=== PATIENT | female | born 2005 | race Caucasian/White ===

== ENCOUNTER → 2023-05-13 02:52 | Outpatient (CLI) | payer MEDICAID, SELFPAY ==
--- NOTE | 2023-05-13 | DI.US_ITS ---
Exam(s) US PELVIS TRANSVAGINAL EXAM: US PELVIS TRANSVAGINAL CLINICAL HISTORY: IUD CHECK,PAIN WITH INTERCOURSE,N94.10,Z30.431 TECHNIQUE: Ultrasound of the pelvis was performed both transabdominal and transvaginal. COMPARISON: No exams were available for comparison FINDINGS: UTERUS: Anteverted Measures 7.2 cm length x 3.2 cm AP x 3.8 cm wide. There are no uterine fibroids. Endometrial thickness measures 5 mm. There is an IUD in the uterus but it is located low in the uterus with the superior aspect of the IUD approximately 3 cm below the fundus level and extending into the upper endocervical canal. CERVIX: As above. RIGHT OVARY: Measures 4 x 1.8 x 2.4 cm No significant cysts nor masses evident in the right ovary. LEFT OVARY: Measures 3.6 x 2.7 x 2.4 cm No significant cysts nor masses evident in the left ovary. CUL-DE-SAC: No free fluid evident. IMPRESSION: 1. The T-shaped IUD is is not in satisfactory position, lying within the lower uterine segment and wi th proximal aspect in the endocervical canal. Requires repositioning. 2. Endometrial stripe thickness is normal and there is no fluid in the endometrial canal. No fibroid s evident 3. No abnormal adnexal findings. No free fluid in the cul-de-sac. DATA REPOSITORY:
== END ==
PROVIDERS: Visit Provider Advanced Practice Midwife
DX: N94.10 Unspecified dyspareunia (principal); Z30.431 Encounter for routine checking of intrauterine contraceptive device
CPT/HCPCS: 76830; 76856

== ENCOUNTER 2023-07-02 13:11 | Emergency (ER) | payer MEDICAID, SELFPAY ==
[2023-07-02 13:14] VITALS: BP 150/76; PULSE 62; RESP 16; TEMP 36.6; O2SAT 99
--- NOTE | 2023-07-02 13:30 | DI.MRI_ITS ---
Exam(s) MR LUMBAR SPINE WO EXAM: MR LUMBAR SPINE WO CLINICAL HISTORY: LUMBAR PAIN. TECHNIQUE: Multiplanar multisequence MRI of the Lumbar spine was performed. COMPARISON: No exams were available for comparison FINDINGS: Conus medullaris is at normal level. There is no evidence of conus mass nor subjacent clumping of in trathecal nerve roots to suggest arachnoiditis. The distal thecal sac appears unremarkable.There is no evidence of Tarlov intrasacral cysts nor other significant findings within the sacral canal Bones:There are no fractures nor ominous osseous lesions in the lumbar vertebral bodies and visualize d sacrum. With respect to the individual levels... T12-L1: Unremarkable L1-2: Normal disc height and signal. No disc herniation nor central canal stenosis.No foraminal steno sis L2-3: Normal disc height. No disc herniation nor central canal stenosis.No foraminal stenosis.No face t arthropathy. L3-4: Normal disc height. No disc herniation or central canal stenosis.No foraminal stenosis.No face t arthropathy. L4-5: Normal disc height and signal. No disc herniation or canal stenosis. No foraminal stenosis. No facet arthropathy. L5-S1: Normal disc height and signal. No disc herniation or central canal stenosis. No foraminal st enosis. Facet joints unremarkable. Soft tissues: paraspinal soft tissues appear unremarkable. IMPRESSION: No significant findings on this MRI scan of the lumbosacral spine. Called by myself to ER. DATA REPOSITORY:
[2023-07-02 13:45] LABS: Bilirubin Negative (Negative); Blood Negative (Negative); Clarity Clear (Clear); Glucose Negative (Negative); Ketones Trace mg/dL (Negative); Leukocyte Esterase Negative (Negative); Nitrite Negative (Negative); Specific Gravity 1.025 (1.005-1.025)
--- NOTE | 2023-07-02 13:48 | ED.GENADUL_ITS ---
Discharge Plan Disposition Patient Disposition: Home Discharge Details Clinical Impression: Back pain, IUD complication Primary Care Provider: Unknown,Unknown ED Provider: Charis Tabares Home Meds and New Rx's Prescriptions: No Action Adbry 150 mg/mL syringe 300 mg subcut Q2W Rx Instructions: administer as 2 consecutive 150 mg injections Discharge Instructions Instructions: Back Pain (ED) Additional Instructions: Take Motrin every 6 hours as needed for discomfort. Please follow-up with [facility] for IUD removal HPI General Date/Time Provider Initiated Documentation: 07/02/23 13:12 . Limitations to Documentation: no limitations . Information obtained by: patient . HPI Narrative: 18-year-old female without significant past medical history presents for evaluation of back pain. Reports that she had an injury recently and says that she has back pain, worse with walking. States that sometimes she does not feel like she needs to pee until it is too late. She has had 1 episode of incontinence. She states that she cannot feel it when she does pain. She denies any bowel incontinence or weakness of her legs. She also reports that h er IUD is very painful and wants it removed. 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 no focal neurologic deficits, sensation intact, strength normal bilateral lower extremities Appropriate mood and affect Course Vital Signs Vital signs: Vital Signs Temperature 36.6 C 07/02/23 13:14 Pulse 62 07/02/23 13:14 Respiratory Rate 16 07/02/23 13:14 Blood Pressure 150/76 H 07/02/23 13:14 Pulse Oximetry 99 07/02/23 13:14 Temperature 36.6 C 07/02/23 13:14 Temperature Source Oral 07/02/23 13:14 Pulse 62 03/22/24 13:14 Respiratory Rate 16 07/02/23 13:14 Respiratory Effort Normal 07/02/23 13:19 Blood Pressure 150/76 H 07/02/23 13:14 Blood Pressure Position Sitting 07/02/23 13:14 Pulse Oximetry 99 07/02/23 13:14 Oxygen Delivery Method Room Air 07/02/23 13:14 Oxygen Flow Rate 0 07/02/23 13:14 Pain Level 5 07/02/23 13:19 Lab/Test Results Lab/Test Results: Laboratory Tests Range/Units 07/02/23 13:39 Urine Color (Yellow) Yellow Urine Clarity (Clear) Clear Urine pH (5-8) 7.0 Ur Specific Model (1.005-1.025) 1.025 Urine Protein (Neg-Trace) mg/dL Trace Urine Ketones (Negative) mg/dL Trace H Urine Blood (Negative) Negative Urine Nitrite (Negative) Negative Urine Bilirubin (Negative) Negative Urine Urobilinogen (Up to 0.2) mg/dL 1.0 H Ur Leukocyte Esterase (Negative) Negative Urine Glucose (Negative) mg/dL Negative POC- Test(urine) Negative Medical Decision Making Emergent evaluation of back pain. Patient is reporting symptoms of sensory change and possible incontinence in setting of back pain. I doubt an acute cauda equina, but I am able to get an MRI today so we will evaluate given her reported symptoms. She is wanting her IUD removed, but I have requested that the patient return to her [facility] provider for this. So that she can talk about alternative forms of control. A urinalysis was obtained and this did not reveal any signs of infection. The MRI did not reveal any acute abnormalities. Advised Motrin as needed for back pain. Follow-up with [facility], and PCP for management of ongoing symptoms. Medical Records Medical records reviewed: Yes I reviewed the patient's medical records. Quality:SDOH Health Related Social Needs: No Data to Display PFSH All Active Problems IUD complication (Acute) Back pain (Acute) Social History Smoking/Tobacco Use Status: Never Smoking risk assessment performed?: Yes Alcohol Intake: never Substance use type: does not use Do you feel safe at home: Yes
[2023-07-02 16:25] VITALS: BP 150/76; PULSE 62; RESP 16; TEMP 36.6; O2SAT 99
== END 2023-07-02 18:27 | disposition home or self-care (01) ==
PROVIDERS: Emergency Provider Emergency Medicine
DX: T83.84XA Pain due to genitourinary prosthetic devices, implants and grafts, initial encounter (principal); M54.50 Low back pain, unspecified
CPT/HCPCS: 99284; 72148; 81003

== ENCOUNTER → 2023-07-07 03:07 | Outpatient (CLI) | payer MEDICAID, SELFPAY ==
--- NOTE | 2023-07-07 10:10 | DI.US_ITS ---
Exam(s) US PELVIS TRANSVAGINAL EXAM: US PELVIS TRANSVAGINAL CLINICAL HISTORY: HEAVY MENSES,EXPELLING IUD,? FIBROID TECHNIQUE: Transabdominal and transvaginal imaging was performed using standard protocol. COMPARISON: US US PELVIS TRANSVAGINAL from 05/13/2023 MR MR LUMBAR SPINE WO from 07/02/2023 FINDINGS: UTERUS: Anteverted. 7.5 x 3.3 x 4.3 cm Endometrium: 7 mm . IUD no longer present. Myometrium: Unremarkable. Cervix: Unremarkable. OVARIES: Right: Cyst or mass: None. Left: Cyst or mass: None. DOPPLER: Color: Symmetric and uniform flow to both ovaries. No hyperemia. CUL-DE-SAC: Free fluid: Small amount of fluid in cul-de-sac and right adnexa. IMPRESSION: 1. Normal-appearing uterus with endometrial stripe within normal limits. IUD no longer present. 2. Unremarkable bilateral ovaries. DATA REPOSITORY:
== END ==
PROVIDERS: Visit Provider Advanced Practice Midwife
DX: R10.2 Pelvic and perineal pain (principal); N92.5 Other specified irregular menstruation
CPT/HCPCS: 76830; 76856

== ENCOUNTER → 2023-10-01 00:07 | Outpatient (CLI) | payer MEDICAID, SELFPAY ==
--- NOTE | 2023-10-01 | DI.MRI_ITS ---
Exam(s) MR LOWER JOINT RT WO EXAM: MR LOWER JOINT RT WO CLINICAL HISTORY: R KNEE PAIN, MCL SPRAIN OF R KNEE, ACHILLES TEND. M25.561, S83.411A M76.61 TECHNIQUE: Multiplanar multisequence MRI was performed without intravenous contrast. COMPARISON: No exams were available for comparison FINDINGS: BONES/JOINTS: No fracture or contusion pattern. No bone lesions identified. The talar dome is smooth. The ankle mortise is maintained. No joint effusion is present. LIGAMENTS: The tibiofibular and calcaneofibular ligaments are intact. The talofibular ligaments are i ntact. The deltoid ligament is intact. The syndesmosis is unremarkable. Sinus tarsi is normal. MUSCULOTENDINOUS STRUCTURES: Achilles tendon: Minimal intermediate signal distally consistent with tendinosis. No focal tear visi ble. Plantar fascia: Unremarkable. Anterior Extensor tendons: Unremarkable. Posterior Tibialis: Unremarkable. Flexor Digitorum longus: Unremarkable. Flexor Hallucis longus: Unremarkable. Peroneus longus: Unremarkable. Peroneus brevis:Unremarkable. SOFT TISSUES: Unremarkable. IMPRESSION: Minimal intermediate signal in the distal Achilles tendon consistent with tendinosis. No focal tear visible. DATA REPOSITORY:
--- NOTE | 2023-10-01 | DI.MRI_ITS ---
Exam(s) MR LOWER JOINT LT WO EXAM: MR LOWER JOINT LT WO CLINICAL HISTORY: R KNEE PAIN, MCL SPRAIN OF R KNEE, ACHILLES TEND. M25.561, S83.411A M76.61 TECHNIQUE: Multiplanar multisequence MRI was performed without intravenous contrast. COMPARISON: MR MR LOWER JOINT RT WO from 10/01/2023 FINDINGS: BONES/JOINTS: No fracture or contusion pattern. No bone lesions identified. The talar dome is smooth. The ankle mortise is maintained. No joint effusion is present. LIGAMENTS: The tibiofibular and calcaneofibular ligaments are intact. The talofibular ligaments are i ntact. The deltoid ligament is intact. The syndesmosis is unremarkable. Sinus tarsi is normal. MUSCULOTENDINOUS STRUCTURES: Achilles tendon: Minimal amount of intermediate signal in the distal Achilles tendon. Small amount o f adjacent fluid. Findings consistent with tendinosis. No focal tear visible. Plantar fascia: Unremarkable. Anterior Extensor tendons: Unremarkable. Posterior Tibialis: Unremarkable. Flexor Digitorum longus: Unremarkable. Flexor Hallucis longus: Unremarkable. Peroneus longus: Unremarkable. Peroneus brevis:Unremarkable. SOFT TISSUES: Unremarkable. IMPRESSION: Mild distal Achilles tendinosis. No evidence of focal tear. DATA REPOSITORY:
--- OUTSIDE RECORDS SUMMARY | 2023-10-01 00:09 | XMS_ITS | Continuity of Care Document ---
Author Name Unknown Organization [facility] Address [address] [place] [address] Care Team Providers Care Gaming Cage Cashier Name Role Phone Dana Perry Primary Care Physician [phone] Encounter [facility] Date(s): 08/03/22 - 08/03/[address] [facility] [address] [place] [address] [place] Encounter Diagnosis Back pain, lumbosacral(Discharge Diagnosis) - 08/03/22 Discharge Disposition: Home or Self Care Attending Physician: Jason Escamilla MD Admitting Physician: Jason Escamilla MD Allergies, Adverse Reactions, Alerts No Known Allergies Functional Status 08/03/22 Other exposure to Infectious Disease Non e Medications cyclobenzaprine 5 mg oral tablet 5 mg = 1 tab, Oral, TID, PRN as needed for muscle spasm, X 7 days, # 21 tab, 0 Refill(s), 08/10/22 18:41:00 EDT, Pharmacy: [id number], 183, cm, 08/03/22 16:43:00 EDT, Height/Length Dosing,120, kg, 08/03/22 16:43:00 EDT, Weight Dosing Start Date: 08/03/22 Stop Date: 08/10/22 Status: Ordered Mental Status 08/03/22 Eye Opening Response Zoran Spontaneous ly Best Verbal Response [place] Oriented Best Motor Response Zoran Obeys comman ds Pres[place] Coma Score 15 Vital Signs Most recent to oldest [Reference Range]: 1 2 Temperature Temporal Artery [36-38 Deg C ] 36.6 Deg C (08/03/22 4:31 PM) Peripheral Pulse Rate [60-100 bpm] 80 bp m (08/03/22 4:31 PM) Respiratory Rate [12-24 br/min] 16 br/mi n (08/03/22 4:31 PM) Blood Pressure [90-140/60-90 mmHg] 131/5 8mmHg (08/03/22 6:01 PM) 155/86mmHg *HI* (08/03/22 4:31 PM) Weight Dosing 120.00 kg (08/03/22 4:43 PM) Weight Estimated 120.00 kg (08/03/22 4:31 PM) Height/Length Dosing 183.000 cm (08/03/22 4:43 PM) Height/Length Estimated 183.000 cm (08/03/22 4:31 PM) Social History Social History Type Response Tobacco Never tobacco user T obacco Use:. Sex Hospital Discharge Instructions Patient Education 08/03/2022 17:38:29 Acute Back Pain, Adult Acute Back Pain, Adult Acute back pain is sudden and usually short-lived. It is often caused by an injury to the muscles and tissues in the back. The injury may result from: ??? A muscle, tendon, or ligament getting overstretched or torn. Ligaments are tissues that connectbones to each other. Lifting something improperly can cause a back strain. ??? Wear and tear (degeneration) of the spinal disks. Spinal disks are circular tissue that providecushioning between the bones of the spine (vertebrae). ??? Twisting motions, such as while playing sports or doing yard work. ??? A hit to the back. ??? Arthritis. You may have a physical exam, lab tests, and imaging tests to find the cause of your pain. Acute back pain usually goes away with rest and home care. Follow these instructions at home: Managing pain, stiffness, and swelling ??? Take nrvd-nle-normigd and prescription medicines only as told by your health care provider. Treatment may include medicines for pain and inflammation that are taken by mouth or applied to the skin, or muscle relaxants. ??? Your health care provider may recommend applying ice during the first 24???48 hours after your pain starts. To do this: ??? Put ice in a plastic bag. ??? Place a towel between your skin and the bag. ??? Leave the ice on for 20 minutes, 2???3 times a day. ??? Remove the ice if your skin turns bright red. This is very important. If you cannot feel pain, heat, or cold, you have a greater risk of damage to the area. ??? If directed, apply heat to the affected area as often as told by your health care provider. Usethe heat source that your health care provider recommends, such as a moist heat pack or a heating pad. ??? Place a towel between your skin and the heat source. ??? Leave the heat on for 20???30 minutes. ??? Remove the heat if your skin turns bright red. This is especially important if you are unable to feel pain, heat, or cold. You have a greater risk of getting burned. Activity ??? Do not stay in bed. Staying in bed for more than 1???2 days can delay your recovery. ??? Sit up and stand up straight. Avoid leaning forward when you sit or hunching over when you stand. ??? If you work at a desk, sit close to it so you do not need to lean over. Keep your chin tucked in. Keep your neck drawn back, and keep your elbows bent at a 90-degree angle (right angle). ??? Sit high and close to the steering wheel when you drive. Add lower back (lumbar) support to your car seat, if needed. ??? Take short walks on even surfaces as soon as you are able. Try to increase the length of time you walk each day. ??? Do not sit, drive, or independent consultant one place for more than 30 minutes at a time. Sitting or standing for long periods of time can put stress on your back. ??? Do not drive or use heavy machinery while taking prescription pain medicine. ??? Use proper lifting techniques. When you bend and lift, use positions that put less stress on your back: ??? Bend your knees. ??? Keep the load close to your body. ??? Avoid twisting. ??? Exercise regularly as told by your health care provider. Exercising helps your back heal fasterand helps prevent back injuries by keeping muscles strong and flexible. ??? Work with a physical therapist to make a safe exercise program, as recommended by your health care provider. Do any exercises as told by your physical therapist. Lifestyle ??? Maintain a healthy weight. Extra weight puts stress on your back and makes it difficult to havegood posture. ??? Avoid activities or situations that make you feel anxious or stressed. Stress and anxiety increase muscle tension and can make back pain worse. Learn ways to manage anxiety and stress, such as through exercise. General instructions ??? Sleep on a firm mattress in a comfortable position. Try lying on your side with your knees slightly bent. If you lie on your back, put a pillow under your knees. ??? Keep your head and neck in a straight line with your spine (neutral position) when using electronic equipment like smartphones or pads. To do this: ??? Raise your smartphone or pad to look at it instead of bending your head or neck to look down. ??? Put the smartphone or pad at the level of your face while looking at the screen. ??? Follow your treatment plan as told by your health care provider. This may include: ??? Cognitive or behavioral therapy. ??? Acupuncture or massage therapy. ??? Meditation or yoga. Contact a health care provider if: ??? You have pain that is not relieved with rest or medicine. ??? You have increasing pain going down into your legs or buttocks. ??? Your pain does not improve after 2 weeks. ??? You have pain at night. ??? You lose weight without trying. ??? You have a fever or chills. ??? You develop nausea or vomiting. ??? You develop abdominal pain. Get help right away if: ??? You develop new bowel or bladder control problems. ??? You have unusual weakness or numbness in your arms or legs. ??? You feel faint. These symptoms may represent a serious problem that is an emergency. Do not wait to see if the symptoms will go away. Get medical help right away. Call your local emergency services (911 in the [place] Do not drive yourself to the hospital. Summary ??? Acute back pain is sudden and usually short-lived. ??? Use proper lifting techniques. When you bend and lift, use positions that put less stress on your back. ??? Take ceom-jbj-keskudo and prescription medicines only as told by your health care provider, andapply heat or ice as told. This information is not intended to replace advice given to you by your health care provider. Make sure you discuss any questions you have with your health care provider. Document Revised: 06/20/2021 Document Reviewed: 06/20/2021 [employer] Patient Education ?? 2021 [employer]. Follow Up Care 08/03/2022 16:31:48 With:Follow up with primary care provider Address: When:2 to 4 days Emergency department Discharge instructions * Jason Escamilla MD: PERFORM Event Display: ED Discharge Information Authored Date: [id number] KATELYN WADE :2005 Age:17 years Sex:Female Visit Date:08/03/2022 Discharge Instructions We would like to thank you for allowing us to assist you with your healthcare needs. The following includes patient education materials and information regarding your injury/illness. Diagnosis from Today's Visit Back pain, lumbosacral Discharge Vitals Temperature??(Temporal Artery) 97.9 ??F (36.6 ??C) Heart Rate??(Peripheral) 80 Respiratory Rate?? 16 Blood Pressure?? 131/58?? Height?? 72.05 in (183.000 cm) Weight??(Estimated) 264.60 lb (120.00 kg) Allergies No Known Allergies What to Do Next Instructions from Your Care Team Thank you for coming to the emergency department today, it has been a pleasure to take care of you.??As we discussed, the x-rays on your low back and sacrum??did not show any broken bones, subluxations, or dislocations.?? You may continue to take an anti-inflammatory medication (eg ibuprofen 600 mg 3 times a day with food??or naproxen 500 mg twice a day with food, both for maximum of about 7 days)??in addition to the prescribed muscle relaxer to help with any muscle spasm.?? If this is just a sprain/strain, your symptoms should gradually improve over the next several days although make??takeseveral weeks to completely resolve.?? If you do have any new or concerning symptoms including any new numbness, tingling, weakness, abdominal pain or pelvic pain??or have any other concerns, would recommend repeat evaluation in the emergency department or with your primary care physician??for likely further imaging. You Need to Schedule the Following Appointments Follow Up with??Follow up with primary care provider When:??Within 2 to 4 days You were treated today on an emergency basis; it may be lal to contact your primary care provider to notify them of your visit today. You may have been referred to your regular doctor or a specialist, please follow up as instructed. If your condition worsens or you can't get in to see the doctor, contact the Emergency Department. Medications What How Much When Instructions Next Dose New cyclobenzaprine (cyclobenzaprine 5 mg oral tablet) 1 tab Oral (given by mouth) 3 times a day as needed for as needed for muscle spasm Duration: 7 Days Pickup at [facility] Pharmacy Information [facility]: [address] [phone] Education Materials Acute Back Pain, Adult Acute back pain is sudden and usually short-lived. It is often caused by an injury to the muscles and tissues in the back. The injury may result from: ? A muscle, tendon, or ligament getting overstretched or torn. Ligaments are tissues that connect bones to each other. Lifting something improperly can cause a back strain. ? Wear and tear (degeneration) of the spinal disks. Spinal disks are circular tissue that provide cushioning between the bones of the spine (vertebrae). ? Twisting motions, such as while playing sports or doing yard work. ? A hit to the back. ? Arthritis. You may have a physical exam, lab tests, and imaging tests to find the cause of your pain. Acute back pain usually goes away with rest and home care. Follow these instructions at home: Managing pain, stiffness, and swelling ? Take ghuh-vts-syycrxy and prescription medicines only as told by your health care provider. Treatment may include medicines for pain and inflammation that are taken by mouth or applied to the skin, or muscle relaxants. ? Your health care provider may recommend applying ice during the first 24???48 hours after your painstarts. To do this: ? Put ice in a plastic bag. ? Place a towel between your skin and the bag. ? Leave the ice on for 20 minutes, 2???3 times a day. ? Remove the ice if your skin turns bright red. This is very important. If you cannot feel pain, heat, or cold, you have a greater risk of damage to the area. ? If directed, apply heat to the affected area as often as told by your health care provider. Use theheat source that your health care provider recommends, such as a moist heat pack or a heating pad. ? Place a towel between your skin and the heat source. ? Leave the heat on for 20???30 minutes. ? Remove the heat if your skin turns bright red. This is especially important if you are unable to feel pain, heat, or cold. You have a greater risk of getting burned. Activity ? Do not stay in bed. Staying in bed for more than 1???2 days can delay your recovery. ? Sit up and stand up straight. Avoid leaning forward when you sit or hunching over when you stand. ? If you work at a desk, sit close to it so you do not need to lean over. Keep your chin tucked in. Keep your neck drawn back, and keep your elbows bent at a 90-degree angle (right angle). ? Sit high and close to the steering wheel when you drive. Add lower back (lumbar) support to your car seat, if needed. ? Take short walks on even surfaces as soon as you are able. Try to increase the length of time you walk each day. ? Do not sit, drive, or independent consultant one place for more than 30 minutes at a time. Sitting or standing for long periods of time can put stress on your back. ? Do not drive or use heavy machinery while taking prescription pain medicine. ? Use proper lifting techniques. When you bend and lift, use positions that put less stress on your back: ? Bend your knees. ? Keep the load close to your body. ? Avoid twisting. ? Exercise regularly as told by your health care provider. Exercising helps your back heal faster andhelps prevent back injuries by keeping muscles strong and flexible. ? Work with a physical therapist to make a safe exercise program, as recommended by your health care provider. Do any exercises as told by your physical therapist. Lifestyle ? Maintain a healthy weight. Extra weight puts stress on your back and makes it difficult to have good posture. ? Avoid activities or situations that make you feel anxious or stressed. Stress and anxiety increase muscle tension and can make back pain worse. Learn ways to manage anxiety and stress, such as through exercise. General instructions ? Sleep on a firm mattress in a comfortable position. Try lying on your side with your knees slightlybent. If you lie on your back, put a pillow under your knees. ? Keep your head and neck in a straight line with your spine (neutral position) when using electronicequipment like smartphones or pads. To do this: ? Raise your smartphone or pad to look at it instead of bending your head or neck to look down. ? Put the smartphone or pad at the level of your face while looking at the screen. ? Follow your treatment plan as told by your health care provider. This may include: ? Cognitive or behavioral therapy. ? Acupuncture or massage therapy. ? Meditation or yoga. Contact a health care provider if: ? You have pain that is not relieved with rest or medicine. ? You have increasing pain going down into your legs or buttocks. ? Your pain does not improve after 2 weeks. ? You have pain at night. ? You lose weight without trying. ? You have a fever or chills. ? You develop nausea or vomiting. ? You develop abdominal pain. Get help right away if: ? You develop new bowel or bladder control problems. ? You have unusual weakness or numbness in your arms or legs. ? You feel faint. These symptoms may represent a serious problem that is an emergency. Do not wait to see if the symptoms will go away. Get medical help right away. Call your local emergency services (911 in the [place] Do not drive yourself to the hospital. Summary ? Acute back pain is sudden and usually short-lived. ? Use proper lifting techniques. When you bend and lift, use positions that put less stress on your back. ? Take pmfp-wrl-ncokecm and prescription medicines only as told by your health care provider, and apply heat or ice as told. This information is not intended to replace advice given to you by your health care provider. Make sure you discuss any questions you have with your health care provider. Document Revised: 06/20/2021 Document Reviewed: 06/20/2021 [employer] Patient Education ?? 2021 [employer] Patient/Respiratory Practitioner Signature Patient Name:KATELYN WADE I have received this information and my questions have been answered. Patient/Respiratory Practitioner Name: Patient/Respiratory Practitioner Signature: Relationship to Patient: Witness Name/Signature: Date: Electronically Signed on: 08/03/2022 18:42 EDTSigned by:RALPH Emergency department Note * Ewelina Batres: PERFORM Event Display: ED Notes Authored Date: [id number] Patient Care team information Care Team Personnel Name: Dana Perry Position: No Access Member Role: Primary Care Physician Address: Address: [address] [place] [id number] [place] [address] Name: Katarina Decker Position: Nurse Member Role: ED Nurse Name: Jason Escamilla MD Position: Physician Member Role: Admitting Physician Address: Address: [address] [place] [address] [address] [place] [address] [place] Care Team Related Persons Name: CHUCK LI
== END ==
PROVIDERS: Visit Provider Physician Assistant
DX: M76.62 Achilles tendinitis, left leg (principal); M76.61 Achilles tendinitis, right leg
CPT/HCPCS: 73721

== ENCOUNTER → 2023-10-05 01:57 | Outpatient (CLI) | payer MEDICAID, SELFPAY ==
--- OUTSIDE RECORDS SUMMARY | 2023-10-05 01:59 | XMS_ITS ---
Author Name Unknown Address [address], [place] [phone] Phone Organization Unknown Address [address] [place] [phone] Phone Care Team Providers Care Occupational Analyst Name Role Phone JONESJuly Attending Unavailable SRIDEVI Alex Primary Unavailable Social History Type Status Start Date End Date Code Code Syst em Sex Female Hospital Discharge Instructions Should you have any questions prior to discharge, please contact a member of your healthcare team. If you have left the hospital and have any questions, please contact your primary care physician. Reason For Referral No Data Found Procedures Procedure Name Date Status Code Code Syste m Removal, Non-Biodegradable D rug Delivery Implant 11/04/2022 completed 21394 CPT Insertion, Intrauterine Device 11/04/2022 completed 10250 CPT Problems Problem Start Date Resolved Date Status Code Code System POTS 11/03/2022 resolved 918256080 SNOMED-CT Allergies and Adverse Reactions Allergy Substance Reaction Severity Start Date Concern Status Co de Code System No Known Drug Allergies Active 083647895 SNOMED-CT Plan of Treatment No Data Found Encounters Encounter Diagnosis Start Date Code Code Sys tem Encounter for insertion of i ntrauterine contraceptive device 11/04/2022 SNOMED-CT Personal Care Team Section Performer Name Performer Role Active Date Inactive Da te
--- OUTSIDE RECORDS SUMMARY | 2023-10-05 01:59 | XMS_ITS ---
Author Name Unknown Address [address], [place] [phone] Phone Organization Unknown Address [address] [place] [phone] Phone Care Team Providers Care Human Factors Ergonomist Name Role Phone HALEY Gama Attending Unavailable SRIDEVI Alex Primary Unavailable Results CHLAMYDIA/GC AMPLIFIED PROBE * - Collect Date/Time: 10/29/2022 16:17 [facility] ID: [id number] [address] [place] [address], [id number] LOINC: 99053-2 Test Value Unit Reference Range Code Code System Flag Chlamydia Result Negative Negative GC Result Negative Negative HIV 1/2 ANTIGEN AND ANTIBODY SCREEN - Collect Date/Time: 10/29/2022 16:17 [facility] ID: [id number] [address] [place] [address], [id number] LOINC: 79579-2 Test Value Unit Reference Range Code Code System Flag HIV 1/2 Antigen andAntibody Negative Negative HEP B SURF ANTIGEN* - Colle t Date/Time: 10/29/2022 16:17 [facility] ID: [id number] [address] [place], [place], [id number] LOINC: 5196-1 Test Value Unit Reference Range Code Code System Flag Hep B Surface Ag Negative Negative HEP C ANTIBODY WITH REFLEX P CR - Collect Date/Time: 10/29/2022 16:17 [facility] ID: [id number] [address] [place], [place], [id number] LOINC: 68769-8 Test Value Unit Reference Range Code Code System Flag Hep C Ab w Rfx PCR Negative Negative SYPHILIS SEROLOGY* - Collect Date/Time: 10/29/2022 16:17 [facility] ID: [id number] [address] [place], [place], [id number] LOINC: 49955-4 Test Value Unit Reference Range Code Code System Flag Syphilis Serology Negative Negative Social History Type Status Start Date End Date Code Code Syst em Sex Female Hospital Discharge Instructions Should you have any questions prior to discharge, please contact a member of your healthcare team. If you have left the hospital and have any questions, please contact your primary care physician. Reason For Referral No Data Found Problems Problem Start Date Resolved Date Status Code Code System POTS 11/03/2022 resolved [id number] SNOMED-CT Allergies and Adverse Reactions Allergy Substance Reaction Severity Start Date Concern Status Co de Code System No Known Drug Allergies Active 094451279 SNOMED-CT Plan of Treatment No Data Found Encounters Encounter Diagnosis Start Date Code Code Sys tem Venereal disease screening 10/29/2022 [id number] S NOMED-CT Personal Care Team Section Performer Name Performer Role Active Date Inactive Da robinson
--- OUTSIDE RECORDS SUMMARY | 2023-10-05 01:59 | XMS_ITS ---
Author Name Unknown Address [address], [place] [phone] Phone Organization Unknown Address [address] [place] [phone] Phone Care Team Providers Care Icing Maker Name Role Phone BLESSING OREILLY Registered Nurse Unavailable CHETAN Brown Attending Unavailable SRIDEVI Alex Primary Unavailable Social History Type Status Start Date End Date Code Code Syst em Sex Female Vital Signs Vital Sign Value Unit [place] Value [place] Unit Date/Time Recent/Initial? Code Code System Body Mass Index 35.77 kg/m2 11/03/2022 20:30 Initial 02525 -5 [facility] Body Mass Index Percentile 97 % 11/03/2022 20:30 Initial 11321 -9 [facility] Systolic Blood Pressure 139 mm[Hg] 11/03/2022 20:30 Initial 8480- 6 [facility] Diastolic Blood Pressure 95 mm[Hg] 11/03/2022 20:30 Initial 8462- 4 [facility] Body Surface Area 2.49 m2 11/03/2022 20:30 Initial 3140- 1 [facility] Height 183.997 6 cm 72.44 in 11/03/2022 20:30 Initial 8302- 2 [facility] O2 Saturation 100 % 2022 20:30 Initial 86248 -5 [facility] Pulse 72.0 /min 11/03/2022 20:30 Initial 8867- 4 [facility] Respiration 16 /min 11/04/19 20:30 Initial 9279- 1 [facility] Temperature 37.0 Alicia 98.6 F 11/04/19 20:30 Initial 8310- 5 [facility] Weight 121.11 kg 267.00 lbs 11/03/2022 20:30 Initial 04308 -7 [facility] Hospital Discharge Instructions Should you have any questions prior to discharge, please contact a member of your healthcare team. If you have left the hospital and have any questions, please contact your primary care physician. Reason For Referral No Data Found Problems Problem Start Date Resolved Date Status Code Code System POTS 11/03/2022 resolved 970292484 SNOMED-CT Allergies and Adverse Reactions Allergy Substance Reaction Severity Start Date Concern Status Co de Code System No Known Drug Allergies Active 258302837 SNOMED-CT Plan of Treatment No Data Found Encounters Encounter Diagnosis Start Date Code Code Sys tem Procedure on integumentary system 11/03/2022 1347809 04 SNOMED-CT Personal Care Team Section Performer Name Performer Role Active Date Inactive Da te
--- OUTSIDE RECORDS SUMMARY | 2023-10-05 02:00 | XMS_ITS ---
Author Name Unknown Address [address] [place], [place] [phone] Phone Organization Unknown Address [address] [place] [phone] Phone Care Team Providers Care Net C Developer Name Role Phone HALEY Gama Attending Unavailable SRIDEVI Alex Primary Unavailable Social [...] Status Code Code System POTS 11/03/2022 resolved [id number] SNOMED-CT Allergies and Adverse Reactions Allergy Substance Reaction Severity Start Date Concern Status Co de Code System No Known Drug Allergies Active 556787630 SNOMED-CT Plan of Treatment No Data Found Encounters Encounter Diagnosis Start Date Code Code Sys tem Intrauterine device check 11/05/2022 831232899 SN OMED-CT Personal Care Team Section Performer Name Performer Role Active Date Inactive Da robinson
--- NOTE | 2023-10-05 15:15 | DI.US_ITS ---
Exam(s) US SOFT TISSUE EXTREMITY EXAM: US SOFT TISSUE EXTREMITY CLINICAL HISTORY: LT UPPER ARM AT SITE OF NEXPLANON, EVAL FOR ABSCESS, SWELLING R22.32. TECHNIQUE: Ultrasound was performed using standard protocol. COMPARISON: No exams were available for comparison FINDINGS: Sonographic assessment utilizing grayscale and color Doppler imaging was performed and targeted to th e area of clinical concern. There is fluid seen around the Nexplanon device. The fluid collection measures IV 4.2 x 0.6 by 1.2 c m.. There is some hyperemia in the area which could indicate superimposed infection or inflammation. IMPRESSION: Fluid around Nexplanon device which could indicate superimposed infection or inflammation. DATA REPOSITORY:
== END ==
PROVIDERS: Visit Provider Nurse Practitioner Family
DX: R22.32 Localized swelling, mass and lump, left upper limb (principal); M79.89 Other specified soft tissue disorders
CPT/HCPCS: 76881

== ENCOUNTER 2023-10-18 15:22 | Emergency (ER) | payer MEDICAID, SELFPAY ==
[2023-10-18 15:27] VITALS: BP 129/57; PULSE 65; RESP 14; TEMP 36.6; O2SAT 99
--- OUTSIDE RECORDS SUMMARY | 2023-10-18 15:33 | XMS_ITS ---
Author Name Unknown Address [address] [place], [place] [phone] Phone Organization Unknown Address [address] [place] [phone] Phone Care Team Providers Care Parts Consultant Name Role Phone HALEY Gama Attending Unavailable SRIDEIV Alex Primary Unavailable Social History Type Status [...] Status Code Code System POTS 11/03/2022 resolved [id number] SNOMED-CT Allergies and Adverse Reactions Allergy Substance Reaction Severity Start Date Concern Status Co de Code System No Known Drug Allergies Active 808039674 SNOMED-CT Plan of Treatment No Data Found Encounters Encounter Diagnosis Start Date Code Code Sys tem Intrauterine device check 11/05/2022 055171736 SN OMED-CT Personal Care Team Section Performer Name Performer Role Active Date Inactive Da robinson
--- OUTSIDE RECORDS SUMMARY | 2023-10-18 15:33 | XMS_ITS ---
Author Name Unknown Address [address] [place], [place] [phone] Phone Organization Unknown Address [address] [place] [phone] Phone Care Team Providers Care Window Cleaner Name Role Phone BLESSING OREILLY Registered Nurse Unavailable CHETAN Brown Attending Unavailable SRIDEVI Alex Primary Unavailable Social History Type Status Start Date End Date Code Code Syst em Sex Female Vital Signs Vital Sign Value Unit Princeton Value Princeton Unit Date/Time Recent/Initial? Code Code System Body Mass Index 35.77 kg/m2 11/03/2022 20:30 Initial 62214 -5 [facility] Body Mass Index Percentile 97 % 11/03/2022 20:30 Initial 96500 -9 [facility] Systolic Blood Pressure 139 mm[Hg] 11/03/2022 20:30 Initial 8480- 6 [facility] Diastolic Blood Pressure 95 mm[Hg] 11/03/2022 20:30 Initial 8462- 4 [facility] Body Surface Area 2.49 m2 11/03/2022 20:30 Initial 3140- 1 [facility] Height 183.997 6 cm 72.44 in 11/03/2022 20:30 Initial 8302- 2 [facility] O2 Saturation 100 % 2022 20:30 Initial 79011 -5 [facility] Pulse 72.0 /min 11/03/2022 20:30 Initial 8867- 4 [facility] Respiration 16 /min 11/04/19 20:30 Initial 9279- 1 [facility] Temperature 37.0 Alicia 98.6 F 11/04/19 20:30 Initial 8310- 5 [facility] Weight 121.11 kg 267.00 lbs 11/03/2022 20:30 Initial 26140 -7 [facility] Hospital Discharge Instructions Should you have any questions prior to discharge, please contact a member of your healthcare team. If you have left the hospital and have any questions, please contact your primary care physician. Reason For Referral No Data Found Problems Problem Start Date Resolved Date Status Code Code System POTS 11/03/2022 resolved [id number] SNOMED-CT Allergies and Adverse Reactions Allergy Substance Reaction Severity Start Date Concern Status Co de Code System No Known Drug Allergies Active 928195777 SNOMED-CT Plan of Treatment No Data Found Encounters Encounter Diagnosis Start Date Code Code Sys tem Procedure on integumentary system 11/03/2022 6795481 04 SNOMED-CT Personal Care Team Section Performer Name Performer Role Active Date Inactive Da te
--- OUTSIDE RECORDS SUMMARY | 2023-10-18 15:33 | XMS_ITS ---
Author Name Unknown Address [address] [place], [place] [phone] Phone Organization Unknown Address [address] [place] [phone] Phone Care Team Providers Care Marine Diesel Technician Name Role Phone JONESJuly Attending Unavailable SRIDEVI [...] Non-Biodegradable D rug Delivery Implant 11/04/2022 completed 02099 CPT Insertion, Intrauterine Device 11/04/2022 completed 57675 CPT Problems Problem Start Date Resolved Date Status Code Code System POTS 11/03/2022 resolved 462451691 SNOMED-CT Allergies and Adverse Reactions Allergy Substance Reaction Severity Start Date Concern Status Co de Code System No Known Drug Allergies Active 235844257 SNOMED-CT Plan of Treatment No Data Found Encounters Encounter Diagnosis Start Date Code Code Sys tem Encounter for insertion of i ntrauterine contraceptive device 11/04/2022 SNOMED-CT Personal Care Team Section Performer Name Performer Role Active Date Inactive Da te
--- OUTSIDE RECORDS SUMMARY | 2023-10-18 15:33 | XMS_ITS ---
Author Name Unknown Address [address] [place] [phone] Phone Organization Unknown Address [address] [place] [phone] Phone Care Team Providers Care Digital Media Designer Name Role Phone HALEY Gama Attending Unavailable SRIDEVI Alex Primary Unavailable Results CHLAMYDIA/GC AMPLIFIED PROBE * - Collect Date/Time: 10/29/2022 16:17 ID: [id number] [address] [place] [address], [id number] LOINC: 16894-0 Test Value Unit Reference Range Code Code System Flag Chlamydia Result Negative Negative GC Result Negative Negative HIV 1/2 ANTIGEN AND ANTIBODY SCREEN - Collect Date/Time: 10/29/2022 16:17 ID: [id number] [address] [place] [address], [id number] LOINC: 01065-2 Test Value Unit Reference Range Code Code System Flag HIV 1/2 Antigen andAntibody Negative Negative HEP B SURF ANTIGEN* - Colle t Date/Time: 10/29/2022 16:17 ID: [id number] [address] [place] [address], [id number] LOINC: 5196-1 Test Value Unit Reference Range Code Code System Flag Hep B Surface Ag Negative Negative HEP C ANTIBODY WITH REFLEX P CR - Collect Date/Time: 10/29/2022 16:17 ID: [id number] [address] [place], [place], [id number] LOINC: 97024-5 Test Value Unit Reference Range Code Code System Flag Hep C Ab w Rfx PCR Negative Negative SYPHILIS SEROLOGY* - Collect Date/Time: 10/29/2022 16:17 ID: [id number] [address] [place], [place], [id number] LOINC: 11705-8 Test Value Unit Reference Range Code Code [...] Status Code Code System POTS 11/03/2022 resolved 505960930 SNOMED-CT Allergies and Adverse Reactions Allergy Substance Reaction Severity Start Date Concern Status Co de Code System No Known Drug Allergies Active 382906574 SNOMED-CT Plan of Treatment No Data Found Encounters Encounter Diagnosis Start Date Code Code Sys tem Venereal disease screening 10/29/2022 946993194 S NOMED-CT Personal Care Team Section Performer Name Performer Role Active Date Inactive Da robinson
[2023-10-18 17:11] VITALS: BP 129/57; PULSE 65; RESP 14; TEMP 36.6; O2SAT 99
[2023-10-18] MEDS: Lidocaine 1% Multi-Dose W/EPI 1/100,000 50 ML VIAL (17:12)
--- NOTE | 2023-10-18 22:02 | ED.GENADUL_ITS ---
Discharge Plan Disposition Patient Disposition: Home Condition: Stable Discharge Details Clinical Impression: Abscess of arm, left Primary Care Provider: Unknown,Unknown ED Provider: Fany Carmen Home Meds and New Rx's Prescriptions: Continued Adbry 150 mg/mL syringe 300 mg subcut Q2W Rx Instructions: administer as 2 consecutive 150 mg injections Discharge Instructions Instructions: Abscess Incision and Drainage ED Additional Instructions: warm compresses 5 min every hour tonight dressing changes as saturated light massage remove wick in 72 hours , unless it falls out earlier return with spreading redness, fever, worsening pain Discharge Data Discharge Date/Time-TO BE ENTERED AT DEPARTURE: 10/18/23 17:12 HPI General Date/Time Provider Initiated Documentation: 10/18/23 16:16 . HPI Narrative: This 18-year-old female presents with report of left upper arm swelling and pain. Had a Nexplanon placed. On July 05, 2023. Had an ultrasound several weeks ago that displayed a possible abscess. [facility] to [facility] this removed and was sent here for incision and drainage of abscess. Denies fever or chills. Denies any chance of . Related Data Home Medications Medication Instructions Recorded Confirmed tralokinumab-ldrm 150 mg/mL 300 mg subcut Q2W 07/02/23 07/02/23 subcutaneous syringe (Adbry) Allergies Allergy/AdvReac Type Severity Reaction Status Date / Time No Known Allergies Allergy Unverified 10/18/23 15:32 General Stated Complaint: Cellulitis STEFANO: 3 Exam Narrative Exam Narrative: Abscess noted to left upper extremity, with palpable Nexplanon, fluctuance, mild overlying erythema without lymphangitis Course Vital Signs Vital signs: Vital Signs Temperature 36.6 C 10/18/23 15:27 Pulse 65 10/18/23 15:27 Respiratory Rate 14 10/18/23 15:27 Blood Pressure 129/57 L 10/18/23 15:27 Pulse Oximetry 99 10/18/23 15:27 Temperature 36.6 C 10/18/23 17:11 Temperature Source Skin 10/18/23 17:11 Pulse 65 10/18/23 17:11 Respiratory Rate 14 10/18/23 17:11 Respiratory Effort Normal 10/18/23 17:10 Blood Pressure 129/57 L 10/18/23 17:11 Blood Pressure Position Sitting 10/18/23 17:11 Pulse Oximetry 99 10/18/23 17:11 Oxygen Delivery Method Room Air 10/18/23 17:11 Oxygen Flow Rate 0 10/18/23 17:11 Pain Level 0 10/18/23 17:11 Comment 8 w/ palpation to LT arm 10/18/23 17:11 Procedures Abscess I/D Site: Upper Extremity Side (if applicable): Left Sedation/analgesia: None Local Anesthetic: Lidocaine 1% and With Epi Amount of anesthesia used (mL): 3 Technique: Incised with #11 Blade Amount of fluid expressed (mL): 3 Irrigation: Yes Packing used?: Iodoform Medical Decision Making 18-year-old female presenting with abscess to left upper extremity, palpable fluctuance, incision and drainage performed Nexplanon removed at patient's request. She is aware that she does not currently have any hormonal contraception protection. She specifically asked me to remove the Nexplanon. Tolerated procedure without incident, wick placed which will need to be removed in 72 hours. No indication for antibiotics, no lymphangitis or significant cellulitis, will continue with warm compresses. Warm return precautions reviewed and patient is understanding remained neurovascularly intact pre and postprocedure Quality:SDOH Health Related Social Needs: No Data to Display PFSH All Active Problems (Updated 10/18/23 @ 17:06 by YUKI Sepulveda) Abscess of arm, left (Acute) Social History Smoking/Tobacco Use Status: Never Smoking risk assessment performed?: Yes Alcohol Intake: never Substance use type: does not use Do you feel safe at home: Yes
== END 2023-10-18 17:12 | disposition home or self-care (01) ==
PROVIDERS: Emergency Provider Physician Assistant
DX: L02.414 Cutaneous abscess of left upper limb (principal)
CPT/HCPCS: 10061; 99283; J2004

== ENCOUNTER 2023-12-01 21:45 | Emergency (ER) | payer MEDICAID, SELFPAY ==
[2023-12-01 21:48] VITALS: BP 145/76; PULSE 81; RESP 15; TEMP 36; O2SAT 98
--- OUTSIDE RECORDS SUMMARY | 2023-12-01 21:55 | XMS_ITS ---
Author Organization Unknown Address [address] [place] [phone] Phone Care Team Providers Care Produce Department Manager Name Role Phone HALEY Gama Attending Unavailable SRIDEVI Alex Primary Unavailable Results CHLAMYDIA/GC AMPLIFIED PROBE * - Collect Date/Time: 10/29/2022 16:17 [facility] ID: [id number] [address] [place] [address], [id number] LOINC: 90803-0 Test Value Unit Reference Range Code Code System Flag Chlamydia Result Negative Negative GC Result Negative Negative HIV 1/2 ANTIGEN AND ANTIBODY SCREEN - Collect Date/Time: 10/29/2022 16:17 [facility] ID: [id number] [address] [place] [address], [id number] LOINC: 73917-1 Test Value Unit Reference Range Code Code System Flag HIV 1/2 Antigen andAntibody Negative Negative HEP B SURF ANTIGEN* - Collec t Date/Time: 10/29/2022 16:17 [facility] ID: [id number] [address] [place] [address], [id number] LOINC: 5196-1 Test Value Unit Reference Range Code Code System Flag Hep B Surface Ag Negative Negative HEP C ANTIBODY WITH REFLEX P CR - Collect Date/Time: 10/29/2022 16:17 [facility] ID: [id number] [address] [place] [address], [id number] LOINC: 28214-3 Test Value Unit Reference Range Code Code System Flag Hep C Ab w Rfx PCR Negative Negative SYPHILIS SEROLOGY* - Collect Date/Time: 10/29/2022 16:17 [facility] ID: [id number] [address] [place], [place], [id number] LOINC: 14990-7 Test Value Unit Reference Range Code Code [...] Status Code Code System POTS 11/03/2022 resolved 242327020 SNOMED-CT Allergies and Adverse Reactions Allergy Substance Reaction Severity Start Date Concern Status Co de Code System No Known Drug Allergies Active 748383498 SNOMED-CT Plan of Treatment No Data Found Encounters Encounter Diagnosis Start Date Code Code Sys tem Venereal disease screening 10/29/2022 635477430 S NOMED-CT Personal Care Team Section Performer Name Performer Role Active Date Inactive Da te
--- OUTSIDE RECORDS SUMMARY | 2023-12-01 21:56 | XMS_ITS ---
Author Organization Unknown Address [address] [place] [phone] Phone Care Team Providers Care Vacuum Repairer Name Role Phone July Attending Unavailable SRIDEVI MENDOZARY Abi Primary Unavailable Social History Type Status Start [...] Non-Biodegradable D rug Delivery Implant 11/04/2022 completed 64651 CPT Insertion, Intrauterine Device 11/04/2022 completed 52144 CPT Problems Problem Start Date Resolved Date Status Code Code System POTS 11/03/2022 resolved 086696465 SNOMED-CT Allergies and Adverse Reactions Allergy Substance Reaction Severity Start Date Concern Status Co de Code System No Known Drug Allergies Active 706688307 SNOMED-CT Plan of Treatment No Data Found Encounters Encounter Diagnosis Start Date Code Code Sys tem Encounter for insertion of i ntrauterine contraceptive device 11/04/2022 SNOMED-CT Personal Care Team Section Performer Name Performer Role Active Date Inactive Da te
--- OUTSIDE RECORDS SUMMARY | 2023-12-01 21:56 | XMS_ITS | Encounter Summary ---
Author Organization [facility] Address [address] [place] [address] Care Team Providers Care Linux System Administrator Name Role Phone Dana Perry PA-C Primary Care Provider [phone] Encounter Details Date Type Department Care Team (Latest Contact Info) Description 11/19/2023 Specialty Pharmacy [facility] [address] [place], [place] [phone] Owen [facility] Refill Coordination Outreach for Dermatology Social History Tobacco Use Types Packs/Day Years Used Date Smoking Tobacco: Never Smokeless Tobacco: Never Alcohol Use Standard Drinks/Week Comments No 0 (1 standard drink = 0.6 oz pur e alcohol) Interpersonal Safety Answer Date Record ed Physically Hurt Never 11/12/2019 Verbally Threaten Not on file 11/12/2019 Sex and Gender Information Value Date Recorded Sex Assigned at Not on file Gender Identity Not on file Sexual Orientation Not on file documented as of this encounter Functional Status Functional Status Response Date of Assess ment Are you deaf or do you have serious difficulty h earing? No 11/23/2021 documented as of this encounter Plan of Treatment Upcoming Encounters Date Type Department Care Team (Late st Contact Info) Description 12/27/2023 10:15 EDT Office Visit [facility] Foot & Ankle Program [place] [address] [place] [address] Beth Carrera NP [address] [place] [address] 01/17/2024 14:10 EDT Office Visit [facility] Dermatology 5th [facility] [address] [place] [address] Jun Le MD [address] [place], [place] [address] documented as of this encounter Visit Diagnoses Not on filedocumented in this encounter Care Teams Linux System Administrator Relationship Specialty Start Date End Date Dana Perry PA-C PCP - General Family Medicine - Primary Care 11/23/21 documented as of this encounter
--- OUTSIDE RECORDS SUMMARY | 2023-12-01 21:56 | XMS_ITS | Encounter Summary ---
Author Organization [facility] Address [address] [place] [address] Care Team Providers Care Banana Expert Name Role Phone Dana Perry PA-C Primary Care Provider [phone] Encounter Details Date Type Department Care Team (Late st Contact Info) Description 11/26/2023 Lab Requisition [facility] Pathology & Laboratory [facility] - [facility] [address] [place] [address] Samreen Daniels NP [address] [facility] [address] [place] [address] Encounter for screening for infections with a predominantly sexual mode of transmission Social History Tobacco Use Types Packs/Day Years [...] Info) Description 12/27/2023 10:15 EDT Office Visit [facility] Foot & Ankle Program - [facility] Replaced by [facility] [address] [place], [place] [phone] Beth Carrera NP [address] [place] [address] 01/17/2024 14:10 EDT Office Visit [facility] Dermatology 5th Floor [facility] [address] [place], [place] [address] Jun Le MD [address] [place], [place] [address] documented as of this encounter Procedures Procedure Name Priority Date/Time Associated Diagnosis Comments HIV 1/2 ANTIGEN AND ANTIBODY, 4TH GENERATION Today 11/26/2023 16:47 EDT Encounter for screening for infections with a predominantly sexual mode of transmission documented in this encounter Results * HIV 1/2 ANTIGEN AND ANTIBODY, 4TH GENERATION (11/26/2023 16:47 EDT) [facility] HIV 1 and 2 Antibody/p24 Antigen, 4th Generation Negative Negative 11/28/2023 12:42 EDT [facility] Comment:If acute HIV-1 infec tion is suspected in a high risk patient, submit plasma specimen for HIV-1 RNA quantitation test. Blood VENOUS BLOOD / Unknown 11/26/2023 16:47 EDT 11/26/2023 20:17 EDT Narrative [facility] - 11/28/2023 12:42 EDT Fourth Generation assay performed on the Siemens Centaur XPT. Samreen Daniels NP IMMUNOLOGY AND SEROL OGY ORDERABLES [facility] [address] [place] [address] documented in this encounter Visit Diagnoses Diagnosis Encounter for screening for infections with a predominantly sexual mode of transmission documented in this encounter Care Teams Banana Expert Relationship Specialty Start Date End Date Dana Perry PA-C PCP - General Family Medicine - Primary Care 11/23/21 documented as of this encounter
--- OUTSIDE RECORDS SUMMARY | 2023-12-01 21:56 | XMS_ITS | Encounter Summary ---
Author Organization [facility] Address [address] [place] [address] Care Team Providers Care Tacker Elastic Band Name Role Phone Dana Perry PA-C Primary Care Provider [phone] Encounter Details Date Type Department Care Team (Late st Contact Info) Description 11/29/[address] [facility] Pathology & Laboratory Medicine - [facility] [address] [place] [address] Samreen Daniels NP [address] [facility] [address] [place], [place] [address] Other abnormality of red blood cells Social History Tobacco Use Types Packs/Day Years [...] Info) Description 12/27/2023 10:[address] [facility] Foot & Ankle Program - [address] [place] [address] Beth Carrera NP [address] [place] [address] 01/17/2024 14:10 EDT Office Visit [facility] Dermatology 5th Floor [facility] [address] [place], [place] [address] Jun Le MD [address] [place], [place] [phone] documented as of this encounter Procedures Procedure Name Priority Date/Time Associated Diagnosis Comments HEMOGLOBINOPATHY AND THALASSEMIA EVALUATION Today 11/26/2023 13:32 EDT Other abnormality of red blood cells documented in this encounter Results * (ABNORMAL) HEMOGLOBINOPATHY AND THALASSEMIA EVALUATION (11/26/2023 13:32 EDT) Hemoglobin A 96.1(L) 96.7 - 97.8 % 12/01/2023 15:55 EDT [facility] Hemoglobin A2 3.9(H) 2.2 - 3.2 % 12/01/2023 15:55 EDT [facility] Comment: Hemoglobin A2 results greater than 3.2% may be consistent with Beta thalassemia. Hemoglobin A2 levels may be decreased in iron deficiency. Hemoglobinopathy Interpretation Interpretation: Slightly elevated HbA2 of 3.9% in the presence of historical microcytosis without anemia raises suspicion for beta-thalassemi a trait. 12/01/2023 15:55 EDT [facility] Comment:Molecular studies ca n be performed for confirmation if clinically necessary. Reviewed by: Ton Ramos MD 12/01/2023 1450 Blood VENOUS BLOOD / Unknown 11/26/2023 13:32 EDT 11/29/2023 15:13 EDT Samreen Daniels PIG MACHINE OPERATOR HELPER CHEMISTRY & BLOOD GA S ORDERABLES [facility] [address] [place], [place] [phone] documented in this encounter Visit Diagnoses Diagnosis Other abnormality of red blood cells documented in this encounter Care Teams Tacker Elastic Band Relationship Specialty Start Date End Date Dana Perry PA-C PCP - General Family Medicine - Primary Care 11/23/21 documented as of this encounter
--- OUTSIDE RECORDS SUMMARY | 2023-12-01 21:56 | XMS_ITS | Clinical Summary ---
Author Organization [facility] Address [address] [place] [address] Care Team Providers Care Steel Crane Operator Name Role Phone Dana Perry PA-C Primary Care Provider [phone] Allergies No known active allergies Medications Medication Sig Dispensed Refills Start Date End Date Status lisdexamfetamine (VYVANSE) 40 mg capsule Take 1 Capsule by mouth every morning. Active spironolactone (ALDACTONE) 100 mg tablet Take 1 Tablet by mouth daily. 30 Tablet 3 05/30/2021 Active ibuprofen (MOTRIN) 600 mg tablet Take 1 Tablet by mouth every 8 hours as needed for Pain. WITH FOOD 60 Tablet 12/21/2021 Active methocarbamoL (ROBAXIN) 500 mg tablet 1-2 tab po q 8 prn- caution sedation 30 Tablet 12/21/2021 Active betamethasone dipropionate (DIPROLENE) 0.05 % ointmentIndications :Rash Apply topically to affected area 2 times daily. For itchiest spots up to 2 weeks. 90 g 3 10/30/2022 Active triamcinolone (KENALOG) 0.1 % ointmentIndications :Rash Apply topically to affected area 2 times daily. Do not apply to face, armpit or groin. 454 g 3 10/30/2022 Active Aluminum Chloride in Alcohol (XERAC AC) 6.25 % solutionIndications :Hyperhidrosis of palms Apply topically at bedtime. To the palms. 60 mL 5 11/25/2022 Active Additional Information Patient not taking.Reported on 12/25/2022 ketoconazole (NIZORAL) 2 % shampooIndications: Seborrheic dermatitis Apply to scalp 1-3 times per week. Leave in for 3-5 minutes then rinse. 120 mL 11 05/05/2023 Active TACRolimus (PROTOPIC) 0.1 % ointmentIndications :Intrinsic atopic dermatitis Apply topically to affected area 2 times daily. For use on the face, underarms, and groin. 60 g 3 05/05/2023 Active fluocinonide (LIDEX) 0.05 % external solutionIndications :Seborrheic dermatitis Apply topically 2 times daily. to scalp. For up to 2 weeks during flare, then max 3 days per week as maintenance. Do not apply to face, armpit or groin. 60 mL 11 05/05/2023 Active botulinum toxin Type A (BOTOX) 100 unit injectionIndication s:Hyperhidrosis Inject 100 Units into the muscle every 12 weeks. 1 Each 1 07/13/2023 Active tralokinumab-ldrm (ADBRY) 150 mg/mL syringeIndications: Atopic dermatitis, unspecified type Inject 2 mL into the skin every 14 days. 12 Each 1 09/30/2023 Active cephalexin (KEFLEX) 500 mg capsule Take 1 Capsule by mouth every 6 hours. 7 days, once every 6 hours Active glycopyrronium tosylate 2.4 % toweletteIndication s:Hyperhidrosis of palms Apply 1 application topically daily. Apply once daily to both hands using a single cloth. Do not touch your eyes after applying 1 Each 11/02/2022 11/02/2023 Additional Information Patient not taking.Reported on 07/09/2023 Active Problems Problem Noted Date Diagnosed Date Pain of finger of right hand 08/23/2018 Eczema 05/31/2009 Encounters Date Type Department Care Team Description 11/29/2023 Lab Requisition [facility] Pathology & Laboratory Medicine [address] [address] Samreen Daniels NP Other abnormality of red blood cells 11/26/2023 Lab Requisition [facility] Pathology & Laboratory Medicine [address] [address] Samreen Daniels NP Encounter for screening for infections with a predominantly sexual mode of transmission 11/26/2023 Lab Requisition [facility] Pathology & Laboratory Medicine [address] [address] Samreen Daniels NP Encounter for screening for infections with a predominantly sexual mode of transmission 11/19/2023 Specialty Pharmacy [facility] [address] [place] [phone] Owen Centeno RPH Refill Coordination Outreach for Dermatology 10/18/2023 Specialty Pharmacy [facility] [address] [place] [phone] Owen Centeno RPH Refill Coordination Outreach for Dermatology 10/18/2023 Specialty Pharmacy [facility] [address] [place] [phone] Owen Centeno RPH Initial Clinical Follow-up (by 6 weeks) for Dermatology, Refill Coordination Outreach for Dermatology 10/11/2023 13:50 EDT Office Visit [facility] Dermatology 5th [place] [address] Jun Le MD Hyperhidrosis (Primary Dx) 10/05/2023 - 10/05/2023 23:59 EDT Hospital Encounter [facility] [place] Discharge Disposition: Home or Self Care 10/01/2023 0:05 EDT - 10/01/2023 23:59 EDT Hospital Encounter [facility] [place] Discharge Disposition: Home or Self Care 10/01/2023 - 10/01/2023 0:04 EDT Hospital Encounter [facility] [place] Discharge Disposition: Home or Self Care 09/30/2023 Telephone [facility] [address] [place] [phone] Chaz Washburn MD Medications Refill 09/30/2023 Specialty Pharmacy [facility] [address] [place] [phone] Owen Centeno RPH Initial Clinical Follow-up (by 6 weeks) for Dermatology, Set up initial fill for Dermatology, Started Benefits Review: CONTACT INSURANCE for Dermatology 09/17/2023 Specialty Pharmacy [facility] [address] [place] [phone] Owen Centeno, [facility] Refill Coordination Outreach for Dermatology, Patient Education for Dermatology 09/14/2023 - 09/14/2023 23:59 EDT Hospital Encounter [facility] [place] Discharge Disposition: Home or Self Care 09/08/2023 Lab Requisition [facility] Pathology & Laboratory Medicine - [facility] [address] [place] [address] Dana Perry PA-C Other specified behavioral and emotional disorders with onset usually occurring in childhood and adolescence from Last 3 Months Immunizations Name Administration Dates Next Due DTaP Vaccine (INFANRIX) <7YO IM 03/06/20 09,08/28/2004,05/08/2004,2003,2003 Hepatitis B 05/08/2004,2003,2003 Hib 08/28/2004, 5,2003,2003 MMR Vaccine SQ 03/06/2009,08/28/2004 Pneumococcal Conjugate (PCV7) <5YO IM ,05/08/2004,2003,2003 Poliovirus Vaccine IPV IM OR SQ 03/06/20 09,05/08/2004,2003,2003 Varicella (Chickenpox) vacci ne (VARIVAX) SQ 03/06/2009,08/28/2004 Medical History Medical History Date Comments Eczema Psoriasis Family History Relation Status Comments Brother Alive Father Alive Maternal Aunt Alive Maternal Grandfather Alive Maternal Grandmother Alive Maternal Uncle Alive Mother Alive Paternal Aunt Alive Paternal Grandfather Alive Paternal Grandmother Alive Paternal Uncle Alive Social History Tobacco Use Types Packs/Day Years Used Date Smoking Tobacco: Never Smokeless Tobacco: Never Tobacco Cessation:Counseling Given: Not Answered Alcohol Use Standard Drinks/Week Comments No 0 (1 standard drink = 0.6 oz pur e alcohol) Interpersonal Safety Answer Date Record ed Physically Hurt Never 11/12/2019 Verbally Threaten Not on file 11/12/2019 Sex and Gender Information Value Date Recorded Sex Assigned at Not on file Gender Identity Not on file Sexual Orientation Not on file Obstetrics History Last Filed Vital Signs Vital Sign Reading Time Taken Comments Blood Pressure 123/56 12/21/2021 1439 EDT Pulse 67 12/21/2021 1439 EDT Temperature 37.2 ??C (98.9 ??F) 12/21/2021 1439 EDT Respiratory Rate 18 12/21/2021 1439 EDT Oxygen Saturation 100% 12/21/2021 1439 EDT Inhaled Oxygen Concentration - - Weight 112 kg (247 lb) 01/18/2018 1121 EDT Height 182.9 cm (6') 08/16/2017 1911 EDT Body Mass Index - - Plan of Treatment Upcoming Encounters Date Type Department Care Team (Late st Contact Info) Description 12/27/2023 10:15 EDT Office Visit [facility] [place] [facility] - [address] [phone] Beth Carrera NP [address] [place] [address] 01/17/2024 14:10 EDT Office Visit [facility] Dermatology 5th Floor [facility] [address], [place] [address] Jun Le MD [address] [place], [place] [phone] Health Maintenance Due Date Last Done Comments Social Determinants Of Healt h (SDOH) 2003 Depression Screening 2015 HPV Vaccines (1 - 3-dose series) 2018 Advance Directive 2021 Lipid Profile Screening (Cholesterol) 18 To 21 2021 Preventive Care Visit 2021 COVID-19 Vaccine (2 - Pfizer risk series) 12/08/2021 11/17/2021 Pertussis (Adult) Immunization 2022 Tetanus (Adult) Immunization 2022 Influenza Immunization (Adul t) (#1) 2024 Chlamydia Screening 11/25/2024 11/26/2023, 09/08/2023, 10/29/2022, Additional history exists Hepatitis B Vaccine Completed 05/08/2004, 2003, 2003 Hepatitis C Screen Completed 10/29/2022 HIV Screening Completed 11/26/2023, 10/29/2022 Procedures Procedure Name Priority Date/Time Associated Diagnosis Comments CHLAMYDIA/N. GONORRHOEAE AMPLIFIED NUCLEIC ACID Today 11/26/2023 17:10 EDT Encounter for screening for infections with a predominantly sexual mode of transmission HIV 1/2 ANTIGEN AND ANTIBODY, 4TH GENERATION Today 11/26/2023 16:47 EDT Encounter for screening for infections with a predominantly sexual mode of transmission HEMOGLOBINOPATHY AND THALASSEMIA EVALUATION Today 11/26/2023 13:32 EDT Other abnormality of red blood cells US OUTSIDE IMAGES BODY Routine 12:21 EDT MR OUTSIDE IMAGES RIGHT LOWER EXTREMITY Routine 10/01/2023 12:22 EDT MR OUTSIDE IMAGES LEFT LOWER EXTREMITY Routine 10/01/2023 12:22 EDT XR OUTSIDE IMAGES BILATERAL LOWER EXTREMITY Routine 09/14/2023 14:40 EDT CHLAMYDIA/N. GONORRHOEAE AMPLIFIED NUCLEIC ACID Today 09/08/2023 17:18 EDT Other specified behavioral and emotional disorders with onset usually occurring in childhood and adolescence HEPATITIS C AB W REFLEX TO HCV RNA BY PCR Routine 10/29/2022 16:17 EDT from Last 3 Months or Most Recently Relevant to Health Maintenance Results * CHLAMYDIA/N. GONORRHOEAE AMPLIFIED NUCLEIC ACID (11/26/2023 17:10 EDT) Only the most recent of2 resultswithin the time period is included. Neisseria gonorrhoeae Result Negative Negative 11/29/2023 12:00 EDT [facility] Chlamydia trachomatis Result Negative Negative 11/29/2023 12:00 EDT [facility] Swab VAGINAL STRUCTURE / Unknown 11/26/2023 17:10 EDT 11/26/2023 22:44 EDT Samreen Daniels NP MICROBIOLOGY - GENER AL ORDERABLES Performing Organization Address [facility]/ZIP Co de Phone Number [facility] [address] [place] [address] * HIV 1/2 ANTIGEN AND ANTIBODY, 4TH GENERATION (11/26/2023 16:47 EDT) HIV 1 and 2 Antibody/p24 Antigen, 4th Generation Negative Negative 11/28/2023 12:42 EDT [facility] Comment:If acute HIV-1 infec tion is suspected in a high risk patient, submit plasma specimen for HIV-1 RNA quantitation test. Blood VENOUS BLOOD / Unknown 11/26/2023 16:47 EDT 11/26/2023 20:17 EDT Narrative [facility] - 11/28/2023 12:42 EDT Fourth Generation assay performed on the Siemens Centaur XPT. Samreen Daniels NP IMMUNOLOGY AND SEROL OGY ORDERABLES Performing Organization Address [facility]/ZIP Co de Phone Number [facility] [address] [place] [address] * (ABNORMAL) HEMOGLOBINOPATHY AND THALASSEMIA EVALUATION (11/26/2023 13:32 EDT) Hemoglobin A 96.1(L) 96.7 - 97.8 % 12/01/2023 15:55 EDT [facility] Hemoglobin A2 3.9(H) 2.2 - 3.2 % 12/01/2023 15:55 EDT [facility] Comment: Hemoglobin A2 results greater than 3.2% may be consistent with Beta thalassemia. Hemoglobin A2 levels may be decreased in iron deficiency. Hemoglobinopathy Interpretation Interpretation: Slightly elevated HbA2 of 3.9% in the presence of historical microcytosis without anemia raises suspicion for beta-thalassemi a trait. 12/01/2023 15:55 EDT [facility] Comment:Molecular studies ca n be performed for confirmation if clinically necessary. Reviewed by: Ton Ramos MD 12/01/2023 1450 Blood VENOUS BLOOD / Unknown 11/26/2023 13:32 EDT 11/29/2023 15:13 EDT Samreen Daniels NP CHEMISTRY & BLOOD GA S ORDERABLES [facility] [address] [place], [place] [phone] * US OUTSIDE IMAGES BODY (10/05/2023 12:21 EDT) Narrative 10/12/2023 12:22 EDT This is a non-reportable exam. External Imaging IMG OTHER IMAGING OR DERABLES * MR OUTSIDE IMAGES RIGHT LOWER EXTREMITY (10/01/2023 12:22 EDT) Narrative 10/12/2023 12:22 EDT This is a non-reportable exam. External Imaging IMG OTHER IMAGING OR DERABLES * MR OUTSIDE IMAGES LEFT LOWER EXTREMITY (10/01/2023 12:22 EDT) Narrative 10/12/2023 12:22 EDT This is a non-reportable exam. External Imaging IMG OTHER IMAGING OR DERABLES * XR OUTSIDE IMAGES BILATERAL LOWER EXTREMITY (09/14/2023 14:40 EDT) Narrative 10/08/2023 14:40 EDT This is a non-reportable exam. External Imaging IMG OTHER IMAGING OR DERABLES * HEPATITIS C AB W REFLEX TO HCV RNA BY PCR (10/29/2022 16:17 EDT) Hep C Antibody Negative Negative 10/30/2022 10:04 EDT [facility] Blood VENOUS BLOOD / Unknown 10/29/2022 16:17 EDT 10/29/2022 21:38 EDT Provider Outr Resulting Lab CHEMISTRY & BLOOD GAS ORDERABLES [facility] [address] [place] [address] from Last 3 Months or Most Recently Relevant to Health Maintenance Care Teams Steel Crane Operator Relationship Specialty Start Date End Date Dana Perry PA-C PCP - General Family Medicine - Primary Care 11/23/21
--- OUTSIDE RECORDS SUMMARY | 2023-12-01 21:56 | XMS_ITS ---
Author Organization Unknown Address [address] [place] [phone] Phone Care Team Providers Care Bridge Maintainer Name Role Phone BLESSING OREILLY Registered Nurse Unavailable CHETAN Brown Attending Unavailable SRIDEVI Alex Primary Unavailable Social History Type Status Start Date End Date Code Code Syst em Sex Female Vital Signs Vital Sign Value Unit Blanco Value Blanco Unit Date/Time Recent/Initial? Code Code System Body Mass Index 35.77 kg/m2 11/03/2022 20:30 Initial 28047 -5 [facility] Body Mass Index Percentile 97 % 11/03/2022 20:30 Initial 87215 -9 [facility] Systolic Blood Pressure 139 mm[Hg] 11/03/2022 20:30 Initial 8480- 6 [facility] Diastolic Blood Pressure 95 mm[Hg] 11/03/2022 20:30 Initial 8462- 4 [facility] Body Surface Area 2.49 m2 11/03/2022 20:30 [facility] 3140- [facility] Height 183.997 6 cm 72.44 in 11/03/2022 20:30 Initial 8302- 2 INC O2 Saturation 100 % 2022 20:30 Initial 56563 -5 [facility] Pulse 72.0 /min 11/03/2022 20:30 Initial 8867- 4 [facility] Respiration 16 /min 11/04/19 20:30 Initial 9279- 1 [facility] Temperature 37.0 Alicia 98.6 F 11/04/19 20:30 Initial 8310- 5 LOINC Weight 121.11 kg 267.00 lbs 11/03/2022 20:30 Initial 72589 -7 [facility] Hospital Discharge Instructions Should you have any questions prior to discharge, please contact a member of your healthcare team. If you have left the hospital and have any questions, please contact your primary care physician. Reason For Referral No Data Found Problems Problem Start Date Resolved Date Status Code Code System POTS 11/03/2022 resolved [id number] SNOMED-CT Allergies and Adverse Reactions Allergy Substance Reaction Severity Start Date Concern Status Co de Code System No Known Drug Allergies Active 654499001 SNOMED-CT Plan of Treatment No Data Found Encounters Encounter Diagnosis Start Date Code Code Sys tem Procedure on integumentary system 11/03/2022 5965100 04 SNOMED-CT Personal Care Team Section Performer Name Performer Role Active Date Inactive Da te
--- OUTSIDE RECORDS SUMMARY | 2023-12-01 21:56 | XMS_ITS | Encounter Summary ---
Author Organization [facility] Address [address] [place] [address] Care Team Providers Care Auto Parts Salesperson Name Role Phone Dana Perry PA-C Primary Care Provider [phone] Encounter Details Date Type Department Care Team (Late st Contact Info) Description 11/26/2023 Lab Requisition [facility] Pathology & Laboratory Medicine - [facility] [address] [place] [address] Samreen Daniels NP [address] [facility] [address] [place] [address] Encounter for screening for infections with a [...] Info) Description 12/27/2023 10:15 EDT Office Visit [facility] Foot & Ankle Program - [facility] [facility] [place], [place] [phone] Beth Carrera NP [address] [place] [address] 01/17/2024 14:10 EDT Office Visit [facility] Dermatology 5th Floor [facility] [address] [place] [address] Jun Le MD [address] [place] [address] documented as of this encounter Procedures Procedure Name Priority Date/Time Associated Diagnosis Comments CHLAMYDIA/N. GONORRHOEAE AMPLIFIED NUCLEIC ACID Today 11/26/2023 17:10 EDT Encounter for screening for infections with a predominantly sexual mode of transmission documented in this encounter Results * CHLAMYDIA/N. GONORRHOEAE AMPLIFIED NUCLEIC ACID (11/26/2023 17:10 EDT) Neisseria gonorrhoeae Result Negative Negative 11/29/2023 12:00 EDT [facility] Chlamydia trachomatis Result Negative Negative 11/29/2023 12:00 EDT [facility] Swab VAGINAL STRUCTURE / Unknown 11/26/2023 17:10 EDT 11/26/2023 22:44 EDT Samreen Daniels NP MICROBIOLOGY - GENER AL ORDERABLES [facility] [address] [place] [address] documented in this encounter Visit Diagnoses Diagnosis Encounter for screening for infections with a predominantly sexual mode of transmission documented in this encounter Care Teams Auto Parts Salesperson Relationship Specialty Start Date End Date Dana Perry PA-C PCP - General Family Medicine - Primary Care 11/23/21 documented as of this encounter
--- OUTSIDE RECORDS SUMMARY | 2023-12-01 21:56 | XMS_ITS ---
Author Organization Unknown Address [address] [place] [phone] Phone Care Team Providers Care Channel Marketing Specialist Name Role Phone HALEY Gama Attending Unavailable [...] Status Code Code System POTS 11/03/2022 resolved [id number] SNOMED-CT Allergies and Adverse Reactions Allergy Substance Reaction Severity Start Date Concern Status Co de Code System No Known Drug Allergies Active 390900716 SNOMED-CT Plan of Treatment No Data Found Encounters Encounter Diagnosis Start Date Code Code Sys tem Intrauterine device check 11/05/2022 125721482 SN OMED-CT Personal Care Team Section Performer Name Performer Role Active Date Inactive Da robinson
--- OUTSIDE RECORDS SUMMARY | 2023-12-01 21:56 | XMS_ITS | Encounter Summary ---
Author Organization [facility] Address [address] [place] [address] Care Team Providers Care Health Sciences Department Chair Name Role Phone Dana Perry PA-C Primary Care Provider [phone] Encounter Details Date Type Department Care Team (Latest Contact Info) Description 10/18/2023 Specialty Pharmacy [facility] [address] [place], [place] [phone] Owen Centeno RPH Initial Clinical Follow-up (by 6 weeks) for Dermatology, Refill Coordination Outreach for Dermatology Social History [...] Info) Description 12/27/2023 10:15 EDT Office Visit [facility] Foot & [facility]le Program [place] [address] [place] [address] Beth Carrera NP [address] [place] [address] 01/17/2024 14:10 EDT Office Visit [facility] Dermatology 5th Floor [facility] [address], [place] [address] Jun Le MD [address] [place], [place] [address] documented as of this encounter Visit Diagnoses Not on filedocumented in this encounter Care Teams Health Sciences Department Chair Relationship Specialty Start Date End Date Dana Perry PA-C PCP - General Family Medicine - Primary Care 11/23/21 documented as of this encounter
--- OUTSIDE RECORDS SUMMARY | 2023-12-01 21:56 | XMS_ITS | Referral Summary ---
Author Organization [facility] Address [address] [place] [address] Care Team Providers Care Hull Line Crew Member Name Role Phone Dana Perry PA-C Primary Care Provider Encounters Date Type Department Care Team Description 11/29/2023 Lab Requisition [facility] Pathology & Laboratory [facility] [address] [place] [address] Samreen Daniels NP Other abnormality of red blood cells 11/26/2023 Lab Requisition [facility] Pathology & Laboratory [facility] [address] [place] [address] Samreen Daniels NP Encounter for screening for infections with a predominantly sexual mode of transmission 11/26/2023 Lab Requisition [facility] Pathology & Laboratory [facility] [address] [place] [address] Samreen Daniels NP Encounter for screening for infections with a predominantly sexual mode of transmission 11/19/2023 Specialty Pharmacy [facility] [address] [place] [phone] Owen Centeno RPH Refill Coordination Outreach for Dermatology 10/18/2023 Specialty Pharmacy [facility] [address] [place] [address] [phone] Owen Centeno RPH Refill Coordination Outreach for Dermatology 10/18/2023 Specialty Pharmacy [facility] [address] [place] [address] [phone] Owen Centeno RPH Initial Clinical Follow-up (by 6 weeks) for Dermatology, Refill Coordination Outreach for Dermatology 10/11/2023 13:50 EDT Office Visit [facility] Dermatology 5th [address] [address] Jun Le MD Hyperhidrosis (Primary Dx) 10/05/2023 - 10/05/2023 23:59 EDT Hospital Encounter [facility] [place] Discharge Disposition: Home or Self Care 10/01/2023 0:05 EDT - 10/01/2023 23:59 EDT Hospital Encounter [facility] [place] Discharge Disposition: Home or Self Care 10/01/2023 - 10/01/2023 0:04 EDT Hospital Encounter [facility] [place] Discharge Disposition: Home or Self Care 09/30/2023 Telephone [facility] [address] [place] [phone] Chaz Washburn MD Medications Refill 09/30/2023 Specialty Pharmacy [facility] [address] [place] [phone] Owen Centeno Julienne Initial Clinical Follow-up (by 6 weeks) for Dermatology, Set up initial fill for Dermatology, Started Benefits Review: CONTACT INSURANCE for Dermatology 09/17/2023 Specialty Pharmacy [facility] [address] [place] [phone] Owen Centeno Julienne Refill Coordination Outreach for Dermatology, Patient Education for Dermatology 09/14/2023 - 09/14/2023 23:59 EDT Hospital Encounter [facility] [place] Discharge Disposition: Home or Self Care 09/08/2023 Lab Requisition [facility] Pathology & Laboratory Medicine [address] [address] Dana Perry PA-C Other specified behavioral and emotional disorders with onset usually occurring in childhood and adolescence from Last 3 Months Allergies No known active allergies Medications Medication [...] to face, armpit or groin. 454 g 10/30/2022 Active Aluminum Chloride in Alcohol (XERAC AC) 6.25 % solutionIndications :Hyperhidrosis of palms Apply topically at bedtime. To the palms. 60 mL 5 11/25/2022 Active Additional Information Patient not taking.Reported on 12/25/2022 ketoconazole (NIZORAL) 2 % shampooIndications: Seborrheic dermatitis Apply to scalp 1-3 times per week. Leave in for 3-5 minutes then rinse. 120 mL 05/05/2023 Active TACRolimus (PROTOPIC) 0.1 % ointmentIndications :Intrinsic atopic dermatitis Apply topically to affected area 2 times daily. For use on the face, underarms, and groin. 60 g 05/05/2023 Active fluocinonide (LIDEX) 0.05 % external solutionIndications :Seborrheic dermatitis Apply topically 2 times daily. to scalp. For up to 2 weeks during flare, then max 3 days per week as maintenance. Do not apply to face, armpit or groin. 60 mL 05/05/2023 Active botulinum toxin Type A (BOTOX) 100 unit injectionIndication s:Hyperhidrosis Inject 100 Units into the muscle every 12 weeks. 1 Each 07/13/2023 Active tralokinumab-ldrm (ADBRY) 150 mg/mL syringeIndications: Atopic dermatitis, unspecified type Inject 2 mL into the skin every 14 days. 12 Each 09/30/2023 Active cephalexin (KEFLEX) 500 mg capsule [...] finger of right hand 08/23/2018 Eczema 05/31/2009 Immunizations Name Administration Dates Next Due DTaP Vaccine (INFANRIX) <7YO IM 03/06/20 09,08/28/2004,05/08/2004,2003,2003 Hepatitis B 05/08/2004,2003,2003 Hib 08/28/2004, 5,2003,2003 MMR Vaccine SQ 03/06/2009,08/28/2004 Pneumococcal Conjugate (PCV7) <5YO IM ,05/08/2004,2003,2003 Poliovirus Vaccine IPV IM OR SQ 03/06/20 09,05/08/2004,2003,2003 Varicella (Chickenpox) vacci ne (VARIVAX) SQ 03/06/2009,08/28/2004 Social History Tobacco Use Types Packs/Day Years [...] on file Sexual Orientation Not on file Last Filed Vital Signs Vital Sign Reading [...] 1911 EDT Body Mass Index - - Functional Status Functional Status Response Date of Assess ment Are you deaf or do you have serious difficulty h earing? No 11/23/2021 Plan of Treatment Upcoming Encounters Date Type Department Care Team (Late st Contact Info) Description 12/27/2023 10:15 EDT Office Visit [facility] Foot & Ankle Program - [facility] [address] [place] [address] Beth Carrera NP [address] [place] [address] 01/17/2024 14:10 EDT Office Visit [facility] Dermatology 5th Floor [facility] [address] [place], [place] [phone] Jun Le MD [address] [place], [place] [phone] Procedures Procedure Name Priority Date/Time Associated Diagnosis [...] gonorrhoeae Result Negative Negative 11/29/2023 12:00 EDT [facility] Chlamydia trachomatis Result Negative Negative 11/29/2023 12:00 EDT [facility] Swab VAGINAL STRUCTURE / Unknown 11/26/2023 17:10 EDT 11/26/2023 22:44 EDT Samreen Daniels NP MICROBIOLOGY - GENER AL ORDERABLES [facility] [address] [place] [phone] * HIV 1/2 ANTIGEN AND ANTIBODY, 4TH GENERATION (11/26/2023 16:47 EDT) HIV 1 and 2 Antibody/p24 Antigen, 4th Generation Negative Negative 11/28/2023 12:42 EDT [facility] Comment:If acute HIV-1 infec tion is suspected in a high risk patient, submit plasma specimen for HIV-1 RNA quantitation test. Blood VENOUS BLOOD / Unknown 11/26/2023 16:47 EDT 11/26/2023 20:17 EDT Narrative [facility] - 11/28/2023 12:42 EDT Fourth Generation assay performed on the Siemens Centaur XPT. Samreen Daniels NP IMMUNOLOGY AND SEROL OGY ORDERABLES [facility] [address] [place] [address] * (ABNORMAL) HEMOGLOBINOPATHY AND THALASSEMIA EVALUATION (11/26/2023 13:32 EDT) Hemoglobin A 96.1(L) 96.7 - 97.8 % 12/01/2023 15:55 EDT [facility] Hemoglobin A2 3.9(H) 2.2 - 3.2 % 12/01/2023 15:55 EDT [facility] Comment: Hemoglobin A2 results greater than 3.2% may be consistent with Beta thalassemia. Hemoglobin A2 levels may be decreased in iron deficiency. Hemoglobinopathy Interpretation Interpretation: Slightly elevated HbA2 of 3.9% in the presence of historical microcytosis without anemia raises suspicion for beta-thalassemi a trait. 12/01/2023 15:55 EDT [facility] Comment:Molecular studies ca n be performed for confirmation if clinically necessary. Reviewed by: Ton Ramos MD 12/01/2023 1450 Blood VENOUS BLOOD / Unknown 11/26/2023 13:32 EDT 11/29/2023 15:13 EDT Samreen Daniels NP CHEMISTRY & BLOOD GA S ORDERABLES Performing Organization Address City/[facility]/ZIP Co de Phone Number [facility] [address] [place], [place] [id number] * US OUTSIDE IMAGES BODY (10/05/2023 12:21 [...] C Antibody Negative Negative 10/30/2022 10:04 EDT [facility] Blood VENOUS BLOOD / Unknown 10/29/2022 16:17 EDT 10/29/2022 21:38 EDT Provider Outr Resulting Lab CHEMISTRY & BLOOD GAS ORDERABLES [facility] [address] [place] [address] from Last 3 Months or Most Recently Relevant to Health Maintenance Care Teams Hull Line Crew Member Relationship Specialty Start Date End Date Dana Perry PA-C PCP - General Family Medicine - Primary Care 11/23/21
--- OUTSIDE RECORDS SUMMARY | 2023-12-01 21:56 | XMS_ITS | Encounter Summary ---
Author Organization [facility] Address [address] [place] [address] Care Team Providers Care Felt Cementer Name Role Phone Dana Perry PA-C Primary Care Provider [phone] Encounter Details Date Type Department Care Team (Latest Contact Info) Description 10/18/2023 Specialty Pharmacy [facility] [address] [place], [place] [phone] Owen Centeno [facility] Refill Coordination Outreach for Dermatology Social History [...] Info) Description 12/27/2023 10:15 EDT Office Visit [facility] Foot & Ankle Program [place] [address] Beth Carrera NP [address] [place] [address] 01/17/2024 14:10 EDT Office Visit [facility] Dermatology 5th Floor [facility] [address] [place] [address] Jun Le MD [address] [place], [place] [address] documented as of this encounter Visit Diagnoses Not on filedocumented in this encounter Care Teams Felt Cementer Relationship Specialty Start Date End Date Dana Perry PA-C PCP - General Family Medicine - Primary Care 11/23/21 documented as of this encounter
--- OUTSIDE RECORDS SUMMARY | 2023-12-01 21:56 | XMS_ITS | Encounter Summary ---
Author Organization [facility] Address [address] [place] [address] Care Team Providers Care Aerial Lineman Name Role Phone Dana Perry PA-C Primary Care Provider [phone] Reason for Visit * Reason Comments Follow-up Botox, hyperhidrosis of palms Encounter Details Date Type Department Care Team (Late st Contact Info) Description 10/11/2023 13:50 EDT Office Visit [facility] Dermatology 5th Floor [facility] [address] [place], [place] [address] Jun Le MD [address] [place], [place] [address] Hyperhidrosis (Primary Dx) Social History Tobacco Use Types Packs/Day Years [...] No 11/23/2021 documented as of this encounter Progress Notes * Jun Le MD - 10/11/2023 1350 EDT Dermatology Resident Clinic Visit Note Chief Complaint Patient presents with Follow-up Botox, hyperhidrosis of palms Dermatologic History: # 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 female who presents for follow up of hyperhidrosis of the palms. States shehad substantial improvement after previous botox treatment that lasted about 2 months. She would like to proceed with treatment again today. OBJECTIVE: Focused cutaneous examination was performed. -palms moist with perspiration ASSESSMENT & PLAN: Hyperhidrosis of the palms -Discussed that expected duration of botox effect is ~3 months. Some patients experience more durable effect with recurrent treatment. -Repeat botox injections today (50U per palm), see procedure note -Return in 3 months PROCEDURE: Botulinum toxin A (BOTOX) injection After verbal consent and discussion of risks/benefits, the bilateral palms were prepped with chlorhexidine. A total 100 units (50 units each palm), reconstituted and 4 mL of normal saline was injected injected intradermally divided into 0.05 mL aliquots evenly distributed approximately 1 to 2 cm apart into bilateral hands and palmar aspect of the fingers. The patient tolerated the procedure with no immediate side effects. The procedure was personally performed by the resident physician. FOLLOW UP: Return in about 3 months (around 01/11/2024) for botox palmar hyperhidrosis. Jun Le MD PGY-4 Dermatology Resident 10/11/2023 14:52 Attestation Statement: I saw and examined the patient with the resident/fellow. I agree with the findings and plan of care documented in the resident's/fellow's note. I was present during the lee andcritical portions of the procedure and agree with the resident's/fellow note. Perry Beckham MD documented in this encounter Plan of Treatment Upcoming Encounters Date Type Department Care Team (Late st Contact Info) Description 12/27/2023 10:15 EDT Office Visit [facility] Foot & Ankle Program - [address] [place], [place] [phone] Beth Carrera NP [address] [place] [address] 01/17/2024 14:10 EDT Office Visit [facility] Dermatology 5th Floor [facility] [address] [place] [address] Jun Le MD [address] [place] [address] documented as of this encounter Visit Diagnoses Diagnosis Hyperhidrosis- Primary Primary focal hyperhidrosis documented in this encounter Administered Medications Inactive Administered Medications - up to 3 most recent administrations Medication Order MAR Action Action Date Dose Rate Site botulinum toxin Type A (BOTOX) injection 100 Units 100 Units, intradermal, NOW X1, 1 dose, On Wed10/11/23 at 1515, Routine Given 10/11/2023 15:15 EDT 100 Units documented in this encounter Historical Medications * This list may reflect changes made after this encounter. Medication Sig Dispensed Refills Start Date End Date cephalexin (KEFLEX) 500 mg capsule Take 1 Capsule by mouth every 6 hours. 7 days, once every 6 hours added in this encounter Care Teams Aerial Lineman Relationship Specialty Start Date End Date Dana Perry PA-C PCP - General Family Medicine - Primary Care 11/23/21 documented as of this encounter
--- OUTSIDE RECORDS SUMMARY | 2023-12-01 21:57 | XMS_ITS | Encounter Summary ---
Author Organization [facility] Address [address] [place] [address] Care Team Providers Care Commercial Subcontractor Name Role Phone Dana Perry PA-C Primary Care Provider [phone] Reason for Visit * Reason Comments Jaw Pain left side, one week ago Encounter Details Date Type Department Care Team (Latest Contact Info) Description 12/21/2021 15:03 EDT - 12/21/2021 16:13 EDT Hospital Encounter [facility] - [address] [phone] Criselda Bejarano MD [address] [place] [phone] Bilateral temporomandibular joint pain (Primary Dx) Discharge Disposition: Home or Self Care Social History Tobacco Use Types Packs/Day Years [...] on file documented as of this encounter Last Filed Vital Signs Vital Sign Reading Time Taken Comments Blood Pressure 123/56 12/21/2021 1439 EDT Pulse 67 12/21/2021 1439 EDT Temperature 37.2 ??C (98.9 ??F) 12/21/2021 1439 EDT Respiratory Rate 18 12/21/2021 1439 EDT Oxygen Saturation 100% 12/21/2021 1439 EDT Inhaled Oxygen Concentration - - Weight - - Height - - Body Mass Index - - documented in this encounter Functional Status Functional Status Response Date of Assess ment Are you deaf or do you have serious difficulty h earing? No 11/23/2021 documented as of this encounter Discharge Instructions * Discharge Instructions* Criselda Bejarano MD - 12/21/2021 16:06 EDT Cyclobenzaprine at bedtime ( 1/2 to 1 tab) Can take 1/2 tab during day every 8 hours if does not make you too sleepy Script for slightly less sedating muscle relaxant- methocarbomal- please fill at your pharmacy Call [facility] and make tele visit with Dana Perry and also in person Integrative Medicine visit/ Acupuncture with Dr. Rebel Martinez (schedule specifically for acupuncture). Cont ibuprofen with food. Continue heat! * Attachments The following attachments cannot be sent through Care Everywhere. * TMD (Temporomandibular Disorder) (Frisian) documented in this encounter Medications at Time of Discharge Medication Sig Dispensed Refills Start Date End Date ibuprofen (MOTRIN) 600 mg tablet Take 1 Tablet by mouth every 8 hours as needed for Pain. WITH FOOD 60 Tablet 12/21/2021 lisdexamfetamine (VYVANSE) 40 mg capsule Take 1 Capsule by mouth every morning. methocarbamoL (ROBAXIN) 500 mg tablet 1-2 tab po q 8 prn- caution sedation 30 Tablet 12/21/2021 spironolactone (ALDACTONE) 100 mg tablet Take 1 Tablet by mouth daily. 30 Tablet 3 05/30/2021 triamcinolone (KENALOG) 0.1 % ointment Apply topically to affected area 2 times daily. To affected skin. Do not apply to face, armpit or groin. 454 g 3 05/30/2021 11/02/2022 documented as of this encounter Ordered Prescriptions Prescription Sig Dispensed Refills Start Date End Da te methocarbamoL (ROBAXIN) 500 mg tablet 1-2 tab po q 8 prn- caution sedation 30 Tablet 12/21/2021 ibuprofen (MOTRIN) 600 mg tablet Take 1 Tablet by mouth every 8 hours as needed for Pain. WITH FOOD 60 Tablet 12/21/2021 documented in this encounter Discharge Disposition Disposition Code Departure Means Destination Home or Self Long Term documented in this encounter ED Notes * Criselda Bejarano MD - 12/21/2021 1613 EDT DOS: 12/21/2021 Chief Complaint: Chief Complaint Patient presents with ??? Jaw Pain left side, one week ago Assessment and Plan 16-year-old woman with bilateral TMJ. No acute trauma, but exacerbation of baseline pain and function. Component of muscle spasm bilaterally. Discussed the role of imaging, and deferred x-ray due to the limitations of the imaging. No indication for referral for urgent CT to the emergency department today. Will do muscle relaxants, continue ibuprofen and heat. She will schedule her follow-up with her primary care provider and can discuss further referral if appropriate to TMJ specialist. Also encouraged mom/patient to contact the [facility] tomorrow. New provider Dr. Ceballos osteopathic manipulation and acupuncture which may be of benefit. Final diagnoses: Bilateral temporomandibular joint pain Procedures No results found for this visit on 12/21/21. Radiology orders: None Consult orders: None Imaging Results None No orders to display The patient is a 16 y.o. female who presents today with Jaw Pain (left side, one week ago) Ms. Umanzor is a healthy 16-year-old with a history of TMJ, who presents with 1 week of severe bilateral jaw pain left greater than right. She reports decreased range of motion. Unable to fully open andunable to fully close. She has been taking ibuprofen without GI upset and without significant relief. She has been using heat. Prior to the onset of symptoms she had pop sensation on the left side of her jaw and when she awokethe next morning range of motion was decreased. She reports no other trauma. She reports ports hypermobile joints. She has been followed by an oral surgeon and previously had a oral appliance. Review of Systems HENT: Negative for sore throat and trouble swallowing. Musculoskeletal: Positive for arthralgias. Skin: Negative for rash. No current facility-administered medications for this encounter. Current Outpatient Medications Medication Sig Dispense Refill ??? ibuprofen (MOTRIN) 600 mg tablet Take 1 Tablet by mouth every 8 hours as needed for Pain. WITH FOOD 60 Tablet 0 ??? lisdexamfetamine (VYVANSE) 40 mg capsule Take 40 mg by mouth every morning. ??? methocarbamoL (ROBAXIN) 500 mg tablet 1-2 tab po q 8 prn- caution sedation 30 Tablet 0 ??? spironolactone (ALDACTONE) 100 mg tablet Take 1 Tablet by mouth daily. 30 Tablet 3 ??? triamcinolone (KENALOG) 0.1 % ointment Apply topically to affected area 2 times daily. To affected skin. Do not apply to face, armpit or groin. 454 g 3 No Known Allergies Patient Active Problem List Diagnosis Date Noted ??? Pain of finger of right hand 08/23/2018 ??? Eczema 05/31/2009 Past Medical History: Diagnosis Date ??? Eczema ??? Psoriasis Social History Tobacco Use ??? Smoking status: Never Smoker ??? Smokeless tobacco: Never Used Substance Use Topics ??? Alcohol use: No ??? Drug use: No No family history on file. BP 123/56 Pulse 67 Temp 98.9 ??F (37.2 ??C) (Temporal) Resp 18 SpO2 100% Physical Exam Constitutional: Appearance: Normal appearance. HENT: Head: Normocephalic and atraumatic. Mouth/Throat: Mouth: Mucous membranes are moist. Comments: Buccal mucosa is moist. Enlarged tonsils bilaterally Eyes: Extraocular Movements: Extraocular movements intact. Musculoskeletal: Comments: Tender at bilateral TMJ joints. Mouth opening about 3 cm. Painful lateral movement right greater than left. Tender palpation of mandible and anterior neck. No deformity. Lymphadenopathy: Head: Right side of head: No submental, submandibular, tonsillar or preauricular adenopathy. Left side of head: No submental, submandibular, tonsillar or preauricular adenopathy. Cervical: No cervical adenopathy. Neurological: General: No focal deficit present. Mental Status: She is alert and oriented to person, place, and time. Psychiatric: Mood and Affect: Mood normal. Behavior: Behavior normal. Thought Content: Thought content normal. Judgment: Judgment normal. PCP: Dana Perry Urgent Care Course A medical screening exam was performed. DISPOSITION: Discharged The patient's pain was managed to an adequate level weighing risk vs. benefit of further medications. Upon departure from [facility], the patient's pain was 5 on a zero to ten scale. Any further pain treatment will be at the discretion of the provider following up with the patient based on their clinical assessment . Condition at departure from the [facility] : Stable MDM Number of Diagnoses or Management Options 12/21/2021 16:13 documented in this encounter Plan of Treatment Upcoming Encounters Date Type Department Care Team (Late st Contact Info) Description 12/27/2023 10:15 EDT Office Visit [facility] Foot & Ankle Program - [address] [phone] Beth Carrera NP [address] [place] [address] 01/17/2024 14:10 EDT Office Visit [facility] Dermatology 5th Floor [facility] [address] [place], [place] [address] Jun Le MD [address] [place], [place] [phone] documented as of this encounter Visit Diagnoses Diagnosis Bilateral temporomandibular joint pain- Primary Arthralgia of temporomandibular joint documented in this encounter Administered Medications Inactive Administered Medications - up to 3 most recent administrations Medication Order MAR Action Action Date Dose Rate Site Cyclobenzaprine 10 mg Tab STARTER PACK 1 Package, oral, NOW X1, 1 dose, On 12/21/21 at 1615, Routine Given 12/21/2021 16:07 EDT 1 Package documented in this encounter Discontinued Medications Medication Sig Discontinue Reason Start Date End Da te ibuprofen (MOTRIN) 200 mg tablet Take 200 mg by mouth every 6 hours. 12/21/2021 documented as of this encounter Active and Recently Administered Medications Times are shown in EDT. Scheduled Medication Order 12/19/2021 12/20/2021 12/21/2021 Cyclobenzaprine 10 mg Tab STARTER PACK (COMPLETED) 1 Package, oral, NOW X1, 1 dose, On 12/21/21 at 1615, Routine 1607 (Given - Provid er: Amy Prescott RN) documented in this encounter Care Teams Commercial Subcontractor Relationship Specialty Start Date End Date Dana Perry PA-C PCP - General Family Medicine - Primary Care 11/23/21 documented as of this encounter
--- OUTSIDE RECORDS SUMMARY | 2023-12-01 21:57 | XMS_ITS | Encounter Summary ---
Author Organization [facility] Address [address] [place] [address] Care Team Providers Care Aeronautical Inspector Name Role Phone Dana Perry PA-C Primary Care Provider Encounter Details Date Type Department Care Team (Latest Contact Info) Description 03/09/2023 Specialty Pharmacy [facility] [address] [place] [address] [id number] Owen Centeno RPH Prospective Review for Dermatology, Patient Education for Dermatology, Refill Coordination Outreach (1 time occurrence) for Dermatology, Started Benefits Review: CONTACT INSURANCE for Dermatology Social History Tobacco Use Types [...] as of this encounter Progress Notes * Owen Centeno RPH - 03/09/2023 1112 EST Specialty Pharmacy Consultation: [facility] Medication Management: New Therapy Consult Telma Umanzor (2005) Diagnosis: atopic dermatitis Therapy Start Date: 03/16/2023 Contact Method: Telephone Telma Umanzor is a 17 y.o. who was contacted in regard to Adbry. A review of the medication therapy was performed. All medication related questions and concerns were addressed. The specialty pharmacy staff will follow up with the patient 7- 10 days prior to next refill. Summary and Recommendations: Telma Umanzor was contacted for a review of Adbry for the treatment of atopic dermatitis. Patient isaware of the prior authorization process and timeline and was given [facility] contact information for any questions. Patient was educated on precautions with Adbry including anaphylaxis /hypersensitivity. Educated patient on the potential side effects of Adbry including injection sitereaction, eye irritation including conjunctivitis, and URTI. The patient was instructed to call theclinic if eye irritation occurs to discuss treatment. Live vaccines are contraindicated with this medication. Discussed with patient that it may take 3-4 months to experience the full benefit of Adbry. A review of dosing, storage, and administration was completed. Patient was educated on the dosing schedule. Patient was made aware that Adbry must be stored in the refrigerator and remains stable at room temperature for 14 days. Patient was advised on proper site rotation, site sterilization, and allowing the medication to reach room temperature prior to injection. Patient was encouraged to schedule an injection teaching appointment if they prefer to have first injection completed with medical oversight and was directed to view additional online video resources if needed. Patient will be provided with a sharps container and disposal of Adbry was discussed. Allergies and Drug intolerance: No Known Allergies Problem List: Patient Active Problem List Diagnosis Eczema Pain of finger of right hand Medications: Current Outpatient Medications Medication Sig Dispense Refill Aluminum Chloride in Alcohol (XERAC AC) 6.25 % solution Apply topically at bedtime. To the palms. (Patient not taking: Reported on 12/25/2022) 60 mL 5 betamethasone dipropionate (DIPROLENE) 0.05 % ointment Apply topically to affected area 2 times daily. For itchiest spots up to 2 weeks. 90 g 3 dupilumab (DUPIXENT PEN) 300 mg/2 mL pen injector pen injector Inject 4 mL into the skin Once for 1dose. Then inject 300mg SC every 14 days starting day 15. (Patient not taking: Reported on 12/25/2022) 4 mL 0 dupilumab (DUPIXENT PEN) 300 mg/2 mL pen injector pen injector Inject 2 mL into the skin every 14 days. (Patient not taking: Reported on 03/09/2023) 12 mL 1 glycopyrronium tosylate 2.4 % towelette Apply 1 application topically daily. Apply once daily to both hands using a single cloth. Do not touch your eyes after applying 1 Each 11 ibuprofen (MOTRIN) 600 mg tablet Take 1 Tablet by mouth every 8 hours as needed for Pain. WITH FOOD60 Tablet 0 lisdexamfetamine (VYVANSE) 40 mg capsule Take 1 Capsule by mouth every morning. methocarbamoL (ROBAXIN) 500 mg tablet 1-2 tab po q 8 prn- caution sedation 30 Tablet 0 spironolactone (ALDACTONE) 100 mg tablet Take 1 Tablet by mouth daily. 30 Tablet 3 TACRolimus (PROTOPIC) 0.1 % ointment Apply topically to affected area 2 times daily. For use on theface, underarms, and groin. 60 g 3 tralokinumab-ldrm (ADBRY) 150 mg/mL syringe Inject 300 mg into the skin every 14 days. 12 mL 1 triamcinolone (KENALOG) 0.1 % ointment Apply topically to affected area 2 times daily. Do not applyto face, armpit or groin. 454 g 3 No current facility-administered medications for this visit. Most Recent Vitals: Ht Readings from Last 1 Encounters: 01/16/11 (!) 149.6 cm (58.9) (>99 %, Z= 3.76)* * Growth percentiles are based on CDC (Girls, 2-20 Years) data. Wt Readings from Last 3 Encounters: 01/18/18 (!) 112 kg (247 lb) (>99 %, Z= 2.72)* 01/16/11 (!) 59.2 kg (130 lb 8.2 oz) (>99 %, Z= 3.26)* 05/31/09 (!) 42.2 kg (93 lb) (>99 %, Z= 3.12)* * Growth percentiles are based on CDC (Girls, 2-20 Years) data. There is no height or weight on file to calculate BMI. Temp Readings from Last 3 Encounters: 12/21/21 37.2 ??C (98.9 ??F) (Temporal) 11/23/21 36.4 ??C (97.6 ??F) 05/31/09 36.6 ??C (97.8 ??F) (Tympanic) BP Readings from Last 3 Encounters: 12/21/21 123/56 11/23/21 130/60 01/18/18 128/62 Pulse Readings from Last 3 Encounters: 12/21/21 67 11/23/21 63 01/16/11 92 Pertinent Lab values: Lab Results Component Value Date NA 140 06/18/2014 K 4.5 06/18/2014 CL 104 06/18/2014 CO2 23 (L) 06/18/2014 BUN 18 (H) 06/18/2014 CREATININE 0.55 06/18/2014 CALCIUM 10.2 (H) 06/18/2014 No results found for: ALT, AST, GGT, ALKPHOS, BILITOT, BILIDIR, PROT, LDLBASE Lab Results Component Value Date WBC 5.51 06/06/2018 HGB 12.5 06/06/2018 HCT 38.9 06/06/2018 MCV 74 (L) 06/06/2018 Immunization History Administered Date(s) Administered DTaP Vaccine (INFANRIX) <7YO IM 2003, 2003, 05/08/2004, 08/28/2004, 03/06/2009 Hepatitis B 2003, 2003, 05/08/2004 Hib 2003, 2003, 05/08/2004, 08/28/2004 MMR Vaccine SQ 08/28/2004, 03/06/2009 Pneumococcal Conjugate (PCV7) <5YO IM 2003, 2003, 05/08/2004, 08/28/2004 Poliovirus Vaccine IPV IM OR SQ 2003, 2003, 05/08/2004, 03/06/2009 Varicella (Chickenpox) vaccine (VARIVAX) SQ 08/28/2004, 03/06/2009 Assessment and Recommendations: Reviewed in detail with patient: Dose appropriateness based on recommended standard dosing Current medication list including OTC medications Medication and disease problems Allergies Comorbid conditions/ Problem List Goals of therapy and management strategies Warnings, precautions, and contraindications Side effects Administration instructions including dose, frequency and method Handling, storage, and disposal Relevant lab data Treatments impact on disease Dose appropriateness based on recommended standard dosing schedule, including any variations from FDA-approved dosing Therapy Assessment: Current Medication Dosing/Route/Frequency: Adbry 150 mg/mL syringes - inject the contents of two syringes subcutaneously every 14 days Appropriate Therapy: Yes Current Affected Areas: neck, stomach, thighs, lower legs, armpits, breasts, face Recent Skin Exacerbations/Flaring: No Recent Topical Corticosteroid Use: Yes - betamethasone, triamcinolone sparingly Expected Outcome: reduction in BSA and dryness Patient's goals: Patient's specific desired goal: reduction in BSA Measured by: patient reported outcomes and provide evaluation Time-frame to meet goal: 3 months Pharmacist follow-up needed: Yes - 6-week follow-up Owen Centeno PharmD Ambulatory Pharmacist Clinician 03/11/2023 10:14 documented in this encounter Plan of Treatment Upcoming Encounters Date Type Department Care Team (Late st Contact Info) Description 12/27/2023 10:15 EDT Office Visit [facility] - [address] [place], [place] [id number] Beth Carrera NP [address] [place] [phone] 01/17/2024 14:10 EDT Office Visit [facility] D[facility] 5th Floor [address] [id number] Jun Le MD [address] [place], [place] [phone] documented as of this encounter Visit Diagnoses Not on filedocumented in this encounter Care Teams Aeronautical Inspector Relationship Specialty Start Date End Date Dana Perry PA-C PCP - General Family Medicine - Primary Care 11/23/21 documented as of this encounter
--- OUTSIDE RECORDS SUMMARY | 2023-12-01 21:57 | XMS_ITS | Encounter Summary ---
Author Organization [facility] Address [address] [place] [address] Care Team Providers Care Blasting Cap Assembler Name Role Phone Dana Perry PA-C Primary Care Provider [phone] Encounter Details Date Type Department Care Team (Late st Contact Info) Description 10/29/2022 Lab Requisition [facility] Pathology & Laboratory Medicine - [facility] [address] [place] [address] Outr Resulting Lab, Provider Social History Tobacco Use Types Packs/Day Years [...] Info) Description 12/27/2023 10:15 EDT Office Visit [facility] - [place] [address] Beth Carrera NP [address] [place] [phone] 01/17/2024 14:10 EDT Office Visit [facility] Dermatology 5th Floor [facility] [address] [place] [address] Jun Le MD [address] [place] [address] documented as of this encounter Procedures Procedure Name Priority Date/Time Associated Diagnosis Comments HIV 1/2 ANTIGEN AND ANTIBODY, 4TH GENERATION Routine 10/29/2022 16:17 EDT documented in this encounter Results * HIV 1/2 ANTIGEN AND ANTIBODY, 4TH GENERATION (10/29/2022 16:17 EDT) HIV 1 and 2 Antibody/p24 Antigen, 4th Generation Negative Negative 10/30/2022 11:06 EDT [facility] Comment:If acute HIV-1 infec tion is suspected in a high risk patient, submit plasma specimen for HIV-1 RNA quantitation test. Blood VENOUS BLOOD / Unknown 10/29/2022 16:17 EDT 10/29/2022 21:38 EDT Narrative [facility] - 10/30/2022 11:06 EDT Fourth Generation assay performed on the Siemens Centaur XPT. Provider Outr Resulting Lab IMMUNOLOGY A ND SEROLOGY ORDERABLES [facility] [address] [place] [address] documented in this encounter Visit Diagnoses Not on filedocumented in this encounter Care Teams Blasting Cap Assembler Relationship Specialty Start Date End Date Dana Perry PA-C PCP - General Family Medicine - Primary Care 11/23/21 documented as of this encounter
--- OUTSIDE RECORDS SUMMARY | 2023-12-01 21:57 | XMS_ITS | Encounter Summary ---
Author Organization [facility] Address [address] [place] [address] Care Team Providers Care Corporate Controller Name Role Phone Dana Perry PA-C Primary Care Provider Reason for Visit * Reason Comments Patch Testing Encounter Details Date Type Department Care Team (Late st Contact Info) Description 11/16/2022 8:15 EDT Nurse Only [facility] Dermatology 5th Floor [facility] [address] [place] [address] Nursing Team, [facility] Dermatology Mohs Contact dermatitis, unspecified contact dermatitis type, unspecified trigger (Primary Dx) Social History Tobacco Use Types [...] No 11/23/2021 documented as of this encounter Patient Instructions * Patient Instructions* Kavita Hastings RN - 11/16/2022 8:15 EDT Patch Testing Patch testing is a type of skin testing that can help to determine if your rash is caused by an allergy to certain chemicals (allergens) that come in contact with the skin. These chemicals may be found in your topical medicines, creams, lotions, soaps, clothing, shoes, jewelry, perfumes, cosmetics,and shampoo. During the test, a small number of allergens (generally less then 45) are placed on your back or upper arms and covered with special hypoallergenic paper tape. You will not receive any injections or needles. This allergy testing is not the same as skin prick testing, which is typicallyperformed by allergists or immunologists. We are not testing for allergies to foods, pollen or other seasonal or environmental allergies. Your doctor may request that you bring all of your topical medications, creams, lotions, and other personal products such as shampoos, hairspray or perfumes to your first visit. This is an extremely important part of the testing. If you do not bring your products, you may have to be rescheduled fortesting at a future date. Before your appointment for patch testing, it is very important that you: 1. DO NOT receive a cortisone injection within one month 2. DO NOT take oral prednisone within two weeks 3. DO NOT apply any cortisone-containing topical creams to your back within one week. Do not apply any type of a cream, ointment or lotion to your back on the morning of your appointment. You may bathe or may shower. You may apply topical medications and moisturizers to other parts ofyour body. When you schedule for patch testing, you will be asked to schedule appointments on a Wednesday, Wednesday, and Wednesday, all in the same week. Wednesday: On the morning of your first appointment, the doctor will examine your skin and decide if patch testing is right for you. If you are sick or have a flare of the rash, you may be asked to reschedule. If the decision is made to do the patch testing, the allergens will be applied during this visit. Allergens are applied in small plastic chambers, which are taped to your back, and sometimes to theupper arms. After the tape is applied, you may not get the area wet until the allergens are removedon Wednesday morning. That means no showering and no physical activity that will cause you to sweat. You also must limit the stretching of your back and arms to avoid loosening the tape. The nurse will sal your back with a purple pen in order to show where the patches were placed. To avoid the possibility of permanently staining your clothing, you should wear a dark-colored top to this appointment, if possible. Wednesday: During the second patch test visit, the tape and allergens will be removed. After this visit, do not apply any type of medicine or cream to the areas on your back or arms where the patcheswere placed. Do not scratch the sites. Keep the patch tested areas dry. Wednesday: This is the most important day of the patch testing. At this time, your doctor will examinethe areas on your back and arms where the patches were placed to see if they have reacted to any ofthe allergens. Positive reactions may look like redness or blisters and are often itchy. The doctorwill give you detailed test results. You will be taught about ways to avoid certain allergens and may be given information about which skin products are ???safe?? to use. During the week of patch testing, you may have some itching or burning at the patch test sites. This discomfort may be caused by a reaction to the tape or to one of the allergens. You may take an antihistamine such as diphenhydramine (Benadryl) if the itching is severe. Benadryl is available without a prescription, but be aware that it may cause drowsiness. If you have severe itching or pain thatis not relieved by Benadryl, please call our office during the day and speak with one of the nurses. After regular office hours, call the hospital and ask to speak to the truck trailer mechanic television and radio repairer. If you develop new red areas or blisters at the patch test site during the week after patch testing, please call us at the office. documented in this encounter Progress Notes * Kavita Hastings RN - 11/16/2022 0815 EDT Images from the original note were not included. SUBJECTIVE: Patient reports no concern. Pain Level: 0 OBJECTIVE: There were no vitals taken for this visit. Test site on back is has hyperpigmentation and scarring which may interfere with test interpretation. Alternate test site of bilateral upper legs chosen Test area is free of oils, lotions, and ointments. Patient denies topical corticosteroid use on back during past 2 weeks. Patient denies oral/systemic corticosteroids use during past 3 weeks. Patient denies sun exposure to back during past 2 weeks PLAN: Patient instructed on patch test placement, side effects, what to expect, and care during test period. Patient verbalized understanding and agrees to have patch test placed. T.R.U.E TEST Panels 1.3, 2.3 and 3.3 placed on upper left thigh. Panel 2.3 had to be repositioned due to tightness of tape on skin to upper right thigh. Medical marking pen used to index the test location at the notches found on the panel. Patch test panels will be removed in 48 hours. Evaluations will be conducted at 48 and 96 hours after application provider. Patient instructed not to get panels wet until after final reading in 96 hours, not to perform any activities that will cause patient to sweat, not to scratch test area, and not to remove patches unless instructed to do so by his/her provider. If itching or burning becomes severe, patient will call office. FOLLOW UP: Patient advised to return for follow-up care as planned. Patch Test instructions given to patient verbally and in writing. Patient verbalized understanding. No barriers to learning. I was directly supervised by Chaz Washburn MD who was in the suite and immediately available for the entire time of service. Patch Test Results 3 Extreme Positive (Coalescing vesicles, bullous reaction) 2 Strong Positive (Erythema, papules, infiltration, discrete vesicles) 1 Weak Positive (Erythema, infiltration, discrete papules) ? Doubtful (Faint macular or homogenous erythema with no infiltration IR Irritant (Discrete, patchy, follicular, or homogenous erythema with no infiltration) N Negative Relevance Results: C - Certain L - Likely U - Unsure N - None Allergen First Read Second Read Relevance Comments Panel 1 1 Nickel sulfate 2 Wool alcohols 3 Neomycin sulfate 4 Potassium dichromate 5 Pacheco mix 6 Fragrance mix 7 Colophony 8 Paraben mix 9 Negative control 10 Balsam of Christopher 11 Ethylenediamine dihydrochloride 12 [place] dichloride Panel 2 13 s-sjjf-edfwzxgtlwy formaldehyde resin 14 Epoxy resin 15 Carba mix 16 Black rubber mix 17 Cl+Me- isothiazolinone 18 Quaternium-15 19 Methyldibromo Glutaronitrile 20 p-phenylenediamine 21 Formaldehyde 22 Mercapto mix 23 Thimerosal 24 Thiuram mix Panel 3 25 Diazolidinyl uera 26 Quinoline mix 27 Vnedqdhan-72-xzyzajqt 28 Gold Sodium Thiosulfate 29 Imidazolidinyl Urea 30 Budesonide 31 Rivquaxktjcdsy-54-Lexgqpcy 32 Mercaptobenzothiazole 33 Bacitracin 34 Parthenolide 35 Disperse Blue 106 36 2-Bromo-2 Ytzhvlntagc-1-7-diol Panel 4 37 38 39 40 41 42 43 44 45 46 Panel 5 47 48 49 50 51 52 53 54 55 56 Panel 6 57 58 59 60 61 62 63 64 65 66 KAVITA HASTINGS RN 11/16/2022 9:14 documented in this encounter Plan of Treatment Upcoming Encounters Date Type Department Care Team (Late st Contact Info) Description 12/27/2023 10:15 EDT Office Visit [facility] Foot [facility]le Program - [address] [place] [address] Beth Carrera NP [address] [place] [phone] 01/17/2024 14:10 EDT Office Visit [facility] Dermatology 5th Floor [facility] [address] [place], [place] [address] Jun Le MD [address] [place] [address] documented as of this encounter Visit Diagnoses Diagnosis Contact dermatitis, unspecified contact dermatitis type, unspecified trigger- Primary documented in this encounter Care Teams Corporate Controller Relationship Specialty Start Date End Date Dana Perry PA-C PCP - General Family Medicine - Primary Care 11/23/21 documented as of this encounter
--- OUTSIDE RECORDS SUMMARY | 2023-12-01 21:57 | XMS_ITS | Encounter Summary ---
Author Organization [facility] Address [address] [place] [address] Care Team Providers Care Outpatient Coder Name Role Phone Dana Perry PA-C Primary Care Provider [phone] Reason for Visit * Reason Comments Follow-up Rash al over body x1 week Encounter Details Date Type Department Care Team (Late st Contact Info) Description 10/30/2022 13:00 EDT Office Visit [facility] Dermatology 3rd Floor [facility] [address], [place] [phone] Jun Allen MD [address] [place], [place] [address] Rash (Primary Dx); Hyperhidrosis of palms Social History Tobacco Use Types Packs/Day Years [...] this encounter Patient Instructions * Patient Instructions* Jun Allen MD - 10/30/2022 13:00 EDT -Betamethasone: for itchiest, most bothersome areas on the body except face, underarms, groin, or skin folds -Triamcinolone: for everywhere else on the body except face, underarms, groin, or skin folds -Tacrolimus: for the face, underarms, groin, skin folds -All of the above are twice per day. Do not use betamethasone dipropionate or triamcinolone for more than 2 weeks straight. If still needed after that time, decrease use to 3 days per week max -Glycopyrrolate wipes: for excessive sweating of the hands, use once daily. DO NOT touch your eyes after applying. WOUND CARE INSTRUCTIONS FOR SHAVE/PUNCH SKIN BIOPSY The DRESSING/BAND-AID should remain in place for 24 hours. You may shower or bathe after 24 hours; remove the bandage and replace it after the shower. Continue to keep the biopsy site covered with Vaseline and a Band-Aid/bandage for 1 week after the biopsy and change daily. WOUND CARE: Wash hands with soap and water before changing the dressing. Clean the wound daily with mild soap and water. You may gently loosen any crusts with a cotton swab. The wound may be slightly tender and may bleed a small amount. A small amount of discharge is normal. Apply a thin layer of sterile petroleum jelly over the wound. Cover the wound with a Telfa (non-stick) dressing or bandage. It is important to keep the wound covered. Change the dressing daily and when it becomes wet. Do not clean your open wound with hydrogen peroxide or apply an antibiotic ointment unless prescribed by your provider. Using these can be more harmful and damaging to the healing skin. Many people are allergic to the topical antibiotics over the counter and this results in a rash occurring around the biopsy site. DISCOMFORT: Expect some discomfort. Tylenol, taken as directed by the seed specialist, will help relieve pain. If Tylenol does not provide sufficient relief, you may also take Ibuprofen alternating every four hours with the Tylenol. If the pain is severe and not relieved by the above measures, please c all the office. BLEEDING: You may notice some blood on the edges of the dressing the first day and this is normal. If the bleeding soaks through the dressing, remove the dressing, and apply firm, steady pressure with a moist clean wash cloth for twenty minutes. If the bleeding stops, redress the wound, if not, call our office at . ACTIVITY: You may resume normal activity in 1 day unless instructed otherwise. LEG BIOPSIES: If your biopsy was on the leg, expect the healing process to take weeks-months. You will need to keep it covered for at least 2 weeks. It is normal and expected that leg wounds/biopsies take what seems like forever to heal. Healing can also take longer in patients who have swollen legs or peripheral vascular disease. Make sure the biopsy site is the last area you wash in the shower (or re wash it when you get out) to ensure that bacteria from your body does not run into your wound and result inan infection. If you had stitches placed (usually after having a punch biopsy) you will need to have these removed by our nursing staff, in 7 days, unless otherwise instructed. CONTACT THE OFFICE or IF YOU EXPERIENCE: increased redness warmth to touch increased pain drainage with a foul odor rapid swelling of the wound fever or chills To our patients in dermatology: The recently passed Cures Act requires that all lab and biopsy results are available to you online when they are processed (the same time they are released to your provider). If you choose to look at your results in [facility] prior to our office contacting you, that is your right and choice. Our office policy is to have your provider or the provider???s administrative assistant contact you with your results and any treatment plan, in a timely manner. In some cases, biopsy and/or lab results can be upsetting, and we prefer to give you the results ourselves once we have reviewed them and have formulated a plan. If you opt to read your results online before we are able to contact you, please do not call the office or send a [employer] message asking to discuss them. Providers are seeing patients during the day and cannot answer calls during clinic time or off hours/weekends. Unless it is an emergency, the construction engineering manager provider will not review biopsy and/ or lab results. Thank you for entrusting us with your care. [facility] Dermatology documented in this encounter Ordered Prescriptions Prescription Sig Dispensed Refills Start Date End Da te triamcinolone (KENALOG) 0.1 % ointmentIndications:Cristiano h Apply topically to affected area 2 times daily. Do not apply to face, armpit or groin. 454 g 3 10/30/2022 betamethasone dipropionate (DIPROLENE) 0.05 % ointmentIndications:Cristiano h Apply topically to affected area 2 times daily. For itchiest spots up to 2 weeks. 90 g 3 10/30/2022 TACRolimus (PROTOPIC) 0.1 % ointmentIndications:Cristiano h Apply topically to affected area 2 times daily. For use on the face, underarms, and groin. 60 g 3 10/30/2022 05/05/2023 glycopyrronium tosylate 2.4 % toweletteIndications:Hy perhidrosis of palms Apply 1 application topically daily. Apply once daily to both hands using a single cloth. 1 Each 10/30/2022 11/02/2022 documented in this encounter Progress Notes * Jun Allen MD - 10/30/2022 1300 EDT Images from the original note were not included. Dermatology Outpatient Visit Note DERMATOLOGIC HISTORY: No specialty comments available. CHIEF COMPLAINT: Telma Umanzor is a 17 y.o. female who presents for Follow-up (Rash al over body x1 week) SUBJECTIVE: 1) itchy rash that started in her armpits about a month ago then spread all over her body. NO new soaps, shampoos, conditioners, detergents, cosmetic products or any other topicals products. No recent Rx changes preceding onset of the rash. The rash is itchy, which worsens when she sweats. She has had numerous episodes of this in the past, most recently several months ago. She has been using plain vaseline on the rash. 2) chronic problem with excessive sweating of the hands which interferes with work and daily life. She has similar issues with excess sweating in her underarms but states she only notices it when sheis having the widespread rashes. OBJECTIVE: Cutaneous full body examination excluding genitalia was performed. Examination was notable for the following findings: -Widespread eruption of ill-defined erythematous slightly scaly papules and plaques -palms moist with perspiration ASSESSMENT & PLAN: Rash - Favor AD, vs. ACD or drug eruption - Given the diagnostic uncertainty, biopsy is recommended (please see procedure note below) - Patient was advised of the risks of biopsy, including pain, infection, bleeding, and inevitability of scar formation. - Patient was made aware she will be called with biopsy results when available, at which time further treatment recommendations will be made based on the results attained. - The patient understood the above and was in agreement with this plan. - Wound care instructions provided - Start: betamethasone dipropionate (DIPROLENE) 0.05 % ointment; Apply topically to affected area 2times daily. For itchiest spots up to 2 weeks. Dispense: 90 g; Refill: 3 - Start: triamcinolone (KENALOG) 0.1 % ointment; Apply topically to affected area 2 times daily. Donot apply to face, armpit or groin. Dispense: 454 g; Refill: 3 - Start: TACRolimus (PROTOPIC) 0.1 % ointment; Apply topically to affected area 2 times daily. For use on the face, underarms, and groin. Dispense: 60 g; Refill: 3 - Next step: prior auth for dupilumab vs. Patch testing, pending bx results Hyperhidrosis of palms -Start: glycopyrronium tosylate 2.4 % towelette; Apply 1 application topically daily. Apply once daily to both hands using a single cloth. Dispense: 1 Each; Refill: 11 -If insufficient, will submit prior auth for botulinum toxin injections PROCEDURE: PUNCH BIOPSY PATIENT : Telma Ledezma Noé : MRN: [id number] SURGEON: JUN ALLEN MD The indication, risks, benefits and alternatives to this procedure were discussed in detail in withthe patient and all questions were answered. Informed consent was obtained in writing. PROCEDURE NOTE: Specimen A Procedure: Punch Biopsy Site: right thigh Anesthesia: 1% lidocaine with epinephrine 1:100,000 local infiltration Prep: Alcohol Procedure performed by: The resident performed the procedure. The lesion was prepped and anesthetized with local anesthesia. The specimen was removed with a 4.0 mm punch trephine. Hemostasis was achieved with pressure. The wound was closed with 4.0 Prolene (polypropylene) suture. A sterile dressing was applied over petrolatum ointment. Verbal and written wound care instructions were given. The specimen was submitted to pathology for histological evaluation. FOLLOW UP: Return in about 2 months (around 12/31/2022) for rash and hyperhidrosis. Jun Allen MD PGY-3 Dermatology Resident 10/30/2022 14:03 Attestation Statement: I saw and examined the patient with the resident/fellow. I agree with the findings and plan of care documented in the resident's/fellow's note. I was present for the entire procedure. 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 Atopic dermatitis and ACD both remain in the Ddx. Pt states her itching has resolved with use of the topicals prescribed. She notes that she had been staying at her mother's home prior to onset of the rash and her mother sometimes forgets to use the free and clear detergent, so that my be an ACD trigger. She also notes she had started taking her citalopram again prior to onset of the rash and has since discontinued it,so eczematous drug eruption is also in the Ddx. Recommended that we proceed with patch testing. Jarod, please schedule pt for that if possible. [facility] on 11/23/22 so this would need to be done very soon. If not feasible, we will refer to a provider in the [facility] where she can have this done. * Result Encounter Note - Jarod Mendoza MA - 10/30/2022 1300 EDT Patient scheduled for patch testing JAROD MENDOZA MA 11/09/2022 11:11 documented in this encounter Plan of Treatment Upcoming Encounters Date Type Department Care Team (Late st Contact Info) Description 12/27/2023 10:15 EDT Office Visit [facility] - [address] [place] [address] Beth Carrera NP [address] [place] [address] 01/17/2024 14:10 EDT Office Visit [facility] Dermatology 5th Floor [facility] [address], [place] [phone] Jun Allen MD [address] [place] [address] documented as of this encounter Procedures Procedure Name Priority Date/Time Associated Diagnosis Comments SURGICAL PATHOLOGY Routine 10/30/2022 13 :14 EDT Rash documented in this encounter Results * SURGICAL PATHOLOGY (10/30/2022 13:14 EDT) Note to Patient The following pathology results have been interpreted by your pathologist and may be available to you before your health provider has had the opportunity to review them. Please allow time for your provider to receive these results and explore management options, if applicable. 11/05/2022 11:36 [facility] Final Diagnosis A. SKIN OF THIGH, RIGHT, PUNCH BIOPSY: - Spongiotic dermatitis with eosinophils. (see microscopic description and comment) 11/05/2022 11:36 [facility] Diagnosis Comment The histological differential diagnosis includes a contact dermatitis, an eczematous drug eruption and an atopic dermatitis. Clinical correlation is recommended. 11/05/2022 11:36 [facility] Attestation By the signature below, the attending physician certifies that they have 1) personally conducted a gross and/or microscopic examination of the described specimen(s), and/or personally interpreted the results of laboratory testing of the described specimen(s), and 2) personally rendered or confirmed the above diagnosis. 11/05/2022 11:36 [facility] at 1136 Microscopic Description There is orthohyperkeratosis and parakeratosis. The epidermis is hyperplastic with elongate and thickened rete ridges. There is a variable degree of spongiosis with exocytosis of lymphocytes. Within the dermis, there is a moderately dense superficial perivascular infiltrate. The infiltrate is composed of lymphocytes and histiocytes with eosinophils. 11/05/2022 11:36 [facility] Clinical History Generalized eruption of ill-defined erythematous scaly pruritic plaques; DDx atopic dermatitis vs. ACD vs. drug eruption; clinical diagnosis code: R21 11/05/2022 11:36 [facility] Gross Description A. Received in formalin labelled with proper patient identification (initials M, K) and right thigh is a punch biopsy of ryan-pink skin (0.4 cm in diameter and 0.5 cm in depth). The tissue is bisected and entirely submitted in A1. YUKI LEAL(ASCP) 10/30/2022 16:18 11/05/2022 11:36 [facility] Performing Lab [facility] 11/05/2022 11:36 [facility] Scanned Images 11/05/2022 11:36 [facility] Tissue TISSUE SPECIMEN FROM SKIN / Unknown Collection, Other / Unknown 10/30/2022 13:14 EDT 10/30/2022 15:35 EDT Efrain Slater MD PATHOLOGY ORDERABLES [facility] [address] [place] [address] documented in this encounter Visit Diagnoses Diagnosis Rash- Primary Rash and other nonspecific skin eruption Hyperhidrosis of palms Primary focal hyperhidrosis documented in this encounter Care Teams Outpatient Coder Relationship Specialty Start Date End Date Dana Perry PA-C PCP - General Family Medicine - Primary Care 11/23/21 documented as of this encounter
--- OUTSIDE RECORDS SUMMARY | 2023-12-01 21:57 | XMS_ITS | Encounter Summary ---
Author Organization [facility] Address [address] [place] [address] Care Team Providers Care Child Day Care Teacher Name Role Phone Dana Perry PA-C Primary Care Provider [phone] Encounter Details Date Type Department Care Team (Late st Contact Info) Description 11/25/2022 Orders Only [facility] Dermatology 5th Floor [facility] [address] [place], [place] [address] Jun Le MD [address] [place], [place] [address] Hyperhidrosis of palms (Primary Dx) Social History Tobacco Use Types [...] No 11/23/2021 documented as of this encounter Ordered Prescriptions Prescription Sig Dispensed Refills Start Date End Da te Aluminum Chloride in Alcohol (XERAC AC) 6.25 % solutionIndications:Hyper hidrosis of palms Apply topically at bedtime. To the palms. 60 mL 5 11/25/2022 documented in this encounter Progress Notes * Jun Le MD - 11/25/2022 1510 EDT Glycopyrrolate wipes not covered by insurance. Sent Al Cl solution instead for hyperhidrosis of thepalms Jun Le MD PGY-3 Dermatology Resident documented in this encounter Plan of Treatment Upcoming Encounters Date Type Department Care Team (Late st Contact Info) Description 12/27/2023 10:15 EDT Office Visit [facility] - [address] [phone] Bteh Carrera NP [address] [place] [address] 01/17/2024 14:10 EDT Office Visit [facility] Dermatology 5th Floor [facility] [address] [place] [address] Jun Le MD [address] [place] [address] documented as of this encounter Visit Diagnoses Diagnosis Hyperhidrosis of palms- Primary Primary focal hyperhidrosis documented in this encounter Care Teams Child Day Care Teacher Relationship Specialty Start Date End Date Dana Perry PA-C PCP - General Family Medicine - Primary Care 11/23/21 documented as of this encounter
--- OUTSIDE RECORDS SUMMARY | 2023-12-01 21:57 | XMS_ITS | Encounter Summary ---
Author Organization [facility] Address [address] [place] [address] Care Team Providers Care Flight Kitchen Manager Name Role Phone Dana Perry PA-C Primary Care Provider [phone] Reason for Visit * Reason Onset Date Comments Appointment Related 11/09/2022 Encounter Details Date Type Department Care Team (Late st Contact Info) Description 11/09/2022 Telephone [facility] Dermatology 5th Floor [facility] [address] [place] [address] Jose Wang RN Appointment Related Social History Tobacco Use Types Packs/Day Years [...] No 11/23/2021 documented as of this encounter Miscellaneous Notes * Telephone Encounter - Jose Wang RN - 11/09/2022 0831 EDT Patient returned the call to schedule patch testing at the recommendation of Efrain Slater MD. Patient has been scheduled for patch testing as follows: Patch test initial placement on 11/16 @ 0815 with the nursing team Patch test first reading on 11/18 @ 0810 with Luis Antonio Meneses PA-C Patch test final reading on 11/20 @ 0930 with Efrain Slater MD Patient was advised that she will not be able to get the patch test sites wet during the week of the test, even once the patches are removed on Wednesday. Per patient, she will not be bringing any products from home. Patient verbalized understanding of patch test instructions. No barriers to learning. JOSE WANG RN 11/09/2022 8:43 documented in this encounter Plan of Treatment Upcoming Encounters Date Type Department Care Team (Late st Contact Info) Description 12/27/2023 10:15 EDT Office Visit [facility] Foot [facility] - [address] [phone] Beth Carrera NP [address] [place] [phone] 01/17/2024 14:10 EDT Office Visit [facility] Dermatology 5th Floor [address] [address] Jun Le MD [address] [place], [place] [address] documented as of this encounter Visit Diagnoses Not on filedocumented in this encounter Care Teams Flight Kitchen Manager Relationship Specialty Start Date End Date Dana Perry PA-C PCP - General Family Medicine - Primary Care 11/23/21 documented as of this encounter
--- OUTSIDE RECORDS SUMMARY | 2023-12-01 21:57 | XMS_ITS | Encounter Summary ---
Author Organization [facility] Address [address] [place] [address] Care Team Providers Care Quitline Counselor Name Role Phone Dana Perry PA-C Primary Care Provider [phone] Reason for Referral * Consult (Urgent) - Pending Review Specialty Diagnoses / Procedures [facility] To Contact [facility]acy Diagnoses Hyperhidrosis Jun Le MD [address] [place] [address] [facility] [address] [place] [address] Referral ID Status Reason Start Date Expiration Date Visits Requested Visits Authorized [id number] Pending Review Specialty Services Required 07/09/2023 1 1 Question Answer PA Type: Re-auth Medication to be Prior Authorized: Botox- retro to appointment on 07/08/24 if possible Comments The purpose of this request is to inform precertification staff that the requested service needs to be reviewed for prior-authorization. Encounter Details Date Type Department Care Team (Late st Contact Info) Description 07/09/2023 Specialty Pharmacy [facility] Dermatology 3rd Floor [facility] [address] [place] [address] Jun Le MD [address] [place], [place] [phone] Social History Tobacco Use Types Packs/Day Years [...] as of this encounter Progress Notes * Tessa Phan RPH - 07/09/2023 1642 EDT Patient arrived at dermatology clinic for botox injection dx: hyperhidrosis Unfortunately [place] for medication was [place] auth from 03/12/23-06/11/23 . She was provided injections in office due to the extensive travel time it took for her to arrive to appointment. Likely able to retro submit PA due to downtime of change healthcare. I submitted new PA today. Tessa Phan PharmD. [facility] [phone] (Covering for Owen Centeno) documented in this encounter Plan of Treatment Upcoming Encounters Date Type Department Care Team (Late st Contact Info) Description 12/27/2023 10:15 EDT Office Visit [facility] - [place] [address] [place] [address] Beth Carrera NP [address] [place] [address] 01/17/2024 14:10 EDT Office Visit [facility] Dermatology 5th Floor [address] [phone] Jun Le MD [address] [place], [place] [phone] Scheduled Referrals Name Type Priority Associated Diagnoses Order Schedule AMB CONS/FOLLOW UP SPECIALTY PHARMACY Outpatient Referral Routine/Next Available Hyperhidrosis Expected: 07/16/2023 (Approximate), Expires: 07/08/2024 documented as of this encounter Visit Diagnoses Diagnosis Hyperhidrosis- Primary Primary focal hyperhidrosis documented in this encounter Care Teams Quitline Counselor Relationship Specialty Start Date End Date Dana Perry PA-C PCP - General Family Medicine - Primary Care 11/23/21 documented as of this encounter
--- OUTSIDE RECORDS SUMMARY | 2023-12-01 21:57 | XMS_ITS | Encounter Summary ---
Author Organization [facility] Address [address] [place] [address] Care Team Providers Care Outpatient Receptionist Name Role Phone Dana Perry PA-C Primary Care Provider [phone] Encounter Details Date Type Department Care Team (Late st Contact Info) Description 10/29/2022 Lab Requisition [facility] Pathology & Laboratory Medicine - [facility] [address] [place] [address] Outr Resulting Lab, Provider Social History Tobacco [...] Info) Description 12/27/2023 10:15 EDT Office Visit [facility] [place] [place] [address] Beth Carrera NP [address] [place] [address] 01/17/2024 14:10 EDT Office Visit [facility] Dermatology 5th Floor [facility] [address] [place] [address] Jun Le MD [address] [place] [address] documented as of this encounter Procedures Procedure Name Priority Date/Time Associated Diagnosis Comments HEPATITIS C AB W REFLEX TO HCV RNA BY PCR Routine 10/29/2022 16:17 EDT documented in this encounter Results * HEPATITIS C AB W REFLEX TO HCV RNA BY PCR (10/29/2022 16:17 EDT) Hep C Antibody Negative Negative 10/30/2022 10:04 EDT [facility] Blood VENOUS BLOOD / Unknown 10/29/2022 16:17 EDT 10/29/2022 21:38 EDT Provider Outr Resulting Lab CHEMISTRY & BLOOD GAS ORDERABLES [facility] [address] [place] [address] documented in this encounter Visit Diagnoses Not on filedocumented in this encounter Care Teams Outpatient Receptionist Relationship Specialty Start Date End Date Dana Perry PA-C PCP - General Family Medicine - Primary Care 11/23/21 documented as of this encounter
--- OUTSIDE RECORDS SUMMARY | 2023-12-01 21:57 | XMS_ITS | Encounter Summary ---
Author Organization [facility] Address [address] [place] [address] Care Team Providers Care Switch Operator Name Role Phone Dana Perry PA-C Primary Care Provider [phone] Encounter Details Date Type Department Care Team (Late st Contact Info) Description 10/29/2022 Lab Requisition [facility] Pathology & [facility] [address] [place] [address] Outr Resulting Lab, Provider Social History Tobacco [...] 12/27/2023 10:15 EDT Office Visit [facility] Foot & Ankle Program [place] [address] Beth Carrera NP [address] [place] [address] 01/17/2024 14:10 EDT Office Visit [facility] Dermatology [address] [facility] [address] [place] [address] Jun Le MD [address] [place] [address] documented as of this encounter Procedures Procedure Name Priority Date/Time Associated Diagnosis Comments HEPATITIS B SURFACE ANTIGEN Routine 10/29/2022 16:17 EDT documented in this encounter Results * HEPATITIS B SURFACE ANTIGEN (10/29/2022 16:17 EDT) Hep B Surface Ag Negative Negative 10/30/2022 10:38 EDT [facility] Blood VENOUS BLOOD / Unknown 10/29/2022 16:17 EDT 10/29/2022 21:38 EDT Provider Outr Resulting Lab CHEMISTRY & BLOOD GAS ORDERABLES Performing Organization Address City/State/[facility] Co de Phone Number [facility] [address] [place] [address] documented in this encounter Visit Diagnoses Not on filedocumented in this encounter Care Teams Switch Operator Relationship Specialty Start Date End Date Dana Perry PA-C PCP - General Family Medicine - Primary Care 11/23/21 documented as of this encounter
--- OUTSIDE RECORDS SUMMARY | 2023-12-01 21:57 | XMS_ITS | Encounter Summary ---
Author Organization [facility] Address [address] [place] [address] Care Team Providers Care Unemployment Specialist Name Role Phone Dana Perry PA-C Primary Care Provider [phone] Reason for Visit * Reason Onset Date Comments Medication Problem 05/04/2023 Encounter Details Date Type Department Care Team (Late st Contact Info) Description 05/04/2023 Telephone [facility] Dermatology [address] [facility] [address] [place] [address] Jun Le MD [address] [place], [place] [address] Medication Problem Social History Tobacco Use Types Packs/Day Years [...] Dispensed Refills Start Date End Da te fluocinonide (LIDEX) 0.05 % external solutionIndications:Sebor rheic dermatitis Apply topically 2 times daily. to scalp. For up to 2 weeks during flare, then max 3 days per week as maintenance. Do not apply to face, armpit or groin. 60 mL 11 05/05/2023 TACRolimus (PROTOPIC) 0.1 % ointmentIndications:Intri nsic atopic dermatitis Apply topically to affected area 2 times daily. For use on the face, underarms, and groin. 60 g 3 05/05/2023 ketoconazole (NIZORAL) 2 % shampooIndications:Seborr heic dermatitis Apply to scalp 1-3 times per week. Leave in for 3-5 minutes then rinse. 120 mL 11 05/05/2023 documented in this encounter Miscellaneous Notes * Telephone Encounter - Jun Le MD - 05/05/2023 1302 EST Pt reported flare of rash on her face and body after a COVID infection. She has not been using her topical medications since her rash was previously well controlled and she had developed some steroidinduced atrophy from prior TCS use. States she is out of tacrolimus and needs a refill. Also reports onset of severe dandruff with redness and flaking throughout her scalp. Will Rx ketoconazole shampoo and fluocinonide solution and evaluate at her appt. in June Jun Le MD PGY-3 Dermatology Resident * Telephone Encounter - Page Esteves - 05/04/2023 1322 EST Returned phone call documented in this encounter Plan of Treatment Upcoming Encounters Date Type Department Care Team (Late st Contact Info) Description 12/27/2023 10:15 EDT Office Visit [facility] Foot & Ankle Program - [place] [address] Beth Carrera NP [address] [place] [address] 01/17/2024 14:10 EDT Office Visit [facility] Dermatology 5th Floor [address] [address] Jun Le MD [address] [place], [place] [address] documented as of this encounter Visit Diagnoses Diagnosis Intrinsic atopic dermatitis- Primary Seborrheic dermatitis Seborrheic dermatitis, unspecified documented in this encounter Discontinued Medications Medication Sig Discontinue Reason Start Date End Da te TACRolimus (PROTOPIC) 0.1 % ointmentIndications:Cristiano h Apply topically to affected area 2 times daily. For use on the face, underarms, and groin. Reorder 10/30/2022 05/05/2023 documented as of this encounter Care Teams Unemployment Specialist Relationship Specialty Start Date End Date Dana Perry PA-C PCP - General Family Medicine - Primary Care 11/23/21 documented as of this encounter
--- OUTSIDE RECORDS SUMMARY | 2023-12-01 21:57 | XMS_ITS | Encounter Summary ---
Author Organization [facility] Address [address] [place] [address] Care Team Providers Care Transmitter Chief Name Role Phone Dana Perry PA-C Primary Care Provider Encounter Details Date Type Department Care Team (Late st Contact Info) Description 11/02/2022 Orders Only [facility] Dermatology 3rd Floor [facility] [address] [place] [address] Jun Le MD [address] [place] [address] Hyperhidrosis of palms (Primary Dx) Social History [...] Dispensed Refills Start Date End Da te glycopyrronium tosylate 2.4 % toweletteIndications:Hy perhidrosis of palms Apply 1 application topically daily. Apply once daily to both hands using a single cloth. Do not touch your eyes after applying 1 Each 11 11/02/2022 11/02/2023 documented in this encounter Progress Notes * Jun Le MD - 11/02/2022 1026 EDT [facility] unable to fill glycopyrronium towlette Rx. Will send to [facility] instead. Jun Le MD PGY-3 Dermatology Resident documented in this encounter Plan of Treatment Upcoming Encounters Date Type Department Care Team (Late st Contact Info) Description 12/27/2023 10:15 EDT Office Visit 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 To affected skin. Do not apply to face, armpit or groin. Alternate therapy 05/30/2021 11/02/2022 glycopyrronium tosylate 2.4 % toweletteIndications:H yperhidrosis of palms Apply 1 application topically daily. Apply once daily to both hands using a single cloth. 10/30/2022 11/02/2022 documented as of this encounter Care Teams Transmitter Chief Relationship Specialty Start Date End Date Dana Perry PA-C PCP - General Family Medicine - Primary Care 11/23/21 documented as of this encounter
--- OUTSIDE RECORDS SUMMARY | 2023-12-01 21:57 | XMS_ITS | Encounter Summary ---
Author Organization [facility] Address [address] [place] [address] Care Team Providers Care Cash Grain Grower Name Role Phone Dana Perry PA-C Primary Care Provider [phone] Reason for Visit * Reason Onset Date Comments Appointment Related 02/15/2023 Encounter Details Date Type Department Care Team (Late st Contact Info) Description 02/15/2023 Telephone [facility] Dermatology 3rd Floor [facility] [address] [place] [address] Jun Le MD [address] [place], [place] [address] Appointment Related Social History Tobacco Use Types [...] encounter Miscellaneous Notes * Telephone Encounter - Gauri Campos MA - 02/15/2023 1048 EST Called patient and offered multiple appointments prior to 05/07/23. Patient said she could not make any of the times offered and asked about appointments on 03/26/23. There were no available times that day so patient elected to keep 05/07/23 appointment. I will call her if any times open up on 03/26. GAURI CAMPOS MA 02/15/2023 10:51 ----- Message from Jun Le MD sent at 02/12/2023 16:30 EDT ----- Pt requested an earlier follow up appointment for her botox injections for hyperhidrosis. I submitted a PA for that today and hopefully insurance will approve but I'm not sure if they will. Can you please give her a call and see if there is any time that works with her schedule that she would be able to come for an in-person visit before her currently scheduled 05/07/23 visit? If so let's go aheadand get that on the books. Jun Bean documented in this encounter Plan of Treatment Upcoming Encounters Date Type Department Care Team (Late st Contact Info) Description 12/27/2023 10:15 EDT Office Visit [facility] Foot & Ankle Program - [address] [address] Beth Carrera NP [address] [place] [phone] 01/17/2024 14:10 EDT Office Visit [facility] Dermatology 5th Floor [facility] [address] [place], [place] [address] Jun Le MD [address] [place], [place] [address] documented as of this encounter Visit Diagnoses Not on filedocumented in this encounter Care Teams Cash Grain Grower Relationship Specialty Start Date End Date Dana Perry PA-C PCP - General Family Medicine - Primary Care 11/23/21 documented as of this encounter
--- OUTSIDE RECORDS SUMMARY | 2023-12-01 21:57 | XMS_ITS | Encounter Summary ---
Author Organization [facility] Address [address] [place] [address] Care Team Providers Care Staffing Clerk Name Role Phone Dana Perry PA-C Primary Care Provider [phone] Encounter Details Date Type Department Care Team (Latest Contact Info) Description 09/17/2023 Specialty Pharmacy [facility] [address] [place], [place] [phone] [facility] Refill Coordination Outreach for Dermatology, Patient Education for Dermatology Social History Tobacco Use Types [...] 12/27/2023 10:15 EDT Office Visit [facility] Foot & Ankle Program [place] [address] Beth Carrera NP [address] [place] [address] 01/17/2024 14:10 EDT Office Visit [facility] Dermatology 5th Floor [facility] [address] [place] [address] Jun Le MD [address] [place], [place] [phone] documented as of this encounter Visit Diagnoses Not on filedocumented in this encounter Care Teams Staffing Clerk Relationship Specialty Start Date End Date Dana Perry PA-C PCP - General Family Medicine - Primary Care 11/23/21 documented as of this encounter
--- OUTSIDE RECORDS SUMMARY | 2023-12-01 21:57 | XMS_ITS | Encounter Summary ---
Author Organization [facility] Address [address] [place] [address] Care Team Providers Care Furnace Room Supervisor Name Role Phone Dana Perry PA-C Primary Care Provider [phone] Encounter Details Date Type Department Care Team (Late st Contact Info) Description 11/26/2022 Specialty Pharmacy [facility] [address] [place] [address] [facility] Social History Tobacco Use Types Packs/Day Years [...] as of this encounter Progress Notes * Stacey Traore RPH - 11/26/[address] [facility] Medication Therapy Initiation Note Telma Umanzor is a 17 y.o. female who will be starting treatment with Dupixent (dupilumab) for atopic dermatitis. Planned Start Date: 12/09/22 (estimate - pending derm nursing training) I performed a complete review of the patient???s medical record, including medications, immunizations, and allergies. Clinically relevant drug interactions identified: None Potential barriers to therapy: No Assessment & Plan Indication, effectiveness, safety, and convenience of specialty medications were reviewed today. Method of Education: Telephone Taught to: Patient Counseled the patient on the following: Therapeutic rationale / Goals of therapy discussed (mechanism/onset of action, reduction in TCS, itching/rash) Dosage and administration discussed (loading & maintenance frequency) Safe handling, storage, and disposal reviewed Therapy contraindications discussed Possible adverse effects and management discussed Possible drug and prescription drug interactions discussed Adherence and missed doses discussed Adherence tools reviewed: calendar, cell phone Lab monitoring and follow-up discussed Additional self-management strategies reviewed Information regarding Dupixent (dupilumab) was provided to patient. She is currently living in college dorm and is requesting a virtual injection training visit with derm nursing. Will pass this request onto the nursing team. She is aware of planned delivery to email designer and was advised to quickly retrieve her medication and place in her fridge. Barriers to Education: None Outcomes of Education: Requires Assistance Follow up: - Phone call: within 6 weeks of initiation - Clinic appointment: 12/25/22 STACEY TRAORE RPH documented in this encounter Plan of Treatment Upcoming Encounters Date Type Department Care Team (Late st Contact Info) Description 12/27/2023 10:15 EDT Office Visit [facility] Foot & Ankle Program - [address] [address] Beth Carrera NP [address] [place] [address] 01/17/2024 14:10 EDT Office Visit [facility] Dermatology 5th Floor [facility] [address] [place], [place] [address] Jun Le MD [address] [place], [place] [address] documented as of this encounter Visit Diagnoses Not on filedocumented in this encounter Care Teams Furnace Room Supervisor Relationship Specialty Start Date End Date Dana Perry PA-C PCP - General Family Medicine - Primary Care 11/23/21 documented as of this encounter
--- OUTSIDE RECORDS SUMMARY | 2023-12-01 21:57 | XMS_ITS | Encounter Summary ---
Author Organization [facility] Address [address] [place] [address] Care Team Providers Care Riding Double Name Role Phone Dana Perry PA-C Primary Care Provider [phone] Reason for Referral * (Routine/Next Available) - Receiving Office to Obtain Authorization Specialty Diagnoses / Procedures Referred By Contac t Referred To Contact Procedures US OUTSIDE IMAGES BODY Imaging, External Referral ID Status Reason Start Date Expiration Date Visits Requested Visits Authorized [id number] Receiving Office to Obtain Authorization 10/12/2023 1 1 Reason for Visit * (Routine/Next Available) - Receiving Office to Obtain Authorization Specialty Diagnoses / Procedures Referred By Contac t Referred To Contact Procedures US OUTSIDE IMAGES BODY Imaging, External Referral ID Status Reason Start Date Expiration Date Visits Requested Visits Authorized [id number] Receiving Office to Obtain Authorization 10/12/2023 1 1 Encounter Details Date Type Department Care Team (Latest Contact Info) Description 10/05/2023 - 10/05/2023 23:59 EDT Hospital Encounter [facility] Secondary [place] Discharge Disposition: Home or Self Care Social [...] No 11/23/2021 documented as of this encounter Medications at Time of Discharge Medication Sig Dispensed Refills Start Date End Date Aluminum Chloride in Alcohol (XERAC AC) 6.25 % solutionIndications:Hy perhidrosis of palms Apply topically at bedtime. To the palms. 60 mL 5 11/25/2022 betamethasone dipropionate (DIPROLENE) 0.05 % ointmentIndications:Ra sh Apply topically to affected area 2 times daily. For itchiest spots up to 2 weeks. 90 g 3 10/30/2022 botulinum toxin Type A (BOTOX) 100 unit injectionIndications:H yperhidrosis Inject 100 Units into the muscle every 12 weeks. 1 Each 1 07/13/2023 fluocinonide (LIDEX) 0.05 % external solutionIndications:Se borrheic dermatitis Apply topically 2 times daily. to scalp. For up to 2 weeks during flare, then max 3 days per week as maintenance. Do not apply to face, armpit or groin. 60 mL 11 05/05/2023 ibuprofen (MOTRIN) 600 mg tablet Take 1 Tablet by mouth every 8 hours as needed for Pain. WITH FOOD 60 Tablet 12/21/2021 ketoconazole (NIZORAL) 2 % shampooIndications:Link orrheic dermatitis Apply to scalp 1-3 times per week. Leave in for 3-5 minutes then rinse. 120 mL 11 05/05/2023 lisdexamfetamine (VYVANSE) 40 mg capsule Take 1 Capsule by mouth every morning. methocarbamoL (ROBAXIN) 500 mg tablet 1-2 tab po q 8 prn- caution sedation 30 Tablet 12/21/2021 spironolactone (ALDACTONE) 100 mg tablet Take 1 Tablet by mouth daily. 30 Tablet 3 05/30/2021 TACRolimus (PROTOPIC) 0.1 % ointmentIndications:In trinsic atopic dermatitis Apply topically to affected area 2 times daily. For use on the face, underarms, and groin. 60 g 3 05/05/2023 tralokinumab-ldrm (ADBRY) 150 mg/mL syringeIndications:Scooby pic dermatitis, unspecified type Inject 2 mL into the skin every 14 days. 12 Each 1 09/30/2023 triamcinolone (KENALOG) 0.1 % ointmentIndications:Ra sh Apply topically to affected area 2 times daily. Do not apply to face, armpit or groin. 454 g 3 10/30/2022 glycopyrronium tosylate 2.4 % toweletteIndications:H yperhidrosis of palms Apply 1 application topically daily. Apply once daily to both hands using a single cloth. Do not touch your eyes after applying 1 Each 11 11/02/2022 11/02/2023 documented as of this encounter Discharge Disposition Disposition Code Departure Means Destination Home or Self Care documented in this encounter Plan of Treatment Upcoming Encounters Date Type Department Care Team (Late st Contact Info) Description 12/27/2023 10:15 EDT Office Visit [facility] Foot & Ankle Program - [address] [address] eBth Carrera NP [address] [place] [phone] 01/17/2024 14:10 EDT Office Visit [facility] Dermatology 5th Floor [facility] [address] [place] [address] Jun Le MD [address] [place] [address] documented as of this encounter Procedures Procedure Name Priority Date/Time Associated Diagnosis Comments US OUTSIDE IMAGES BODY Routine 10/05/2023 12:21 EDT documented in this encounter Results * US OUTSIDE IMAGES BODY (10/05/2023 12:21 EDT) Narrative 10/12/2023 12:22 EDT This is a non-reportable exam. External Imaging IMG OTHER IMAGING OR DERABLES documented in this encounter Visit Diagnoses Not on filedocumented in this encounter Care Teams Riding Double Relationship Specialty Start Date End Date Dana Perry PA-C [phone] (work) PCP - General Family Medicine - Primary Care 11/23/21 documented as of this encounter
--- OUTSIDE RECORDS SUMMARY | 2023-12-01 21:57 | XMS_ITS | Encounter Summary ---
Author Organization [facility] Address [address] [place] [address] Care Team Providers Care Rf Test Technician Name Role Phone Dana Perry PA-C Primary Care Provider [phone] Encounter Details Date Type Department Care Team (Latest Contact Info) Description 06/25/2023 Specialty Pharmacy [facility] [address] [place], [place] [id number] [facility] Refill Coordination Outreach for Dermatology, Clinical Follow-up (2x annually) for Dermatology Social History Tobacco Use Types [...] 10:15 EDT Office Visit [facility] Foot & Ankle Program [place] [address] Beth Carrera NP [address] [place] [address] 01/17/2024 14:10 EDT Office Visit [facility] Dermatology 5th Floor [facility] [address] [place] [address] Jun Le MD [address] [place] [address] documented as of this encounter Visit Diagnoses Not on filedocumented in this encounter Care Teams Rf Test Technician Relationship Specialty Start Date End Date Dana Perry PA-C PCP - General Family Medicine - Primary Care 11/23/21 documented as of this encounter
--- OUTSIDE RECORDS SUMMARY | 2023-12-01 21:57 | XMS_ITS | Encounter Summary ---
Author Organization [facility] Address [address] [place] [address] Care Team Providers Care Pack Train Driver Name Role Phone Dana Perry PA-C Primary Care Provider [phone] Reason for Visit * Reason Comments Follow-up Patch test first saud maldonado, patient notes itchiness and pain in 1 spot Encounter Details Date Type Department Care Team (Late st Contact Info) Description 11/18/2022 8:10 EDT Office Visit [facility] Dermatology 3rd Floor [address] [address] Jan Meneses PA-C [address] [facility] [address] [place] [address] Dermatitis (Primary Dx) Social History Tobacco Use Types [...] as of this encounter Progress Notes * Jan Meneses PA-C - 11/18/2022 0810 EDT Patch Test: 1st read ([id number]) Results 3 Extreme Positive (Coalescing vesicles, bullous reaction) 2 Strong Positive (Erythema, papules, infiltration, discrete vesicles) 1 Weak Positive (Erythema, infiltration, discrete papules) ? Doubtful (Faint macular or homogenous erythema with no infiltration IR Irritant (Discrete, patchy, follicular, or homogenous erythema with no infiltration) N Negative Relevance Results: C - Certain L - Likely U - Unsure N - None Allergen 1st Read 2nd Read Relevance Comments Panel 1 1 Nickel sulfate N 2 Wool alcohols N 3 Neomycin sulfate N 4 Potassium dichromate N 5 Pacheco mix N 6 Fragrance mix N 7 Colophony N 8 Paraben mix N 9 Negative control N 10 [place] N 11 Ethylenediamine dihydrochloride N 12 [place] dichloride N Panel 2 13 l-zofu-vsomtsunwig formaldehyde resin N 14 Epoxy resin N 15 Carba mix N 16 Black rubber mix N 17 Cl+Me- isothiazolinone N 18 Quaternium-15 N 19 Methyldibromo Glutaronitrile N 20 p-phenylenediamine N 21 Formaldehyde N 22 Mercapto mix N 23 Thimerosal N 24 Thiuram mix N Panel 3 25 Diazolidinyl uera N 26 Quinoline mix N 27 Ltfybkmux-47-ewldleqs N 28 Gold Sodium Thiosulfate N 29 Imidazolidinyl Urea N 30 Budesonide N 31 Achdnmkjiboheg-18-Qxwxqvml N 32 Mercaptobenzothiazole N 33 Bacitracin N 34 Parthenolide N 35 Disperse Blue 106 N 36 2-Bromo-2 Qaiosyyxcja-3-3-diol N Patient will return in 2 dyas for a second read. Jan Meneses PA-C 11/18/2022 8:19 documented in this encounter Plan of Treatment Upcoming Encounters Date Type Department Care Team (Late st Contact Info) Description 12/27/2023 10:15 EDT Office Visit [facility] Foot & Ankle Program - [address] [place] [address] Beth Carrera NP [address] [place] [phone] 01/17/2024 14:10 EDT Office Visit [facility] Dermatology 5th Floor [address] [address] Jun Le MD [address] [place], [place] [phone] documented as of this encounter Visit Diagnoses Diagnosis Dermatitis- Primary Contact dermatitis and other eczema, due to unspecified cause documented in this encounter Care Teams Pack Train Driver Relationship Specialty Start Date End Date Dana Perry PA-C PCP - General Family Medicine - Primary Care 11/23/21 documented as of this encounter
--- OUTSIDE RECORDS SUMMARY | 2023-12-01 21:57 | XMS_ITS | Encounter Summary ---
Author Organization [facility] Address [address] [place] [address] Care Team Providers Care Web Press Jogger Name Role Phone Dana Perry PA-C Primary Care Provider [phone] Reason for Referral * Consult (Routine/Next Available) - Authorized Specialty Diagnoses / Procedures [facility] Referred To Contact Pharmacy Diagnoses Intrinsic atopic dermatitis Efrain Slater MD [address] [place] [address], [address] [place] [address] [facility] [address] [place] [id number] Referral ID Status Reason Start Date Expiration Date Visits Requested Visits Authorized [id number] Authorized Specialty Services Required 11/24/2022 1 1 Question Answer PA Type: New Medication to be Prior Authorized: dupilumab Comments The purpose of this request is to inform precertification staff that the requested service needs to be reviewed for prior-authorization. Pt with severe atopic dermatitis affecting >60% BSA. Patch testing negative. Encounter Details Date Type Department Care Team (Late st Contact Info) Description 11/24/2022 Orders Only [facility] Dermatology 5th Floor [address] [id number] Jun Le MD [address] [place], [place] [phone] Intrinsic atopic dermatitis (Primary Dx) Social History Tobacco Use Types [...] Progress Notes * Jun Le MD - 11/24/2022 1237 EDT Spoke with pt over the phone. Discussed that her patch testing was negative so I have put in an order for dupilumab prior auth. She states she is starting to have another flare so I encouraged her caren diligent about her topical corticosteroid use while we await dupilumab approval. Jun Le MD PGY-3 Dermatology Resident documented in this encounter Plan of Treatment Upcoming Encounters Date Type Department Care Team (Late st Contact Info) Description 12/27/2023 10:15 EDT Office Visit [facility] Foot & Ankle Program - [address] [address] Beth Carrera NP [address] [place] [address] 01/17/2024 14:10 EDT Office Visit [facility] Dermatology 5th Floor [facility] [address] [place] [address] Jun Le MD [address] [place], [place] [phone] Scheduled Referrals Name Type Priority Associated Diagnoses Order Schedule AMB CONS/FOLLOW UP SPECIALTY PHARMACY MEDICATION PRIOR AUTHORIZATION REQUEST Outpatient Referral Routine/Next Available Intrinsic atopic dermatitis Expected: 12/01/2022 (Approximate), Expires: 11/25/2023 documented as of this encounter Visit Diagnoses Diagnosis Intrinsic atopic dermatitis- Primary documented in this encounter Care Teams Web Press Jogger Relationship Specialty Start Date End Date Dana Perry PA-C PCP - General Family Medicine - Primary Care 11/23/21 documented as of this encounter
--- OUTSIDE RECORDS SUMMARY | 2023-12-01 21:57 | XMS_ITS | Encounter Summary ---
Author Organization [facility] Address [address] [place] [address] Care Team Providers Care Electrical Line Mechanic Name Role Phone Dana Perry PA-C Primary Care Provider [phone] Encounter Details Date Type Department Care Team (Late st Contact Info) Description 12/16/2022 Specialty Pharmacy [facility] - [facility] [address] [place], [place] [id number] Owen Centeno, [facility] Social History Tobacco Use Types Packs/Day Years [...] Info) Description 12/27/2023 10:15 EDT Office Visit [facility]le [facility] - [place] [address] Beth Carrera NP [address] [place] [address] 01/17/2024 14:10 EDT Office Visit [facility] Dermatology 5th Floor [facility] [address] [place] [address] Jun Le MD [address] [place], [place] [address] documented as of this encounter Visit Diagnoses Not on filedocumented in this encounter Care Teams Electrical Line Mechanic Relationship Specialty Start Date End Date Dana Perry PA-C PCP - General Family Medicine - Primary Care 11/23/21 documented as of this encounter
--- OUTSIDE RECORDS SUMMARY | 2023-12-01 21:57 | XMS_ITS | Encounter Summary ---
Author Organization [facility] Address [address] [place] [address] Care Team Providers Care Ticket Taker Name Role Phone Dana Perry PA-C Primary Care Provider [phone] Reason for Visit * Reason Onset Date Comments Prior Auth, Other (i.e. radiology, etc.) 023 Encounter Details Date Type Department Care Team (Late st Contact Info) Description 03/19/2023 Telephone [facility] Dermatology 3rd Floor [facility] [address] [place], [place] [id number] Chaz Washburn MD [address] [facility], [address] [place] [address] Prior Auth, Other (i.e. radiology, etc.) Social History Tobacco Use Types Packs/Day Years [...] encounter Miscellaneous Notes * Telephone Encounter - Page Esteves - 03/19/2023 1520 EST YUKI Approval for Medicaid/Dr. Randhawa for sevices for botox from 03/12/23 to 06/11/2023 is in media mgr documented in this encounter Plan of Treatment Upcoming Encounters Date Type Department Care Team (Late st Contact Info) Description 12/27/2023 10:15 EDT Office Visit [facility] Foot & Ankle Program - [facility] [address] [facility] [place], [place] [phone] Beth Carrera NP [address] [place] [address] 01/17/2024 14:10 EDT Office Visit [facility] Dermatology 5th Floor [address] [address] Jun Le MD [address] [place], [place] [phone] documented as of this encounter Visit Diagnoses Not on filedocumented in this encounter Care Teams Ticket Taker Relationship Specialty Start Date End Date Dana Perry PA-C PCP - General Family Medicine - Primary Care 11/23/21 documented as of this encounter
--- OUTSIDE RECORDS SUMMARY | 2023-12-01 21:57 | XMS_ITS | Encounter Summary ---
Author Organization [facility] Address [address] [place] [address] Care Team Providers Care Car Unloader Helper Name Role Phone Dana Perry PA-C Primary Care Provider [phone] Encounter Details Date Type Department Care Team (Late st Contact Info) Description 10/29/2022 Lab Requisition [facility] Pathology & Laboratory Medicine - [facility] [address] [place] [address] Outr Resulting Lab, Provider Social History Tobacco [...] Info) Description 12/27/2023 10:15 EDT Office Visit [facility] Foot & Ankle Program [place] [address] Beth Carrera NP [address] [place] [address] 01/17/2024 14:10 EDT Office Visit [facility] Dermatology 5th Floor [facility] [address] [place] [address] Jun Le MD [address] [place] [address] documented as of this encounter Procedures Procedure Name Priority Date/Time Associated Diagnosis Comments SYPHILIS SEROLOGY Routine 10/29/2022 16: 17 EDT documented in this encounter Results * SYPHILIS SEROLOGY (10/29/2022 16:17 EDT) Syphilis Serology Negative Negative 10/30/2022 11:15 EDT [facility] Blood VENOUS BLOOD / Unknown 10/29/2022 16:17 EDT 10/29/2022 21:38 EDT Provider Outr Resulting Lab IMMUNOLOGY A ND SEROLOGY ORDERABLES Performing Organization Address City/State/[facility] Co de Phone Number [facility] [address] [place] [address] documented in this encounter Visit Diagnoses Not on filedocumented in this encounter Care Teams Car Unloader Helper Relationship Specialty Start Date End Date Dana Perry PA-C PCP - General Family Medicine - Primary Care 11/23/21 documented as of this encounter
--- OUTSIDE RECORDS SUMMARY | 2023-12-01 21:57 | XMS_ITS | Encounter Summary ---
Author Organization [facility] Address [address] [place] [address] Care Team Providers Care Boring Machine Operator Vertical Name Role Phone Dana Perry PA-C Primary Care Provider [phone] Reason for Visit * Reason Onset Date Comments Prior Auth, Medication 11/26/2022 Dupixent NS Encounter Details Date Type Department Care Team (Late st Contact Info) Description 11/26/2022 Telephone [facility] Dermatology 5th Floor [facility] [address] [place], [place] [address] Efrain Slater MD [address] [facility], [address] [place] [address] Prior Auth, Medication (Dupixent NS ) Social History Tobacco Use Types Packs/Day Years [...] Dispensed Refills Start Date End Da te dupilumab (DUPIXENT PEN) 300 mg/2 mL pen injector pen injector Inject 2 mL into the skin every 14 days. 12 mL 1 11/27/2022 09/30/2023 dupilumab (DUPIXENT PEN) 300 mg/2 mL pen injector pen injector Inject 4 mL into the skin Once for 1 dose. Then inject 300mg SC every 14 days starting day 15. 4 mL 11/27/2022 09/30/2023 documented in this encounter Miscellaneous Notes * Telephone Encounter - Kavita Hastings RN - 12/03/2022 0810 EDT Contacted patient who states that she will be getting her Dupixant shipment on Wednesday. She would like to have her Virtual Dupixant injection training on a Wednesday. Patient scheduled 12/11/22 with Nursing Team [facility] for Dupixant training via tele video. She was instructed to take her Dupixant out of refrigeration 45 minutes before the training. Patient verbalized understanding. No barriers to learning. KAVITA HASTINGS RN 12/03/2022 9:24 * Telephone Encounter - Audrey Montez - 11/26/2022 0931 EDT Prior Authorization Approval Medication: Dupixent inj 300/2ml RONAL & MD Insurance Name:[facility] Insurance Type: [place] Medicaid Approval Dates: 11/26/22-05/29/23 Authorization Number: [id number] Benefits Information: - Required Pharmacy: No requirement [facility] able to fill?: YES Additional Info/Other Notes: Approval uploaded in scans. Prior Authorization Submission Process - Routine New Medication: Dupixent NS Insurance: [facility] Insurance Type: [place] Medicaid Date PA Request Received: 11/24/22 PA Submission Date: 11/26/22 Faxed: [phone] Fax at [phone] Notes: - Submitted by: [facility] Phone: [phone] documented in this encounter Plan of Treatment Upcoming Encounters Date Type Department Care Team (Late st Contact Info) Description 12/27/2023 10:15 EDT Office Visit [facility] Foot & Ankle Program [place] [address] Beth Carrera, RUPA [address] [place] [address] 01/17/2024 14:10 EDT Office Visit [facility] Dermatology 5th Floor [address] [id number] Jun Le MD [address] [place], [place] [phone] documented as of this encounter Visit Diagnoses Not on filedocumented in this encounter Care Teams Boring Machine Operator Vertical Relationship Specialty Start Date End Date Dana Perry PA-C PCP - General Family Medicine - Primary Care 11/23/21 documented as of this encounter
--- OUTSIDE RECORDS SUMMARY | 2023-12-01 21:57 | XMS_ITS | Encounter Summary ---
Author Organization [facility] Address [address] [place] [address] Care Team Providers Care Health Therapist Name Role Phone Dana Perry PA-C Primary Care Provider [phone] Reason for Visit * Reason Comments Eczema Dupixant injection t raining Encounter Details Date Type Department Care Team (Late st Contact Info) Description 12/11/2022 14:00 EDT Nurse Only [facility] Dermatology 5th Floor [facility] [address] [place] [address] Nursing Team, [facility] Dermatology Mohs Intrinsic atopic dermatitis (Primary Dx); Encounter for injection education Social History Tobacco Use Types Packs/Day Years [...] this encounter Patient Instructions * Patient Instructions* Kelly Correia RN - 12/11/2022 14:00 EDT MEDICATION: Dupixent (dupilimab) Injection Category: Dermatological Agent, Human monoclonal antibody IgG4 that inhibits interleukin-4 and interleukin-13 cytokine-induced responses, including release of proinflammatory cytokines, chemokines, and IgE Action: Treats moderate to severe Atopic Dermatitis not controlled with topical therapies or when therapy is inadvisable Contraindications: known hypersensitivity to Dupixent (dupilumab) Dosing Schedule: Removed Dupixent (dupilumab) from the refrigerator 45 minutes before injection and let it come to room temperature Loading dose is 600 mg sub cutaneous, divided in 2 different injection sites Maintenance dose: 300 mg sub cutaneous every other week Missed dose: May administer within 7 days of the missed dose and then resume the original schedule.If more time has elapsed do not administer Rotate injection site with each injection; do not inject into skin that is tender, damaged, bruisedor scarred Maybe used with or without topical corticosteroids Do not used Dupilumab with a live vaccine as this may result in increased risk of infection caused by the live vaccine Common side effects: Injection site reaction (10%) Oral herpes simplex injection (3% to 4%), Herpes simplex excluding oral/ophthalmic (1% to 2%) Ophthalmic: Blepharitits (up to 5%), Conjunctivitis (9% to 16% ) Dry eyes ( up to 2%) keratitis (upto 4 %) Respiratory: Patients with comorbid asthma should not adjust or discontinue asthma treatment without consulting their physician Serious side effects: Serum sickness like reactions can occur in less than 1% of patients, symptoms include: Skin rash, hives Joint pain Fever Malaise (feeling unwell) Swollen lymph nodes Itching Wheezing Flushing Diarrhea, nausea, and abdominal cramping Allergic reaction: Itching or hives, swelling of your face or hands, swelling or tingling in your mouth or throat, chest tightness, trouble breathing Burning, dry or itching of the eye, eyelid or inner lining of eyelid Sore or white patches on your lips, mouth or throat If you experience itching, redness, swelling, or pain after your injection you may try one of the following to help: 1. Apply a small amount of topical steroid (hydrocortisone 1% cream/ointment or stronger) to the area immediately after the injection. 2. Take acetaminophen 500-650mg or ibuprofen 400mg by mouth about 30-45 minutes before injecting. 3. Apply ice to the injection area for 3-5 minutes before injecting. 4. Take diphenhydramine 25-50mg by mouth about 20 minutes before injecting and go to bed shortly after. documented in this encounter Progress Notes * Kavita Hastings RN - 12/11/2022 1400 EDT DIVISION OF DERMATOLOGY TELEMEDICINE (VIDEO) ENCOUNTER NOTE Today's visit was provided through telemedicine video conferencing: ??? Patient location: [facility] ??? Provider location:Clinic exam room ??? The following staff participated in today's encounter visit: KAVITA HASTINGS RN VIDEO VERBAL CONSENT: The concept of Telemedicine?? has been described to the patient. Patient has been informed of theanticipated benefits and possible risks. Patient understands the information provided regarding telemedicine, has had the opportunity to ask questions about this information, and all questions have been answered to patient's satisfaction. Patient consents for the use of telemedicine in his/her medical care and authorizes the transmission of any relevant medical information to providers and their staff involved in patient's medical or mental health care. [employer] Initiation: Medication Instruction Visit Chief Complaint Patient presents with ??? Eczema Dupixant injection training There were no vitals taken for this visit. Patient denies any current signs and symptoms of infection and/or serious chronic infections including history of multiple sclerosis, congestive heart failure, and malignancy. Patient Education ?? Instruction given about purpose, action, and side effects of medication. ?? [id number] medication preparation and administration instructions given. Medication: Dupixant Dose: 600 mg Route: subcutaneous ?? Patient is currently in the gymnasium at school and about to play a basketball game. She will inject after the basketball game ?? When to contact physician if needed prior to giving medication ?? Need to keep medication refrigerated at home and in cooler when travelling ?? Patient verbalizes ability to continue mediation administration, at home, according to schedule. ?? Patient will follow-up as scheduled with Jun Le MD 12/25/22 and call with any questions. Mailed patient the injection calendar and patient instructions. KAVITA HASTINGS RN 12/11/22 14:15 documented in this encounter Miscellaneous Notes * Addendum Note - Kavita Hastings RN - 12/11/2022 1400 EDTAddended by: KAVITA HASTINGS on: 12/11/2022 14:42 Modules accepted: Level of Service documented in this encounter Plan of Treatment Upcoming Encounters Date Type Department Care Team (Late st Contact Info) Description 12/27/2023 10:15 EDT Office Visit [facility] Foot & Ankle Program - [address] [address] Beth Carrera NP [address] [place] [address] 01/17/2024 14:10 EDT Office Visit [facility] Dermatology 5th Floor [address] [address] Jun Le MD [address] [place] [id number] documented as of this encounter Visit Diagnoses Diagnosis Intrinsic atopic dermatitis- Primary Encounter for injection education Other specified counseling documented in this encounter Care Teams Health Therapist Relationship Specialty Start Date End Date Dana Perry PA-C PCP - General Family Medicine - Primary Care 11/23/21 documented as of this encounter
--- OUTSIDE RECORDS SUMMARY | 2023-12-01 21:57 | XMS_ITS | Encounter Summary ---
Author Organization [facility] Address [address] [place] [address] Care Team Providers Care Core Shaper Name Role Phone Dana Perry PA-C Primary Care Provider [phone] Encounter Details Date Type Department Care Team (Late st Contact Info) Description 10/29/2022 Lab Requisition [facility] Pathology & Laboratory Medicine - [facility] [address] [place] [address] Outr Resulting Lab, Provider Social History Tobacco [...] Info) Description 12/27/2023 10:15 EDT Office Visit [facility] Foot & Ankle Program [place] [address] [address] Beth Carrera NP [address] [place] [address] 01/17/2024 14:10 EDT Office Visit [facility] Dermatology 5th Floor [facility] [address] [place] [address] Jun Le MD [address] [place] [address] documented as of this encounter Procedures Procedure Name Priority Date/Time Associated Diagnosis Comments CHLAMYDIA/N. GONORRHOEAE AMPLIFIED NUCLEIC ACID Routine 10/29/2022 16:17 EDT documented in this encounter Results * CHLAMYDIA/N. GONORRHOEAE AMPLIFIED RNA (10/29/2022 16:17 EDT) Neisseria gonorrhoeae Result Negative Negative 10/30/2022 13:50 EDT [facility] Chlamydia trachomatis Result Negative Negative 10/30/2022 13:50 EDT [facility] Swab ENTIRE VAGINA / Unknown 10/29/2022 16:17 EDT 10/29/2022 22:22 EDT Provider Outr Resulting Lab MICROBIOLOGY - GENERAL ORDERABLES [facility] [address] [place] [address] documented in this encounter Visit Diagnoses Not on filedocumented in this encounter Care Teams Core Shaper Relationship Specialty Start Date End Date Dana Perry PA-C PCP - General Family Medicine - Primary Care 11/23/21 documented as of this encounter
--- OUTSIDE RECORDS SUMMARY | 2023-12-01 21:57 | XMS_ITS | Encounter Summary ---
Author Organization [facility] Address [address] [place] [address] Care Team Providers Care Discotheque Dancer Name Role Phone Dana Perry PA-C Primary Care Provider [phone] Reason for Visit * Reason Comments Follow-up Patch test final saud ding. Itchy and burning on chest, armpits, stomach, and calves all week. Encounter Details Date Type Department Care Team (Late st Contact Info) Description 11/20/2022 9:30 EDT Office Visit [facility] Dermatology 3rd Floor [address] [address] Efrain Slater MD 111 [facility], [address] [place] [address] Rash (Primary Dx) Social History Tobacco Use Types [...] as of this encounter Progress Notes * Tray Islas - 11/20/2022 0930 EDT Dermatology Outpatient Visit Note Chief Complaint Patient presents with ??? Follow-up Patch test final reading. Itchy and burning on chest, armpits, stomach, and calves all week. Dermatologic History: Last Dermatology Clinic Visit: 11/02/2022, with patch testing 11/18/2022 SUBJECTIVE: Telma Umanzor is a 17 y.o. female who presents in follow up for rash favored AD vs ACD vs drug eruption. Of note, punch biopsy of right thigh at read as spongiotic dermatitis with eosinophils. Patch testing 11/18/2022 negative on all three panels. Today, she reports she used betamethasone 0.05% ointment, triamcinolone 0.1% ointment, tacrolimus 0.1% ointment (axillae, neck, etc.) under occlusion after the last visit. She uses topical steroids once daily, except for the worst spots twice daily. This seemed to help with itching, swelling, and pain but not completely resolved, estimates 75% resolved. This is currently her off week from betamethasone and triamcinolone. She is using the tacrolimus twice daily this week (axillae, neck), does not seem to help that much. She had patch testing 11/18/22 on thighs, these areas are completely asymptomatic, but around them where adhesive was is tichy, and neck, axillae, stomach, medial thighs, calves are itchy, feel swollen and painful. ?? OBJECTIVE: Focused cutaneous examination was performed. - Erythematous brown patches and plaques with excoriations on neck, bilateral arms, upper chest, calves Results 3 Extreme Positive (Coalescing vesicles, bullous reaction) ? 2 Strong Positive (Erythema, papules, infiltration, discrete vesicles) ? 1 Weak Positive (Erythema, infiltration, discrete papules) ? Doubtful (Faint macular or homogenous erythema with no infiltration ? IR Irritant (Discrete, patchy, follicular, or homogenous erythema with no infiltration) ? N Negative ? Relevance Results: C - Certain L - Likely U - Unsure N - None ? Allergen 1st Read 2nd Read Relevance Comments ? Panel 1 ? 1 Nickel sulfate N N? 2 Wool alcohols N N ? 3 Neomycin sulfate N N ? 4 Potassium dichromate N N? 5 Pacheco mix N N ? 6 Fragrance mix N N ? 7 Colophony N N ? 8 Paraben mix N N ? 9 Negative control N N ? 10 Balsam of Christopher N N ? 11 Ethylenediamine dihydrochloride N N ? 12 Mcloud dichloride N N ? Panel 2 ? 13 e-uehe-fpwjlviiycz formaldehyde resin N N ? 14 Epoxy resin N N ? 15 Carba mix N N ? 16 Black rubber mix N N ? 17 Cl+Me- isothiazolinone N N ? 18 Quaternium-15 N N ? 19 Methyldibromo Glutaronitrile N N ? 20 p-phenylenediamine N N ? 21 Formaldehyde N N ? 22 Mercapto mix N N ? 23 Thimerosal N N ? 24 Thiuram mix N N ? Panel 3 ? 25 Diazolidinyl uera N N ? 26 Quinoline mix N N ? 27 Ussmmmsds-57-ogmkfqut N N ? 28 Gold Sodium Thiosulfate N N ? 29 Imidazolidinyl Urea N N ? 30 Budesonide N N ? 31 Xgfmvpkytolzku-16-Cvndeblw N N ? 32 Mercaptobenzothiazole N N ? 33 Bacitracin N N ? 34 Parthenolide N N ? 35 Disperse Blue 106 N N ? 36 2-Bromo-2 Ptkufjeryvo-2-5-diol N N ? ASSESSMENT & PLAN: Rash, neck, upper chest, extremities - Ddx favored AD vs ACD vs drug eruption - Punch biopsy right thigh 10/30/2022 read as spongiotic dermatitis with eosinophils - Patch testing 11/18/2022 negative on all three panels - Continue betamethasone dipropionate 0.05 % ointment BID, do not apply to face, armpit or groin, proper use, expectations, possible adverse events discussed with patient - Continue triamcinolone 0.1 % ointment BID, do not apply to face, armpit or groin, proper use, expectations, possible adverse events discussed with patient - Continue tacrolimus 0.1 % ointment BID, for use on the face, underarms, and groin FOLLOW UP: Return in about 5 weeks (around 12/25/2022) for AD vs ACD. Tray Islas Medical Student, IV 11/20/2022 12:28 Attestation Statement: I was present with the medical student for the history, exam, medical decision making documented by him/her. I have personally performed my own physical exam and medical decision making. I have verified and agree with (or, as indicated, have edited) the medical student's documentation. Efrain Slater MD Dermatology [facility] documented in this encounter Plan of Treatment Upcoming Encounters Date Type Department Care Team (Late st Contact Info) Description 12/27/2023 10:15 EDT Office Visit [facility] Foot & Ankle Program - [address] [place] [address] Beth Carrera NP [address] [place] [address] 01/17/2024 14:10 EDT Office Visit [facility] Dermatology 5th [address] [id number] Jun Le MD [address] [place] [id number] documented as of this encounter Visit Diagnoses Diagnosis Rash- Primary Rash and other nonspecific skin eruption documented in this encounter Care Teams Discotheque Dancer Relationship Specialty Start Date End Date Dana Perry PA-C PCP - General Family Medicine - Primary Care 11/23/21 documented as of this encounter
--- OUTSIDE RECORDS SUMMARY | 2023-12-01 21:57 | XMS_ITS | Encounter Summary ---
Author Organization [facility] Address [address] [place] [address] Care Team Providers Care Enterprise Services Manager Name Role Phone Dana Perry PA-C Primary Care Provider [phone] Encounter Details Date Type Department Care Team (Latest Contact Info) Description 08/20/2023 Specialty Pharmacy [facility] [address] [place], [place] [address] Owen [facility] Shipping Modification for Dermatology, Refill Coordination Outreach for Dermatology [...] as of this encounter Progress Notes * Rufina Cox - 08/20/2023 1536 EDT Specialty Pharmacy Documentation Medication: [facility]: derm Reason for Encounter: documentation Notes: refill too soon Follow up date: 08/23 Follow up reason: outreach documented in this encounter Plan of Treatment Upcoming Encounters Date Type Department Care Team ( Contact Info) Description 12/27/2023 10:15 EDT Office Visit [facility] Foot & Ankle Program - [place] [address] [place], [place] [phone] Beth Carrera NP [address] [place] [address] 01/17/2024 14:10 EDT Office Visit [facility] Dermatology 5th Floor [facility] [address] [place], [place] [address] Jun Le MD [address] [place], [place] [address] documented as of this encounter Visit Diagnoses Not on filedocumented in this encounter Care Teams Enterprise Services Manager Relationship Specialty Start Date End Date Dana Perry PA-C PCP - General Family Medicine - Primary Care 11/23/21 documented as of this encounter
--- OUTSIDE RECORDS SUMMARY | 2023-12-01 21:57 | XMS_ITS | Encounter Summary ---
Author Organization [facility] Address [address] [place] [address] Care Team Providers Care Webbing Tacker Name Role Phone Dana Perry PA-C Primary Care Provider [phone] Reason for Referral * (Routine/Next Available) - Receiving Office to Obtain Authorization Specialty Diagnoses / Procedures Referred By Contac t Referred To Contact Procedures MR OUTSIDE IMAGES LEFT LOWER EXTREMITY Imaging, External Referral ID Status Reason Start Date Expiration Date Visits Requested Visits Authorized [id number] Receiving Office to Obtain Authorization 10/12/2023 1 1 Reason for Visit * (Routine/Next Available) - Receiving Office to Obtain Authorization Specialty Diagnoses / Procedures Referred By Contac t Referred To Contact Procedures MR OUTSIDE IMAGES LEFT LOWER EXTREMITY Imaging, External Referral ID Status Reason Start Date Expiration Date Visits Requested Visits Authorized [id number] Receiving Office to Obtain Authorization 10/12/2023 1 1 Encounter Details Date Type Department Care Team (Latest Contact Info) Description 10/01/2023 - 10/01/2023 0:04 EDT Hospital Encounter [facility] [place] Discharge Disposition: Home or [...] 12/27/2023 10:15 EDT Office Visit [facility] Foot & Ankle Program - [address] [address] Beth Carrera NP [address] [place] [address] 01/17/2024 14:10 EDT Office Visit [facility] Dermatology 5th Floor [facility] [address] [place], [place] [phone] Jun Le MD [address] [place] [address] documented as of this encounter Procedures Procedure Name Priority Date/Time Associated Diagnosis Comments MR OUTSIDE IMAGES LEFT LOWER EXTREMITY Routine 10/01/2023 12:22 EDT documented in this encounter Results * MR OUTSIDE IMAGES LEFT LOWER EXTREMITY (10/01/2023 12:22 EDT) Narrative 10/12/2023 12:22 EDT This is a non-reportable exam. External Imaging IMG OTHER IMAGING OR DERABLES documented in this encounter Visit Diagnoses Not on filedocumented in this encounter Care Teams Webbing Tacker Relationship Specialty Start Date End Date Dana Perry PA-C PCP - General Family Medicine - Primary Care 11/23/21 documented as of this encounter
--- OUTSIDE RECORDS SUMMARY | 2023-12-01 21:57 | XMS_ITS | Encounter Summary ---
Author Organization [facility] Address [address] [place] [address] Care Team Providers Care Impression Printer Name Role Phone Dana Perry PA-C Primary Care Provider [phone] Reason for Visit * Reason Onset Date Comments Medication Management 10/30/2022 Encounter Details Date Type Department Care Team (Late st Contact Info) Description 10/30/2022 Telephone [facility] Dermatology 3rd Floor [facility] [address] [place], [place] [address] Jun Le MD [address] [place], [place] [phone] Medication Management Social History Tobacco Use Types Packs/Day Years [...] encounter Miscellaneous Notes * Telephone Encounter - Jarod Mendoza MA - 11/03/2022 0852 EDT Spoke to patient to relay Dr. Le's message. Patient verbalized understanding and had no further questions, she will call if she has any more trouble with the pharmacy JAROD MENDOZA MA 11/03/2022 8:53 * Telephone Encounter - Jarod Mendoza MA - 11/02/2022 0935 EDT Called pharmacy to see if this is something they can order, the ordering therapeutic case manager states that they cannot find this in their system and would not be able to order this at any of the [facility]. [facility] was added to her chart to send to the [facility] pharmacy instead Patient states that after using the tacrolimus ointment, her eyes have started burning and itching more than they did before. JAROD MENDOZA MA 11/02/2022 9:39 * Telephone Encounter - Page Esteves - 10/30/2022 1511 EDT Patient called re: the medication: Glycopyrronium tosylate 2.4% towlette. She stated that her pharmacy does not have this medication. Please advise. documented in this encounter Plan of Treatment Upcoming Encounters Date Type Department Care Team (Late st Contact Info) Description 12/27/2023 10:15 EDT Office Visit [facility] Foot & Ankle Program - [place] [facility] [place] [address] Beth Carrera NP [address] [place] [address] 01/17/2024 14:10 EDT Office Visit [facility] Dermatology 5th Floor [address] [phone] Jun Le MD [address] [place], [place] [phone] documented as of this encounter Visit Diagnoses Not on filedocumented in this encounter Care Teams Impression Printer Relationship Specialty Start Date End Date Dana Perry PA-C PCP - General Family Medicine - Primary Care 11/23/21 documented as of this encounter
--- OUTSIDE RECORDS SUMMARY | 2023-12-01 21:57 | XMS_ITS | Encounter Summary ---
Author Organization [facility] Address [address] [place] [address] Care Team Providers Care Vulcanized Fiber Unit Operator Name Role Phone Dana Perry PA-C Primary Care Provider [phone] Encounter Details Date Type Department Care Team (Late st Contact Info) Description 09/08/2023 Lab Requisition [facility] Pathology & Laboratory Medicine - [facility] [address] [place] [address] Dana Perry PA-C [address] [address] Other specified behavioral and emotional disorders with onset usually occurring in childhood and adolescence Social History Tobacco Use Types Packs/Day Years [...] Info) Description 12/27/2023 10:15 EDT Office Visit [facility] Foot & Ankle Program - [address] [place], [place] [phone] Beth Carrera, RUPA [address] [place] [address] 01/17/2024 14:10 EDT Office Visit [facility] Dermatology 5th Floor [facility] [address] [place], [place] [address] Jun Le MD [address] [place], [place] [address] documented as of this encounter Procedures Procedure Name Priority Date/Time Associated Diagnosis Comments CHLAMYDIA/N. GONORRHOEAE AMPLIFIED NUCLEIC ACID Today 09/08/2023 17:18 EDT Other specified behavioral and emotional disorders with onset usually occurring in childhood and adolescence documented in this encounter Results * CHLAMYDIA/N. GONORRHOEAE AMPLIFIED RNA (09/08/2023 17:18 EDT) Neisseria gonorrhoeae Result Negative Negative 09/10/2023 13:47 EDT [facility] Chlamydia trachomatis Result Negative Negative 09/10/2023 13:47 EDT [facility] Urine URINE / Unknown 09/08/2023 1 7:18 EDT 09/08/2023 22:21 EDT Narrative [facility] - 09/10/2023 13:47 EDT A first catch urine specimen is acceptable for detection of Gonorrhea and Chlamydia, but might detect up to 10% fewer infections when compared with vaginal and endocervical swab samples. Dana Perry PA-C MICROBIOLOGY - GENER AL ORDERABLES [facility] [address] [place], [place] [address] documented in this encounter Visit Diagnoses Diagnosis Other specified behavioral and emotional disorders with onset usually occurring in childhood and adolescence documented in this encounter Care Teams Vulcanized Fiber Unit Operator Relationship Specialty Start Date End Date Dana Perry PA-C PCP - General Family Medicine - Primary Care 11/23/21 documented as of this encounter
--- OUTSIDE RECORDS SUMMARY | 2023-12-01 21:57 | XMS_ITS | Encounter Summary ---
Author Organization [facility] Address [address] [place] [address] Care Team Providers Care Wellness Program Administrator Name Role Phone Dana Perry PA-C Primary Care Provider [phone] Reason for Referral * Medication Prior Authorization (Routine/Next Available) - Authorized Specialty Diagnoses / Procedures Referred By Contac t Referred To Contact Dermatology Diagnoses Hyperhidrosis of palms and soles Chaz Washburn MD [address] [address]ermat[address] [place] [address] Referral ID Status Reason Start Date Expiration Date Visits Requested Visits Authorized [id number] Authorized Medication Prior Authorization 3 06/11/2023 1 1 Question Answer Medication to be Prior Authorized: [email or web address] Comments The purpose of this request is to inform precertification staff that the requested service needs to be reviewed for prior-authorization. 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 * Consult (Routine/Next Available) - Authorized Specialty Diagnoses / Procedures Referred By Contac t Referred To Contact Pharmacy Diagnoses Atopic dermatitis, unspecified type Chaz Washburn MD [address] [address] [facility] [address] [place] [address] Referral ID Status Reason Start Date Expiration Date Visits Requested Visits Authorized [id number] Authorized Specialty Services Required 02/12/2023 1 1 Question Answer PA Type: New Medication to be Prior Authorized: tralokinumab Comments The purpose of this request is to inform precertification staff that the requested service needs to be reviewed for prior-authorization. Severe atopic dermatitis >80% BSA with inadequate response to dupilumab, as well as adverse effects of recurrent injection site reactions and new facial redness on dupilumab Reason for Visit * Reason Comments Follow-up Rash - got better bu t itches post dupilumab (DUPIXENT PEN) 300 mg/2 mL pen injection and a week prior to the pen injection.Skin gets dry. Encounter Details Date Type Department Care Team (Late st Contact Info) Description 02/12/2023 13:30 EDT Telemedicine [facility] Dermatology 3rd Floor [facility] [address] [place] [address] Jun Le MD [address] [place] [address] Atopic dermatitis, unspecified type (Primary Dx); Hyperhidrosis of palms and soles Social History Tobacco Use Types Packs/Day Years [...] Progress Notes * Jun Le MD - 02/12/2023 1330 EDT DERMATOLOGY TELE-VIDEO VISIT DERMATOLOGIC HISTORY: # AD - dupilumab, TCS, TCI # TCS atrophy # hyperhidrosis of the palms - topical AlCl soln CHIEF COMPLAINT: Telma Umanzor is a 17 y.o. female who presents for Follow-up (Rash - got better but itches post dupilumab (DUPIXENT PEN) 300 mg/2 mL pen injection and a week prior to the pen injection.Skin gets dry.) SUBJECTIVE: Pt states that her rash improves in the week following her dupilumab injections, then it worsens inthe week before she is due for her next injection. She reports severe dryness and itching during that time that she states is at least as bad as it was before she started dupilumab. This affects her neck, upper chest, and underarms the worst. She also has had new red blotches on her face and has inj ection site reactions every time she takes a dose of dupilumab. She continues to use her topical medications and emollients as directed. No changes to any soaps, shampoos, detergents, or cosmetic products in contact with her skin. She has also started using the Al Cl solution on her hands and feet for hyperhidrosis and states that it has not been helpful at all. OBJECTIVE: Exam limited by video format. -erythematous xerotic patches on the lower neck. ASSESSMENT AND PLAN: Atopic dermatitis: severe, refractory to topicals and dupilumab -Continue triamcinolone, betamethasone dipropionate, and tacrolimus as previously prescribed. Avoidtriamcinolone and betamethasone dipropionate on atrophic appearing areas as well as intertriginous sites -Continue diligent, frequent use of topical emollients -Given side effects and inadequate response to dupilumab, will submit PA for tralokinumab. Discussed possible adverse effects of tralokinumab including but not limited to conjunctivitis, facial rash,and injection site reactions. Hyperhidrosis of palms and soles - Refractory to topical Al Cl solution - prior auth placed for botox injections FOLLOW UP: Pending PA approval for botox Today's visit was provided through telemedicine video conferencing: ??? Patient location: HOME ??? Provider location: Office ??? The following staff participated in today's encounter visit: Jun Le MD, Chaz Washburn MD The concept of ???Telemedicine?? has been described to the patient.? Patient has been informed of the anticipated benefits and possible risks.? Patient understands the information provided regardingtelemedicine, has had the opportunity to ask questions about this information, and all questions have been answered to patient???s satisfaction. Patient consents for the use of telemedicine in his/her medical care and authorizes the transmission of any relevant medical information to providers and their staff involved in patient???s medical or mental health care. Patient understands that they maybe responsible for copays, deductible or coinsurance for this service. Jun Le MD PGY-3 Dermatology Resident 02/12/2023 16:36 [facility], Division of Dermatology Attestation Statement: I saw and examined the patient with the resident/fellow. I agree with the findings and plan of care documented in the resident's/fellow's note. Chaz Washburn MD Dermatology [facility] documented in this encounter Plan of Treatment Upcoming Encounters Date Type Department Care Team (Late st Contact Info) Description 12/27/2023 10:15 EDT Office Visit [facility] Foot & Ankle Program - [address] [place] [address] Beth Carrera, RUPA [address] [place] [address] 01/17/2024 14:10 EDT Office Visit [facility] Dermatology 5th Floor [address] [phone] Jun Le MD [address] [place], [place] [phone] Scheduled Referrals Name Type Priority Associated Diagnoses Order Schedule AMB CONS/FOLLOW UP SPECIALTY PHARMACY MEDICATION PRIOR AUTHORIZATION REQUEST Outpatient Referral Routine/Next Available Atopic dermatitis, unspecified type Expected: 02/19/2023 (Approximate), Expires: 02/13/2024 AMB CONS/FOLLOW UP CLINIC ADMIN MED PRIOR AUTHORIZATION REQUEST Outpatient Referral Routine/Next Available Hyperhidrosis of palms and soles Expected: 02/19/2023 (Approximate), Expires: 02/13/2024 documented as of this encounter Visit Diagnoses Diagnosis Atopic dermatitis, unspecified type- Primary Hyperhidrosis of palms and soles Primary focal hyperhidrosis documented in this encounter Care Teams Wellness Program Administrator Relationship Specialty Start Date End Date Dana Perry PA-C PCP - General Family Medicine - Primary Care 11/23/21 documented as of this encounter
--- OUTSIDE RECORDS SUMMARY | 2023-12-01 21:57 | XMS_ITS | Encounter Summary ---
Author Organization [facility] Address [address] [place] [address] Care Team Providers Care Costume Shop Coordinator Name Role Phone Dana Perry PA-C Primary Care Provider [phone] Reason for Visit * Reason Onset Date Comments Medication Reaction 02/08/2023 Encounter Details Date Type Department Care Team (Late st Contact Info) Description 02/08/2023 Telephone [facility] Dermatology 5th Floor [facility] [address] [place], [place] [address] Jun Le MD [address] [place], [place] [address] Medication Reaction Social History Tobacco Use Types Packs/Day Years [...] Telephone Encounter - Kavita Hastings RN - 02/08/2023 1202 EDT Patient scheduled 02/12/23 with Jun Le MD for rash on Dupixant. KAVITA HASTINGS RN 02/09/2023 14:24 Contacted patient to discuss scheduling her to see Jun Le MD on 02/12/23. 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 This is the busiest week for her and she will not be able to make any appointments this week. Triage noteto Jun Le MD Patient reports she has been taking her Dupixant every 2 weeks since 12/11/22. The red rash that has been taking the Dupixant for never fully went away. It got somewhat better. She is wondering if she is having an allergic reaction to her Dupixant. She has a different from the rash she is taking it for. Race and neck are red, itchy. She keeps getting injection site reactions every time she administers the injections. She stopped the steroid cream. She was not aware that she should be using the tacrolimus ointment twice a day. She is using the Vanicream. Has not been using any or the OTC anti itch lotions. She hastried CeraVe in the past and feels that she got an allergic reaction not this. Recommended that shetries the Sarna or capsaicin cream Triage note to Jun Le MD. Patient is wondering if she can be seen via tele video as she is at college, please adise. KAVITA HASTINGS RN 02/08/2023 12:09 * Telephone Encounter - Jesenia Kern - 02/08/2023 1159 EDT Patient calling regarding potential medication reaction to Dupixent. Patient last took Dupixent on 02/05/23 and states she had a rash like pattern that is spreading to her face. Patient states it started that night and has not gone away. Please advise. documented in this encounter Plan of Treatment Upcoming Encounters Date Type Department Care Team (Late st Contact Info) Description 12/27/2023 10:15 EDT Office Visit [facility] [place] [address] Beth Carrera NP [address] [place] [address] 01/17/2024 14:10 EDT Office Visit [facility] Dermatology 5th Floor [facility] [address] [place], [place] [address] Jun Le MD [address] [place], [place] [address] documented as of this encounter Visit Diagnoses Not on filedocumented in this encounter Care Teams Costume Shop Coordinator Relationship Specialty Start Date End Date Dana Perry PA-C PCP - General Family Medicine - Primary Care 11/23/21 documented as of this encounter
--- OUTSIDE RECORDS SUMMARY | 2023-12-01 21:57 | XMS_ITS | Encounter Summary ---
Author Organization [facility] Address [address] [place] [address] Care Team Providers Care Hand Former Name Role Phone Dana Perry PA-C Primary Care Provider [phone] Encounter Details Date Type Department Care Team (Latest Contact Info) Description 07/13/2023 Specialty Pharmacy [facility] [address] [place], [place] [phone] Owen Centeno [facility] Refill Coordination Outreach for Dermatology Social History [...] Info) Description 12/27/2023 10:15 EDT Office Visit [facility] Foot & Ankle Program [place] [address] Beth Carrera NP [address] [place] [address] 01/17/2024 14:10 EDT Office Visit [facility] Dermatology 5th Floor [facility] [address] [place] [address] Jun Le MD [address] [place], [place] [address] documented as of this encounter Visit Diagnoses Not on filedocumented in this encounter Care Teams Hand Former Relationship Specialty Start Date End Date Dana Perry PA-C PCP - General Family Medicine - Primary Care 11/23/21 documented as of this encounter
--- OUTSIDE RECORDS SUMMARY | 2023-12-01 21:57 | XMS_ITS | Encounter Summary ---
Author Organization [facility] Address [address] [place] [address] Care Team Providers Care Metal Sprayer Name Role Phone Dana Perry PA-C Primary Care Provider [phone] Reason for Referral * (Routine/Next Available) - Receiving Office to Obtain Authorization Specialty Diagnoses / Procedures Referred By Contac t Referred To Contact Procedures MR OUTSIDE IMAGES RIGHT LOWER EXTREMITY Imaging, External Referral ID Status Reason Start Date Expiration Date Visits Requested Visits Authorized [id number] Receiving Office to Obtain Authorization 10/12/2023 1 1 Reason for Visit * (Routine/Next Available) - Receiving Office to Obtain Authorization Specialty Diagnoses / Procedures Referred By Contac t Referred To Contact Procedures MR OUTSIDE IMAGES RIGHT LOWER EXTREMITY Imaging, External Referral ID Status Reason Start Date Expiration Date Visits Requested Visits Authorized [id number] Receiving Office to Obtain Authorization 10/12/2023 1 1 Encounter Details Date Type Department Care Team (Latest Contact Info) Description 10/01/2023 0:05 EDT - 10/01/2023 23:59 EDT Hospital Encounter [facility] Secondary Reads [place] Discharge Disposition: Home [...] Info) Description 12/27/2023 10:15 EDT Office Visit [facility] Foot & Ankle Program - [address] [place] [address] Beth Carrera NP [address] [place] [address] 01/17/2024 14:10 EDT Office Visit [facility] Dermatology 5th Floor [facility] [address] [place], [place] [address] Jun Le MD [address] [place], [place] [address] documented as of this encounter Procedures Procedure Name Priority Date/Time Associated Diagnosis Comments MR OUTSIDE IMAGES RIGHT LOWER EXTREMITY Routine 10/01/2023 12:22 EDT documented in this encounter Results * MR OUTSIDE IMAGES RIGHT LOWER EXTREMITY (10/01/2023 12:22 EDT) Narrative 10/12/2023 12:22 EDT This is a non-reportable exam. External Imaging IMG OTHER IMAGING OR DERABLES documented in this encounter Visit Diagnoses Not on filedocumented in this encounter Care Teams Metal Sprayer Relationship Specialty Start Date End Date Dana Perry PA-C PCP - General Family Medicine - Primary Care 11/23/21 documented as of this encounter
--- OUTSIDE RECORDS SUMMARY | 2023-12-01 21:57 | XMS_ITS | Encounter Summary ---
Author Organization [facility] Address [address] [place] [address] Care Team Providers Care Harness Cleaner Name Role Phone Dana Perry PA-C Primary Care Provider [phone] Encounter Details Date Type Department Care Team (Latest Contact Info) Description 05/31/2023 Specialty Pharmacy [facility] Special[facility] [address] [place], [place] [phone] Owen Centeno [facility] Refill Coordination Outreach for Dermatology Social [...] 12/27/2023 10:15 EDT Office Visit [facility] Foot & Ankle Program [place] [address] Beth Carrera NP [address] [place] [address] 01/17/2024 14:10 EDT Office Visit [facility] Dermatology 5th Floor [facility] [address] [place] [address] Jun Le MD [address] [place], [place] [address] documented as of this encounter Visit Diagnoses Not on filedocumented in this encounter Care Teams Harness Cleaner Relationship Specialty Start Date End Date Dana Perry PA-C PCP - General Family Medicine - Primary Care 11/23/21 documented as of this encounter
--- OUTSIDE RECORDS SUMMARY | 2023-12-01 21:57 | XMS_ITS | Encounter Summary ---
Author Organization [facility] Address [address] [place] [address] Care Team Providers Care Computerized Mill Recorder Name Role Phone Dana Perry PA-C Primary Care Provider [phone] Reason for Visit * Reason Onset Date Comments Prior Auth, Medication 07/12/2023 Botox Encounter Details Date Type Department Care Team (Late st Contact Info) Description 07/12/2023 Telephone [facility] Dermatology 3rd Floor [facility] [address] [place], [place] [phone] Chacho Crawford MD [address] [facility], [address] [place] [address] Prior Auth, Medication (Botox) Social History Tobacco Use Types Packs/Day Years [...] Dispensed Refills Start Date End Da te botulinum toxin Type A (BOTOX) 100 unit injectionIndications:Hyperh idrosis Inject 100 Units into the muscle every 12 weeks. 1 Each 1 07/13/2023 documented in this encounter Miscellaneous Notes * Telephone Encounter - Lucia Song - 07/13/2023 1312 EDT Change Healthcare Downtime Documentation Medication Name: Botox Primary Payer: VTM Secondary Payer: NA Payer Affected: Primary Payer Eligibility Verification Date Completion: 07/13/2023 Eligibility Verification Result: Eligible PDL/Formulary Review Completed on: 07/13/2023 PDL/Formulary Review Result: Eligible Referral Entered:Yes * Telephone Encounter - Lucia Song - 07/13/2023 0851 EDT Prior Authorization Submission Process - Urgent Re-Auth Medication: Botox 100 units total (Name, Strength, Frequency) Insurance: [facility] Insurance Type: [place] Date PA Request Received: 07/12/2023 PA Submission Date: 12/01/2023 Faxed: [phone] Notes: Submitted by: LT Phone: [phone] documented in this encounter Plan of Treatment Upcoming Encounters Date Type Department Care Team (Late st Contact Info) Description 12/27/2023 10:15 EDT Office Visit [facility] Foot & Ankle Program - [address] [phone] Beth Carrera NP [address] [place] [address] 01/17/2024 14:10 EDT Office Visit [facility] Dermatology 5th Floor [facility] [address] [place], [place] [phone] Jun Le MD [address] [place] [address] documented as of this encounter Visit Diagnoses Diagnosis Hyperhidrosis- Primary Primary focal hyperhidrosis documented in this encounter Care Teams Computerized Mill Recorder Relationship Specialty Start Date End Date Dana Perry PA-C PCP - General Family Medicine - Primary Care 11/23/21 documented as of this encounter
--- OUTSIDE RECORDS SUMMARY | 2023-12-01 21:57 | XMS_ITS | Encounter Summary ---
Author Organization [facility] Address [address] [place] [address] Care Team Providers Care Aerospace Products Sales Engineer Name Role Phone Dana Perry PA-C Primary Care Provider [phone] Encounter Details Date Type Department Care Team (Late st Contact Info) Description 01/12/2023 Specialty Pharmacy [facility] [address] [place], [place] [phone] Owen Centeno [facility] Social History Tobacco Use Types Packs/Day Years [...] Description 12/27/2023 10:15 EDT Office Visit [facility]le Program [place] [address] Beth Carrera NP [address] [place] [address] 01/17/2024 14:10 EDT Office Visit [facility] Dermatology 5th Floor [facility] [address] [place] [address] Jun Le MD [address] [place], [place] [address] documented as of this encounter Visit Diagnoses Not on filedocumented in this encounter Care Teams Aerospace Products Sales Engineer Relationship Specialty Start Date End Date Dana Perry PA-C PCP - General Family Medicine - Primary Care 11/23/21 documented as of this encounter
--- OUTSIDE RECORDS SUMMARY | 2023-12-01 21:57 | XMS_ITS | Encounter Summary ---
Author Organization [facility] Address [address] [place] [address] Care Team Providers Care Consulting Manager Name Role Phone Dana Perry PA-C Primary Care Provider [phone] Encounter Details Date Type Department Care Team (Latest Contact Info) Description 03/25/2023 Specialty Pharmacy [facility] [address] [place] [phone] Owen Centeno RPH Refill Coordination Outreach for Dermatology, Initial Clinical Follow-up (by 6 weeks) for Dermatology Social History Tobacco Use Types [...] Progress Notes * Owen Centeno RPH - 03/25/2023 1119 EST Specialty Pharmacy Consultation: [facility] Dermatology Clinic Medication Management: Follow-up Consult Telma Umanzor (2005) Diagnosis: atopic dermatitis Therapy Start Date: 02/2023 Contact Method: Telephone Telma Umanzor is a 17 y.o. who was contacted in regard to Adbry. A review of the medication therapy was performed. All medication related questions and concerns were addressed. The specialty pharmacy staff will follow up with the patient 7- 10 days prior to next refill. Allergies and Drug intolerance: No Known Allergies Problem List: Patient Active Problem List Diagnosis Eczema Pain of finger of right hand Medication List: Current Outpatient Medications Medication Sig Dispense Refill [...] No current facility-administered medications for this visit. Pertinent Lab values: Lab Results Component Value Date NA 140 06/18/2014 K 4.5 06/18/2014 CL 104 06/18/2014 CO2 23 (L) 06/18/2014 BUN 18 (H) 06/18/2014 CREATININE 0.55 06/18/2014 CALCIUM 10.2 (H) 06/18/2014 No results found for: ALT, AST, GGT, ALKPHOS, BILITOT, BILIDIR, PROT, LDLBASE Lab Results Component Value Date WBC 5.51 06/06/2018 HGB 12.5 06/06/2018 HCT 38.9 06/06/2018 MCV 74 (L) 06/06/2018 No results found for: HA1C Immunization History Administered Date(s) Administered DTaP Vaccine (INFANRIX) <7YO IM 2003, 2003, 05/08/2004, 08/28/2004, 03/06/2009 Hepatitis B 2003, 2003, 05/08/2004 Hib 2003, 2003, 05/08/2004, 08/28/2004 MMR Vaccine SQ 08/28/2004, 03/06/2009 Pneumococcal Conjugate (PCV7) <5YO IM 2003, 2003, 05/08/2004, 08/28/2004 Poliovirus Vaccine IPV IM OR SQ 2003, 2003, 05/08/2004, 03/06/2009 Varicella (Chickenpox) vaccine (VARIVAX) SQ 08/28/2004, 03/06/2009 Ht Readings from Last 1 Encounters: 01/16/11 [...] 3.12)* * Growth percentiles are based on [facility] (Girls, 2-20 Years) data. Assessment and Recommendations: Therapy Assessment: Current Medication Dosing/Route/Frequency: Adbry 150 mg/mL syringes - inject the contents of two syringes subcutaneous every 14 days Appropriate Therapy: Yes Effective: Yes Current Affected Areas: Yes - neck, stomach, thighs, lower legs, armpits, breasts, face - after 1 month on treatment has noticed a significant reduction in redness, still itching Improving Affected Areas: Yes - all listed above Worsening Affected Areas: none reported Recent Skin Exacerbations/Flaring: No Recent Topical Corticosteroid Use: Yes - betamethasone, triamcinolone Patient-Reported Side Effects: Yes - injection site reaction on stomach, will try upper outer thigh Counseling: Utilizing appropriate injection technique: Yes Rotation of Injection Sites: Yes Room Temperature Medication at Time of Injection: Yes Patient Satisfied with Therapy: Yes Owen Centeno, PharmD Ambulatory Pharmacist Clinician 04/06/2023 11:40 documented in this encounter Plan of Treatment Upcoming Encounters Date Type Department Care Team (Late st Contact Info) Description 12/27/2023 10:15 EDT Office Visit [facility] Foot & Ankle Program - [address] [place] [address] Beth Carrera NP [address] [place] [address] 01/17/2024 14:10 EDT Office Visit [facility] Dermatology 5th Floor [facility] [address] [place] [address] Jun Le MD [address] [place], [place] [phone] documented as of this encounter Visit Diagnoses Not on filedocumented in this encounter Care Teams Consulting Manager Relationship Specialty Start Date End Date Dana Perry PA-C PCP - General Family Medicine - Primary Care 11/23/21 documented as of this encounter
--- OUTSIDE RECORDS SUMMARY | 2023-12-01 21:57 | XMS_ITS | Encounter Summary ---
Author Organization [facility] Address [address] [place] [address] Care Team Providers Care Remarketing Rep Name Role Phone Dana Perry PA-C Primary Care Provider Reason for Visit * Reason Onset Date Comments Patch Testing 11/06/2022 Encounter Details Date Type Department Care Team (Late st Contact Info) Description 11/06/2022 Telephone [facility] Dermatology 5th Floor [facility] [address] [place] [address] Jose Wang RN Patch Testing Social History Tobacco Use Types Packs/Day Years [...] Telephone Encounter - Jose Wang RN - 11/06/2022 1618 EDT Called and LM x 1 requesting that patient return the call to one of the nurses to discuss scheduling an appointment. Call-back number provided. Calling patient to offer appointments for patch testing on 11/16 with NTM, 11/18 with Luis Antonio Meneses PA-C and 11/20 with Efrain Slater MD - garry to double book with Dr. Slater per Janae Mendoza MA. JOSE WANG RN 11/06/2022 16:21 documented in this encounter Plan of Treatment Upcoming Encounters Date Type Department Care Team (Late st Contact Info) Description 12/27/2023 10:15 EDT Office Visit [facility] Foot & Ankle Program - [address] [place], [place] [phone] Beth Carrera NP [address] [place] [address] 01/17/2024 14:10 EDT Office Visit [facility] Dermatology 5th Floor [address] [phone] Jun Le MD [address] [place] [address] documented as of this encounter Visit Diagnoses Not on filedocumented in this encounter Care Teams Remarketing Rep Relationship Specialty Start Date End Date Dana Perry PA-C PCP - General Family Medicine - Primary Care 11/23/21 documented as of this encounter
--- OUTSIDE RECORDS SUMMARY | 2023-12-01 21:57 | XMS_ITS | Encounter Summary ---
Author Organization [facility] Address [address] [place] [address] Care Team Providers Care Vice President Of Brand Management Name Role Phone Dana Perry PA-C Primary Care Provider [phone] Reason for Visit * Reason Comments Follow-up Rash - patient repor ts improvement with Dupixent but continues to itch, uses topicals prn. Hyperhidrosis of hands and feet - no improvement, hasn't started tx yet Encounter Details Date Type Department Care Team (Late st Contact Info) Description 12/25/2022 13:00 EDT Office Visit [facility] Dermatology 3rd Floor [facility] [address] [place], [place] [address] Jun Le MD [address] [place], [place] [phone] Intrinsic atopic dermatitis (Primary Dx); Hyperhidrosis of palms Social History [...] encounter Patient Instructions * Patient Instructions* Jun Le MD - 12/25/2022 13:00 EDT Anti-itch creams: CeraVe anti-itch (with pramoxine), Sarna lotion, or capsaicin cream (this one will sting/burn a bit until your skin gets used to it) Be diligent about using bland moisturizers at least twice per day documented in this encounter Progress Notes * Jun Le MD - 12/25/2022 1300 EDT Dermatology Outpatient Visit Note DERMATOLOGIC HISTORY: No specialty comments available. Last Dermatology Clinic Visit: 11/20/22 CHIEF COMPLAINT: Telma Umanzor is a 17 y.o. female who presents for Follow-up (Rash - patient reports improvement with Dupixent but continues to itch, uses topicals prn. Hyperhidrosis of hands and feet - no improvement,hasn't started tx yet) SUBJECTIVE: Pt notes substantial improvement in her rash since starting dupilumab. She had localized injection site reactions that looked like hives and were itchy a couple hours after the starter injections. No swelling of the lips/tongue, difficulty breathing, or wheezing. She took her second dose a couplehours ago and has not had any ISR yet from that dose. She is not using her TCS much recently because she started to notice thinning of the skin on the inside of her arms. She has continued to use thetacrolimus here. Her itch is still coming and going but is improved. She has not yet picked up the Rx for her palmar hyperhidrosis. OBJECTIVE: Focused cutaneous examination was performed. Examination was notable for the following findings: -Ill-defined hyperpigmented patches on the back -Ill-defined hyper and hypopigmented patches on the arms -Striae and mild atrophic changes on the medial upper arms ASSESSMENT & PLAN: Intrinsic atopic dermatitis -Recommend avoiding TCS use if possible on atrophic areas to prevent worsening. Advised pt it is okto continue using the tacrolimus BID -Continue dupilumab 300 mg injections every 2 weeks. Dupilumab is a human monoclonal IgG4 antibody that inhibits IL-4 and IL-13 and is used for treatment of moderate-severe atopic dermatitis. Possible side effects/adverse effects of this medication include antibody development, injection site reaction, eosinophilia, herpes simplex infection, conjunctivitis and/or eye pruritis. Patient was instructed to call the office if they develop any of these side effects. Advised pt that full effect is notexpected until 2-3 months of treatment -For itch, recommend CeraVe anti-itch (w/ pramoxine), Sarna, or capsaicin cream -Moisturize twice daily with bland emollient -Discussed that post-inflammatory dyspigmentation will improve slowly over the course of months Hyperhidrosis of palms -Advised pt to pickle pumper the Rx previously sent for AlCl soln. If not working, she could consider Qbrexza wipes which were not covered by insurance but may be affordable with a coupon (printed from university registrar website and provided to pt today) -If not responsive to topical therapy, would submit PA for botox injections. [facility] to let us know FOLLOW UP: Return in about 4 months (around 04/26/2023) for AD and hyperhidrosis . Jun Le MD PGY-3 Dermatology Resident 12/25/2022 13:13 Attestation Statement: I saw and examined the patient with the resident/fellow. I agree with the findings and plan of care documented in the resident's/fellow's note. Chaz Washburn MD Dermatology [facility] documented in this encounter Plan of Treatment Upcoming Encounters Date Type Department Care Team (Late st Contact Info) Description 12/27/2023 10:15 EDT Office Visit [facility] Foot & Ankle Program - [address] [place], [place] [phone] Beth Carrera NP [address] [place] [address] 01/17/2024 14:10 EDT Office Visit [facility] Dermatology 5th Floor [facility] [address] [place], [place] [phone] Jun Le MD [address] [place] [address] documented as of this encounter Visit Diagnoses Diagnosis Intrinsic atopic dermatitis- Primary Hyperhidrosis of palms Primary focal hyperhidrosis documented in this encounter Care Teams Vice President Of Brand Management Relationship Specialty Start Date End Date Dana Perry PA-C PCP - General Family Medicine - Primary Care 11/23/21 documented as of this encounter
--- OUTSIDE RECORDS SUMMARY | 2023-12-01 21:57 | XMS_ITS | Encounter Summary ---
Author Organization [facility] Address [address] [place] [address] Care Team Providers Care Computer Scientist Name Role Phone Dana Perry PA-C Primary Care Provider [phone] Reason for Referral * (Routine/Next Available) - Receiving Office to Obtain Authorization Specialty Diagnoses / Procedures Referred By Contac t Referred To Contact Procedures XR OUTSIDE IMAGES BILATERAL LOWER EXTREMITY Imaging, External Referral ID Status Reason Start Date Expiration Date Visits Requested Visits Authorized [id number] Receiving Office to Obtain Authorization 10/08/2023 1 1 Reason for Visit * (Routine/Next Available) - Receiving Office to Obtain Authorization Specialty Diagnoses / Procedures Referred By Contac t Referred To Contact Procedures XR OUTSIDE IMAGES BILATERAL LOWER EXTREMITY Imaging, External Referral ID Status Reason Start Date Expiration Date Visits Requested Visits Authorized [id number] Receiving Office to Obtain Authorization 10/08/2023 1 1 Encounter Details Date Type Department Care Team (Latest Contact Info) Description 09/14/2023 - 09/14/2023 23:59 EDT Hospital Encounter [facility] Secondary Reads [place] Discharge Disposition: [...] underarms, and groin. 60 g 3 05/05/2023 triamcinolone (KENALOG) 0.1 % ointmentIndications:Ra sh Apply topically to affected area 2 times daily. Do not apply to face, armpit or groin. 454 g 3 10/30/2022 dupilumab (DUPIXENT PEN) 300 mg/2 mL pen injector pen injector Inject 4 mL into the skin Once for 1 dose. Then inject 300mg SC every 14 days starting day 15. 4 mL 11/27/2022 09/30/2023 dupilumab (DUPIXENT PEN) 300 mg/2 mL pen injector pen injector Inject 2 mL into the skin every 14 days. 12 mL 1 11/27/2022 09/30/2023 glycopyrronium tosylate 2.4 % toweletteIndications:H yperhidrosis of palms Apply 1 application topically daily. Apply once daily to both hands using a single cloth. Do not touch your eyes after applying 1 Each 11 11/02/2022 11/02/2023 tralokinumab-ldrm (ADBRY) 150 mg/mL syringeIndications:Scooby pic dermatitis, unspecified type Inject 300 mg into the skin every 14 days. 12 mL 1 03/09/2023 09/30/2023 documented as of this encounter Discharge Disposition Disposition Code Departure Means Destination Home or Self Care documented in this encounter Plan of Treatment Upcoming Encounters Date Type Department Care Team (Late st Contact Info) Description 12/27/2023 10:15 EDT Office Visit [facility] Foot & Ankle Program - [address] [place], [place] [phone] Beth Carrera NP [address] [place] [address] 01/17/2024 14:10 EDT Office Visit [facility] Dermatology 5th Floor [facility] [address], [place] [address] Jun Le MD [address] [place], [place] [phone] documented as of this encounter Procedures Procedure Name Priority Date/Time Associated Diagnosis Comments XR OUTSIDE IMAGES BILATERAL LOWER EXTREMITY Routine 09/14/2023 14:40 EDT documented in this encounter Results * XR OUTSIDE IMAGES BILATERAL LOWER EXTREMITY (09/14/2023 14:40 EDT) Narrative 10/08/2023 14:40 EDT This is a non-reportable exam. External Imaging IMG OTHER IMAGING OR DERABLES documented in this encounter Visit Diagnoses Not on filedocumented in this encounter Care Teams Computer Scientist Relationship Specialty Start Date End Date Dana Perry PA-C PCP - General Family Medicine - Primary Care 11/23/21 documented as of this encounter
--- OUTSIDE RECORDS SUMMARY | 2023-12-01 21:57 | XMS_ITS | Encounter Summary ---
Author Organization [facility] Address [address] [place] [address] Care Team Providers Care Collision Center Manager Name Role Phone Dana Perry PA-C Primary Care Provider [phone] Encounter Details Date Type Department Care Team (Latest Contact Info) Description 04/28/2023 Specialty Pharmacy [facility] [address] [place], [place] [phone] Owen Centeno [facility] Refill Coordination Outreach for Dermatology Social History [...] as of this encounter Progress Notes * Lisa Rosario [facility] - 04/28/2023 1542 EST Specialty Pharmacy Consultation: [facility] Dermatology Clinic Clinical Management Plan: Medication Question Telma Umanzor is a 17 y.o. (2005) who contacted [facility] Specialty Pharmacy regarding a concern with their specialty medication, Adbry. Contact Method: Telephone Summary and Recommendations: Patient reports that she is experiencing skin irritation and was questioning whether this was related to her Adbry or to her recent COVID infection. Patient reports having COVID ~ 04/21 and has sincerecovered, though she has noticed an overall worsening in her skin appearance since then. She had noticed a rash/skin irritation in early April, but has noticed that after the infection, the severity has worsened. She reports that she was on Dupixent in the past, but switched to Adbry in February 2023 due to an associated facial rash from the Dupixent. Patient is now concerned that this is occurring with the Adbry, as she is noticing the beginnings of a similar facial rash. She also reports new onset dandruff that she is having difficulty managing, despite OTC medicated shampoo. Patient notes that she is having an overall difficulty in maintaining moisture in the skin. Advised patient to utilize her prescribed topicals to help with the skin irritation/rash. Explainedthat I would reach out to Dr. Washburn and Dr. Le for next steps. Clinic follow-up needed: 07/09/2023 Lisa Rosario, JenyD PGY-1 Ambulatory/ Specialty Ski Binding Fitter And Repairer 05/03/2023 12:11 documented in this encounter Plan of Treatment Upcoming Encounters Date Type Department Care Team (Late st Contact Info) Description 12/27/2023 10:15 EDT Office Visit [facility] Foot & Ankle Program - [address] [address] Beth Carrera NP [address] [place] [phone] 01/17/2024 14:10 EDT Office Visit [facility] Dermatology 5th Floor [facility] [address] [place], [place] [phone] Jun Le MD [address] [place], [place] [phone] documented as of this encounter Visit Diagnoses Not on filedocumented in this encounter Care Teams Collision Center Manager Relationship Specialty Start Date End Date Dana Perry PA-C [phone] (work) PCP - General Family Medicine - Primary Care 11/23/21 documented as of this encounter
--- OUTSIDE RECORDS SUMMARY | 2023-12-01 21:57 | XMS_ITS | Encounter Summary ---
Author Organization [facility] Address [address] [place] [address] Care Team Providers Care Nursing Specialist Name Role Phone Dana Perry PA-C Primary Care Provider [phone] Encounter Details Date Type Department Care Team (Late st Contact Info) Description 02/09/2023 Specialty Pharmacy [facility] [address] [place], [place] [phone] Owen Centeno [facility] Social History Tobacco Use Types Packs/Day [...] 12/27/2023 10:15 EDT Office Visit [facility] Foot & Ankle Program [place] [address] [place] [address] Beth Carrera NP [address] [place] [address] 01/17/2024 14:10 EDT Office Visit [facility] Dermatology [address] [facility] [address] [place] [address] Jun Le MD [address] [place], [place] [phone] documented as of this encounter Visit Diagnoses Not on filedocumented in this encounter Care Teams Nursing Specialist Relationship Specialty Start Date End Date Dana Perry PA-C PCP - General Family Medicine - Primary Care 11/23/21 documented as of this encounter
--- OUTSIDE RECORDS SUMMARY | 2023-12-01 21:57 | XMS_ITS | Encounter Summary ---
Author Organization [facility] Address [address] [place] [address] Care Team Providers Care Machine Tool Operator Name Role Phone Dana Perry PA-C Primary Care Provider [phone] Reason for Visit * Reason Comments Follow-up Hyperhidrosis - hand s and feet Encounter Details Date Type Department Care Team (Late st Contact Info) Description 07/09/2023 12:30 EDT Office Visit [facility] Dermatology 3rd Floor [facility] [address] [place], [place] [address] Jun Le MD [address] [place], [place] [phone] Intrinsic atopic dermatitis (Primary Dx); Hyperhidrosis of palms and soles [...] Progress Notes * Jun Le MD - 07/09/2023 1230 EDT Dermatology Resident Clinic Visit Note Chief Complaint Patient presents with Follow-up Hyperhidrosis - hands and feet Dermatologic History: # AD - failed dupilumab - currently on tralokinumab, well controlled - TCS, TCI # TCS atrophy # hyperhidrosis of the palms - failed topical AlCl soln - botox initated 06/2023 Last Dermatology Clinic Visit: 02/12/23 SUBJECTIVE: Telma Umanzor is a 18 y.o. female who presents for 1) Hyperhidrosis which has not responded to topical medications 2) follow-up of eczema which is currently doing well on tralokinumab. She states that it took a while for it to start working but after about a month or so it became effective and she has not had to use any of her topical medications recently OBJECTIVE: Focused cutaneous examination was performed. -No eczematous patches seen on examined skin. -Palms moist with perspiration ASSESSMENT & PLAN: Intrinsic atopic dermatitis -Continue tralokinumab -Continue triamcinolone, betamethasone dipropionate, and tacrolimus as previously prescribed for breakthrough flares Hyperhidrosis of palms and soles - botulinum toxin Type A (BOTOX) injection 100 Units in clinic today, see procedure note - Return for repeat injections in 3 months -Will follow-up with pharmacy regarding retroactive prior authorization as the previous PA recentlyexpired prior to her appointment and it is not feasible for her to reschedule PROCEDURE: Botulinum toxin A (BOTOX) injection After [...] UP: Return in about 3 months (around 10/09/2023) for botox hyperhidrosis (needs double appt slot). Jun Le MD PGY-3 Dermatology Resident Attestation Statement: I saw and examined the patient with the resident/fellow. I agree with the findings and plan of care documented in the resident's/fellow's note. I was present for the entire procedure. Chacho Shabazz MD 07/09/2023 18:43 documented in this encounter Plan of Treatment Upcoming Encounters Date Type Department Care Team (Late st Contact Info) Description 12/27/2023 10:15 EDT Office Visit [facility] Foot & Ankle Program - [address] [phone] Beth Carrera NP [address] [place] [phone] 01/17/2024 14:10 EDT Office Visit [facility] Dermatology 5th Floor [address] [phone] Jun Le MD [address] [place] [phone] documented as of this encounter Visit Diagnoses Diagnosis Intrinsic atopic dermatitis- Primary Hyperhidrosis of palms and soles Primary focal hyperhidrosis documented in this encounter Administered Medications Inactive Administered Medications - up to 3 most recent administrations Medication Order MAR Action Action Date Dose Rate Site botulinum toxin Type A (BOTOX) injection 100 Units 100 Units, intradermal, NOW X1, 1 dose, On Wed07/09/23 at 1900, Routine Given 07/09/2023 19:00 EDT 100 Units documented in this encounter Care Teams Machine Tool Operator Relationship Specialty Start Date End Date Dana Perry PA-C PCP - General Family Medicine - Primary Care 11/23/21 documented as of this encounter
--- OUTSIDE RECORDS SUMMARY | 2023-12-01 21:57 | XMS_ITS | Encounter Summary ---
Author Organization [facility] Address [address] [place] [address] Care Team Providers Care Meal Cooker Name Role Phone Dana Perry PA-C Primary Care Provider [phone] Reason for Visit * Reason Onset Date Comments Medications Refill 09/30/2023 Encounter Details Date Type Department Care Team (Late st Contact Info) Description 09/30/2023 Telephone [facility] Specialty Pharm[facility] [address] [place] [phone] Chaz Washburn MD [address] [facility] [address] [place] [address] Medications Refill Social History Tobacco Use Types Packs/Day Years [...] Dispensed Refills Start Date End Da te tralokinumab-ldrm (ADBRY) 150 mg/mL syringeIndications:Atopic dermatitis, unspecified type Inject 2 mL into the skin every 14 days. 12 Each 1 09/30/2023 documented in this encounter Miscellaneous Notes * Telephone Encounter - Frederick Wheeler - 09/30/2023 1621 EDT Medication Refill Request Medication: Adbry Patient needs medication by: 10/25 Scheduled outreach date: 10/17 Pharmacy: [facility] [address] Next appt: Visit date not found documented in this encounter Plan of Treatment Upcoming Encounters Date Type Department Care Team (Late st Contact Info) Description 12/27/2023 10:15 EDT Office Visit [facility] Foot & Ankle Program - [facility] [address] [place] [address] Beth Carrera NP [address] [place] [address] 01/17/2024 14:10 EDT Office Visit [facility] Dermatology 5th Floor [facility] [address] [place] [address] Jun Le MD [address] [place], [place] [phone] documented as of this encounter Visit Diagnoses Diagnosis Atopic dermatitis, unspecified type documented in this encounter Discontinued Medications Medication Sig Discontinue Reason Start Date End Da te dupilumab (DUPIXENT PEN) 300 mg/2 mL pen injector pen injector Inject 4 mL into the skin Once for 1 dose. Then inject 300mg SC every 14 days starting day 15. Alternate therapy 11/27/2022 09/30/2023 dupilumab (DUPIXENT PEN) 300 mg/2 mL pen injector pen injector Inject 2 mL into the skin every 14 days. Alternate therapy 11/27/2022 09/30/2023 tralokinumab-ldrm (ADBRY) 150 mg/mL syringeIndications:Atopi c dermatitis, unspecified type Inject 300 mg into the skin every 14 days. Reorder 03/09/2023 09/30/2023 documented as of this encounter Care Teams Meal Cooker Relationship Specialty Start Date End Date Dana Perry PA-C PCP - General Family Medicine - Primary Care 11/23/21 documented as of this encounter
--- OUTSIDE RECORDS SUMMARY | 2023-12-01 21:57 | XMS_ITS | Encounter Summary ---
Author Organization [facility] Address [address] [place] [address] Care Team Providers Care Roll Mechanic Name Role Phone Dana Perry PA-C Primary Care Provider [phone] Encounter Details Date Type Department Care Team (Latest Contact Info) Description 09/30/2023 Specialty Pharmacy [facility] [address] [place], [place] [address] Owen Centeno RPH Initial Clinical Follow-up (by [...] as of this encounter Progress Notes * Frederick Wheeler - 09/30/2023 1615 EDT Specialty Pharmacy Documentation Medication: adbry Clinic: derm Reason for Encounter: refill Notes: need new rx Follow up date: 10/17 Follow up reason: refill documented in this encounter Plan of Treatment Upcoming Encounters Date Type Department Care Team ( Contact Info) Description 12/27/2023 10:15 EDT Office Visit [facility] Foot & Ankle Program - [address] [place] [address] Beth Carrera NP [address] [place] [address] 01/17/2024 14:10 EDT Office Visit [facility] Dermatology 5th Floor [facility] [address] [place], [place] [address] Jun Le MD [address] [place], [place] [phone] documented as of this encounter Visit Diagnoses Not on filedocumented in this encounter Care Teams Roll Mechanic Relationship Specialty Start Date End Date Dana Perry PA-C PCP - General Family Medicine - Primary Care 11/23/21 documented as of this encounter
--- OUTSIDE RECORDS SUMMARY | 2023-12-01 21:57 | XMS_ITS | Encounter Summary ---
Author Organization [facility] Address [address] [place] [address] Care Team Providers Care Customer Engagement Manager Name Role Phone Dana Perry PA-C Primary Care Provider Reason for Visit * Reason Onset Date Comments Prior Auth, Medication 03/05/2023 Adbry (tr alokinumab) Encounter Details Date Type Department Care Team (Late st Contact Info) Description 03/05/2023 Refill [facility] Dermatology 3rd Floor [facility] [address] [place] [address] Chaz Washburn MD [address] [facility] [address] [place] [address] Prior Auth, Medication (Adbry (tralokinumab)) Social History Tobacco Use Types Packs/Day Years [...] 150 mg/mL syringeIndications:Atopic dermatitis, unspecified type Inject 600 mg into the skin 1 (one) time for 1 dose. Then inject 300mg every 14 days 8 mL 03/09/2023 03/09/2023 tralokinumab-ldrm (ADBRY) 150 mg/mL syringeIndications:Atopic dermatitis, unspecified type Inject 300 mg into the skin every 14 days. 12 mL 1 03/09/2023 09/30/2023 documented in this encounter Miscellaneous Notes * Telephone Encounter - Tessa Pickard - 03/05/2023 0948 EST Prior Authorization Approval Medication: Adbry 600mg x1 then 300mg q14d Insurance: [place] Insurance Type: [place] Approval Dates: Load: 03/05/2023-03/19/2023 Maintenance: 03/19/2023-09/03/2023 Authorization Number: [id number] Maintenance: [id number] Benefits Information: Required Pharmacy: [facility] able to fill?: YES Additional Info/Other Notes: Prior Authorization Submission Process - Routine New Medication: Adbry 600mg x1 then 300mg q14d Insurance[place] Insurance [place] Date [place] Request Received: 02/12/2023 PA Submission Date: 03/05/2023 Faxed: [phone] Notes: Submitted by: Tessa Robins Phone: [phone] documented in this encounter Plan of Treatment Upcoming Encounters Date Type Department Care Team (Late st Contact Info) Description 12/27/2023 10:15 EDT Office Visit [facility] Foot & Ankle Program - [address] [phone] Beth Carrera NP [address] [place] [address] 01/17/2024 14:10 EDT Office Visit [facility] Dermatology 5th Floor [address] [phone] Jun Le MD [address] [place] [address] documented as of this encounter Visit Diagnoses Diagnosis Atopic dermatitis, unspecified type- Primary documented in this encounter Care Teams Customer Engagement Manager Relationship Specialty Start Date End Date Dana Perry PA-C PCP - General Family Medicine - Primary Care 11/23/21 documented as of this encounter
--- OUTSIDE RECORDS SUMMARY | 2023-12-01 21:58 | XMS_ITS | Encounter Summary ---
Author Organization [facility] Address [address] [place] [address] Care Team Providers Care Plate Conditioner Name Role Phone Demetrius Montenegro Primary Care Provider [phone] Reason for Visit * Reason Onset Date Comments Appointment Related 05/09/2021 Encounter Details Date Type Department Care Team (Late st Contact Info) Description 05/09/2021 Telephone [facility] Dermatology 3rd Floor [facility] [address] [place], [place] [address] James Segura [address] [place] [phone] Appointment Related Social History Tobacco Use Types [...] on file documented as of this encounter Miscellaneous Notes * Telephone Encounter - Diallo Irizarry MA - 05/13/2021 1412 EST Called patient and got her scheduled to see Dr. Segura on 05/30/21 at 3:15pm for HS/rash follow-up([facility] patient). DIALLO IRIZARRY MA 05/13/2021 14:13 * Telephone Encounter - Diallo Irizarry MA - 05/12/2021 1126 EST Left second message for patient to call back and schedule [facility] follow-up with Dr. Segura in about 1 month for HS/rash (likely biopsy). When patient calls back, please schedule NPV with Dr. Segura at her convenience. Thank you! DIALLO IRIZARRY MA 05/12/2021 11:26 * Telephone Encounter - Diallo Irizarry MA - 05/09/2021 0915 EST Left message for patient to call back and schedule [facility] follow-up with Dr. Segura in about 1 monthfor HS/rash (likely biopsy). When patient calls back, please schedule NPV with Dr. Segura at her convenience. Thank you! DIALLO IRIZARRY MA 05/09/2021 9:16 documented in this encounter Plan of Treatment Upcoming Encounters Date Type Department Care Team (Late st Contact Info) Description 12/27/2023 10:15 EDT Office Visit [facility] Foot & Ankle Program - [address] [address] Beth Carrera NP [address] [place] [phone] 01/17/2024 14:10 EDT Office Visit [facility] Dermatology 5th Floor [facility] [address] [place], [place] [phone] Jun Le MD [address] [place], [place] [phone] documented as of this encounter Visit Diagnoses Not on filedocumented in this encounter Care Teams Plate Conditioner Relationship Specialty Start Date End Date Demetrius Montenegro PA PCP - General 08/24/18 11/22/21 documented as of this encounter
--- OUTSIDE RECORDS SUMMARY | 2023-12-01 21:58 | XMS_ITS | Encounter Summary ---
Author Organization [facility] Address [address] [place] [address] Care Team Providers Care Manager Of Sales Name Role Phone Demetrius Montenegro Primary Care Provider [phone] Dana Perry PA-C Primary Care Provider [phone] Encounter Details Date Type Department Care Team (Late st Contact Info) Description 06/06/2019 Lab Requisition [facility] Pathology & Laboratory Medicine - [facility] [address] [place] [address] Dana Perry PA-C [address] [phone] Rash and other nonspecific skin eruption Social History Tobacco Use Types Packs/Day Years Used Date Smoking Tobacco: Never Smokeless Tobacco: Never Alcohol Use Standard Drinks/Week Comments No 0 (1 standard drink = 0.6 oz pur e alcohol) Sex and Gender Information Value Date Recorded Sex Assigned at Not on file Gender Identity Not on file Sexual Orientation Not on file documented as of this encounter Plan of Treatment Upcoming Encounters Date Type Department Care Team (Late st Contact Info) Description 12/27/2023 10:15 EDT Office Visit [facility] Foot & Ankle Program - [facility] [place] [address] Beth Carrera NP [address] [place] [address] 01/17/2024 14:10 EDT Office Visit [facility] Dermatology 5th Floor [facility] [address] [place], [place] [address] Jun Le MD [address] [place], [place] [phone] documented as of this encounter Visit Diagnoses Diagnosis Rash and other nonspecific skin eruption documented in this encounter Care Teams Manager Of Sales Relationship Specialty Start Date End Date Demetrius Montenegro PA PCP - General 08/24/18 11/22/21 Dana Perry PA-C PCP - General Family Medicine - Primary Care 11/23/21 documented as of this encounter
--- OUTSIDE RECORDS SUMMARY | 2023-12-01 21:58 | XMS_ITS | Encounter Summary ---
Author Organization [facility] Address [address] [place] [address] Care Team Providers Care Metal Tank Builder Name Role Phone Unknown, Provider Primary Care Provider [phone] Reason for Visit * Reason Onset Date Comments Other 08/27/2017 activities note Encounter Details Date Type Department Care Team (Late Contact Info) Description 08/27/2017 Telephone [facility] Pediatric Orthopedics - [address] [place] [address] Kirsten Melton PA-C [address] [place] [address] Other (activities note) Social History Tobacco Use Types Packs/Day Years [...] encounter Miscellaneous Notes * Telephone Encounter - Josephine Abdullahi - 08/27/2017 1529 EDT Returned mom's VM requesting specific note for softball. Relayed to mom that I have faxed it and requested on face sheet that information be relayed to leadership coach bebo so Telma may play in game today. Momwas satisfied and had no questions. documented in this encounter Plan of Treatment Upcoming Encounters Date Type Department Care Team (Late Contact Info) Description 12/27/2023 10:15 EDT Office Visit [facility] Foot & Ankle Program - [address] [place] [address] Beth Carrera NP [address] [place] [address] 01/17/2024 14:10 EDT Office Visit [facility] Dermatology 5th Floor [facility] [address] [place], [place] [id number] Jun Le MD [address] [place], [place] [phone] documented as of this encounter Visit Diagnoses Not on filedocumented in this encounter Care Teams Metal Tank Builder Relationship Specialty Start Date End Date Unknown, Provider, PCP - General 08/16/17 08/23/18 documented as of this encounter
--- OUTSIDE RECORDS SUMMARY | 2023-12-01 21:58 | XMS_ITS | Encounter Summary ---
Author Organization [facility] Address [address] [place] [address] Care Team Providers Care Development Mechanic Name Role Phone Unavailable Primary Care Provider Unavailabl e Encounter Details Date Type Department Care Team (Late st Contact Info) Description 04/13/2008 14:22 EST Hospital Encounter [facility] - [place] [address] [place] [address] Isaias Winslow MD Davies, Sarah L, MD [address] [place] [address] [place] [id number] Social History Tobacco Use Types Packs/Day Years [...] Info) Description 12/27/2023 10:15 EDT Office Visit [facility] Foot & Ankle Program - [place] [facility] [place] [address] Beth Carrera NP [address] [place] [address] 01/17/2024 14:10 EDT Office Visit [facility] Dermatology 5th Floor [facility] [address] [place] [address] Jun Le MD [address] [place], [place] [phone] documented as of this encounter Visit Diagnoses Not on filedocumented in this encounter
--- OUTSIDE RECORDS SUMMARY | 2023-12-01 21:58 | XMS_ITS | Encounter Summary ---
Author Organization [facility] Address [address] [place] [address] Care Team Providers Care 6Th Grade Teacher Name Role Phone Gabriela Zaldivar MD Primary Care Provider + [phone] Reason for Visit * Reason Onset Date Comments Rash 05/31/2009 Encounter Details Date Type Department Care Team (Late st Contact Info) Description 05/31/[address] [facility] Family Medicine - [address] [address] Jalil Mathis MD [address] [place] [phone] Rash Social History Tobacco Use Types Packs/Day Years Used Date Smoking Tobacco: Never Assessed Sex and Gender Information Value Date Recorded Sex Assigned at Not on file Gender Identity Not on file Sexual Orientation Not on file documented as of this encounter Miscellaneous Notes * Telephone Encounter - Skyla Baltazar LPN - 05/31/2009 1042 EST Child exposed to scabies by friend. Mom noticed some itchy scabbed over areas on Telma. Child has history of eczema but mom states the rash looks different. Scheduled @ 4:00 this pm * Telephone Encounter - Neris Mckeon - 05/31/2009 1032 EST Patient has a rash, recently exposed to scabies. It is getting worse. documented in this encounter Plan of Treatment Upcoming Encounters Date Type Department Care Team (Late st Contact Info) Description 12/27/2023 10:[address] [facility] Foot & Ankle Program - [address] [place] [address] Beth Carrera NP [address] [place] [address] 01/17/2024 14:10 EDT Office Visit [facility] Dermatology 5th Floor [facility] [address] [place], [place] [phone] Jun Le MD [address] [place], [place] [phone] documented as of this encounter Visit Diagnoses Not on filedocumented in this encounter Care Teams 6Th Grade Teacher Relationship Specialty Start Date End Date Gabriela Zaldivar MD [address] [place] [address] PCP - General 05/31/09 01/05/10 documented as of this encounter
--- OUTSIDE RECORDS SUMMARY | 2023-12-01 21:58 | XMS_ITS | Encounter Summary ---
Author Organization [facility] Address [address] [place] [address] Care Team Providers Care Photovoltaic Fabrication Technician Name Role Phone Unknown, Provider MD Primary Care Provider [phone] Reason for Visit * Reason Comments Ankle Pain pt states while play ing softball she jumped up out of the catcher position and landed on her ankle in an awkward postion. pt states she felt it roll and heard and felt a pop to her right ankle. Encounter Details Date Type Department Care Team (Late st Contact Info) Description 08/16/2017 18:35 EDT - 08/16/2017 20:35 EDT Emergency [facility] Emergency Department - Main [place] [address] [place] [address] Emergency, Default, MD Discharge Disposition: Left Against Medical Advice Social History Tobacco Use Types Packs/Day Years [...] Sign Reading Time Taken Comments Blood Pressure 126/73 08/16/20171910 EDT Pulse 64 08/16/20171910 EDT Temperature 36.6 ??C (97.9 ??F) 08/16/20171910 EDT Respiratory Rate 18 08/16/20171910 EDT Oxygen Saturation 100% 08/16/20171910 EDT Inhaled Oxygen Concentration - - Weight 95.3 kg (210 lb) 08/16/20171910 EDT Height 182.9 cm (6') 08/16/2017 191 EDT Body Mass Index 28.48 08/16/2017 191 EDT Body Mass Index Percentile 95.69% 08/16/2017 191 1 EDT Growth Chart: [facility] (Girls, 2- 20 Years) documented in this encounter Discharge Diagnoses Diagnosis M25.579 Pain in unspecified ankle-M25.579[ICD-10-CM] documented in this encounter Discharge Disposition Disposition Code Departure Means Destination Left Against Medical Advice documented in this encounter ED Notes * Surekha Rodriguez RN - 08/16/20171910 EDT pt states while playing softball she jumped up out of the catcher position and landed on her ankle in an awkward postion. pt states she felt it roll and heard and felt a pop to her right ankle. Unable to bear weight documented in this encounter Plan of Treatment Upcoming Encounters Date Type Department Care Team (Late st Contact Info) Description 12/27/2023 10:15 EDT Office Visit [facility] Foot & Ankle Program - [address] [phone] Beth Carrera NP [address] [place] [address] 01/17/2024 14:10 EDT Office Visit [facility] Dermatology 5th Floor [facility] [address] [place], [place] [address] Jun Le MD [address] [place], [place] [address] documented as of this encounter Procedures Procedure Name Priority Date/Time Associated Diagnosis Comments ANKLE 3 OR MORE VIEWS STAT 08/16/2017 19:33 EDT documented in this encounter Results * ANKLE 3 OR MORE VIEWS (08/16/2017 19:33 EDT) Anatomical Region Laterality Modality Other 08/16/2017 19:3 3 EDT 08/16/2017 19:43 EDT Narrative 08/16/2017 19:43 EDT ANKLE 3 OR MORE VIEWS ??08/16/2017 7:33 PM Signs and Symptoms/Comments: ??fall. Findings: 4 views of the right ankle were obtained. This shows swelling over the lateral and anterior ankle and lateral hindfoot. No fracture is seen. The ankle mortise is intact. Impression: Anterolateral soft tissue swelling over the ankle and swelling over the lateral hindfoot without evidence of fracture or dislocation. Procedure Note Lukasz Escoto MD - 08/16/2017 ANKLE 3 OR MORE VIEWS 08/16/2017 7:33 PM Signs and Symptoms/Comments: fall. Findings: 4 views of the right ankle were obtained. This shows swelling over the lateral and anterior ankle and lateral hindfoot. No fracture is seen. The ankle mortise is intact. Impression: Anterolateral soft tissue swelling over the ankle and swelling over the lateral hindfoot without evidence of fracture or dislocation. Sudarshan Matthews MD IMG DIAGNOSTI C IMAGING ORDERABLES documented in this encounter Visit Diagnoses Not on filedocumented in this encounter Discontinued Medications Medication Sig Discontinue Reason Start Date End Da te ACETAMINOPHEN (CHILDREN'S TYLENOL ORAL) Take by mouth as needed. 08/16/2017 dexmethylphenidate (FOCALIN) 10 mg tablet Take 10 mg by mouth 2 times daily. 08/16/2017 diphenhydrAMINE (BENADRYL) 25 mg capsule Take 1 Cap by mouth every 8 hours as needed. 08/16/2017 hydrocortisone 2.5 % ointment Apply topically 2 times daily. To eczema patches 01/07/2010 08/16/2017 hydrOXYzine (ATARAX) 10 mg tablet Take by mouth at bedtime as needed for Itching. Take 1-2 tablets 01/07/2010 08/16/2017 documented as of this encounter Care Teams Photovoltaic Fabrication Technician Relationship Specialty Start Date End Date Unknown, Provider, PCP - General 08/16/17 08/23/18 documented as of this encounter
--- OUTSIDE RECORDS SUMMARY | 2023-12-01 21:58 | XMS_ITS | Encounter Summary ---
Author Organization [facility] Address [address] [place] [address] Care Team Providers Care County Bailiff Name Role Phone Unknown, Provider Primary Care Provider [phone] Encounter Details Date Type Department Care Team (Late st Contact Info) Description 06/06/[address] [facility] [phone] Demetrius Montenegro PA [facility] [address] [place], [place] [address] Social History Tobacco Use Types Packs/Day Years [...] [facility] [place] [address] [place] [address] Beth Carrera NP [address] [place] [address] 01/17/2024 14:10 EDT Office Visit [facility] Dermatology 5th Floor [facility] [address] [place], [place] [address] Jun Le MD [address] [place] [address] documented as of this encounter Procedures Procedure Name Priority Date/Time Associated Diagnosis Comments MONO-TEST Routine 06/06/2018 18:59 EST COMPLETE BLOOD COUNT Routine 06/06/2018 18:59 EST documented in this encounter Results * (ABNORMAL) COMPLETE BLOOD COUNT (06/06/2018 18:59 EST) WBC 5.51 4.5 - 13.0 K/cmm 06/06/2018 20:58 [facility] RBC 5.27(H) 4.10 - 5.10 M/cmm 06/06/2018 20:58 [facility] Hemoglobin 12.5 12.0 - 16.0 gm/dl 06/06/2018 20:58 [facility] HCT 38.9 36.0 - 46.0 % 06/06/2018 20:58 [facility] MCV 74(L) 78 - 102 fl 06/06/2018 20:58 [facility] MCH 23.7 pg 06/06/2018 20:58 [facility] Hypochromia 1+ 06/06/2018 20:58 [facility] MCHC 32.1 gm/dl 06/06/2018 20:58 [facility] RDW-CV 13.9 % 06/06/2018 20:58 [facility] RDW-SD 37.3 fl 06/06/2018 20:58 [facility] PLT 286 156 - 312 K/cmm 06/06/2018 20:58 [facility] MPV 10.8 fl 06/06/2018 20:58 [facility] BLOOD SPECIMEN / Unknown 06/06/2018 18:59 EST 06/06/2018 20:43 EST Demetrius MIRZA HEMATOLOGY & PF4 ORD ERABLES [facility] [address] [place] [address] * MONO-TEST (06/06/2018 18:59 EST) [place]-Test Neg Neg 06/06/2018 21:52 EST [facility] BLOOD SPECIMEN / Unknown 06/06/2018 18:59 EST 06/06/2018 20:43 EST Demetrius MIRZA CHEMISTRY & BLOOD GA S ORDERABLES Performing Organization Address City/State/[facility] Co de Phone Number [facility] [address] [place] [address] documented in this encounter Visit Diagnoses Not on filedocumented in this encounter Care Teams County Bailiff Relationship Specialty Start Date End Date Unknown, Provider, PCP - General 08/16/17 08/23/18 documented as of this encounter
--- OUTSIDE RECORDS SUMMARY | 2023-12-01 21:58 | XMS_ITS | Encounter Summary ---
Author Organization [facility] Address [address] [place] [address] Care Team Providers Care Felt Strip Finisher Name Role Phone Isatu Waddell MD Primary Care Provider Encounter Details Date Type Department Care Team (Latest Contact Info) Description 07/14/2010 8:59 EDT - 07/14/2010 9:00 EDT Hospital Encounter [address] [address] Chano Pop PA Discharge Disposition: Home or Self Care Social History Tobacco Use Types Packs/Day Years Used Date Smoking Tobacco: Never Assessed Sex and Gender Information Value Date Recorded Sex Assigned at Not on file Gender Identity Not on file Sexual Orientation Not on file documented as of this encounter Medications at Time of Discharge Medication Sig Dispensed Refills Start Date End Date ACETAMINOPHEN (CHILDREN'S TYLENOL ORAL) Take by mouth as needed. 08/16/2017 diphenhydrAMINE (BENADRYL) 25 mg capsule Take 1 Cap by mouth every 8 hours as needed. 08/16/2017 hydrocortisone 2.5 % ointment Apply topically 2 times daily. To eczema patches 454 g 3 01/07/2010 08/16/2017 hydrOXYzine (ATARAX) 10 mg tablet Take by mouth at bedtime as needed for Itching. Take 1-2 tablets 60 Tab 3 01/07/2010 08/16/2017 documented as of this encounter Discharge Disposition Disposition Code Departure Means Destination Home or Self Care documented in this encounter Plan of Treatment Upcoming Encounters Date Type Department Care Team (Late st Contact Info) Description 12/27/2023 10:15 EDT Office Visit [facility] Foot & Ankle Program - [facility] [address] [place] [address] Beth Carrera NP [address] [place] [address] 01/17/2024 14:[address] [facility] Dermatology 5th Floor [facility] [address] [place], [place] [phone] Jun Le MD [address] [place], [place] [phone] documented as of this encounter Visit Diagnoses Not on filedocumented in this encounter Care Teams Felt Strip Finisher Relationship Specialty Start Date End Date Isatu Waddell MD [address] [place] [phone] PCP - General 01/06/10 08/15/17 documented as of this encounter
--- OUTSIDE RECORDS SUMMARY | 2023-12-01 21:58 | XMS_ITS | Encounter Summary ---
Author Organization [facility] Address [address] [place] [address] Care Team Providers Care Advertising Traffic Manager Name Role Phone Demetrius Montenegro Primary Care Provider [phone] Dana Perry PA-C Primary Care Provider [phone] Encounter Details Date Type Department Care Team (Late st Contact Info) Description 08/21/2020 Lab Requisition [facility] Pathology & Laboratory Medicine - [facility] [address] [place], [place] [address] Dana Perry PA-C [address] [phone] Acute vaginitis Social History Tobacco Use Types Packs/Day Years [...] 12/27/2023 10:15 EDT Office Visit [facility] Foot & Ankle Program - [address] [facility] [place] [address] Beth Carrera NP [address] [place] [address] 01/17/2024 14:10 EDT Office Visit [facility] Dermatology 5th Floor [facility] [address] [place] [address] Jun Le MD [address] [place] [address] documented as of this encounter Procedures Procedure Name Priority Date/Time Associated Diagnosis Comments CHLAMYDIA/N. GONORRHOEAE AMPLIFIED NUCLEIC ACID Routine 08/21/2020 18:31 EDT Acute vaginitis documented in this encounter Results * CHLAMYDIA/N. GONORRHOEAE AMPLIFIED RNA (08/21/2020 18:31 EDT) Neisseria gonorrhoeae Result Negative Negative 08/22/2020 14:30 EDT [facility] Chlamydia trachomatis Result Negative Negative 08/22/2020 14:30 EDT [facility] Swab ENTIRE VAGINA / Unknown 08/21/2020 18:31 EDT 08/21/2020 21:28 EDT Dana Perry PA-C MICROBIOLOGY - GENER AL ORDERABLES [facility] [address] [place] [address] documented in this encounter Visit Diagnoses Diagnosis Acute vaginitis Vaginitis and vulvovaginitis, unspecified documented in this encounter Care Teams Advertising Traffic Manager Relationship Specialty Start Date End Date Demetrius Montenegro PA PCP - General 08/24/18 11/22/21 Dana Perry PA-C PCP - General Family Medicine - Primary Care 11/23/21 documented as of this encounter
--- OUTSIDE RECORDS SUMMARY | 2023-12-01 21:58 | XMS_ITS | Encounter Summary ---
Author Organization [facility] Address [address] [place] [address] Care Team Providers Care Computer Help Desk Representative Name Role Phone Gabriela Zaldivar MD Primary Care Provider [phone] Reason for Visit * Reason Comments Rash multiple areas of sc abs and recent exposure to scabies Encounter Details Date Type Department Care Team (Late st Contact Info) Description 05/31/2009 16:00 EST Office Visit [facility] Family Medicine [address] [address] Vania Keith MD [address] [place], [place] [phone] Bhavesh Mcclellan MD Scabies; Eczema Social History Tobacco Use Types Packs/Day Years Used Date Smoking Tobacco: Never Assessed Sex and Gender Information Value Date Recorded Sex Assigned at Not on file Gender Identity Not on file Sexual Orientation Not on file documented as of this encounter Last Filed Vital Signs Vital Sign Reading Time Taken Comments Blood Pressure - - Pulse - - Temperature 36.6 ??C (97.8 ??F) 05/31/2009 1609 EST Respiratory Rate - - Oxygen Saturation - - Inhaled Oxygen Concentration - - Weight 42.2 kg (93 lb) 05/31/2009 1609 EST Height - - Body Mass Index - - documented in this encounter Ordered Prescriptions Prescription Sig Dispensed Refills Start Date End Da te hydrocortisone 1 % creamIndications:Eczema Apply topically 2 times daily. Apply to affect area(s) as directed. 45 g 1 05/31/2009 01/07/2010 permethrin (ACTICIN) 5 % creamIndications:Scabies Apply topically once for 1 dose. apply sparingly as directed 60 g 3 05/31/2009 01/07/2010 documented in this encounter Progress Notes * Vania Keith - 05/31/2009 1613 EST Subjective: Patient ID: Telma Umanzor is an 4 y.o. female. Chief Complaint: Chief Complaint Patient presents with ??? Rash multiple areas of scabs and recent exposure to scabies HPI Pt is a 4 y/o F who comes in with concerns of scabies. She has a positive contact. She has a hx of eczema, so in the past month mom has been putting hydrocortisone cream on the rash and it has gottenworse. Both pt and her friend got it at the same time--unknown to mom that her friend had scabies until today. Rash on her torso, buttocks, back of legs and shins. This has been the itchiest she's ever been. No help with Benadryl. Mom also starting to have symptoms. 2 others in the house without symptoms. No past medical history on file. No family history on file. Current outpatient prescriptions Medication Sig Dispense Refill ??? hydrocortisone 1 % cream Apply topically as needed. ??? diphenhydrAMINE (BENADRYL) 25 mg capsule Take 1 Cap by mouth every 8 hours as needed. ??? MULTIVITAMINS (MULTI-VITAMIN ORAL) Take by mouth daily. ??? ACETAMINOPHEN (CHILDREN'S TYLENOL ORAL) Take by mouth as needed. No Known Allergies History Social History ??? Marital Status: Single Spouse Name: N/A Number of Children: N/A ??? Years of Education: N/A Occupational History ??? Not on file. Social History Main Topics ??? Tobacco Use: Not on file ??? Alcohol Use: Not on file ??? Drug Use: Not on file ??? Sexually Active: Not on file Other Topics Concern ??? Not on file Social History Narrative ??? No narrative on file ROS Objective: Physical Exam Constitutional: No distress. Neurological: She is alert. Skin: Pinpoint scabbed over lesions in torso, back, buttocks, posterior legs, anterior marin and posteriorarms. Several lesions are in a linear fashion Filed Vitals: 05/31/2009 4:09 PM Temp: 36.6 ??C (97.8 ??F) TempSrc: Tympanic Weight: 42.185 kg (93 lb) Assessment: Encounter Diagnoses Code Name Primary? Qualifier ??? 133.0 Scabies Plan: PERMETHRIN 5 % TOPICAL CREAM ??? 692.9BZ Eczema Plan: HYDROCORTISONE 1 % TOPICAL CREAM Plan: Telma was seen today for scabies Diagnoses and associated orders for this visit: - Scabies - Permethrin 5 % topical cream -- Apply topically once for 1 dose. apply sparingly as directed. Pt has gotten refills for other members in her family. Pt does have a six week old sibling. Have advised mom to hold off on the infant as they are asymptommatic and the cream has been approved for infants >2 months. Have instructed to have linens, clothing washed. Other, more difficult to wash fomites can be put in a bag for several days. - Eczema - Hydrocortisone 1 % topical cream -- Apply topically 2 times daily. Apply to affect area(s) as directed. RTC prn Attestation statement: I discussed the patient with the resident/fellow at the time of the visit and agree with the findings and plan of care. Bhavesh Mcclellan MD 05/31/2009 4:35 PM Attestation statement: I discussed the patient with the resident/fellow at the time of the visit and agree with the findings and the plan of care documented in the resident's/fellow's note. Bhavesh Mcclellan MD 05/31/2009 5:01 PM documented in this encounter Plan of Treatment Upcoming Encounters Date Type Department Care Team (Late st Contact Info) Description 12/27/2023 10:15 EDT Office Visit [facility] Foot & Ankle Program - [place] [address] Beth Carrera NP [address] [place] [address] 01/17/2024 14:10 EDT Office Visit [facility] Dermatology 5th Floor [address] [place] [address] Jun Le MD [address] [place], [place] [phone] documented as of this encounter Visit Diagnoses Diagnosis Scabies Eczema Contact dermatitis and other eczema, due to unspecified cause documented in this encounter Discontinued Medications Medication Sig Discontinue Reason Start Date End Da te hydrocortisone 1 % cream Apply topically as needed. 05/31/2009 documented as of this encounter Historical Medications * This list may reflect changes made after this encounter. Medication Sig Dispensed Refills Start Date End Date diphenhydrAMINE (BENADRYL) 25 mg capsule Take 1 Cap by mouth every 8 hours as needed. 08/16/2017 hydrocortisone 1 % cream Apply topically as needed. 05/31/2009 added in this encounter Care Teams Computer Help Desk Representative Relationship Specialty Start Date End Date Gabriela Zaldivar MD [address] [place] [address] PCP - General 05/31/09 01/05/10 documented as of this encounter
--- OUTSIDE RECORDS SUMMARY | 2023-12-01 21:58 | XMS_ITS | Encounter Summary ---
Author Organization [facility] Address [address] [place] [address] Care Team Providers Care Recovery Coach Name Role Phone Unavailable Primary Care Provider Unavailabl e Encounter Details Date Type Department Care Team (Late st Contact Info) Description 08/16/2007 7:43 EDT Hospital Encounter [facility] [address] [place], [place] [id number] Lolis Licona MD [place], Sudarshan Chapa MD [address] [place] [address] Social History Tobacco Use Types Packs/Day Years [...] Info) Description 12/27/2023 10:15 EDT Office Visit [facility] Foot & Ankle Program - [facility] [place] [address] Beth Carrera NP [address] [place] [address] 01/17/2024 14:10 EDT Office Visit [facility] Dermatology 5th Floor [facility] [address] [place] [address] Jun Le MD [address] [place], [place] [phone] documented as of this encounter Visit Diagnoses Not on filedocumented in this encounter
--- OUTSIDE RECORDS SUMMARY | 2023-12-01 21:58 | XMS_ITS | Encounter Summary ---
Author Organization [facility] Address [address] [place] [address] Care Team Providers Care Rn Family Practice Name Role Phone Demetrius Montenegro Primary Care Provider [phone] Dana Perry PA-C Primary Care Provider [phone] Encounter Details Date Type Department Care Team (Late st Contact Info) Description 11/03/2021 Lab Requisition [facility] Pathology & Laboratory Medicine - [facility] [address] [place], [place] [address] Dana Perry PA-C [address] [address] Acute tonsillitis, unspecified Social History Tobacco Use Types Packs/Day Years [...] - [place] [facility] - [place] [facility] [place] [address] Beth Carrera, RUPA [address] [place] [address] 01/17/2024 14:10 EDT Office Visit [facility] Dermatology 5th Floor [facility] [address] [place] [address] Jun Le MD [address] [place] [address] documented as of this encounter Procedures Procedure Name Priority Date/Time Associated Diagnosis Comments MONO-TEST Routine 11/03/2021 11:27 EDT Acute tonsillitis, unspecified documented in this encounter Results * MONO-TEST (11/03/2021 11:27 EDT) [place] Test Negative Negative 11/03/2021 21:49 EDT [facility] Blood VENOUS BLOOD / Unknown 11/03/2021 11:27 EDT 11/03/2021 20:29 EDT Dana Perry PA-C CHEMISTRY & BLOOD GA S ORDERABLES [facility] [address] [place] [address] documented in this encounter Visit Diagnoses Diagnosis Acute tonsillitis, unspecified documented in this encounter Care Teams Rn Family Practice Relationship Specialty Start Date End Date Demetrius Montenegro PA PCP - General 08/24/18 11/22/21 Dana Perry PA-C PCP - General Family Medicine - Primary Care 11/23/21 documented as of this encounter
--- OUTSIDE RECORDS SUMMARY | 2023-12-01 21:58 | XMS_ITS | Encounter Summary ---
Author Organization [facility] Address [address] [place] [address] Care Team Providers Care Stacker Driver Name Role Phone Unknown, Provider Primary Care Provider [phone] Reason for Visit * Reason Comments Headache Encounter Details Date Type Department Care Team (Latest Contact Info) Description 01/18/[address] [facility] Pediatric Primary Care - [address] [address] Sandra Matos MD 1 [facility] [address] [place] [address] Concussion without loss of consciousness, initial encounter (Primary Dx) Social History Tobacco Use Types [...] Sign Reading Time Taken Comments Blood Pressure 128/62 01/18/2018 1121 EDT Pulse - - Temperature - - Respiratory Rate - - Oxygen Saturation - - Inhaled Oxygen Concentration - - Weight 112 kg (247 lb) 01/18/2018 1121 EDT Height - - Body Mass Index - - documented in this encounter Progress Notes * Sandra Matos MD - 01/18/2018 1121 EDT Subjective: Patient ID: Telma Umanzor is an 12 y.o. female. Chief Complaint Patient presents with ??? Headache Patient was seen at [facility]. HPI Here with headache for one day duration, did get kicked in head yesterday at soccer game, no LOC, no stars, felt ringing in head, but finished last 2 minutes of game. Then had headache last night, no nausea, no vomiting, no dizziness, slept well. Today, feeling okay, will for emotionality on SCOAT are higher for emotion because she always feels depressed. We did not do memory testing today as all other scores are 0 at this point and symptoms are very mild. Spoke with mom as well who felt that Telma was absolutely fine yesterday. Disease Management: N/A Patient Active Problem List Diagnosis ??? Eczema Past Medical History: Diagnosis Date ??? Eczema ??? Psoriasis Current Outpatient Prescriptions on File Prior to Visit Medication Sig Dispense Refill ??? lisdexamfetamine (VYVANSE) 40 mg capsule Take 40 mg by mouth every morning. ??? naproxen sodium (ANAPROX) 550 mg tablet Take 1 Tab by mouth every 12 hours as needed for Pain. 30 Tab 2 No current facility-administered medications on file prior to visit. No Known Allergies Social Social History Substance Use Topics ??? Smoking status: Never Smoker ??? Smokeless tobacco: Never Used ??? Alcohol use No Review of Systems - See HPI Objective: BP 128/62 Wt (!) 112 kg (247 lb) No height on file for this encounter. Physical Exam Constitutional: She is oriented to person, place, and time. She appears well- developed and well-nourished. No distress. Head: No signs of injury. Right Ear: Tympanic membrane normal. Left Ear: Tympanic membrane normal. Nose: No nasal discharge. Mouth/Throat: Mucous membranes are moist. Oropharynx is clear. Eyes: Pupils are equal, round, and reactive to light. EOM are normal. Neck: Normal range of motion. Neck supple. Cardiovascular: Normal rate, regular rhythm and normal heart sounds. No murmur heard. Pulmonary/Chest: Effort normal and breath sounds normal. Musculoskeletal: Normal range of motion. Neurological: She is alert and oriented to person, place, and time. She has normal reflexes. She displays normal reflexes. No cranial nerve deficit. She exhibits normal muscle tone. Coordination normal. NEgative heel toe and finger to nose. Skin: She is not diaphoretic. Psychiatric: She has a normal mood and affect. Her behavior is normal. Judgment and thought contentnormal. Labs: N/A Assessment and Plan: Telma was seen today for headache. 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 Mild concussion, discussed return to play guidelines and symptoms treatment. Spoke with mom by phone. Sandra Matos MD 01/18/2018 11:42 documented in this encounter Plan of Treatment Upcoming Encounters Date Type Department Care Team (Late st Contact Info) Description 12/27/2023 10:15 EDT Office Visit [facility] Foot & Ankle Program - [place] [address] [place] [address] Beth Carrera NP [address] [place] [address] 01/17/2024 14:10 EDT Office Visit [facility] Dermatology 5th Floor [facility] [address] [place] [address] Jun Le MD [address] [place] [address] documented as of this encounter Visit Diagnoses Diagnosis Concussion without loss of consciousness, initial encounter- Primary documented in this encounter Care Teams Stacker Driver Relationship Specialty Start Date End Date Unknown, Provider, PCP - General 08/16/17 08/23/18 documented as of this encounter
--- OUTSIDE RECORDS SUMMARY | 2023-12-01 21:58 | XMS_ITS | Encounter Summary ---
Author Organization [facility] Address [address] [place] [address] Care Team Providers Care Digital Librarian Name Role Phone Unknown, Provider Primary Care Provider [phone] Encounter Details Date Type Department Care Team (Latest Contact Info) Description 06/06/2018 15:17 EST - 06/06/2018 15:18 [facility] Hospital Encounter [facility] [address] [place] [address] Demetrius Montenegro PA [facility] [address] [place] [address] Discharge Disposition: Home or Self Care Social [...] on file documented as of this encounter Discharge Diagnoses Diagnosis J06.9 Acute upper respiratory infection, unspecified-J06.9[ICD-10-CM] documented in this encounter Medications at Time of Discharge Medication Sig Dispensed Refills Start Date End Date lisdexamfetamine (VYVANSE) 40 mg capsule Take 1 Capsule by mouth every morning. naproxen sodium (ANAPROX) 550 mg tablet Take 1 Tab by mouth every 12 hours as needed for Pain. 30 Tab 2 08/17/2017 06/02/2021 documented as of this encounter Discharge Disposition Disposition Code Departure Means Destination Home or Self Care documented in this encounter Plan of Treatment Upcoming Encounters Date Type Department Care Team (Late st Contact Info) Description 12/27/2023 10:15 EDT Office Visit [facility] Foot & Ankle Program - [place] [address] [place] [address] Beth Carrera NP [address] [place] [address] 01/17/2024 14:10 EDT Office Visit [facility] Dermatology 5th Floor [facility] [address] [place] [address] Jun Le MD [address] [place], [place] [phone] documented as of this encounter Visit Diagnoses Not on filedocumented in this encounter Care Teams Digital Librarian Relationship Specialty Start Date End Date Unknown, Provider, PCP - General 08/16/17 08/23/18 documented as of this encounter
--- OUTSIDE RECORDS SUMMARY | 2023-12-01 21:58 | XMS_ITS | Encounter Summary ---
Author Organization [facility] Address [address] [place] [address] Care Team Providers Care Heel Reducer Name Role Phone Unknown, Provider Primary Care Provider [phone] Reason for Referral * Radiology Services (Routine) - Closed Specialty Diagnoses / Procedures Referred By Contmichael t Referred To Contact Diagnoses Pain of finger of right hand Procedures HAND 3 OR MORE VIEWS Sandra Matos MD [address] [address] Referral ID Status Reason Start Date Expiration Date Visits Re quested Visits Authorized [id number] Closed 08/23/2018 1 1 Encounter Details Date Type Department Care Team (Latest Contact Info) Description 08/23/2018 Documentation Visit [facility] Pediatric Primary Care - [address] [phone] Sandra Matos MD [address] [place] [phone] Pain of finger of right hand (Primary Dx) Social History Tobacco Use Types Packs/Day Years Used Date Smoking Tobacco: Never Smokeless Tobacco: Never Alcohol Use Standard Drinks/Week Comments No 0 (1 standard drink = 0.6 oz pur e alcohol) Sex and Gender Information Value Date Recorded Sex Assigned at Not on file Gender Identity Not on file Sexual Orientation Not on file documented as of this encounter Progress Notes * Sandra Matos MD - 08/23/2018 0922 EDT Subjective: Patient ID: Telma Umanzor is an 13 y.o. female. No chief complaint on file. HPI Patient was seen at [facility]. Feel on outstretched hand three weeks ago, and then someone fell on top of it. Still with pain, if the finger gets squeezed, but able to play basektball. If left handed. No swelling. Disease Management: N/A Patient Active Problem List Diagnosis ??? Eczema ??? Pain of finger of right hand Past Medical History: Diagnosis Date ??? Eczema ??? Psoriasis Current Outpatient Medications on File Prior to Visit Medication Sig Dispense Refill ??? lisdexamfetamine (VYVANSE) 40 mg capsule Take 40 mg by mouth every morning. ??? naproxen sodium (ANAPROX) 550 mg tablet Take 1 Tab by mouth every 12 hours as needed for Pain. 30 Tab 2 No current facility-administered medications on file prior to visit. No Known Allergies Social Social History Tobacco Use ??? Smoking status: Never Smoker ??? Smokeless tobacco: Never Used Substance Use Topics ??? Alcohol use: No ??? Drug use: No Review of Systems - See HPI Objective: There were no vitals taken for this visit. No blood pressure reading on file for this encounter. Physical Exam Constitutional: She appears well-developed and well-nourished. Musculoskeletal: She exhibits tenderness. She exhibits no edema. STrength 4/5 at right fifth digit. And tender over metacarpal joint and right fifth proximal phalanx Labs: N/A Assessment and Plan: Diagnoses and all orders for this visit: Pain of finger of right hand - HAND 3 OR MORE VIEWS Project Administrative Assistant was not used X-ray rule out fracture. If positive, might be easiest to register at walk in for splinting, ratherthan wait for ortho. Sandra Matos MD 08/23/2018 9:47 . documented in this encounter Plan of Treatment Upcoming Encounters Date Type Department Care Team (Late st Contact Info) Description 12/27/2023 10:15 EDT Office Visit [facility] Foot & Ankle Program [place] [address] Beth Carrera, RUPA [address] [place] [address] 01/17/2024 14:10 EDT Office Visit [facility] Dermatology 5th Floor [facility] [address] [place], [place] [address] Jun Le MD [address] [place], [place] [phone] documented as of this encounter Procedures Procedure Name Priority Date/Time Associated Diagnosis Comments HAND 3 OR MORE VIEWS Routine 08/24/2018 8:49 EDT Pain of finger of right hand documented in this encounter Results * HAND 3 OR MORE VIEWS (08/24/2018 8:49 EDT) Anatomical Region Laterality Modality Other 08/24/2018 8:49 EDT 08/24/2018 9:07 EDT Narrative 08/24/2018 9:07 EDT HAND 3 OR MORE VIEWS ??08/24/2018 8:49 AM Signs and Symptoms/Comments: ?? M79.644-Pain in right finger(s)-ICD-10; Pain, Pain in fifth digit Findings: 3 views of the right hand demonstrate normal bones, joints and soft tissues. Impression: ??Normal hand radiographs. Procedure Note Axel Scanlon MD, - 08/24/2018 HAND 3 OR MORE VIEWS 08/24/2018 8:49 AM Signs and Symptoms/Comments: M79.644-Pain in right finger(s)-ICD-10; Pain, Pain in fifth digit Findings: 3 views of the right hand demonstrate normal bones, joints and soft tissues. Impression: Normal hand radiographs. Sandra Matos MD [facility] ORDER[facility] documented in this encounter Visit Diagnoses Diagnosis Pain of finger of right hand- Primary Pain in limb documented in this encounter Care Teams Heel Reducer Relationship Specialty Start Date End Date Unknown, Provider, PCP - General 08/16/17 08/23/18 documented as of this encounter
--- OUTSIDE RECORDS SUMMARY | 2023-12-01 21:58 | XMS_ITS | Encounter Summary ---
Author Organization [facility] Address [address] [place] [address] Care Team Providers Care Calender Supervisor Name Role Phone Demetrius Montenegro Primary Care Provider [phone] Reason for Visit * Reason Comments Follow-up HS. Pt reports flare along hairline, rash * Consult (Routine) - Authorization Not Required Specialty Diagnoses / Procedures Referred By Contmichael t Referred To Contact Dermatology Diagnoses Rash Dana Perry PA-C [address] [address] [facility] Dermatology [address] [place] [address] Referral ID Status Reason Start Date Expiration Date Visits Requested Visits Authorized [id number] Authorization Not Required 1 1 Encounter Details Date Type Department Care Team (Late st Contact Info) Description 05/30/2021 15:15 EST Office Visit [facility] Dermatology 3rd Floor [facility] [address] [place], [place] [address] [facility] [address] [place] [phone] Hidradenitis suppurativa (Primary Dx); Intrinsic eczema Social History Tobacco Use Types Packs/Day Years [...] on file documented as of this encounter Patient Instructions * Patient Instructions* James Segura - 05/30/2021 15:15 EST - use triamcinolone three days on three days off to eczematous skin. Dont apply to face, groin or thin skin - continue moisturization with vaseline -Use Hibiclens 2-3 times weekly in affected areas as body wash -Apply clindamycin lotion to affected areas in the groin once daily on an as- needed basis -Take 100 mg spironolactone once nightly documented in this encounter Ordered Prescriptions Prescription Sig Dispensed Refills Start Date End Da te spironolactone (ALDACTONE) 100 mg tablet Take 1 Tablet by mouth daily. 30 Tablet 3 05/30/2021 triamcinolone (KENALOG) 0.1 % ointment Apply topically to affected area 2 times daily. To affected skin. Do not apply to face, armpit or groin. 454 g 3 05/30/2021 11/02/2022 clindamycin (CLEOCIN T) 1 % lotion Apply topically to affected area daily for 30 days. use thin film on affected area 60 mL 3 05/30/2021 06/29/2021 chlorhexidine (HIBICLENS) 4 % liquid Apply topically once for 90 days. . Rinse off. 946 mL 5 05/30/2021 08/28/2021 documented in this encounter Progress Notes * James Segura - 05/30/2021 1515 EST Dermatology Outpatient Visit Note Chief Complaint: Follow-up (HS. Pt reports flare along hairline, rash) Dermatologic History: No specialty comments available. SUBJECTIVE: Ms. Umanzor is a 16 y.o. female who presents for evaluation of HS and eczematous rash. 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 Cbut was not able to get any of her medications patient has a history of longstanding eczema since she was a young child and has tried numerous topical treatments with minimal relief. In addition she has had atrophy of the skin with prolonged useof steroids, especially in the flexors of her upper extremities. For her eczema she has been applying topical Vaseline daily, and this is currently keeping it under control however she tends to flaredespite consistent use of Vaseline, and she cannot identify any known triggers to her flares. She does think this may be related to allergens but cannot identify specific ones that are causing her flares. She has had a chest for a few years limited to the groin, she occasionally gets painful enlarging lesions, but today is relatively well controlled. She has not had any treatments for this in thepast. OBJECTIVE: Cutaneous full body examination was performed. -Mild eczematous patches on the bilateral upper extremities and thighs, with some lichenification of the dorsal wrists. -Groin: Hyperpigmented papular nodules without evidence of scarring ASSESSMENT & PLAN: - Hidradenitis suppurativa: Discussed that this is a life-long condition which causes painful abscesses with sinus tract formation. There is no cure so the condition requires long-term management. Itcan vary in severity from person to person. Things that can improve symptoms include cessation of smoking, weight loss, exercise, and improved diet. Topical medications including benzoyl peroxide andclindamycin can lead to improvement. Using spironolactone, antibiotics, either doxycycline or clindamycin + rifampin, or less often TMP- SMX. Adalimumab is the most effective medication. Surgical procedures can be also performed for persistent lesions. - Rx spironolactone 100mg nightly - Rx Hibiclens was to use 2-3 times weekly to affected areas - Rx clindamycin lotion to apply once daily to affected areas Atopic Dermatitis - Reviewed that this a chronic skin condition with a defective skin barrier and inability of the skin to hold in moisture being the main truck driver helper of disease - For treatment, recommended: - Triamcinolone 0.1% ointment applied bid to eczematous areas - Reviewed not to apply to groin, face, axilla or areas that are already atrophied. She she not usefor extended periods of time. Discussed using for maximum of one week at a time and taking at leastone week off in between - Education on the side effects of retirement topical steroids were discussed including thinning of the skin (atrophy), and stretch will (striae) -Patient was counseled to call if any changes; ie rapid increase in area invovled, blistering, or worsening sxs arise in association with this rash -On reserve: Can consider biopsy to confirm diagnosis of atopic dermatitis. Can consider patch testing. FOLLOW UP: Return in about 3 months (around 08/27/2021) for f/u HS and eczema. James Segura DO 05/30/2021 16:01 Attestation Statement: I saw and examined the patient with the resident/fellow. I agree with the findings and plan of care documented in the resident's/fellow's note. Efrain Slater MD Dermatology [facility] documented in this encounter Plan of Treatment Upcoming Encounters Date Type Department Care Team (Late st Contact Info) Description 12/27/2023 10:15 EDT Office Visit [facility] Foot & Ankle Program - [address] [phone] Beth Carrera NP [address] [place] [address] 01/17/2024 14:10 EDT Office Visit [facility] Dermatology 5th Floor [address] [address] Jun Le MD [address] [place], [place] [phone] documented as of this encounter Visit Diagnoses Diagnosis Hidradenitis suppurativa- Primary Hidradenitis Intrinsic eczema documented in this encounter Discontinued Medications Medication Sig Discontinue Reason Start Date End Da te naproxen sodium (ANAPROX) 550 mg tablet Take 1 Tab by mouth every 12 hours as needed for Pain. Patient Stopped Taking 08/17/2017 06/02/2021 documented as of this encounter Historical Medications * This list may reflect changes made after this encounter. Medication Sig Dispensed Refills Start Date End Date ibuprofen (MOTRIN) 200 mg tablet Take 200 mg by mouth every 6 hours. 12/21/2021 added in this encounter Care Teams Calender Supervisor Relationship Specialty Start Date End Date Demetrius Montenegro PA PCP - General 08/24/18 11/22/21 documented as of this encounter
--- OUTSIDE RECORDS SUMMARY | 2023-12-01 21:58 | XMS_ITS | Encounter Summary ---
Author Organization [facility] Address [address] [place] [address] Care Team Providers Care New Car Make Ready Mechanic Name Role Phone Isatu Waddell MD Primary Care Provider Encounter Details Date Type Department Care Team (Late st Contact Info) Description 07/14/2010 Results Only [facility] Laboratory Services - [facility] [address] [place] [phone] Chano Pop PA Social History Tobacco Use Types Packs/Day Years [...] Office Visit [facility] Foot & Ankle Program - [address] [address] Beth Carrera NP [address] [place] [phone] 01/17/2024 14:10 EDT Office Visit [facility] Dermatology 5th Floor [address] [phone] Jun Le MD [address] [place], [place] [phone] documented as of this encounter Procedures Procedure Name Priority Date/Time Associated Diagnosis Comments BACTERIAL CULTURE, URINE Routine 07/14/2010 19:52 EDT documented in this encounter Results * BACTERIAL CULTURE, URINE (07/14/2010 19:52 EDT) Specimen Description Urine [facility] Result Mixed gram positive growth If patient has a chronic indwelling catheter and requires antibiotictreatm ent, consult laboratory for further testing. If clinically indicated and patient is not catheterized, consider recollecting sample via in and out catheter. [facility] Report Status Final 07/16/2010 [facility] 07/14/2010 19:5 2 EDT 07/14/2010 19:52 EDT [facility] - GENER AL ORDERABLES [facility] [address] [place] [address] documented in this encounter Visit Diagnoses Not on filedocumented in this encounter Care Teams New Car Make Ready Mechanic Relationship Specialty Start Date End Date Isatu Waddell MD [address] [place] [phone] PCP - General 01/06/10 08/15/17 documented as of this encounter
--- OUTSIDE RECORDS SUMMARY | 2023-12-01 21:58 | XMS_ITS | Encounter Summary ---
Author Organization [facility] Address [address] [place] [address] Care Team Providers Care Foreign Exchange Student Coordinator Name Role Phone Unknown, Provider Primary Care Provider [phone] Reason for Referral * Consult (Routine) - Specialty Report Received Specialty Diagnoses / Procedures Referred By Chris russo Referred To Contact Orthopedic Surgery Diagnoses Sprain of right ankle, unspecified ligament, subsequent encounter Sandra Matos MD [address] [place] [phone] [facility] Pediatric[facility] [address] [place] [address] Referral ID Status Reason Start Date Expiration Date Visits Requested Visits Authorized [id number] Specialty Report Received Specialty Services Required 08/17/2017 1 1 Question Answer Reason for Request: Evaluate ankle sprain Comments Injury 08/16, boot for support started 08/17, please evaluate (young athlete) Encounter Details Date Type Department Care Team (Latest Contact Info) Description 08/17/2017 Documentation Visit [facility] Pediatric Primary Care - [address] [address] Sandra Matos MD [address] [place] [phone] Sprain of right ankle, unspecified ligament, subsequent encounter (Primary Dx) Social History Tobacco Use Types Packs/Day Years Used Date Smoking Tobacco: Never Smokeless Tobacco: Never Alcohol Use Standard Drinks/Week Comments No 0 (1 standard drink = 0.6 oz pur e alcohol) Sex and Gender Information Value Date Recorded Sex Assigned at Not on file Gender Identity Not on file Sexual Orientation Not on file documented as of this encounter Ordered Prescriptions Prescription Sig Dispensed Refills Start Date End Da te naproxen sodium (ANAPROX) 550 mg tablet Take 1 Tab by mouth every 12 hours as needed for Pain. 30 Tab 2 08/17/2017 06/02/2021 documented in this encounter Progress Notes * Sandra Matos MD - 08/17/2017 1229 EDT Subjective: Patient ID: Telma Umanzor is an 12 y.o. female. No chief complaint on file. Ankle pain Seen at [facility]. HPI Catching during softball game yesterday, jumped, and then landed and twisted ankle, seen at walk in, did not get full x-ray results. No prior injury to this ankle, although mom feels her joints are weak because she grew really quickly. Disease Management: N/A Patient Active Problem List Diagnosis ??? Eczema Past Medical History: Diagnosis Date ??? Eczema ??? Psoriasis No current outpatient prescriptions on file prior to visit. No current facility-administered medications on file prior [...] Exam Constitutional: She appears well-developed and well-nourished. No distress. Musculoskeletal: She exhibits edema and tenderness. Right ankle, dorsalis pedis pulses 2+ bilaterally, with pain with palpation along lateral ligamentsnear lateral malleolus, no bruising, no pain along bony landmarks ANKLE 3 OR MORE VIEWS ??08/16/2017 7:33 PM ? Signs and Symptoms/Comments: ??fall. ? Findings: 4 views of the right ankle were obtained. This shows ?? swelling over the lateral and anterior ankle and lateral hindfoot. ?? No fracture is seen. The ankle mortise is intact. ? Impression: Anterolateral soft tissue swelling over the ankle and ?? swelling over the lateral hindfoot without evidence of fracture or ?? dislocation. ?? Labs: N/A Assessment and Plan: Diagnoses and all orders for this visit: Sprain of right ankle, unspecified ligament, subsequent encounter - 3D Boot - Amb Consult/Follow Up Orthopedics Guest Room Attendant was not used. 1)Will fax script to ortho care to assist with weight bearing. 2)Expect up to a month before able to return to full sports. 3)Continue RICE for next 48-72 hours and Naproxen twice daily for next two days, then as needed. Donot give extra ibuprofen containing products with this. 4)Can do own PT and rehab or we can refer. 5)Referral to ortho for eval, but okay for family to cancel if desires as will heal on own with some strength Sandra Matos MD 08/17/2017 12:40 documented in this encounter Plan of Treatment Upcoming Encounters Date Type Department Care Team (Late st Contact Info) Description 12/27/2023 10:15 EDT Office Visit [facility] Foot & Ankle Program - [address] [address] Beth Carrera NP [address] [place] [address] 01/17/2024 14:10 EDT Office Visit [facility] Dermatology 5th Floor [facility] [address], [place] [phone] Jun Le MD [address] [place], [place] [phone] Scheduled Referrals Name Type Priority Associated Diagnoses Orde r Schedule AMB CONS/FOLLOW UP ORTHOPEDICS Outpatient Referral Routine Sprain Of Right Ankle, Unspecified Ligament, Subsequent Encounter Ordered: 08/17/2017 documented as of this encounter Visit Diagnoses Diagnosis Sprain of right ankle, unspecified ligament, subsequent encounter- Primary documented in this encounter Orders General Supply Count Last Ordered Date First Or dered Date 3D BOOT 1 08/17/2017 documented in this encounter Care Teams Foreign Exchange Student Coordinator Relationship Specialty Start Date End Date Unknown, Provider, PCP - General 08/16/17 08/23/18 documented as of this encounter
--- OUTSIDE RECORDS SUMMARY | 2023-12-01 21:58 | XMS_ITS | Encounter Summary ---
Author Organization [facility] Address [address] [place] [address] Care Team Providers Care Setter [employer] Machines Name Role Phone Jalil Mathis MD Primary Care Provider [phone] Encounter Details Date Type Department Care Team (Late st Contact Info) Description 02/11/2009 Abstract [facility] Family Medicine - [place] [address] [place] [address] Jalil Mathis MD [address] [place] [phone] Social History Tobacco Use Types Packs/Day Years [...] 10:15 EDT Office Visit [facility] Foot & Ankle Program - [address] [facility] [place] [address] Beth Carrera NP [address] [place] [address] 01/17/2024 14:10 EDT Office Visit [facility] Dermatology 5th Floor [facility] [address] [place] [address] Jun Le MD [address] [place], [place] [address] documented as of this encounter Visit Diagnoses Not on filedocumented in this encounter Historical Medications * This list may reflect changes made after this encounter. Medication Sig Dispensed Refills Start Date End Date ACETAMINOPHEN (CHILDREN'S TYLENOL ORAL) Take by mouth as needed. 08/16/2017 MULTIVITAMINS (MULTI-VITAMIN ORAL) Take by mouth daily. 01/07/2010 added in this encounter Care Teams Setter [employer] Machines Relationship Specialty Start Date End Date Jalil Mathis MD [address] [place] [phone] PCP - General 10/25/08 05/30/09 documented as of this encounter
--- OUTSIDE RECORDS SUMMARY | 2023-12-01 21:58 | XMS_ITS | Encounter Summary ---
Author Organization [facility] Address [address] [place] [address] Care Team Providers Care Sports Team Manager Name Role Phone Isatu Waddell MD Primary Care Provider Encounter Details Date Type Department Care Team (Late st Contact Info) Description 07/10/2010 Abstract [facility] Family Medicine - [address] [phone] Isatu Waddell MD [address] [place] [phone] Social History Tobacco Use Types Packs/Day Years Used Date Smoking Tobacco: Never Assessed Sex and Gender Information Value Date Recorded Sex Assigned at Not on file Gender Identity Not on file Sexual Orientation Not on file documented as of this encounter Plan of Treatment Upcoming Encounters Date Type Department Care Team (Late st Contact Info) Description 12/27/2023 10:15 EDT Office Visit [facility] Foot & Ankle Program - [address] [address] Beth Carrera NP [address] [place] [address] 01/17/2024 14:10 EDT Office Visit [facility] Dermatology 5th Floor [facility] [address] [place], [place] [phone] Jun Le MD [address] [place], [place] [address] documented as of this encounter Visit Diagnoses Not on filedocumented in this encounter Care Teams Sports Team Manager Relationship Specialty Start Date End Date Isatu Waddell MD [address] [place] [phone] PCP - General 01/06/10 08/15/17 documented as of this encounter
--- OUTSIDE RECORDS SUMMARY | 2023-12-01 21:58 | XMS_ITS | Encounter Summary ---
Author Organization [facility] Address [address] [place] [address] Care Team Providers Care President And Cmo Name Role Phone Demetrius Montenegro Primary Care Provider [phone] Dana Perry PA-C Primary Care Provider [phone] Encounter Details Date Type Department Care Team (Late st Contact Info) Description 03/25/2021 Lab Requisition [facility] Pathology & Laboratory Medicine - [facility] [address] [place] [address] Dana Perry PA-C [address] [phone] Contact with and (suspected) exposure to covid-19 Social History Tobacco Use Types Packs/Day Years [...] [facility] - [address] [facility] [place] [address] Beth Carrera NP [address] [place] [address] 01/17/2024 14:10 EDT Office Visit [facility] Dermatology 5th Floor [facility] [address] [place] [address] Jun Le MD [address] [place] [address] documented as of this encounter Procedures Procedure Name Priority Date/Time Associated Diagnosis Comments ZZCOVID-19 TEST [facility] PCR Today 03/25/2021 9:52 EST Contact with and (suspected) exposure to covid-19 COVID-19 TESTING Today 03/25/2021 9:52 EST Contact with and (suspected) exposure to covid-19 documented in this encounter Results * COVID-19 TEST [facility] PCR (03/25/2021 9:52 EST) Swab NASAL / Unknown 03/25/2021 9 :52 EST 03/25/2021 20:43 EST Dana Perry PA-C MICROBIOLOGY - GENER AL ORDERABLES [facility] [address] [place] [address] * COVID-19 TESTING (03/25/2021 9:52 EST) COVID-19 rt-PCR Result Negative Negative 03/26/2021 13:06 EST [facility] Comment: This test has not been FDA cleared or approved. This test has been authorized by FDA under an EUA for use by authorized laboratories. This test has been authorized only for detection of nucleic acid from 2019-nCoV, not for any other viruses or pathogens. This test is only authorized for the duration of the declaration that circumstances exist justifying the authorization of emergency use of in vitro diagnostic tests for detection and/or diagnosis of 2019-nCoV under section 564(b)(1) of Act, 21 U.S.C ?? 360bbb-3(b) (1), unless the authorization is terminated or revoked sooner. Negative results do not preclude 2019-nCoV infection and should not be used as the sole basis for treatment or other patient management decisions. Negative results must be combined with clinical observations, patient history, and epidemiological information. Testing was performed using the anish SARS-CoV-2 assay ([employer] on the Anish 6800 System Performing Lab Anish 6800 [facility] 03/26/2021 13:06 EST [facility] Swab NASAL / Unknown 03/25/2021 9 :52 EST 03/25/2021 20:43 EST Dana Perry PA-C MICROBIOLOGY - GENER AL ORDERABLES [facility] [address] [place] [address] documented in this encounter Visit Diagnoses Diagnosis Contact with and (suspected) exposure to covid-19 documented in this encounter Care Teams President And Cmo Relationship Specialty Start Date End Date Demetrius Montenegro PA PCP - General 08/24/18 11/22/21 Dana Perry PA-C PCP - General Family Medicine - Primary Care 11/23/21 documented as of this encounter
--- OUTSIDE RECORDS SUMMARY | 2023-12-01 21:58 | XMS_ITS | Encounter Summary ---
Author Organization [facility] Address [address] [place] [address] Care Team Providers Care Mechanical Drafter Name Role Phone Unavailable Primary Care Provider Unavailabl e Encounter Details Date Type Department Care Team (Late st Contact Info) Description 08/31/2007 7:51 EDT Hospital Encounter [facility] [address] [place] [address] Geronimo Lew MD [address] [facility], [address] [place] [phone] Social History Tobacco Use Types Packs/Day Years [...] Info) Description 12/27/2023 10:15 EDT Office Visit [facility] Foot & Ankle Program - [address] [facility] [place] [address] Beth Carrera NP [address] [place] [address] 01/17/2024 14:10 EDT Office Visit [facility] Dermatology 5th Floor [facility] [address] [place] [address] Jun Le MD [address] [place], [place] [phone] documented as of this encounter Visit Diagnoses Not on filedocumented in this encounter
--- OUTSIDE RECORDS SUMMARY | 2023-12-01 21:58 | XMS_ITS | Encounter Summary ---
Author Organization [facility] Address [address] [place] [address] Care Team Providers Care Dish Carrier Name Role Phone Khanh Waddell MD Primary Care Provider Reason for Visit * Reason Comments Loss of Consciousness felt heavy dizzy in shower, lips turned blue & fell into mother's arms, began full body shaking about an hour ago, feels fine now Seizures Encounter Details Date Type Department Care Team (Late st Contact Info) Description 09/27/2012 16:38 EDT - 09/27/2012 19:51 EDT Emergency [facility] Emergency Department - Main [place] [address] [place], [place] [phone] Sudarshan Matthews MD [address] [facility], [address] [place] [address] Emergency, MD Ivy Seizure ([facility]) ([facility]) (Primary Dx) Discharge Disposition: Home or Self Care Social History Tobacco Use Types Packs/Day Years Used Date Smoking Tobacco: Never Alcohol Use Standard Drinks/Week Comments No 0 (1 standard drink = 0.6 oz pur e alcohol) Sex and Gender Information Value Date Recorded Sex Assigned at Not on file Gender Identity Not on file Sexual Orientation Not on file documented as of this encounter Last Filed Vital Signs Vital Sign Reading Time Taken Comments Blood Pressure 112/77 09/27/2012 1645 EDT Pulse 83 09/27/2012 1645 EDT Temperature 36.3 ??C (97.3 ??F) 09/27/2012 1645 EDT Respiratory Rate 18 09/27/2012 1645 EDT Oxygen Saturation 99% 09/27/2012 1645 EDT Inhaled Oxygen Concentration - - Weight 67.6 kg (149 lb) 09/27/2012 1645 EDT Height 167.6 cm (5' 6) 09/27/2012 1645 EDT Body Mass Index 24.05 09/27/2012 1645 EDT Body Mass Index Percentile 96.70% 09/27/2012 164 5 EDT Growth Chart: CDC (Girls, 2- 20 Years) documented in this encounter Discharge Instructions * Discharge Instructions* Sudarshan Matthews MD - 09/27/2012 19:44 EDT Follow up with neurology. Call tomorrow to schedule follow up appointment and possible EEG. Follow up with your Primary Care Physician in 2-3 days. Bring your child back to the Emergency Department (ED) if your child's condition worsens, does not improve as expected, or other new concerns arise. Specifically return if new or uncontrolled pain, high fever, difficulty breathing, vomiting and unable to keep down fluids or medications, or any other concerns. * Attachments The following attachments cannot be sent through Care Everywhere. * SEIZURE: AFTER YOUR CHILD'S VISIT TO THE EMERGENCY ROOM ([facility]) documented in this encounter Medications at Time [...] Departure Means Destination Home or Self Care Walk-out Home documented in this encounter ED Notes * Sudarshan Matthews MD - 09/27/2012 1842 EDT DOS: 09/27/2012 Chief Complaint Patient presents with ??? Loss of Consciousness felt heavy dizzy in shower, lips turned blue & fell into mother's arms, began full body shaking about an hour ago, feels fine now ??? Seizures The patient is a 7 y.o. female who presents today with Loss of Consciousness and Seizures HPI Comments: Initial patient contact. 09/27/2012 18:42 Telma Umanzor is a 7 y.o. female who presents with a chief complaint of question of seizure. Child was in the bathroom this evening and had sudden onset of nausea associated with episode of vomiting. Her mother was in giving her a shower when she suddenly had glazed over dilated eyes and then slumped down and had right-sided upper and lower extremity seizure like activity with shaking. Symptoms lasted approximately 10 seconds and then child was quite lethargic and weak for approximately 10-15 minutes. After now symptoms have resolved. Child was unresponsive to verbal stimuli during the episode. She did not bite her tongue or have bowel or bladder incontinence. Mother reports that child had a similar episode approximately one year ago while walking down the stairs at which time she fell down and had generalized shaking activity although she woke up quicker from this event. Currently the child feels totally back to normal. She denies any pain. She denies neck pain, chest pain, difficultybreathing, abdominal pain, nausea, ataxia, headache, visual changes or other complaints. Child jocelyne did have a headache after the episode but it quickly resolved. No aggravating or alleviating factors and no radiation of pain Loss of Consciousness Associated symptoms include headaches, nausea, seizures and vomiting. Pertinent negatives include abdominal pain, chest pain, confusion and fever. Seizures Symptoms preceding the episode include vomiting. Symptoms preceding the episode do not include chest pain, abdominal pain or diarrhea. Associated symptoms include nausea and headaches. Pertinent negatives include no fever and no rash. Primary symptoms include seizures. Primary symptoms include patient does not experience confusion. The history is provided by the patient, the mother and the father. Review of Systems Constitutional: Negative for fever and chills. HENT: Negative for neck stiffness. Eyes: Negative for visual disturbance. Respiratory: Negative for shortness of breath. Cardiovascular: Negative for chest pain. Gastrointestinal: Positive for nausea and vomiting. Negative for abdominal pain and diarrhea. Genitourinary: Negative for difficulty urinating. Musculoskeletal: Negative for joint swelling. Skin: Negative for rash. Neurological: Positive for seizures, loss of consciousness and headaches. Hematological: Does not bruise/bleed easily. Psychiatric/Behavioral: Negative for confusion. All other systems reviewed and are negative. Past Medical History Diagnosis Date ??? Eczema ??? Psoriasis History reviewed. No pertinent past surgical history. No Known Allergies History Substance Use Topics ??? Smoking status: Never Smoker ??? Smokeless tobacco: Not on file ??? Alcohol Use: No History reviewed. No pertinent family history. Vital Signs Temp: 36.3 ??C (97.3 ??F) Temp src: Tympanic Pulse: 83 Resp: 18 SpO2: 99 % BP: 112/77 mmHg BP Device: BP Machine O2 Device: None (Room air) Physical Exam Nursing note and vitals reviewed. Constitutional: She appears well-developed and well-nourished. HENT: Mouth/Throat: Mucous membranes are moist. Oropharynx is clear. Eyes: Conjunctivae normal and EOM are normal. Pupils are equal, round, and reactive to light. Neck: Normal range of motion. Neck supple. No rigidity. Cardiovascular: Normal rate and regular rhythm. Pulmonary/Chest: Effort normal and breath sounds normal. No respiratory distress. Abdominal: Soft. There is no tenderness. There is no guarding. Musculoskeletal: Normal range of motion. She exhibits no edema. Neurological: She is alert. Pupils ERRLA, EOMI Hand grasps 2+ bilat Leg strength equal bilat No pronator drift. No cerebellar signs. CN II-XII grossly intact DTRs 2+ bilat Sensation to light touch intact Skin: Skin is warm and dry. No rash noted. Radiology orders: None Imaging Results None Procedures ED Course: A medical screening exam was performed. Normal neurologic exam. No focal neurologic deficit. A&OX3. Discussed with Neurology. Pt will follow up with pediatric neurology outpt. Prior to discharge usual and customary precautions were reviewed with the patient and/or family including follow-up instructions and reasons to return to the Emergency Department if condition worsens, does not improve as expected, or other new concerns arise. Disposition: Discharged The patient's pain was managed to an adequate level weighing risk vs. benefit of further medications. Upon departure from the Emergency Department, the patient's pain was 0 on a zero to ten scale. Condition at departure from the Emergency Department: Improved Discharge Prescriptions New Prescriptions No Discharge Prescriptions for this patient MDM Number of Diagnoses or Management Options Seizure: Diagnosis management comments: 3 Amount and/or Complexity of Data Reviewed Obtain history from someone other than the patient: yes Discuss the patient with other providers: yes Patient Progress Patient progress: improved Final diagnoses: Seizure PCP: KHANH WADDELL MD 09/28/2012 23:19 * Anais Toledo RN - 09/27/2012 1828 EDT Provider in with patient and family * Prashanth Hogue - 09/27/2012 1643 EDT Similar episode a year ago. Pt was standing in shower felt heavy dizzy and began to fall & mother caught her. Pt did not hit any part of body, having seizure-like activity after incident. Momstates shaking for 10-15 seconds. Pt was drowsy and dizzy afterwards for 10 minutes afterwards, laid in bed & PCP called. Pt feels fine now and has been ambulating, denies pain/discomfort at thistime. documented in this encounter Miscellaneous Notes * Scanned Note-Null - BODY WORKER, SCAN 2 - 09/30/2012 0829 EDT * Scanned Note-Null - BODY WORKER, SCAN 2 - 09/27/2012 1846 EDT documented in this encounter Plan of Treatment Upcoming Encounters Date Type Department Care Team (Late st Contact Info) Description 12/27/2023 10:15 EDT Office Visit [facility] Foot & Ankle Program - [facility] [address] [place], [place] [phone] Beth Carrera NP [address] [place] [address] 01/17/2024 14:10 EDT Office Visit [facility] Dermatology 5th Floor [facility] [address], [place] [phone] Jun Le MD [address] [place], [place] [phone] documented as of this encounter Visit Diagnoses Diagnosis Seizure ([facility])- Primary Other convulsions documented in this encounter Historical Medications * This list may reflect changes made after this encounter. Medication Sig Dispensed Refills Start Date End Date dexmethylphenidate (FOCALIN) 10 mg tablet Take 10 mg by mouth 2 times daily. 08/16/2017 added in this encounter Care Teams Dish Carrier Relationship Specialty Start Date End Date Khanh Waddell MD [address] [place] [phone] PCP - General 01/06/10 08/15/17 documented as of this encounter
--- OUTSIDE RECORDS SUMMARY | 2023-12-01 21:58 | XMS_ITS | Encounter Summary ---
Author Organization [facility] Address [address] [place] [address] Care Team Providers Care Furnace Installer Name Role Phone Jalil Mathis MD Primary Care Provider [phone] Encounter Details Date Type Department Care Team (Late st Contact Info) Description 04/10/[address] [facility] Family Medicine - [place] [address] [place] [address] Jalil Mathis MD [address] [place] [address] Social History Tobacco Use Types Packs/Day Years Used Date Smoking Tobacco: Never Assessed Sex and Gender Information Value Date Recorded Sex Assigned at Not on file Gender Identity Not on file Sexual Orientation Not on file documented as of this encounter Plan of Treatment Upcoming Encounters Date Type Department Care Team (Late st Contact Info) Description 12/27/2023 10:15 EDT Office Visit [facility] Foot & Ankle Program - [place]y [facility] [place] [address] Beth Carrera NP [address] [place] [address] 01/17/2024 14:10 EDT Office Visit [facility] Dermatology 5th Floor [facility] [address] [place] [address] Jun Le MD [address] [place], [place] [phone] documented as of this encounter Visit Diagnoses Not on filedocumented in this encounter Care Teams Furnace Installer Relationship Specialty Start Date End Date Jalil Mathis MD [address] [place] [phone] PCP - General 10/25/08 05/30/09 documented as of this encounter
--- OUTSIDE RECORDS SUMMARY | 2023-12-01 21:58 | XMS_ITS | Encounter Summary ---
Author Organization [facility] Address [address] [place] [address] Care Team Providers Care Vehicle Painter Name Role Phone Isatu Waddell MD Primary Care Provider Reason for Visit * Reason Comments Urticaria Pt arrives via triag e with c/o hives all over body. Mother states that she had a small amount before bed but then woke up with them all over her body. Mother states she gave her Zyrtec and an oatmeal bath. Pt denies any difficulty breathing. Encounter Details Date Type Department Care Team (Late st Contact Info) Description 10/23/2010 0:51 EDT - 10/23/2010 2:11 EDT Emergency [facility] Emergency Department - [address] [address] Shani Maki MD [address] [facility], Level 1 [place] [address] Emergency, MD Ivy Discharge Disposition: Home or Self Care Social [...] Sign Reading Time Taken Comments Blood Pressure 108/68 10/23/2010 0054 EDT Pulse 94 10/23/2010 0054 EDT Temperature 36.3 ??C (97.3 ??F) 10/23/201053 EDT Respiratory Rate 16 10/23/201053 EDT Oxygen Saturation 99% 10/23/201053 EDT Inhaled Oxygen Concentration - - Weight 49.9 kg (110 lb) 10/23/201053 EDT Height - - Body Mass Index - - documented in this encounter Medications at Time [...] documented in this encounter ED Notes * Shani Maki MD - 10/23/2010 0831 EDT Patient seen by medical studentmariana ordered for hives. When I went to evaluate the patient, they had left the room. Patient had reportedly been well appearing. * Constance Maria RN - 10/23/2010 0211 EDT Registration states mother and pt left. Dr. Maki notified. documented in this encounter Miscellaneous Notes * Scanned Note-Null - Interior Plant Caretaker, Scan - 10/23/2010 0000 EDT documented in this encounter Plan of Treatment Upcoming Encounters Date Type Department Care Team (Late st Contact Info) Description 12/27/2023 10:15 EDT Office Visit [facility] Foot & Ankle Program - [address] [place], [place] [phone] Beth Carrera NP [address] [place] [phone] 01/17/2024 14:10 EDT Office Visit [facility] Dermatology 5th Floor [facility] [address] [place], [place] [address] Jun Le MD [address] [place], [place] [phone] documented as of this encounter Visit Diagnoses Not on filedocumented in this encounter Administered Medications Inactive Administered Medications - up to 3 most recent administrations Medication Order MAR Action Action Date Dose Rate Site diphenhydrAMINE (BENADRYL) 25 mg capsule 1 dose, Starting on Ariana 10/23/10 at 0059, Until Ariana 10/23/10 at 0108 diphenhydrAMINE (BENADRYL) capsule 25 mg 25 mg, oral, NOW X1, 1 dose, On Ariana 10/23/10 at 0130, STAT Given 10/23/2010 1:08 EDT mg documented in this encounter Active and Recently Administered Medications Times are shown in EDT. Scheduled Medication Order 10/21/2010 10/22/2010 10/23/2010 diphenhydrAMINE (BENADRYL) capsule 25 mg (COMPLETED) 25 mg, oral, NOW X1, 1 dose, On Ariana 10/23/10 at 0130, STAT 0108 (Given - Provid er: Stacey Krishnan RN) documented in this encounter Care Teams Vehicle Painter Relationship Specialty Start Date End Date Isatu Waddell MD [address] [place] [phone] PCP - General 01/06/10 08/15/17 documented as of this encounter
--- OUTSIDE RECORDS SUMMARY | 2023-12-01 21:58 | XMS_ITS | Encounter Summary ---
Author Organization [facility] Address [address] [place] [address] Care Team Providers Care Time Stamp Assembler Name Role Phone Unknown, Provider Primary Care Provider Encounter Details Date Type Department Care Team (Late st Contact Info) Description 08/17/2017 Orders Only [facility] Pediatric Primary Care [facility] [address] [place], [place] [phone] Sandra Matos MD 1 [facility] Level 3 [place] [address] Sprain of right ankle, unspecified ligament, [...] Info) Description 12/27/2023 10:15 EDT Office Visit [facility] Foot & Ankle Program [place] [address] [place] [address] Beth Carrera NP [address] [place] [address] 01/17/2024 14:10 EDT Office Visit [facility] Dermatology 5th Floor [facility] [address] [place] [address] Jun Le MD [address] [place] [address] documented as of this encounter Visit Diagnoses Diagnosis Sprain of right ankle, unspecified ligament, subsequent encounter- Primary documented in this encounter Orders Equipment Count Last Ordered Date First Orde red Date GENERIC DME ORDER 1 08/17/2017 documented in this encounter Care Teams Time Stamp Assembler Relationship Specialty Start Date End Date Unknown, Provider, PCP - General 08/16/17 08/23/18 documented as of this encounter
--- OUTSIDE RECORDS SUMMARY | 2023-12-01 21:58 | XMS_ITS | Encounter Summary ---
Author Organization [facility] Address [address] [place] [address] Care Team Providers Care Auto Mechanics Instructor Name Role Phone Unavailable Primary Care Provider Unavailabl e Encounter Details Date Type Department Care Team (Late st Contact Info) Description 10/05/2007 9:44 EDT - 10/05/2007 11:59 EDT Hospital Encounter [facility] Perioperative Services- [address] [address] Geronimo Lew MD 111 [facility], Level [address] [place] [phone] Discharge Disposition: Home or Self Care Social History Tobacco Use Types Packs/Day Years Used Date Smoking Tobacco: Never Assessed Sex and Gender Information Value Date Recorded Sex Assigned at Not on file Gender Identity Not on file Sexual Orientation Not on file documented as of this encounter Discharge Disposition Disposition Code Departure Means Destination Home or Self Care documented in this encounter OR Notes * OR Surgeon - Geronimo Lew MD - 10/05/2007 0000 EDT PROCEDURE REPORT PT TYPE: OPPROC SERVICE DATE: 10/05/2007 SURGEON: Geronimo Lew MD ASSOCIATE PRINCIPAL: PREOPERATIVE DIAGNOSIS Recurrent otitis media, chronic adenoiditis. POSTOPERATIVE DIAGNOSIS Recurrent otitis media, chronic adenoiditis. PROCEDURE Bilateral tympanostomies with insertion of ventilating tubes and adenoidectomy. ANESTHESIA General. INDICATIONS Otherwise healthy female patient with history of recurrent ear infections on the left side unresponsive to medical therapy and chronic adenoiditis. NARRATIVE The patient was brought to the operating room after an adequate level of general anesthesia was obtained. The patient had an old tube removed from the right ear canal. A myringotomy was made. Thin serous fluid was suctioned from the right middle ear space. A Anish tube was placed without complication. Examination of the left ear revealed some fluid in the middle ear space. A tympanotomy was made in anterior inferior quadrant on the left side also. Thin serous fluid was suctioned from the left middle ear space. The Anish tube was placed on the left side without complication. The patient was then placed in the Kaycee position, mouth gag place, and a soft palate retractor withredrubber catheter. Examination of the soft palate revealed no evidence of submucous cleft. Adenoids were hypertrophic with a mucoid material on them. They were removed using suction cautery set on 45. The patient tolerated the procedure well. Patient wassent to the recovery room in stable condition. ESTIMATED BLOOD LOSS Less than 5 mL. FLUIDS 80 mL lactated Ringer. COMPLICATIONS None. Signed by Geronimo Lew MD 10/07/2007 17:54 Geronimo Lew MD - Geronimo Lew MD P - djb Job ID: [id number] Document ID: [id number] cc: MD Gabriela Silva MD documented in this encounter Plan of Treatment Upcoming Encounters Date Type Department Care Team (Late st Contact Info) Description 12/27/2023 10:15 EDT Office Visit [facility] Foot & Ankle Program - [address] [place] [address] Beth Carrera NP [address] [place] [address] 01/17/2024 14:10 EDT Office Visit [facility] Dermatology 5th Floor [address] [phone] Jun Le MD [address] [place] [address] documented as of this encounter Visit Diagnoses Not on filedocumented in this encounter
--- OUTSIDE RECORDS SUMMARY | 2023-12-01 21:58 | XMS_ITS | Encounter Summary ---
Author Organization [facility] Address [address] [place] [address] Care Team Providers Care Marble Carver Name Role Phone Gabriela Zaldivar MD Primary Care Provider [phone] Jalil Mathis MD Primary Care Provider [phone] Encounter Details Date Type Department Care Team (Late st Contact Info) Description 07/11/2007 Results Only [facility] Urgent Care - [facility] [address] [place], [place] [phone] Luis Fernando Merino MD [address] [place] [address] [place] [address] Social History Tobacco Use Types Packs/Day Years Used Date Smoking Tobacco: Never Assessed Sex and Gender Information Value Date Recorded Sex Assigned at Not on file Gender Identity Not on file Sexual Orientation Not on file documented as of this encounter Plan of Treatment Upcoming Encounters Date Type Department Care Team (Late st Contact Info) Description 12/27/2023 10:15 EDT Office Visit [facility] Foot & Ankle Program - [address] [address] Beth Carrera NP [address] [place] [address] 01/17/2024 14:10 EDT Office Visit [facility] Dermatology 5th Floor [facility] [address] [place], [place] [phone] Jun Le MD [address] [place] [address] documented as of this encounter Procedures Procedure Name Priority Date/Time Associated Diagnosis Comments GROUP A STREP CULTURE Routine 07/11/2007 11:54 EDT documented in this encounter Results * PHARYNGITIS CULTURE (07/11/2007 11:54 EDT) Specimen Description Throat [facility] Result NO GROUP A BETA STREPTOCOCCI ISOLATED [facility] Report Status Final [id number] [facility] 07/11/2007 11:5 4 EDT 07/11/2007 16:54 EDT Luis Fernando Merino MD MICROBI OLOGY - GENERAL ORDERABLES Performing Organization Address City/State/[facility] Co de Phone Number [facility] [address] [place] [address] documented in this encounter Visit Diagnoses Not on filedocumented in this encounter Care Teams Marble Carver Relationship Specialty Start Date End Date Gabriela Zaldivar MD [address] [place] [phone] PCP - General 05/31/09 01/05/10 Jalil Mathis MD [address] [place] [phone] PCP - General 10/25/08 05/30/09 documented as of this encounter
--- OUTSIDE RECORDS SUMMARY | 2023-12-01 21:58 | XMS_ITS | Encounter Summary ---
Author Organization [facility] Address [address] [place] [address] Care Team Providers Care Metal Drawer Name Role Phone Demetrius Montenegro Primary Care Provider [phone] Encounter Details Date Type Department Care Team (Latest Contact Info) Description 01/03/2019 Documentation Visit [facility] Pediatric Primary Care - [address] [address] Sandra Matos MD 1 [facility] [address] [place] [address] Sore throat (Primary Dx) Social History Tobacco Use Types [...] this encounter Progress Notes * Sandra Matos - 01/03/2019 0934 EDT Subjective: Patient ID: Telma Umanzor is an 13 y.o. female. No chief complaint on file. Patient was seen at [facility]. Throat hurting, since 01/01, no fevers, but voice is hoarse, starting to cough a little bit, stomachache, no emesis, but has had some diarrhea. Disease Management: N/A Patient Active Problem List [...] Exam Constitutional: She appears well-developed and well-nourished. Right Ear: Tympanic membrane normal. Left Ear: Tympanic membrane normal. Mouth/Throat: Mucous membranes are moist. Small amount of white exudate both tonsils Neck: Neck supple. Cardiovascular: Normal rate, regular rhythm and normal heart sounds. Pulmonary/Chest: Effort normal and breath sounds normal. Lymphadenopathy: She has cervical adenopathy. Labs: N/A NEgative rapid strep. Assessment and Plan: Diagnoses and all orders for this visit: Sore throat - POCT RAPID STREP SCREEN - GROUP A STREP CULTURE Down Filler was not used. . Viral pharyngitis. Supportive care. Will follow up on throat culture. Sandra Matos MD 01/03/2019 9:44 documented in this encounter Plan of Treatment Upcoming Encounters Date Type Department Care Team (Late st Contact Info) Description 12/27/2023 10:15 EDT Office Visit [facility] Foot & Ankle Program - [address] [place] [address] Beth Carrera NP [address] [place] [address] 01/17/2024 14:10 EDT Office Visit [facility] Dermatology 5th Floor [facility] [address] [place], [place] [phone] Jun Le MD [address] [place] [address] documented as of this encounter Procedures Procedure Name Priority Date/Time Associated Diagnosis Comments GROUP A STREP CULTURE Routine 01/03/2019 9:42 EDT Sore throat POCT RAPID STREP SCREEN Routine 01/03/2019 Sore throat documented in this encounter Results * GROUP A STREP CULTURE (01/03/2019 9:42 EDT) Result NO GROUP A BETA STREPTOCOCCI ISOLATED 01/05/2019 7:31 EDT [facility] Specimen of unknown material (specimen) ENTIRE THROAT / Unknown 01/03/2019 9:42 EDT 01/03/2019 22:40 EDT Comment:Specimen submitted o n a flocked swab. Sandra Matos MD MICROBIOLOGY - GENER AL ORDERABLES [facility] [address] [place] [address] * POCT RAPID STREP SCREEN (01/03/2019) Rapid Strep Test, POC Negative Negative [facility] Background Clear? Yes [facility] Control Line Present Yes [facility] Rgt A + Rgt B= Yellow: Yes [facility] Culture Sent to Lab? Yes [facility] Specimen of unknown material (specimen) 01/03/2019 Sandra Matos MD POINT OF CARE TEST O RDERABLES [facility] documented in this encounter Visit Diagnoses Diagnosis Sore throat- Primary Acute pharyngitis documented in this encounter Care Teams Metal Drawer Relationship Specialty Start Date End Date Demetrius Montenegro PA PCP - General 08/24/18 11/22/21 documented as of this encounter
--- OUTSIDE RECORDS SUMMARY | 2023-12-01 21:58 | XMS_ITS | Encounter Summary ---
Author Organization [facility] Address [address] [place] [address] Care Team Providers Care Supervisor Scouring Pads Name Role Phone Unavailable Primary Care Provider Unavailabl e Encounter Details Date Type Department Care Team (Late st Contact Info) Description 03/26/2008 16:23 EST Hospital Encounter [facility] [address] [place] [address] Gabriela Zaldivar MD [address] [place] [address] Social History Tobacco Use Types Packs/Day Years [...] [facility] Program [place] [address] [place] [address] Beth Carrera NP [address] [place] [address] 01/17/2024 14:10 EDT Office Visit [facility] Dermatology 5th Floor [facility] [address] [place] [address] Jun Le MD [address] [place] [address] documented as of this encounter Visit Diagnoses Not on filedocumented in this encounter
--- OUTSIDE RECORDS SUMMARY | 2023-12-01 21:58 | XMS_ITS | Encounter Summary ---
Author Organization [facility] Address [address] [place] [address] Care Team Providers Care Manager Mobile Name Role Phone Isatu Waddell MD Primary Care Provider Reason for Visit * Reason Comments Eczema not better, hydrocor tisone cream didn't help Encounter Details Date Type Department Care Team (Late st Contact Info) Description 01/07/2010 8:30 EDT Office Visit [facility] Dermatology 5th Floor [facility] [address] [place] [address] Lima Davis MD Other atopic dermatitis and related conditions (Primary Dx) Social History Tobacco Use Types Packs/Day Years Used Date Smoking Tobacco: Never Assessed Sex and Gender Information Value Date Recorded Sex Assigned at Not on file Gender Identity Not on file Sexual Orientation Not on file documented as of this encounter Patient Instructions * Patient Instructions* Criselda Hendricks - 01/07/2010 8:48 EDT SENSITIVE SKIN CARE You have easily irritated or ???sensitive?? skin. This means that anything which irritates your skin will cause dryness, redness and sometimes a rash. In this climate it is particularly difficult tomaintain healthy skin because of the cold and low humidity in most houses during the winter. Ordinarily, the skin is covered with a thin layer of oil which acts as a protective agent and sealsin water. When this is removed, or if you are producing a deficient amount of oil, your skin will dry out very quickly. Therefore proper water content and oiling of the skin is most important and may prevent the development of a rash. 1. Temperature and Humidity: Do not let your hands become cold- wear gloves. Humidity in the house tends to be low in the viola. It can be increased be placing flat pans of water on radiators, usinghumidifiers, etc., depending upon the heating system in your house. 2. Clothing: Wool and pure synthetic fabrics are very irritating. Do not ear then in direct contactwith your skin. Closely fitting garments such as long- oviedo and long stocking may irritate as well.The best fabric for sensitive skin is cotton or cotton-synthetic mixtures. 3. Bathing: Bathing tends to remove the protective film or oil mentioned above. Therefore, the following procedures for bathing must be followed. A: Water must be lukewarm not hot. Avoid long baths or showers. B: Use mile, unscented soap such as Dove unscented, Neutrogena, Basics, Purpose, Oilatum or Eucerin. This soap must be used sparingly under the arms, etc., and not at all on areas which are dry and/or irritated. C: Keep the bathroom temperature cool. If the room becomes hot and steamy, dry in another room. D: Pat yourself dry with a soft towel. DO NOT RUB. E: While still damp, apply a moisturizer such as Eucerin, Lubriderm, or Nutraderm. Apply this twicedaily thereafter and more often if the skin appears dry and scaly. 4. Bedroom and Bed Clothing: Your bedroom should not be overheated. Every effort should be made to avoid circumstances which will results in sweating while sleeping. Good humidity is particularly important in this room. Bed clothing should be smooth cotton or cotton-synthetic mixtures - not flannel. Sheers and pillow cases should not be starched. 5. Laundry Detergents: Your detergents should be unscented without bleach (e.g., Arm and Hammer): no bleach, fabric softeners, or dryer sheets. documented in this encounter Ordered Prescriptions Prescription Sig Dispensed Refills Start Date End Da te hydrOXYzine (ATARAX) 10 mg tablet Take by mouth at bedtime as needed for Itching. Take 1-2 tablets 60 Tab 3 01/07/2010 08/16/2017 hydrocortisone 2.5 % ointment Apply topically 2 times daily. To eczema patches 454 g 3 01/07/2010 08/16/2017 documented in this encounter Progress Notes * Criselda Hendricks - 01/07/2010 0847 EDT Dermatology Outpatient Visit Note SUBJECTIVE Chief Complaint: Chief Complaint Patient presents with ??? Eczema not better, hydrocortisone cream didn't help History of Present Illness: Telma Umanzor is a 4 y.o. darkly-pigmented female who presents today for consultation by Dr. Keith for evaluation and treatment for eczema not improving with Claritin po and Hydrocortisone 1% cream. She has been battling with this for the last 3 yrs and is quite itchy. She also has a history of allergies. Her mother accompanies her and is worried about the pigment changes. Of note, she did suffer from scabies in 05/22 and was successfully treated with Permethrin. Review of Systems: As noted above in progress notes section. Current outpatient prescriptions Medication Sig Dispense Refill ??? diphenhydrAMINE (BENADRYL) 25 mg capsule Take 1 Cap by mouth every 8 hours as needed. ??? hydrocortisone 1 % cream Apply topically 2 times daily. Apply to affect area(s) as directed. 45g 1 ??? ACETAMINOPHEN (CHILDREN'S TYLENOL ORAL) Take by mouth as needed. OBJECTIVE VS: There were no vitals taken for this visit. Physical Exam: This is a pleasant coffee-colored pigmented female in no acute distress though she is scratching ather elbows throughout the entire exam. Cutaneous examination was done of the scalp, face, neck, back, chest, abdomen, intertriginous areas, and extremities. In the axilla, antecubital fossae, popliteal fossae, posterior neck, dorsal wrists, ankles, and upper back bilaterally are hypopigmented lichen ified patches and plaques. ASSESSMENT 1. Atopic dermatitis with postinflammatory hypopigmentation - not controlled on 1% hydrocortisone PLAN 1. Atopic dermatitis with postinflammatory hypopigmentation - had a discussion with the pt and mother about the chronic condition of eczema and the need for stronger topical steroids when she is thisinflamed. Will prescribe Hydrocortisone 2.5% ointment to be applied to the affected areas (other than the face) BID when she has a rash, 60g 3RF. She can also try different oral antihistamines if Claritin does not work, such as Hydroxyzine 10mg po at dinnertime, 60 tabs, 3RF. She should also aggressively moisturize twice a day with a bland moisturizer and stay away from aggravating clothing materials, such as wool. A handout was given. Pt voices understanding. Explained that the hypopigmentation will even out once the inflammation has been controlled, which may take months. It is often more pronounced in the summer when her normal skin can ryan. Patient education given on the above assessments. RTC: prn Will call or come in sooner if has questions or concerns. CRISELDA HENDRICKS MD 01/07/2010 8:41 Attestation statement: I saw and examined the patient with the resident/fellow. I agree with the findings and plan of care documented in the resident's/fellow's note. LIMA DVAIS MD 01/07/2010 16:23 dental cream maker * Sandra Parker - 01/07/2010 0830 EDT A complete 12 point review of systems was obtained and reviewed. All systems are negative except for: rash and itching Sandra Parker 01/07/2010 8:30 MD LIMA LARSON MD documented in this encounter Plan of Treatment Upcoming Encounters Date Type Department Care Team (Late st Contact Info) Description 12/27/2023 10:15 EDT Office Visit [facility] Foot & Ankle Program - [address] [place] [address] Beth Carrera NP [address] [place] [address] 01/17/2024 14:10 EDT Office Visit [facility] Dermatology 5th Floor [address] [phone] Jun Le MD [address] [place] [phone] documented as of this encounter Visit Diagnoses Diagnosis Other atopic dermatitis and related conditions- Primary documented in this encounter Discontinued Medications Medication Sig Discontinue Reason Start Date End Da te MULTIVITAMINS (MULTI-VITAMIN ORAL) Take by mouth daily. Therapy completed 12/12 permethrin (ACTICIN) 5 % creamIndications:Scabie s Apply topically once for 1 dose. apply sparingly as directed Therapy completed 05/31/2009 01/07/2010 hydrocortisone 1 % creamIndications:Eczema Apply topically 2 times daily. Apply to affect area(s) as directed. 05/31/2009 01/07/2010 documented as of this encounter Care Teams Manager Mobile Relationship Specialty Start Date End Date Isatu Waddell MD [address] [place] [phone] PCP - General 01/06/10 08/15/17 documented as of this encounter
--- OUTSIDE RECORDS SUMMARY | 2023-12-01 21:58 | XMS_ITS | Encounter Summary ---
Author Organization [facility] Address [address] [place] [address] Care Team Providers Care Program Director/Air Personality Name Role Phone Unavailable Primary Care Provider Unavailabl e Encounter Details Date Type Department Care Team (Late st Contact Info) Description 03/27/2008 11:00 [facility] Hospital Encounter [facility] [place] [address] [place] [address] Geronimo Lew MD [address] [facility], [address] [place] [phone] Social History Tobacco Use Types Packs/Day Years [...] Description 12/27/2023 10:15 EDT Office Visit [facility] Foot & Ankle Program - [place] [facility] [place] [address] Beth Carrera NP [address] [place] [address] 01/17/2024 14:10 EDT Office Visit [facility] Dermatology 5th Floor [facility] [address] [place] [address] Jun Le MD [address] [place], [place] [phone] documented as of this encounter Visit Diagnoses Not on filedocumented in this encounter
--- OUTSIDE RECORDS SUMMARY | 2023-12-01 21:58 | XMS_ITS | Encounter Summary ---
Author Organization [facility] Address [address] [place] [address] Care Team Providers Care Dental Tech Name Role Phone Jalil Mathis MD Primary Care Provider [phone] Encounter Details Date Type Department Care Team (Late st Contact Info) Description 03/11/2009 Abstract [facility] Family Medicine - [place] [address] [place] [address] Jalil Mathis MD [address] [place] [address] Social History Tobacco Use Types Packs/Day Years Used Date Smoking Tobacco: Never Assessed Sex and Gender Information Value Date Recorded Sex Assigned at Not on file Gender Identity Not on file Sexual Orientation Not on file documented as of this encounter Plan of Treatment Upcoming Encounters Date Type Department Care Team (Late st Contact Info) Description 12/27/2023 10:15 EDT Office Visit [facility] Foot & Ankle Program - [place] [facility] [place] [address] Beth Carrera NP [address] [place] [address] 01/17/2024 14:10 EDT Office Visit [facility] Dermatology 5th Floor [facility] [address] [place] [address] Jun Le MD [address] [place], [place] [phone] documented as of this encounter Visit Diagnoses Not on filedocumented in this encounter Care Teams Dental Tech Relationship Specialty Start Date End Date Jalil Mathis MD [address] [place] [phone] PCP - General 10/25/08 05/30/09 documented as of this encounter
--- OUTSIDE RECORDS SUMMARY | 2023-12-01 21:58 | XMS_ITS | Encounter Summary ---
Author Organization [facility] Address [address] [place] [address] Care Team Providers Care Fireman Helper Name Role Phone Jalil Mathis MD Primary Care Provider [phone] Encounter Details Date Type Department Care Team (Late st Contact Info) Description 08/31/2007 Before PRISM Converted Visit ([place]) [facility] - [place] conversion [address] [place], [place] [address] Geronimo Lew MD 111 [facility], [address] [place] [phone] Social History Tobacco Use Types Packs/Day Years Used Date Smoking Tobacco: Never Assessed Sex and Gender Information Value Date Recorded Sex Assigned at Not on file Gender Identity Not on file Sexual Orientation Not on file documented as of this encounter Progress Notes * Geronimo Lew MD - 01/07/2009 1520 EDT DIVISION OF OTOLARYNGOLOGY PROGRESS/FOLLOWUP NOTE - 08/31/2007 SUBJECTIVE 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 She snores at night time, but no significant apnea according to her mother. OBJECTIVE Healthy, alert, cooperative female in no distress. There is fluid in the left middle-ear space withnegative pressure and good hearing. The right tube is in place and functioning. Has high volume andflat tympanogram. Oral cavity reveals 3+ tonsils. Palpation of the neck reveals no adenopathy. Nasal exam is normal today with a midline septum and normal turbinates without discharge. Heart: Regularrate and rhythm. Lungs are clear in all lung sorensen. Abdomen is soft and benign with active bowel sounds. ASSESSMENT Snoring, recurrent otitis media. PLAN Ventilating-tube reinsertion and adenoidectomy. Signed by Geronimo Lew MD 09/08/2007 15:18 Geronimo Lew MD - Geronimo Lew MD - P Job ID: [id number] Doc ID: [id number] cc: * Geronimo Lew MD - 01/03/2009 0122 EDT DIVISION OF OTOLARYNGOLOGY September 07, 2007 Gabriela Zaldivar MD [address] [address] DOS: 08/31/[address] Zaldivar: Telma was reevaluated in my office on August 31, 2007. She has had four eardrum ruptures as you know, and she has some fluid in her left middle ear space. The right tube is still okay, and I have recommended reinsertion of her tubes and adenoidectomy. Sincerely, Signed by Geronimo Lew MD 09/07/2007 13:09 Geronimo Lew MD - Geronimo Lew MD - [facility] Job ID: [id number] Doc ID: [id number] cc: Gabriela Zaldivar MD documented in this encounter Plan of Treatment Upcoming Encounters Date Type Department Care Team (Late st Contact Info) Description 12/27/2023 10:15 EDT Office Visit [facility] Foot & Ankle Program - [address] [address] Beth Carrera NP [address] [place] [phone] 01/17/2024 14:10 EDT Office Visit [facility] Dermatology 5th Floor [facility] [address] [place], [place] [address] Jun Le MD [address] [place], [place] [phone] documented as of this encounter Visit Diagnoses Not on filedocumented in this encounter Care Teams Fireman Helper Relationship Specialty Start Date End Date Jalil Mathis MD [address] [place] [phone] PCP - General 10/25/08 05/30/09 documented as of this encounter
--- OUTSIDE RECORDS SUMMARY | 2023-12-01 21:58 | XMS_ITS | Encounter Summary ---
Author Organization [facility] Address [address] [place] [address] Care Team Providers Care Wildlife Ecology Professor Name Role Phone Unavailable Primary Care Provider Unavailabl e Encounter Details Date Type Department Care Team (Late st Contact Info) Description 01/09/2008 15:19 EDT Hospital Encounter [facility] - [place] conversion [address] [place] [address] Jalil Mathis MD [address] [place] [phone] Social History Tobacco Use Types Packs/Day Years [...] 12/27/2023 10:15 EDT Office Visit [facility] Foot & Ankle Program - [place] [facility] [place] [address] Beth Carrera NP [address] [place] [address] 01/17/2024 14:10 EDT Office Visit [facility] Dermatology 5th Floor [facility] [address] [address] Jun Le MD [address] [place] [address] documented as of this encounter Visit Diagnoses Not on filedocumented in this encounter
--- OUTSIDE RECORDS SUMMARY | 2023-12-01 21:58 | XMS_ITS | Encounter Summary ---
Author Organization [facility] Address [address] [place] [address] Care Team Providers Care Eyewear Manufacturing Tech Name Role Phone Unavailable Primary Care Provider Unavailabl e Encounter Details Date Type Department Care Team (Late st Contact Info) Description 07/22/2007 8:52 EDT Hospital Encounter [facility] - [place] conversion [address] [place] [address] Jalil Mathis MD [address] [place] [phone] Reggie Lemus MD [address] [place] [phone] Social History Tobacco Use Types Packs/Day Years [...] Info) Description 12/27/2023 10:15 EDT Office Visit [facility] Foot & Ankle Program - [place] [address] Beth Carrera, RUPA [address] [place] [address] 01/17/2024 14:10 EDT Office Visit [facility] Dermatology 5th Floor [facility] [address] [place], [place] [phone] Jun Le MD [address] [place], [place] [phone] documented as of this encounter Visit Diagnoses Not on filedocumented in this encounter
--- OUTSIDE RECORDS SUMMARY | 2023-12-01 21:58 | XMS_ITS | Encounter Summary ---
Author Organization [facility] Address [address] [place] [address] Care Team Providers Care Mail Order Clerk Name Role Phone Gabriela Zaldivar MD Primary Care Provider [phone] Jalil Mathis MD Primary Care Provider [phone] Encounter Details Date Type Department Care Team (Late st Contact Info) Description 04/17/2009 Abstract Used for ABSTRACTING Data [phone] Jalil Mathis MD [address] [place] [phone] Social History Tobacco Use Types Packs/Day Years Used Date Smoking Tobacco: Never Assessed Sex and Gender Information Value Date Recorded Sex Assigned at Not on file Gender Identity Not on file Sexual Orientation Not on file documented as of this encounter Plan of Treatment Upcoming Encounters Date Type Department Care Team (Late st Contact Info) Description 12/27/2023 10:15 EDT Office Visit [facility] Foot & Ankle Program - [place] [facility] [address] [place], [place] [phone] Beth Carrera NP [address] [place] [address] 01/17/2024 14:10 EDT Office Visit [facility] Dermatology 5th Floor [facility] [address] [place] [address] Jun Le MD [address] [place] [address] documented as of this encounter Visit Diagnoses Not on filedocumented in this encounter Care Teams Mail Order Clerk Relationship Specialty Start Date End Date Gabrilea Zaldivar MD [address] [facility] [place] [address] PCP - General 05/31/09 01/05/10 Jalil Mathis MD [address] [place] [address] PCP - General 10/25/08 05/30/09 documented as of this encounter
--- OUTSIDE RECORDS SUMMARY | 2023-12-01 21:58 | XMS_ITS | Encounter Summary ---
Author Organization [facility] Address [address] [place] [address] Care Team Providers Care Apartment Community Assistant Manager Name Role Phone Demetrius Montenegro Primary Care Provider [phone] Encounter Details Date Type Department Care Team (Latest Contact Info) Description 08/24/2018 8:37 EDT - 08/24/2018 23:59 EDT Hospital Encounter [address] [address] Sandra Matos MD 1 [facility] [address] [place] [phone] Discharge Disposition: Auto Discharge Social History Tobacco Use Types Packs/Day Years Used Date Smoking Tobacco: Never Smokeless Tobacco: Never Alcohol Use Standard Drinks/Week Comments No 0 (1 standard drink = 0.6 oz pur e alcohol) Sex and Gender Information Value Date Recorded Sex Assigned at Not on file Gender Identity Not on file Sexual Orientation Not on file documented as of this encounter Discharge Diagnoses Diagnosis M79.644 Pain in right finger(s)-M79.644[ICD-10-CM] documented in this encounter Medications at Time [...] Discharge Disposition Disposition Code Departure Means Destination Auto Discharge Home documented in this encounter Plan of Treatment Upcoming Encounters Date Type Department Care Team (Late st Contact Info) Description 12/27/2023 10:15 EDT Office Visit [facility]le Program - [address] [address] Beth Carrera NP [address] [place] [address] 01/17/2024 14:10 EDT Office Visit [facility] Dermatology 5th Floor [facility] [address] [place], [place] [address] Jun Le MD [address] [place], [place] [phone] documented as of this encounter Visit Diagnoses Not on filedocumented in this encounter Care Teams Apartment Community Assistant Manager Relationship Specialty Start Date End Date Demetrius Montenegro PA PCP - General 08/24/18 11/22/21 documented as of this encounter
--- OUTSIDE RECORDS SUMMARY | 2023-12-01 21:58 | XMS_ITS | Encounter Summary ---
Author Organization [facility] Address [address] [place] [address] Care Team Providers Care Commercial Credit Analyst Name Role Phone Jalil Mathis MD Primary Care Provider [phone] Encounter Details Date Type Department Care Team (Late st Contact Info) Description 02/12/2009 Abstract [facility] Family Medicine - [place] [address] [place] [address] Jalil Mathis MD [address] [place] [address] Social History Tobacco Use Types Packs/Day Years [...] 10:15 EDT Office Visit [facility] Foot & Ankle Program - [place] [facility] [place] [address] Beth Carrera NP [address] [place] [address] 01/17/2024 14:10 EDT Office Visit [facility] Dermatology 5th Floor [facility] [address] [place] [address] Jun Le MD [address] [place], [place] [address] documented as of this encounter Visit Diagnoses Not on filedocumented in this encounter Care Teams Commercial Credit Analyst Relationship Specialty Start Date End Date Jalil Mathis MD [address] [place] [phone] PCP - General 10/25/08 05/30/09 documented as of this encounter
--- OUTSIDE RECORDS SUMMARY | 2023-12-01 21:58 | XMS_ITS | Encounter Summary ---
Author Organization [facility] Address [address] [place] [address] Care Team Providers Care Director Communications Name Role Phone Jalil Mathis MD Primary Care Provider [phone] Reason for Visit * Reason Onset Date Comments Rash 05/13/2009 Encounter Details Date Type Department Care Team (Late st Contact Info) Description 05/13/2009 Telephone [facility] Family Medicine - [place] [address] [place], [place] [phone] Jalil Mathis MD [address] [place] [phone] Rash Social History Tobacco Use Types Packs/Day Years Used Date Smoking Tobacco: Never Assessed Sex and Gender Information Value Date Recorded Sex Assigned at Not on file Gender Identity Not on file Sexual Orientation Not on file documented as of this encounter Miscellaneous Notes * Telephone Encounter - Jacqueline Matt RN - 05/13/2009 1631 EST Rash over torse x 3 days. Has eczema but this is not the same. Constant itching. No fever. No knownexposures. Giving benadryl and hydrocortisone with no improvement. Declined WICC today. Will take her to [facility] tomorrow and will call back if concerns prior to that appt. Patient Education Topic: rash/wicc Method: Verbal Taught to: Family Barriers: None Outcomes: independent Signature: Mau Matt RN * Telephone Encounter - Jacqueline Matt RN - 05/13/2009 1614 EST Left message answering machine for Estela to call back. * Telephone Encounter - Tasha Bob - 05/13/2009 1400 EST Has a rash on her belly and arms documented in this encounter Plan of Treatment Upcoming Encounters Date Type Department Care Team (Late st Contact Info) Description 12/27/2023 10:15 EDT Office Visit [facility] Foot & Ankle Program - [address] [address] Beth Carrera NP [address] [place] [phone] 01/17/2024 14:10 EDT Office Visit [facility] Dermatology 5th Floor [facility] [address] [place], [place] [address] Jun Le MD [address] [place] [address] documented as of this encounter Visit Diagnoses Not on filedocumented in this encounter Care Teams Director Communications Relationship Specialty Start Date End Date Jalil Mathis MD [address] [place] [phone] PCP - General 10/25/08 05/30/09 documented as of this encounter
--- OUTSIDE RECORDS SUMMARY | 2023-12-01 21:58 | XMS_ITS | Encounter Summary ---
Author Organization [facility] Address [address] [place] [address] Care Team Providers Care Sales Consultant Name Role Phone Demetrius Montenegro Primary Care Provider [phone] Dana Perry PA-C Primary Care Provider [phone] Encounter Details Date Type Department Care Team (Late st Contact Info) Description 06/06/2019 Lab Requisition [facility] Pathology & Laboratory Medicine - [facility] [address] [place] [address] Dana Perry PA-C [address] [phone] Rash and other nonspecific skin eruption Social [...] [facility] - [facility] [place] [address] Beth Carrera NP [address] [place] [address] 01/17/2024 14:10 EDT Office Visit [facility] Dermatology 5th Floor [facility] [address] [place] [address] Jun Le MD [address] [place], [place] [phone] documented as of this encounter Procedures Procedure Name Priority Date/Time Associated Diagnosis Comments CELIAC DISEASE PANEL Routine 06/06/2019 17:37 EST Rash and other nonspecific skin eruption SED RATE Routine 06/06/2019 17:37 EST Rash and other nonspecific skin eruption ANTI NUCLEAR AB (LILLIE), IFA Routine 06/06/2019 17:37 EST Rash and other nonspecific skin eruption documented in this encounter Results * CELIAC DISEASE PANEL (06/06/2019 17:37 EST) Tissue Transglutaminase Antibody IGA <1.2 <4.0 U/mL 06/07/2019 14:41 [facility] Comment: A negative result may be due to IgA deficiency and does not rule out celiac disease. ? Negative: ??<4.0 U/mL ? Weak Positive: 4.0 -1 0.0 U/mL ? Positive: ??>10.0 U/mL Results were obtained with the [employer] QUANTA Lite R h-tTG IgA JAZMYN assay on the [employer] DSX. The use of this assay and normal range (result interpretation) has not been established for pediatric samples. IgA 164 61 - 348 mg/dL 06/07/2019 14:41 [facility] Celiac Disease Interpretation Negative Serology. Celiac disease unlikely. Approximately 10% of patients with celiac disease are seronegative. Patients who are already adhering to a gluten-free diet may also be seronegative. If celiac disease is highly clinically suspected, referral to gastroenterology for additional evaluation is recommended. 06/07/2019 14:41 [facility] Blood VENOUS BLOOD / Unknown 06/06/2019 17:37 EST 06/06/2019 20:39 EST Dana Orlando MIRZA-Arden IMMUNOLOGY AND SEROL OGY ORDERABLES Performing Organization Address City/[facility]/ZIP Co de Phone Number [facility] [address] [place] [phone] * ANTI NUCLEAR AB (LILLIE), IFA (06/06/2019 17:37 EST) LILLIE Interpretation Negative Negative 2019 14:54 EST [facility] Blood VENOUS BLOOD / Unknown 06/06/2019 17:37 EST 06/06/2019 20:39 EST Narrative [facility] - 06/07/2019 14:54 EST Results were obtained with the [employer] NOVA Lite HEp-2 LILLIE Kit by indirect immunofluorescence. Dana Vickjacqueline MIRZA-Arden IMMUNOLOGY AND SEROL OGY ORDERABLES Performing Organization Address [facility] Co de Phone Number [facility] [address] [place] [address] * SED. RATE:WESTERGREN (06/06/2019 17:37 EST) Sed Rate 15 0 - 20 mm/hr 06/06/2019 20:49 EST [facility] Blood VENOUS BLOOD / Unknown 06/06/2019 17:37 EST 06/06/2019 20:39 EST Dana Perry PA-C HEMATOLOGY & PF4 ORD ERABLES Performing Organization Address City/[facility] Co de Phone Number [facility] [address] [place] [address] documented in this encounter Visit Diagnoses Diagnosis Rash and other nonspecific skin eruption documented in this encounter Care Teams Sales Consultant Relationship Specialty Start Date End Date Demetrius Montenegro PA PCP - General 08/24/18 11/22/21 Dana Perry PA-C PCP - General Family Medicine - Primary Care 11/23/21 documented as of this encounter
--- OUTSIDE RECORDS SUMMARY | 2023-12-01 21:58 | XMS_ITS | Encounter Summary ---
Author Organization [facility] Address [address] [place] [address] Care Team Providers Care Pyrometer Temperature Regulator Name Role Phone Dana Perry PA-C Primary Care Provider [phone] Reason for Visit * Reason Comments Medical Evaluation Pt requesting sickle cell test for college. States did not get it done during screening so needs one now. COVID vaccinated. Negative COVID screen. Encounter Details Date Type Department Care Team (Latest Contact Info) Description 11/23/2021 9:35 EDT - 11/23/2021 10:49 EDT Hospital Encounter [facility] Urgent Care - [facility] [address] [place] [address] Lindy Mcfarlane, RUPA [address] [place] [phone] Screening for sickle-cell disease or trait (Primary Dx) Discharge Disposition: Home or Self [...] Sign Reading Time Taken Comments Blood Pressure 130/60 11/23/2021 0932 EDT Pulse 63 11/23/2021 0932 EDT Temperature 36.4 ??C (97.6 ??F) 11/23/2021 0932 EDT Respiratory Rate 18 11/23/2021 0932 EDT Oxygen Saturation 99% 11/23/2021 0932 EDT Inhaled Oxygen Concentration - - Weight - - Height - - Body Mass Index - - documented in this encounter Functional Status Functional Status Response Date of Assess ment Are you deaf or do you have serious difficulty h earing? No 11/23/2021 documented as of this encounter Discharge Instructions * Discharge Instructions* Lindy Mcfarlane NP - 11/23/2021 10:27 EDT We are doing a blood screening for sickle cell disease as requested. Please gain access to [facility] and check your results there. If it is positive, we will be and contact with you to discuss next steps. Please return here or to your PCP if you have any further concerns. documented in this encounter Medications at Time of Discharge Medication Sig Dispensed Refills Start Date End Date lisdexamfetamine (VYVANSE) 40 mg capsule Take 1 Capsule by mouth every morning. spironolactone (ALDACTONE) 100 mg tablet Take 1 Tablet by mouth daily. 30 Tablet 3 05/30/2021 ibuprofen (MOTRIN) 200 mg tablet Take 200 mg by mouth every 6 hours. 12/21/2021 triamcinolone (KENALOG) 0.1 % ointment Apply topically to affected area 2 times daily. To affected skin. Do not apply to face, armpit or groin. 454 g 3 05/30/2021 11/02/2022 documented as of this encounter Discharge Disposition Disposition Code Departure Means Destination Home or Self Skilled Nursing documented in this encounter ED Notes * Alexia [place] MA - 11/23/2021 1038 EDT Blood drawn via butterfly needle per protocol, purple tube(s) sent to lab per order. * Lindy Mcfarlane NP - 11/23/2021 1028 EDT DOS: 11/23/2021 Chief Complaint: Chief Complaint Patient presents with ??? Medical Evaluation Pt requesting sickle cell test for college. States did not get it done during screening so needs one now. COVID vaccinated. Negative COVID screen. Assessment and Plan Asymptomatic patient here to have blood work for sickle cell screening for her college entrance requirements. She has no family history of sickle cell disease. She will check MyChart for results, we will be in touch if the results are positive. Final diagnoses: Screening for sickle-cell disease or trait Procedures No results found for this visit on 11/23/21. Radiology orders: None Consult orders: None Imaging Results None No orders to display The patient is a 16 y.o. female who presents today with Medical Evaluation (Pt requesting sickle cell test for college. States did not get it done during screening so needs one now. COVID vaccinated. Negative COVID screen. ) 16-year-old patient here for sickle cell screening test as required for her college entry. She denies any family history of sickle cell, is asymptomatic. She did not get a screening for sickle cell so needs one now. Review of Systems All other systems reviewed and are negative. No current facility-administered medications for this encounter. Current Outpatient Medications Medication Sig Dispense Refill ??? ibuprofen (MOTRIN) 200 mg tablet Take 200 mg by mouth every 6 hours. ??? lisdexamfetamine (VYVANSE) 40 mg capsule Take 40 mg by mouth every morning. ??? spironolactone (ALDACTONE) 100 mg tablet Take [...] Alcohol use: No ??? Drug use: No History reviewed. No pertinent family history. BP 130/60 Pulse 63 Temp 97.6 ??F (36.4 ??C) Resp 18 SpO2 99% Physical Exam Vitals and nursing note reviewed. Constitutional: General: She is not in acute distress. Appearance: Normal appearance. She is not ill-appearing. Comments: No PE done Neurological: Mental Status: She is alert. Psychiatric: Mood and Affect: Mood normal. PCP: Daan Santacruz was available for consultation during my care of this patient. Urgent Care Course A medical screening exam was performed. DISPOSITION: Discharged The patient's pain was managed to an adequate level weighing risk vs. benefit of further medications. Upon departure from [facility], the patient's pain was 0 on a zero to ten scale. Any further pain treatment will be at the discretion of the provider following up with the patient based on their clinical assessment . Condition at departure from the [facility] : Stable MDM 11/23/2021 10:31 * Deirdre Cramer LPN - 11/23/2021 0941 EDT Here for blood Work. documented in this encounter Plan of Treatment Upcoming Encounters Date Type Department Care Team (Late st Contact Info) Description 12/27/2023 10:15 EDT Office Visit [facility] Foot & Ankle Program - [address] [address] Beth Carrera NP [address] [place] [phone] 01/17/2024 14:10 EDT Office Visit [facility] Dermatology 5th Floor [facility] [address] [place] [address] Jun Le MD [address] [place], [place] [phone] documented as of this encounter Procedures Procedure Name Priority Date/Time Associated Diagnosis Comments HEMOGLOBIN S SCREEN Routine 11/23/2021 1 0:38 EDT Screening for sickle-cell disease or trait documented in this encounter Results * HEMOGLOBIN S SCREEN (11/23/2021 10:38 EDT) Sickle Cell Prep Negative Negative 11/25/2021 9:09 EDT [facility] Blood VENOUS BLOOD / Unknown Venipuncture / Unknown 11/23/2021 10:38 EDT 11/23/2021 11:16 EDT Lindy Mcfarlane NP HEMATOLOGY & PF4 ORD ERABLES [facility] [address] [place] [address] documented in this encounter Visit Diagnoses Diagnosis Screening for sickle-cell disease or trait- Primary documented in this encounter Care Teams Pyrometer Temperature Regulator Relationship Specialty Start Date End Date Dana Perry PA-C PCP - General Family Medicine - Primary Care 11/23/21 documented as of this encounter
--- OUTSIDE RECORDS SUMMARY | 2023-12-01 21:58 | XMS_ITS | Encounter Summary ---
Author Organization [facility] Address [address] [place] [address] Care Team Providers Care Hard Metals Engraver Hand Name Role Phone Isatu Waddell MD Primary Care Provider Encounter Details Date Type Department Care Team (Latest Contact Info) Description 06/18/2014 16:10 EDT - 06/18/2014 16:11 EDT Hospital Encounter [facility] - [address] [address] Zack Gaston PA [address] [address] Discharge Disposition: Home or Self Care Social [...] as of this encounter Discharge Diagnoses Diagnosis 278.00 OBESITY NOS[ICD-9-CM] documented in this encounter Medications at Time [...] Info) Description 12/27/2023 10:15 EDT Office Visit [facility] Foot & Ankle Program - [facility] [address] [place] [address] Beth Carrera NP [address] [place] [address] 01/17/2024 14:10 EDT Office Visit [facility] Dermatology 5th Floor [facility] [address] [place], [place] [phone] Jun Le MD [address] [place], [place] [phone] documented as of this encounter Visit Diagnoses Not on filedocumented in this encounter Care Teams Hard Metals Engraver Hand Relationship Specialty Start Date End Date Isatu Waddell MD [address] [place] [phone] PCP - General 01/06/10 08/15/17 documented as of this encounter
--- OUTSIDE RECORDS SUMMARY | 2023-12-01 21:58 | XMS_ITS | Encounter Summary ---
Author Organization [facility] Address [address] [place] [address] Care Team Providers Care Teaching Aide Name Role Phone Isatu Waddell MD Primary Care Provider Reason for Visit * Reason Comments Seizures head injury 2 days b efore Encounter Details Date Type Department Care Team (Late st Contact Info) Description 01/16/2011 13:00 EDT Office Visit [facility] Pediatric Neurology - [address] [phone] Chano Ramos MD [address] [facility], [address] [place] [address] Other convulsions (Primary Dx) Social History Tobacco Use Types [...] Sign Reading Time Taken Comments Blood Pressure 129/65 01/16/2011 1317 EDT Pulse 92 01/16/2011 1317 EDT Temperature - - Respiratory Rate 18 01/16/2011 1317 EDT Oxygen Saturation - - Inhaled Oxygen Concentration - - Weight 59.2 kg (130 lb 8.2 oz) 01/16/2011 1317 E DT Height 149.6 cm (4' 10.9) 01/16/2011 1317 EDT Body Mass Index 26.45 01/16/2011 1317 EDT Body Mass Index Percentile 99.55% 01/16/2011 131 7 EDT Growth Chart: [facility] [place], 2- 20 Years[place] documented in this encounter Progress Notes * Chano Ramos MD - 02/10/2011 2119 EDT This office note has been dictated. * Retail Wireless Sales Consultant, Rick - 01/21/2011 1035 EDT documented in this encounter Consult Notes * Mike Kruse MD - 01/20/2011 1126 EDT NEUROLOGY HEALTH CARE SERVICE CONSULTATION - 01/16/2011 HISTORY OF PRESENT ILLNESS: A 5-year-old -Beninese female child with past medical history ofeczema on hydroxyzine cream presents to the pediatric neurology clinic at the request of Destiny Khanna APRN for consultation of a seizure. The patient apparently was playing on the monkey bars on when another child bumped her head against the monkey bars. The patient got off the monkey bars and was able to ambulate independently to the nurse's office where the nurse examined her and found her to be atraumatic and gave her an ice pack. There were no open lacerations or loss of consciousness or syncope at that time. The patient apparently had a headache the next day, which was Wednesday. The patient slept well on Wednesday night, spanning about 8-10 hours. On Wednesday morning, the patient's headache had resolved but around noon, when the patient was walking down the stairs, she fell whenshe was about one step above the ground. She immediately sat up after falling and had some word finding difficulty and mentioned to the mom I am broken. Then, she fell back onto her back onto the mark bushes. At that time, she had right head tilt and tonic- clonic activity that lasted about 10 seconds and her lips went blue. There was no eye rolling or loss of bowel/bladder function. She had no post-ictal weakness or confusion. After about 10 seconds, she regained consciousness and was immediately oriented. Since that episode, the patient has not had any other loss of consciousness, syncope or seizure. In the interim, the patient has been eating well and sleeping well. There is no history of nausea, vomiting, no history of fever or travel. PAST MEDICAL HISTORY: Eczema, for which patient is being treated with hydroxyzine. HISTORY: The patient was full term, normal vaginal delivery. She was 7 pounds at and 22inches. She attained all her developmental milestones on time. The patient is performing normally at school. FAMILY HISTORY: No history of seizures. There is a history migraine. SOCIAL HISTORY: Ms. Telma Umanzor lives with her mother, her 1-year-old stepbrother and her stepdad. She has a guinea pig for a pet. Both her parents smoke, but they smoke outside the home. REVIEW OF SYSTEMS: A 12-point review of systems is negative except for HPI. OBJECTIVE: On exam, her vitals are as follows: Blood pressure 129/65, pulse 92, respirations 18, weight 59.2 kg, height 149.6 cm. Pain scale is 0. The patient is apparently sitting in the room in no distress. The patient is alert and oriented. On general examination of head and neck, head is atraumatic, no laceration are appreciated, no scalp lesions. Neck is supple, no lymphadenopathy. Ears, nose, mouth and throat: No mucosal lesions appreciated. Good dentition and with good oral hygiene. Cardiovascular: S1, S2 is heard, no murmurs, no rubs, no gallops. Respiratory: Clear to auscultation bilaterally. No adventitious sounds. Abdomen: Soft, nontender, nondistended, no organomegaly. Bowels sounds are appreciated. Extremities: Peripheral pulses are present and symmetrical bilaterally. Extremities: Warm and intact. Neurological Exam: The patient is attentive, peaceful, smiles and is playfuland responds very well to verbal commands. The patient has good eye contact and interacts well socially. The patient's affect is appropriate and speech is appropriate for her age. Cranial nerves to visual acuity is 20/20, visual sorensen are intact bilaterally. Pupils are equal and reactive to light.Fundus is visualized, retroflex present. Cranial nerves III, IV, XI: Extraocular muscles are intactand are focal in dilations. No ptosis and pupils are equal and react to light. Cranial nerve VII, good upper and lower facial muscle strength. No asymmetry. Cranial nerve VIII, good hearing bilaterally; XI good sternocleidomastoid as well as trapezius muscle strength. Cranial nerve IX and X, equal and central. Cranial nerve XII, tongue is in the midline, no fasciculations, no atrophy. Motor: Normal tone, bulk and power. No abnormal movements. Sensory: Normal to all sensory modalities. Cerebellar system: Normal finger-nose test, heel-marin test, no dysdiadochokinesia. Gait and station: The patient is able to do tandem gait, heel walk as well as toe walk. Romberg sign is negative. Pull test isnegative. Spine and meninges: No meningeal signs and no focal paravertebral tenderness over the spine. ASSESSMENT: A 5-year-old, otherwise healthy girl referred for one episode of possible seizure. On detailed history as well as examination, her neurological exam is non-focal. Her event is suggestive of syncope followed with a short duration of conversion with some perioral cyanosis. This is unlikely to be epilepsy. At this point, we will not initiate a seizure workup for this patient. PLAN: 1. We reassured the mother about syncope. 2. Syncope may recur. No need for further workup if the etiology and the symptomatology and the character of syncope does not change. 3. No further neurological workup needed at this time. 4. The patient does not need a pediatric neurology followup. Will defer to primary care physician for further followup. I saw and examined the patient with the resident/fellow. I agree with the findings and plan of caredocumented in the resident's/fellow's note. Electronically Signed by Chano Ramos MD 01/22/2011 11:58 Electronically Reviewed by VICTOR HUGO Clemente 01/21/2011 09:19 VICTOR HUGO Clemente Chano Ramos MD - VICTOR HUGO Clemente - AN Job ID: Doc ID: [id number] Ext Doc ID: [id number] cc: Destiny Khanna APRN * Chano Ramos MD - 01/20/2011 1028 EDT DIVISION OF PEDIATRIC NEUROLOGY CONSULTATION - 01/16/2011 Destiny Jey AZEVEDO [place] [phone] Dear Ms Khanna: The mother of 5-year-old Telma brought her in for neurologic evaluation and consultation at your kind request because of what I construe as a syncopal convulsion. In this context, her neurologic examination and neurodevelopmental status is normal and I did not suggest further testing. She had a fall on a few stairs, did not have a major concussion but was somewhat armando or stunned,said, I am broken, felt dizzy, stood up momentarily and then sat and then seemed to lapse backward into the mark javier, and had a brief tonic posturing for 10 seconds, lips went blue; thereafter she was well and she has been well since, and this was about several weeks ago. There had been a fall from monkey bars a few days before that, but it did not seem like a significant hit to the head and she did not have concussive symptoms at the time. She takes hydroxyzine on a p.r.n. basis, has no known medicine sensitivities. Medical history is remarkable for eczema treated with hydroxyzine. She is up to date with vaccinations and does well at school. There is no family history of seizures or migraine, and she lives at home with four other family members, a guinea pig. Review of systems is negative or noncontributory in detail; see encounter form. General and neurologic examinations are normal in detail with sharp discs, see encounter form. Weight 59 kilograms. She was seen in conjunction with Dr Kruse. I did not suggest further testing or intervention, and I did expect that she may have recurrent syncopal episodes with or without convulsions superimposed. These are generally less than 40 seconds orso when they accompany syncope. If the pattern or quality of these symptoms should not prove according to my expectations, the family is to contact me to consider further testing. I appreciate the chance to see Telma and hope the above is helpful. Sincerely, Electronically Signed by Chano Ramos MD 01/22/2011 11:58 Chano Ramos MD - Chano Ramos MD - [facility] [place] Job ID: SM Doc ID: [id number] Ext Doc ID: [id number] cc: Destiny Khanna APRN documented in this encounter Plan of Treatment Upcoming Encounters Date Type Department Care Team (Late st Contact Info) Description 12/27/2023 10:15 EDT Office Visit [facility] Foot & Ankle Program - [address] [address] Beth Carrera NP [address] [place] [address] 01/17/2024 14:10 EDT Office Visit [facility] Dermatology 5th Floor [address] [phone] Jun Le MD [address] [place] [address] documented as of this encounter Visit Diagnoses Diagnosis Other convulsions- Primary documented in this encounter Care Teams Teaching Aide Relationship Specialty Start Date End Date Isatu Waddell MD [address] [place] [phone] PCP - General 01/06/10 08/15/17 documented as of this encounter
--- OUTSIDE RECORDS SUMMARY | 2023-12-01 21:58 | XMS_ITS | Encounter Summary ---
Author Organization [facility] Address [address] [place] [address] Care Team Providers Care Manager Gallery Name Role Phone Demetrius Montenegro Primary Care Provider [phone] Dana Perry PA-C Primary Care Provider [phone] Encounter Details Date Type Department Care Team (Late st Contact Info) Description 06/06/2019 Lab Requisition [facility] Pathology & Laboratory Medicine - [facility] [address] [place] [address] Dana Perry PA-C [address] [phone] Rash and other nonspecific skin eruption Social [...] 12/27/2023 10:15 EDT Office Visit [facility] Foot & Ankle Program - [facility]y [facility] [place] [address] Beth Carrera NP [address] [place] [address] 01/17/2024 14:10 EDT Office Visit [facility] Dermatology 5th Floor [facility] [address] [place] [address] Jun Le MD [address] [place], [place] [phone] documented as of this encounter Procedures Procedure Name Priority Date/Time Associated Diagnosis Comments PROLACTIN Routine 06/06/2019 17:38 EST Rash and other nonspecific skin eruption TESTOSTERONE, TOTAL AND FREE Routine 06/06/2019 17:38 EST Rash and other nonspecific skin eruption LH Routine 06/06/2019 17:38 EST Rash and other nonspecific skin eruption FSH Routine 06/06/2019 17:38 EST Rash and other nonspecific skin eruption documented in this encounter Results * LH (06/06/2019 17:38 EST) Luteinizing Hormone 9.4 See Note mIU/mL 06/07/2019 10:13 EST [facility] Comment: NOTE: Female Reference Ranges: Pre-Pubertal: ?<6.0 mIU/mL Menstruating: Follicular Phase(-12 to -4 days: ??1.9 - 12.5 mIU/mL Midcycle(-3 to +2 days): ?8.7 - 76.3 mIU/mL Luteal Phase(+4 to +12 days): ? 0.5 - 16.9 mIU/mL Post Menopausal: 15.9 - 54.0 mIU/mL Blood VENOUS BLOOD / Unknown 06/06/2019 17:38 EST 06/06/2019 20:39 EST Dana Perry PA-C CHEMISTRY & BLOOD GA S ORDERABLES [facility] [address] [place] [address] * PROLACTIN (06/06/2019 17:38 EST) Prolactin 8.3 See Table ng/mL 06/07/2019 10:13 EST [facility] Comment: NOTE: Female Reference Ranges: PHYSIOLOGICAL STATUS ?EXPECTED RANGE ? Postmenopausal ?1.8 - 20.3 ng/mL ?9.7 - 208.5 ng/mL Non- ?2.8 - 29.2 ng/mL Reference Ranges for Prolactin in female patients <18 years old have not been established. Blood VENOUS BLOOD / Unknown 06/06/2019 17:38 EST 06/06/2019 20:39 EST Dana Perry PA-C CHEMISTRY & BLOOD GA S ORDERABLES [facility] [address] [place] [address] * FSH (06/06/2019 17:38 EST) FSH 7.4 See Note mIU/mL 06/07/2019 10:12 EST [facility] Blood VENOUS BLOOD / Unknown 06/06/2019 17:38 EST 06/06/2019 20:39 EST Narrative [facility] - 06/07/2019 10:12 EST NOTE: Female FSH Reference Ranges (>= 13 Menstruating): PHYSIOLOGICAL STATUS ? REFERENCE RANGE ? Follicular (-12 to -4 days): ?? 2.5 - 10.2 mIU/mL Midcycle (-3 to +2 days): ?3.4 - 33.4 mIU/mL Luteal (+4 to +12 days): ? 1.5 - 9.1 mIU/mL Postmenopausal: ?23.0 - 116.3 mIU/mL Reference Ranges for female patients <13 years old have not been established. Dana Perry PA-C CHEMISTRY & BLOOD GA S ORDERABLES [facility] [address] [place] [address] * TESTOSTERONE, TOTAL AND FREE (06/06/2019 17:38 EST) [facility] Testosterone 23 15 - 42 ng/dL 06/07/2019 10:15 EST [facility] Comment: The results of this assay can be falsley elevated due to the consumption of Biotin. Sex Hormone Bnd Glob 23.7 See Note nmol/L 06/07/2019 10:15 EST [facility] Comment: NOTE: ---- Reference Ranges for Females Pre-Menopausal: ?>10.8 nmol/L Post-Menopausal: ?? 23.2 - 159.1 nmol/L Reference ranges for Sex Hormone Binding Globulin in female patients <21 years old have not been established. The results of this assay can be falsely lowered due to the consumption of Biotin. Free Testosterone 0.5 See Note ng/dL 06/07/2019 10:15 EST [facility] Comment: NOTE: Reference Range has not been established for Free Testosterone in females less than 20 years old. Blood VENOUS BLOOD / Unknown 06/06/2019 17:38 EST 06/06/2019 20:39 EST Narrative [facility] - 06/07/2019 10:15 EST This test is not recommended in patients with plasma protein abnormalities. Dana Perry PA-C CHEMISTRY & BLOOD GA S ORDERABLES [facility] [address] [place] [address] documented in this encounter Visit Diagnoses Diagnosis Rash and other nonspecific skin eruption documented in this encounter Care Teams Manager Gallery Relationship Specialty Start Date End Date Demetrius Montenegro PA PCP - General 08/24/18 11/22/21 Dana Perry PA-C PCP - General Family Medicine - Primary Care 11/23/21 documented as of this encounter
--- OUTSIDE RECORDS SUMMARY | 2023-12-01 21:58 | XMS_ITS | Encounter Summary ---
Author Organization [facility] Address [address] [place] [address] Care Team Providers Care Mastic Sprayer Name Role Phone Unknown, Provider Primary Care Provider [phone] Reason for Referral * PT/OT/ST (Routine) - New Request Specialty Diagnoses / Procedures Referred By Chris russo Referred To Contact Diagnoses Sprain of right ankle, unspecified ligament, initial encounter Kirsten Melton PA-C [address] [place] [phone] Referral ID Status Reason Start Date Expiration Date Visits Requested Visits Authorized [id number] New Request Specialty Services Required 08/25/2017 1 1 Question Answer Reason for Request: please evaluate and treat for right ankle sprain. ROM, strength and eventual proprioreception Reason for Visit * Reason Comments Ankle Injury right ankle * Consult (Routine) - Specialty Report Received Specialty Diagnoses / Procedures Referred By Chris russo Referred To Contact Orthopedic Surgery Diagnoses Sprain of right ankle, unspecified ligament, subsequent encounter Sandra Matos MD 1 [facility] [address] [place] [address] [facility] [address] [place] [id number] Referral ID Status Reason Start Date Expiration Date Visits Requested Visits Authorized [id number] Specialty Report Received Specialty Services Required 08/17/2017 1 1 Encounter Details Date Type Department Care Team (Late st Contact Info) Description 08/25/2017 13:00 EDT Office Visit [facility] Pediatric Orthopedics - [address] [address] Kirsten Melton PA-C [address] [place] [address] Sprain of right ankle, unspecified ligament, initial encounter (Primary Dx) Social History Tobacco [...] as of this encounter Progress Notes * Kirsten Melton PA - 08/25/2017 1300 EDT 08/25/2017 Orthopaedic Surgery Office Visit Chief Complaint Patient presents with ??? Ankle Injury right ankle SUBJECTIVE: Telma Umanzor is a 12 y.o. female accompanied by her mother who presents with right ankle injury. ?? DOI: 08/16/2017. Patient was playing catcher in softball when she jumped up to catch a ball and landed awkwardly on her foot. She states that she underwent inversion type injury to the ankle. She had difficulty bearing weight thereafter which persisted prompting an urgent care visit. Radiographs were negative for fracture and she was placed in a walking boot. She states that she was able to weanherself off from the crutches and has been walking without crutches for the past few days. She alsostates that she has been able to take her boot off and walk comfortably without the walking boot athome. She points to the posterior lateral aspect of the ankle as the site of most pain. She did have some numbness in her toes originally, however this has resolved. ?? Sports: She is very active in basketball and softball. She is currently playing softball. ?? She has injured this ankle previously. She states that she has rolled her ankles often throughout the years. She wears ankle supports/braces during basketball. She was not wearing any braces when she injured her ankle this most recent time. Denies any fractures of the ankles. ?? No family history pertaining to this injury. Past records were reviewed. They can be found in the patient chart. A pain level of 0 was reported at today's visit for location: ANKLE. PCP: Doctor Unknown PAST MEDICAL HISTORY: The past medical, surgical, family and social history have been updated and reviewed in the patient's chart. REVIEW OF SYSTEMS: A 10-point review of systems was negative unless otherwise noted in the history of present illness above. MEDICATIONS: Outpatient Prescriptions Marked as Taking for the 08/25/17 encounter (Office Visit) with Kirsten Melton PA Medication Sig Dispense Refill ??? lisdexamfetamine (VYVANSE) 40 mg capsule Take 40 mg by mouth every morning. ??? naproxen sodium (ANAPROX) 550 mg tablet Take 1 Tab by mouth every 12 hours as needed for Pain. 30 Tab 2 ALLERGIES: No Known Allergies OBJECTIVE: Physical Exam Const: She is well-developed, well-nourished, and in no distress. Head: Normocephalic and atraumatic. Eyes: EOM are grossly intact. No scleral icterus. Ears: Hearing intact at conversational levels. CV: Intact distal pulses. Pulm: Effort normal. No respiratory distress. Msk: Right ankle ?? Upon examination, patient has mild to moderate edema at the lateral aspect of the ankle. No ecchymosis or erythema. She has tenderness to palpation predominantly at the distal fibula and level of the CFL. No tenderness at the remaining ankle. No proximal tibia/fibular tenderness. No midfoot tenderness or forefoot tenderness. No Achilles tendon tenderness or calcaneal tenderness. ?? Patient has opening on stress testing during anterior furnace installer neutral as well as in slight plantar flexion. Her talar tilt test was negative for instability. She has almost full range of motion of her ankle. She does have some snapping associated with a subluxing peroneal tendon. She states that this is baseline for her and not new for this injury. Nonpainful. No pain with passive external and internal rotation. ?? Patient was able to weight-bear and had a nonantalgic gait. She was seen stepping up and down from a stool on the affected leg without pain. ?? Supple compartments. Neuro: No distal motor or sensory deficits. Skin: Warm, dry, intact. She is not diaphoretic. Psych: Mood and affect normal. DIAGNOSTIC DATA: Independent visualization of past and/or today's imaging (not report) was performed by me and with the patient. ?? Radiographs were reviewed from 08/16/2017 and show an intact mortise, no signs of fracture or dislocation, ankle effusion and edema present. Ankle 3 Or More Views Result Date: 08/16/2017 ANKLE 3 OR MORE VIEWS 08/16/2017 7:33 PM Signs and Symptoms/Comments: fall. Findings: 4 views of the right ankle were obtained. This shows swelling over the lateral and anterior ankle and lateral hindfoot. No fracture is seen. The ankle mortise is intact. Impression: Anterolateral soft tissue swelling over the ankle and swelling over the lateral hindfoot without evidence of fracture or dislocation. ASSESSMENT/PLAN: 1. Sprain of right ankle, unspecified ligament, initial encounter Other Orders Placed This Visit Procedures ??? Amb Consult/Follow Up Physical Therapy ??? Lace-Up ASO (L1902) ?? I discussed the natural history of ankle sprains with the family today and went over the radiographs with them. ?? I suspect the patient sustained a grade 2/3 ankle sprain of the CFL and possible ATFL. I discussed the natural history of these sprains. The treatment for these are typically either a boot or a cast for approximately 3 weeks for protected weightbearing and to start some physical therapy with range of motion exercises. We will get her a lace up ankle brace to wear when she starts transitioning from the boot into the ankle brace. She was instructed to wear the boot outside of the house. She may remove the boot when she is in the house during protected environments. She can remove the boot tosleep and to bathe. I would also like to start range of motion exercises and to start physical therapy which I provided a referral for. ?? Patient was requesting to play softball. I outlined all of the risks associated with playing this early which is re-injury, fracture, and instability of the ankle. She understands all the risks associated with playing. She is unable to run or do any jumping or cutting. She voiced understanding of the risks associated with playing too soon on a week and injured ankle. ?? I also discussed surgical options should she continue to have an unstable ankle. ?? Patient would also like to discuss her knee pain, however we decided that we will follow-up at the next visit on her knee pain. ?? Follow up: 3-4 weeks. ?? Reassess function, range of motion, strength. ?? Assess new knee pain. I discussed all of the above verbally with patient and caregivers, no barriers to understanding. They indicated understanding and agree to the above plan. They will contact us for any questions or concerns. Future Appointments Date Time Provider Department Center 09/24/2017 15:20 Kirsten Melton PA [facility] None Dr. Sullivan was the attending physician available in the clinic today if needed. A consultation wasnot required. This document has been prepared with either speech recognition software or keyboard data migration consultant techniques. Minor irregularities or keyboarding misprints may be present. Kirsten Melton PA-C 08/25/2017 documented in this encounter Plan of Treatment Upcoming Encounters Date Type Department Care Team (Late st Contact Info) Description 12/27/2023 10:15 EDT Office Visit [facility] Foot & Ankle Program - [address] [place], [place] [phone] Beth Carrera NP [address] [place] [phone] 01/17/2024 14:10 EDT Office Visit [facility] Dermatology [address] [facility] [address] [place], [place] [address] Jun Le MD [address] [place], [place] [address] Scheduled Referrals Name Type Priority Associated Diagnoses Orde r Schedule AMB CONS/FOLLOW UP PHYSICAL THERAPY Outpatient Referral Routine Sprain Of Right Ankle, Unspecified Ligament, Initial Encounter Ordered: 08/25/2017 documented as of this encounter Visit Diagnoses Diagnosis Sprain of right ankle, unspecified ligament, initial encounter- Primary documented in this encounter Historical Medications * This list may reflect changes made after this encounter. Medication Sig Dispensed Refills Start Date End Date lisdexamfetamine (VYVANSE) 40 mg capsule Take 1 Capsule by mouth every morning. added in this encounter Orders Equipment Count Last Ordered Date First Orde red Date LACE-UP ASO (L1902) 1 08/25/2017 documented in this encounter Care Teams Mastic Sprayer Relationship Specialty Start Date End Date Unknown, Provider, PCP - General 08/16/17 08/23/18 documented as of this encounter
--- OUTSIDE RECORDS SUMMARY | 2023-12-01 21:58 | XMS_ITS | Encounter Summary ---
Author Organization [facility] Address [address] [place] [address] Care Team Providers Care Insurance Plan Specialist Name Role Phone Jalil Mathis MD Primary Care Provider [phone] Encounter Details Date Type Department Care Team (Late st Contact Info) Description 03/27/2008 Before PRISM Converted Visit (Maple) [facility] - Maple conversion [address] [place], [place] [address] Geronimo Lew MD [address] [facility], [address] [place] [phone] Social History Tobacco Use Types Packs/Day Years Used Date Smoking Tobacco: Never Assessed Sex and Gender Information Value Date Recorded Sex Assigned at Not on file Gender Identity Not on file Sexual Orientation Not on file documented as of this encounter Progress Notes * Geronimo Lew MD - 11/01/2008 5785 EDT DIVISION OF OTOLARYNGOLOGY PROGRESS/FOLLOWUP NOTE - 03/27/2008 SUBJECTIVE The patient had some drainage from her left ear, unresponsive to Floxin ear drops. Doing well otherwise. This is her first recent drainage. OBJECTIVE Healthy, alert, cooperative female in no distress. The right tube is in place and functioning without infection or drainage. The lefttube is in place and functioning with a purulent discharge throughthe lumen on that side. The left ear was suctioned and cleaned without complication. ASSESSMENT Left otitis media with tube. PLAN Ciprodex drops, four drops twice a day for one week to the right ear. Follow up next week if not better, otherwise in three months. Signed by Geronimo Lew MD 03/30/2008 15:24 Geronimo eLw MD - Geronimo Lew MD - P Job ID: [id number] Doc ID: [id number] cc: Jalil Mathis MD documented in this encounter Plan of Treatment Upcoming Encounters Date Type Department Care Team (Late st Contact Info) Description 12/27/2023 10:15 EDT Office Visit [facility] Foot & Ankle Program - [address] [address] Beth Carrera NP [address] [place] [phone] 01/17/2024 14:10 EDT Office Visit [facility] Dermatology 5th Floor [facility] [address] [place], [place] [phone] Jun Le MD [address] [place], [place] [phone] documented as of this encounter Visit Diagnoses Not on filedocumented in this encounter Care Teams Insurance Plan Specialist Relationship Specialty Start Date End Date Jalil Mathis MD [address] [place] [phone] PCP - General 10/25/08 05/30/09 documented as of this encounter
--- OUTSIDE RECORDS SUMMARY | 2023-12-01 21:58 | XMS_ITS | Encounter Summary ---
Author Organization [facility] Address [address] [place] [address] Care Team Providers Care Hand Tennis Ball Coverer Name Role Phone Isatu Waddell MD Primary Care Provider Encounter Details Date Type Department Care Team (Late Contact Info) Description 06/18/2014 Results Only [facility] [phone] To, YUKI Lay [address] [address] Social History Tobacco Use Types Packs/Day Years [...] & Ankle Program - [address] [place], [place] [phone] Beth Carrera NP [address] [place] [address] 01/17/2024 14:10 EDT Office Visit [facility] Dermatology 5th Floor [facility] [address] [place], [place] [phone] Jun Le MD [address] [place] [address] documented as of this encounter Procedures Procedure Name Priority Date/Time Associated Diagnosis Comments THYROID CASCADE Routine 06/18/2014 16:42 EDT BASIC METABOLIC PANEL (BMP) Routine 06/18/2014 16:42 EDT documented in this encounter Results * THYROID CASCADE (06/18/2014 16:42 EDT) TSH 1.91 0.35 - 5.00 uIU/ml 06/18/2014 21:[address] [facility] Comment: TSH cascade is not recommended for patients in which pituitary or hypothalamic disorders are suspected. BLOOD SPECIMEN / Unknown 06/18/2014 16:42 EDT 06/18/2014 17:46 EDT Zack MIRZA CHEMISTRY & BLOOD GA S ORDERABLES [facility] [address] [place] [address] * (ABNORMAL) BASIC METABOLIC PANEL (06/18/2014 16:42 EDT) Sodium 140 136 - 145 mEq/L 06/18/2014 18:[address] [facility] Potassium 4.5 3.3 - 4.6 mEq/L 06/18/2014 18:[address] [facility] Chloride 104 96 - 110 mEq/L 06/18/2014 18:[address] [facility] CO2 23(L) 24 - 32 mEq/L 06/18/2014 18:[address] [facility] BUN 18(H) 7 - 17 mg/dl 06/18/2014 18:[address] [facility] Creatinine 0.55 0.42 - 0.71 mg/dl 06/18/2014 18:[address] [facility] GFR, Calculated Age <18 ml/min/1.7 3m2 06/18/2014 18:[address] [facility] Calcium 10.2(H) 8.9 - 10.1 mg/dl 06/18/2014 18:[address] [facility] Calculated Calcium 9.8 8.9 - 10.1 mg/dl 06/18/2014 18:[address] [facility] Glucose, Serum 83 70 - 100 mg/dl 06/18/2014 18:[address] [facility] Fasting? No 06/18/2014 16:[address] [facility] BLOOD SPECIMEN / Unknown 06/18/2014 16:42 EDT 06/18/2014 17:46 EDT Zack Gotti To YUKI CHEMISTRY & BLOOD GA S ORDERABLES Performing Organization Address City/State/[facility] Co de Phone Number [facility] [address] [place] [address] documented in this encounter Visit Diagnoses Not on filedocumented in this encounter Care Teams Hand Tennis Ball Coverer Relationship Specialty Start Date End Date Isatu Waddell MD [address] [place] [phone] PCP - General 01/06/10 08/15/17 documented as of this encounter
--- OUTSIDE RECORDS SUMMARY | 2023-12-01 21:58 | XMS_ITS | Encounter Summary ---
Author Organization [facility] Address [address] [place] [address] Care Team Providers Care Individual Pension Consultant Name Role Phone Demetrius Montenegro Primary Care Provider [phone] Encounter Details Date Type Department Care Team (Latest Contact Info) Description 01/03/2019 11:03 EDT - 01/03/2019 23:59 EDT Hospital Encounter [address] [address] Sandra Matos MD [address] [place] [address] [address] [place] [address] Discharge Disposition: Home or Self Care Social [...] as of this encounter Discharge Diagnoses Diagnosis J02.9 Acute pharyngitis, unspecified-J02.9[ICD-10-CM] documented in this encounter Medications at Time [...] [facility] - [address] [address] Beth Carrera NP [address] [place] [address] 01/17/2024 14:10 EDT Office Visit [facility] Dermatology 5th Floor [facility] [address] [place], [place] [address] Jun Le MD [address] [place], [place] [phone] documented as of this encounter Visit Diagnoses Not on filedocumented in this encounter Care Teams Individual Pension Consultant Relationship Specialty Start Date End Date Demetrius Montenegro PA PCP - General 08/24/18 11/22/21 documented as of this encounter
--- OUTSIDE RECORDS SUMMARY | 2023-12-01 21:59 | XMS_ITS | Encounter Summary ---
Author Organization [facility] Address [address] [place] [address] Care Team Providers Care Business Instructor Name Role Phone Gabriela Zaldivar MD Primary Care Provider + [phone] Jalil Mathis MD Primary Care Provider [phone] Encounter Details Date Type Department Care Team (Late st Contact Info) Description 02/02/2004 Office Visit [facility] [address] [place] [address] Jsoe Frank MD Social History Tobacco Use Types Packs/Day Years Used Date Smoking Tobacco: Never Assessed Sex and Gender Information Value Date Recorded Sex Assigned at Not on file Gender Identity Not on file Sexual Orientation Not on file documented as of this encounter Progress Notes * Jose Frank MD - 06/14/2009 1140 EST Emergency Department ??? Physician Summary Registration Date/Time 02/02/2004 19:36 Arrived- By private vehicle. Historian- mother and father. HISTORY OF PRESENT ILLNESS Chief Complaint- FEVER, COUGH and CONGESTED. 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 Symptoms are described as moderate. She has had a cough, nasal congestion, fever and a nasal discharge and mild diaper rash. The patient has had decreased oral intake. Noeye irritation or eye discharge, sore throat, difficulty breathing or vomiting. No diarrhea, bloody stools, abdominal pain, ear-pulling or decreased urine output. Has not been acting differently. The patient is bottle fed. No known contact with a sick individual. The patient has had similar symptoms previously. Not recently seen/assessed. REVIEW OF SYSTEMS Described in HPI. PAST HISTORY Negative. Medications: See nurses notes. Allergies: See nurses notes. ADDITIONAL NOTES The nursing notes have been reviewed. PHYSICAL EXAM Appearance: No acute distress. Alert. Attentive. Smiles. The patient makes eye contact. Active. Playful. Vital Signs: The vital signs have been reviewed. Head: Atraumatic. Eyes: Conjunctivae and eyelids normal. ENT: Right ear normal. Left ear normal. Nose normal.Pharynx normal. Neck: Neck supple. No neck mass. CVS: Normal heart rate and rhythm. Heart sounds normal. Respiratory: No respiratory distress. Breath sounds normal. Abdomen: Abdomen soft and nontender. Skin: Normal skin color. Skin warm and dry. No rash. Extremities: Normal range of motion in extremities. Extremities nontender. Neuro: Mental status is normal for the patient's age. Motor and sensory function normal. PROGRESS ANDPROCEDURES Disposition: Discharged home. Condition: stable. CLINICAL IMPRESSION Upper respiratory infection. INSTRUCTIONS (increase fluid intake, use vaporizer. See your doctor if trouble breathing, vomiting or other concerning symptoms.). Jose Frank M.D. (Electronically signed Jose Frank M.D. 02/02/2004 20:23) Physician's Clinical Report Addenda Registration Date: 02/02/2004 02/02/2004 19:25 DR. HENRIQUEZ REFFERING TO ED FOR FEVER/COUGH. [place] EMT-[place] TAKES TRIAGE CALL. ARRIVING VIA PRIVATE VEHICLE signed Cindy Sutherland - 02/02/2004 19:25) Emergency Department ??? Nursing Summary Registration Date/Time 02/02/2004 19:36 TRIAGE Initial Assessment Triage time 19:26 Acuity: LEVEL 3. BP: 90 / 62 HR: 160 RR: 28 Temp: 37.1 tympanic Alert. --19:29 Azalea Swenson R.N. Medications (dimetap). --19:29 Azalea Swenson R.N. Allergies No known drug allergies. --19:29 Azalea Swenson R.N. History Chief Complaint: FEVER. This started today. Pain level now: 0/10. (croup 2 weeks ago, cough continues. Has had green discharge from nose, has had poor intake today. Has had two wet diapers today. Stool is hard and had one today). Has not been pulling at ears. No vomiting or diarrhea. 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 (last given at 1530). PAST HX: Negative. Immunizations: up-to-date. SOCIAL HX: Not exposed to second-hand smoke at home. Arrived by private vehicle. Historian: mother. --19:29 Azalea Swenson R.N. DISPOSITION / DISCHARGE Condition at departure: unchanged. No barriers to learning present. Discharge instructions reviewedwith the parent. Parent verbalized understanding. The patient was discharged home and accompanied by family. The patient left the Emergency Department via private vehicle and carried. --19:45 David Ponce R.N., R.N. Locked/Released at 02/02/2004 19:45 by Fernanda Aburto R.N. documented in this encounter Plan of Treatment Upcoming Encounters Date Type Department Care Team (Late st Contact Info) Description 12/27/2023 10:15 EDT Office Visit [facility] Foot & Ankle Program - [address] [address] Beth Carrera NP [address] [place] [address] 01/17/2024 14:10 EDT Office Visit [facility] Dermatology 5th Floor [facility] [address] [place], [place] [phone] Jun Le MD [address] [place], [place] [phone] documented as of this encounter Visit Diagnoses Not on filedocumented in this encounter Care Teams Business Instructor Relationship Specialty Start Date End Date Gabriela Zaldivar MD [address] [place] [address] PCP - General 05/31/09 01/05/10 Jalil Mathis MD [address] [place] [phone] PCP - General 10/25/08 05/30/09 documented as of this encounter
--- OUTSIDE RECORDS SUMMARY | 2023-12-01 21:59 | XMS_ITS | Encounter Summary ---
Author Organization [facility] Address [address] [place] [address] Care Team Providers Care Card Puncher Name Role Phone Gabriela Zaldivar MD Primary Care Provider + [phone] Jalil Mathis MD Primary Care Provider [phone] Encounter Details Date Type Department Care Team (Late st Contact Info) Description 12/14/2006 Results Only [facility] - [address] [address] Sudarshan Qiu MD [address] [place] [phone] Social History Tobacco Use Types Packs/Day Years Used Date Smoking Tobacco: Never Assessed Sex and Gender Information Value Date Recorded Sex Assigned at Not on file Gender Identity Not on file Sexual Orientation Not on file documented as of this encounter Plan of Treatment Upcoming Encounters Date Type Department Care Team (Late st Contact Info) Description 12/27/2023 10:15 EDT Office Visit [facility] Foot & Ankle Program - [address] [place], [place] [phone] Beth Carrera NP [address] [place] [address] 01/17/2024 14:10 EDT Office Visit [facility] Dermatology 5th Floor [facility] [address] [place], [place] [phone] Jun Le MD [address] [place] [address] documented as of this encounter Procedures Procedure Name Priority Date/Time Associated Diagnosis Comments BACTERIAL CULTURE, URINE Routine 12/14/2006 22:14 EDT documented in this encounter Results * BACTERIAL CULTURE, URINE (12/14/2006 22:14 EDT) Specimen Description Urine [facility] Result No growth [facility] Report Status Final [id number] [facility] 12/14/2006 22:1 4 EDT 12/14/2006 23:22 EDT Sudarshan Qiu MD MICROBIOLOGY - G ENERAL ORDERABLES [facility] [address] [place] [address] documented in this encounter Visit Diagnoses Not on filedocumented in this encounter Care Teams Card Puncher Relationship Specialty Start Date End Date Gabriela Zaldivar MD [address] [place] [phone] PCP - General 05/31/09 01/05/10 Jalil Mathis MD [address] [place] [address] PCP - General 10/25/08 05/30/09 documented as of this encounter
--- OUTSIDE RECORDS SUMMARY | 2023-12-01 21:59 | XMS_ITS | Encounter Summary ---
Author Organization [facility] Address [address] [place] [address] Care Team Providers Care Printing Machine Operator Name Role Phone Unavailable Primary Care Provider Unavailabl e Encounter Details Date Type Department Care Team (Late st Contact Info) Description 08/18/2005 15:40 EDT Hospital Encounter [facility] - [facility] conversion [address] [place] [address] Jalil Mathis MD [address] [place] [phone] Social History Tobacco Use Types Packs/Day Years [...] Info) Description 12/27/2023 10:15 EDT Office Visit [facility] Foot & Ankle Program - [facility] [place] [address] Beth Carrera NP [address] [place] [address] 01/17/2024 14:10 EDT Office Visit [facility] Dermatology 5th Floor [facility] [address] [address] Jun Le MD [address] [place] [address] documented as of this encounter Visit Diagnoses Not on filedocumented in this encounter
--- OUTSIDE RECORDS SUMMARY | 2023-12-01 21:59 | XMS_ITS | Encounter Summary ---
Author Organization [facility] Address [address] [place] [address] Care Team Providers Care Oyster Preparer Name Role Phone Unavailable Primary Care Provider Unavailabl e Encounter Details Date Type Department Care Team (Late st Contact Info) Description 02/23/2007 15:05 EST Hospital Encounter [facility] - [place] conversion [address] [place] [address] Jimmy Rodney MD 111 [facility] [address] [place] [phone] Tessa Saab MD [address] [place] [address] [place] [phone] Social History Tobacco Use Types Packs/Day Years [...] 10:15 EDT Office Visit [facility] Foot & Ankle Program [place] [address] Beth Carrera NP [address] [place] [phone] 01/17/2024 14:10 EDT Office Visit [facility] Dermatology 5th Floor [facility] [address] [place], [place] [address] Jun Le MD [address] [place], [place] [address] documented as of this encounter Visit Diagnoses Not on filedocumented in this encounter
--- OUTSIDE RECORDS SUMMARY | 2023-12-01 21:59 | XMS_ITS | Encounter Summary ---
Author Organization [facility] Address [address] [place] [address] Care Team Providers Care Acid Splicer Name Role Phone Jalil Mathis MD Primary Care Provider [phone] Encounter Details Date Type Department Care Team (Late st Contact Info) Description 03/04/2007 Before PRISM Converted Visit (Maple) [facility] - Maple conversion [address] [place], [place] [address] Geronimo Lew MD 111 [facility], [address] [place] [phone] Social History Tobacco Use Types Packs/Day Years Used Date Smoking Tobacco: Never Assessed Sex and Gender Information Value Date Recorded Sex Assigned at Not on file Gender Identity Not on file Sexual Orientation Not on file documented as of this encounter Progress Notes * Geronimo Lew MD - 02/17/2009 0207 EST DIVISION OF OTOLARYNGOLOGY PROGRESS/FOLLOWUP NOTE - 03/04/2007 SUBJECTIVE The patient has been snoring since her foster parents, who are her grandparents, got her about fourmonths ago. They have not noticed any apnea. She has a very restless sleep. She wakes up 20 times anight. She has had no recent ear troubles. Hearing is okay. Speech and language is excellent. School is going well. OBJECTIVE Healthy, alert, cooperative female in no distress. Tonsils are three plus in size. Palpation of theneck reveals no adenopathy. Nasal exam is normal; midline septum, normal turbinates without discharge. Both tubes are in place without infection or drainage with high volume flat tympanograms and normal hearing today. ASSESSMENT Snoring without apnea documented and normal tube check. PLAN Follow up six months. Family will listen to the breathing at nighttime and return sooner than the six months if she has documented apnea. Signed by Geronimo Lew MD 03/11/2007 13:14 Geronimo Lew MD - Geronimo Lew MD - pamela Job ID: [id number] Doc ID: [id number] cc: Gabriela Zaldivar MD documented in this encounter Plan of Treatment Upcoming Encounters Date Type Department Care Team (Late st Contact Info) Description 12/27/2023 10:15 EDT Office Visit [facility] Foot & Ankle Program - [address] [address] Beth Carrera NP [address] [place] [address] 01/17/2024 14:10 EDT Office Visit [facility] Dermatology 5th Floor [address] [address] Jun Le MD [address] [place], [place] [address] documented as of this encounter Visit Diagnoses Not on filedocumented in this encounter Care Teams Acid Splicer Relationship Specialty Start Date End Date Jalil Mathis MD [address] [place] [phone] PCP - General 10/25/08 05/30/09 documented as of this encounter
--- OUTSIDE RECORDS SUMMARY | 2023-12-01 21:59 | XMS_ITS | Encounter Summary ---
Author Organization [facility] Address [address] [place] [address] Care Team Providers Care Network Administrator Name Role Phone Unavailable Primary Care Provider Unavailabl e Encounter Details Date Type Department Care Team (Latest Contact Info) Description 05/12/2006 22:52 EST - 05/13/2006 11:59 EST Hospital Encounter [facility] Emergency Department - [address] [address] Emergency, MD [place] Discharge Disposition: Home or [...] [facility] - [address] [place] [address] Beth Carrera NP [address] [place] [phone] 01/17/2024 14:10 EDT Office Visit [facility] Dermatology 5th Floor [address] [phone] Jun Le MD [address] [place], [place] [address] documented as of this encounter Visit Diagnoses Not on filedocumented in this encounter
--- OUTSIDE RECORDS SUMMARY | 2023-12-01 21:59 | XMS_ITS | Encounter Summary ---
Author Organization [facility] Address [address] [place] [address] Care Team Providers Care Silk Crepe Machine Operator Name Role Phone Unavailable Primary Care Provider Unavailabl e Encounter Details Date Type Department Care Team (Latest Contact Info) Description 09/07/2004 14:25 EDT Hospital Encounter [facility]- [address] [address] Sudarshan Qiu MD [address] [place] [phone] Discharge Disposition: Auto Discharge Social History Tobacco Use Types Packs/Day Years Used Date Smoking Tobacco: Never Assessed Sex and Gender Information Value Date Recorded Sex Assigned at Not on file Gender Identity Not on file Sexual Orientation Not on file documented as of this encounter Discharge Disposition Disposition Code Departure Means Destination Auto Discharge documented in this encounter Plan of Treatment Upcoming Encounters Date Type Department Care Team (Late st Contact Info) Description 12/27/2023 10:15 EDT Office Visit [facility] Foot & Ankle Program - Goldy [facility] [place] [address] Beth Carrera NP [address] [place] [address] 01/17/2024 14:10 EDT Office Visit [facility] Dermatology [address] [facility] [address] [place], [place] [address] Jun Le MD [address] [place] [address] documented as of this encounter Visit Diagnoses Not on filedocumented in this encounter
--- OUTSIDE RECORDS SUMMARY | 2023-12-01 21:59 | XMS_ITS | Encounter Summary ---
Author Organization [facility] Address [address] [place] [address] Care Team Providers Care School Janitor Name Role Phone Unavailable Primary Care Provider Unavailabl e Encounter Details Date Type Department Care Team (Latest Contact Info) Description 06/16/2007 15:27 EST Hospital Encounter [facility] - [place] conversion [address] [place] [address] Cristy Ferguson MD [address] [place] [address] [place] [address] Unknown, Provider, Discharge Disposition: Auto Discharge Social History Tobacco [...] Info) Description 12/27/2023 10:15 EDT Office Visit [facility] Foot & Ankle Program - [place] [address] [place] [address] Beth Carrera NP [address] [place] [phone] 01/17/2024 14:10 EDT Office Visit [facility] Dermatology 5th Floor [facility] [address] [place], [place] [address] Jun Le MD [address] [place] [address] documented as of this encounter Visit Diagnoses Not on filedocumented in this encounter
--- OUTSIDE RECORDS SUMMARY | 2023-12-01 21:59 | XMS_ITS | Encounter Summary ---
Author Organization [facility] Address [address] [place] [address] Care Team Providers Care A R Collections Rep Name Role Phone Unavailable Primary Care Provider Unavailabl e Encounter Details Date Type Department Care Team (Latest Contact Info) Description 05/14/2006 16:56 EST Hospital Encounter [facility] [address] [place], [place] [address] Gabriela Zaldivar MD [address] [place] [address] Discharge Disposition: Home or Self Care Social [...] Description 12/27/2023 10:15 EDT Office Visit [facility] Foot & Ankle Program - [place] [address] [place] [address] Beth Carrera NP [address] [place] [address] 01/17/2024 14:10 EDT Office Visit [facility] Dermatology 5th Floor [facility] [address] [place], [place] [phone] Jun Le MD [address] [place] [address] documented as of this encounter Procedures Procedure Name Priority Date/Time Associated Diagnosis Comments CHEST PA AND LATERAL 05/14/2006 22:34 EST documented in this encounter Results * CHEST PA AND LATERAL (05/14/2006 22:34 EST) Anatomical Region Laterality Modality Other 05/14/2006 22:3 4 EST Narrative 10/20/2008 6:18 EDT COUGH FEVER X3WKS R/O PNEUMONIA FRONTAL AND LATERAL CHEST: ??05/14/06 INDICATION: ??Cough and fever x 3 weeks. ??Rule out pneumonia. FINDINGS: ??Lungs and costophrenic angles are clear. ??The cardiothymic silhouette is within normal limits in size and contour. ??Bones and soft tissues are unremarkable. IMPRESSION: ??Unremarkable two view chest radiograph. ??No evidence of pneumonia. D: ??05/15/06 T: ??05/17/06 I have personally reviewed the images and the above interpretation and agree with the findings. Procedure Note Nakul Devi MD / Nahun More MD - 10/20/2008 COUGH FEVER X3WKS R/O PNEUMONIA FRONTAL AND LATERAL CHEST: 05/14/06 INDICATION: Cough and fever x 3 weeks. Rule out pneumonia. FINDINGS: Lungs and costophrenic angles are clear. The cardiothymic silhouette is within normal limits in size and contour. Bones and soft tissues are unremarkable. IMPRESSION: Unremarkable two view chest radiograph. No evidence of pneumonia. I have personally reviewed the images and the above interpretation and agree with the findings. Nahun Starr MD IMG DIAGNOST IC IMAGING ORDERABLES documented in this encounter Visit Diagnoses Not on filedocumented in this encounter
--- OUTSIDE RECORDS SUMMARY | 2023-12-01 21:59 | XMS_ITS | Encounter Summary ---
Author Organization [facility] Address [address] [place] [address] Care Team Providers Care Director Of Graduate Admissions Name Role Phone Unavailable Primary Care Provider Unavailabl e Encounter Details Date Type Department Care Team (Late st Contact Info) Description 09/19/2004 11:18 EDT - 09/19/2004 11:59 EDT Hospital Encounter [facility] Perioperative Services - [address] [address] Geronimo Lew MD 111 [facility], [address] [place] [phone] Discharge Disposition: Home-Health Care Svc Social History Tobacco Use Types Packs/Day Years Used Date Smoking Tobacco: Never Assessed Sex and Gender Information Value Date Recorded Sex Assigned at Not on file Gender Identity Not on file Sexual Orientation Not on file documented as of this encounter Discharge Disposition Disposition Code Departure Means Destination Home-Health Care Svc documented in this encounter OR Notes * OR Surgeon - Kolby Patterson CNM - 09/19/2004 0000 EDT PROCEDURE REPORT PT TYPE: OPPROC PT LOC: [id number] SERVICE DATE: 09/19/2004 SURGEON: Geronimo Lew MD TRIGONOMETRY TUTOR: Kolby Patterson MD PREOPERATIVE DIAGNOSIS: Chronic serous otitis media. POSTOPERATIVE DIAGNOSIS: Chronic serous otitis media. PROCEDURE: Bilateral tympanostomy and placement Anish Activent ventilatory tubes. ANESTHESIA: General via mask. INDICATIONS: This is a [id number] female with a history of occasional episodes of acute otitis media, with persistent middle ear effusions between her episodes. FINDINGS: 1. ear with no middle ear effusion. 2. Right ear with purulent middle ear effusion. Drops were placed. After induction of adequate general mask anesthesia, the patient's ears were examined under the operating microscope and an appropriate-speculum. Cerumen was debrided from each ear bilaterally. Tympanic membrane was visualized and an anterior mid-position myringotomy was made bilaterally. The middle ear space was suctioned and a PE tube was placed bilaterally. After assuring that there was no bleeding at the myringotomy sites, the patient was awakened by anesthesia and returned to the recovery room in stable condition. There were no complications to the case. Dr. Lew was present throughout the entire procedure. Signed by Geronimo Lew MD 09/26/2004 15:24 Faith [facility] a Lew MD Dictated by: Kolby Patterson MD Geronimo Lew MD - Kolby Patterson MD P - cs Job ID: [id number] Document ID: [id number] cc: MD Jalil Vasquez MD Richard N Hubbell, MD ?? v documented in this encounter Plan of Treatment Upcoming Encounters Date Type Department Care Team (Late st Contact Info) Description 12/27/2023 10:15 EDT Office Visit [facility] Foot & Ankle Program - [address] [place], [place] [phone] Beth Carrera NP [address] [place] [address] 01/17/2024 14:10 EDT Office Visit [facility] Dermatology 5th Floor [address] [phone] Jun Le MD [address] [place] [address] documented as of this encounter Visit Diagnoses Not on filedocumented in this encounter
--- OUTSIDE RECORDS SUMMARY | 2023-12-01 21:59 | XMS_ITS | Encounter Summary ---
Author Organization [facility] Address [address] [place] [address] Care Team Providers Care Development Representative Name Role Phone Unavailable Primary Care Provider Unavailabl e Encounter Details Date Type Department Care Team (Latest Contact Info) Description 11/16/2005 16:[address] [facility] - Maple conversion [address] [place], [place] [address] Maximino Machado MD Girgis, Cherif E, MD [address] [place] [phone] Discharge Disposition: Auto Discharge Social History Tobacco [...] Description 12/27/2023 10:[address] [facility] Foot & Ankle Program - [facility] [place] [address] Beth Carrera NP [address] [place] [address] 01/17/2024 14:10 EDT Office Visit [facility] Dermatology 5th Floor [facility] [address] [place], [place] [phone] Jun Le MD [address] [place] [address] documented as of this encounter Visit Diagnoses Not on filedocumented in this encounter
--- OUTSIDE RECORDS SUMMARY | 2023-12-01 21:59 | XMS_ITS | Encounter Summary ---
Author Organization [facility] Address [address] [place] [address] Care Team Providers Care General Store Manager Name Role Phone Unavailable Primary Care Provider Unavailabl e Encounter Details Date Type Department Care Team (Late st Contact Info) Description 05/10/2006 11:33 EST Hospital Encounter [facility] - Maple conversion [address] [place] [address] Jalil Bertrand MD Bielinski, Raphael S, OVERHEAD CRANE TECHNICIAN Social History Tobacco Use Types Packs/Day Years [...] Description 12/27/2023 10:15 EDT Office Visit [facility] Foot & Ankle Program - Goldy [facility] [address] [place], [place] [phone] Beth Carrera NP [address] [place] [address] 01/17/2024 14:10 EDT Office Visit [facility] Dermatology 5th Floor [facility] [address] [place], [place] [phone] Jun Le MD [address] [place] [address] documented as of this encounter Procedures Procedure Name Priority Date/Time Associated Diagnosis Comments GROUP A STREP CULTURE Routine 05/10/2006 12:00 EST documented in this encounter Results * PHARYNGITIS CULTURE (05/10/2006 12:00 EST) Specimen Description Throat [facility] Result Mod STREPTOCOCCUS , BETA HEMOLYTIC GROUP A (STREPTOCOCCU S PYOGENES) With usual tex [facility] Report Status Final [id number] [facility] 05/10/2006 12:0 0 EST 05/10/2006 17:02 EST Pollo Cesar OVERHEAD CRANE TECHNICIAN MICROBIOLOGY - G ENERAL ORDERABLES [facility] [address] [place] [address] documented in this encounter Visit Diagnoses Not on filedocumented in this encounter
--- OUTSIDE RECORDS SUMMARY | 2023-12-01 21:59 | XMS_ITS ---
Author Organization [facility] Address [address] [place] [address] Care Team Providers Care Assessment Clinician Name Role Phone Dana Perry PA-C Primary Care Provider [phone] Dermatology Status:Enrolled (Active) Start date:11/26/2022 Enrollment date:11/26/2022 Current support & services provided:Clinical Management, Refill Management, Benefits and PA Management Linked medications:onabotulinumtoxinA (Active), tralokinumab-ldrm (Active) Linked problems:Eczema (Active) Continued Care and Services Coordination
--- OUTSIDE RECORDS SUMMARY | 2023-12-01 21:59 | XMS_ITS | Encounter Summary ---
Author Organization [facility] Address [address] [place] [address] Care Team Providers Care Studio Grip Name Role Phone Unavailable Primary Care Provider Unavailabl e Encounter Details Date Type Department Care Team (Late st Contact Info) Description 03/04/2007 8:16 EST Hospital Encounter [facility] [address] [place] [address] Geronimo Lew MD [address] [facility], [address] [place] [phone] Social History Tobacco Use Types Packs/Day Years [...] Info) Description 12/27/2023 10:15 EDT Office Visit [facility] Foot & Ankle Program - Goldy [facility] [place] [address] Beth Carrera NP [address] [place] [address] 01/17/2024 14:10 EDT Office Visit [facility] Dermatology 5th [facility] [address] [place] [address] Jun Le MD [address] [place], [place] [phone] documented as of this encounter Visit Diagnoses Not on filedocumented in this encounter
--- OUTSIDE RECORDS SUMMARY | 2023-12-01 21:59 | XMS_ITS | Encounter Summary ---
Author Organization [facility] Address [address] [place] [address] Care Team Providers Care Joist Setter Name Role Phone Unavailable Primary Care Provider Unavailabl e Encounter Details Date Type Department Care Team (Late st Contact Info) Description 12/17/2005 16:27 EDT Hospital Encounter [facility] - Maple conversion [address] [place] [address] Jalil Mathis MD [address] [place] [phone] Shani Petersen MD [address] [place] [address] Social History Tobacco Use Types Packs/Day Years [...] [facility] - Goldy [facility] [place] [address] Beth Carrera NP [address] [place] [address] 01/17/2024 14:10 EDT Office Visit [facility] Dermatology 5th Floor [facility] [address] [place], [place] [address] Jun Le MD [address] [place], [place] [address] documented as of this encounter Visit Diagnoses Not on filedocumented in this encounter
--- OUTSIDE RECORDS SUMMARY | 2023-12-01 21:59 | XMS_ITS | Encounter Summary ---
Author Organization [facility] Address [address] [place] [address] Care Team Providers Care Fret Saw Operator Name Role Phone Unavailable Primary Care Provider Unavailabl e Encounter Details Date Type Department Care Team (Latest Contact Info) Description 02/02/2004 19:36 EDT Hospital Encounter [facility] Emergency Department - [address] [phone] Emergency, MD Ivy Discharge Disposition: Home or [...] 12/27/2023 10:15 EDT Office Visit [facility] Foot & Ankle Program - [address] [place] [address] Beth Carrera NP [address] [place] [phone] 01/17/2024 14:10 EDT Office Visit [facility] Dermatology 5th Floor [address] [phone] Jun Le MD [address] [place] [address] documented as of this encounter Visit Diagnoses Not on filedocumented in this encounter
--- OUTSIDE RECORDS SUMMARY | 2023-12-01 21:59 | XMS_ITS | Encounter Summary ---
Author Organization [facility] Address [address] [place] [address] Care Team Providers Care Hr Internship Name Role Phone Gabriela Zaldivar MD Primary Care Provider + [phone] Jalil Mathis MD Primary Care Provider [phone] Encounter Details Date Type Department Care Team (Late st Contact Info) Description 05/14/2006 Results Only [facility] - Maple conversion [address] [place] [address] Emergency, MD Ivy Social History Tobacco Use Types Packs/Day Years [...] Office Visit [facility] Foot & Ankle Program - [address] [place], [place] [phone] Beth Carrera NP [address] [place] [phone] 01/17/2024 14:10 EDT Office Visit [facility] Dermatology 5th Floor [address] [address] Jun Le MD [address] [place] [address] documented as of this encounter Procedures Procedure Name Priority Date/Time Associated Diagnosis Comments BACTERIAL CULTURE, BLOOD Routine 05/14/2006 21:00 EST SED RATE Routine 05/14/2006 21:00 EST COMPLETE BLOOD COUNT AND DIFFERENTIAL Routine 05/14/2006 21:00 EST ELECTROLYTES Routine 05/14/2006 21:00 EST documented in this encounter Results * BACTERIAL CULTURE, BLOOD (05/14/2006 21:00 EST) Specimen Description Blood Draw site not indicated. Pediatric bottle received [facility] Result No growth [facility] Report Status Final [id number] [facility] 05/14/2006 21:0 0 EST 05/14/2006 22:39 EST Default Emergency MD MICROBIOLOGY - GENE RAL ORDERABLES Performing Organization Address [facility] Co de Phone Number [facility] [address] [place] [address] * (ABNORMAL) SED. RATE:JAMILERGREN (05/14/2006 21:00 EST) Sed. Rate Westergren 36(H) 0 - 20 mm/hr [facility] 05/14/2006 21:0 0 EST 05/14/2006 21:12 EST Default Emergency HEMATOLOGY & PF4 OR DERABLES Performing Organization Address [facility] de Phone Number [facility] [address] [place] [address] * (ABNORMAL) ELECTROLYTES (05/14/2006 21:00 EST) Sodium 139 136 - 145 mEq/L [facility] Potassium 4.2 3.6 - 5.2 mEq/L [facility] Chloride 105 96 - 110 mEq/L [facility] CO2 22(L) 24 - 32 mEq/L [facility] 05/14/2006 21:0 0 EST 05/14/2006 21:12 EST Default Emergency MD CHEMISTRY & BLOOD G ORDERABLES Performing Organization Address [facility] Co de Phone Number [facility] [address] [place] [address] * (ABNORMAL) HEMAGRAM AND DIFFERENTIAL (05/14/2006 21:00 EST) WBC 6.41 5.5 - 15.5 K/cmm [facility] RBC 4.84 3.90 - 5.30 M/cmm [facility] Hemoglobin 11.3(L) 11.5 - 13.5 gm/dl [facility] HCT 33.1(L) 34.0 - 40.0 % [facility] MCV 68(L) 75 - 87 fl [facility] MCH 23.3 pg [facility] MCHC 34.1 gm/dl [facility] PLT 245 156 - 312 K/cmm [facility] RDW-CV 13.8 % [facility] Neutrophils 53.0 % [facility] % Bands 2.0 % [facility] Lymphocytes 36.0 % [facility] Monocytes 9.0 % [facility] ABS Neutrophils 3.39 K/cmm [facility] ABS Bands 0.13 K/cmm [facility] ABS Lymphs 2.31 K/cmm [facility] ABS Monocytes 0.58 K/cmm [facility] RBC Morphology 1+ Anisocytosis 1+ Microcytes 1+ Ovalocytes [facility] Type of Diff: Manual [facility] 05/14/2006 21:0 0 EST 05/14/2006 21:12 EST Default Emergency PACKAGES & DNA PROB E ORDERABLES Performing Organization Address [facility] Co de Phone Number [facility] [address] [place] [address] documented in this encounter Visit Diagnoses Not on filedocumented in this encounter Care Teams Hr Internship Relationship Specialty Start Date End Date Gabriela Zaldivar MD [address] [place] [address] PCP - General 05/31/09 01/05/10 Jalil Mathis MD [address] [place] [phone] PCP - General 10/25/08 05/30/09 documented as of this encounter
--- OUTSIDE RECORDS SUMMARY | 2023-12-01 21:59 | XMS_ITS | Encounter Summary ---
Author Organization [facility] Address [address] [place] [address] Care Team Providers Care Dyno Technician Name Role Phone Gabriela Zaldivar MD Primary Care Provider + [phone] Jalil Mathis MD Primary Care Provider [phone] Encounter Details Date Type Department Care Team (Late st Contact Info) Description 05/12/2006 [facility] [address] [place] [address] Loc Brenner MD [address] [place] [phone] Social History Tobacco Use Types Packs/Day Years Used Date Smoking Tobacco: Never Assessed Sex and Gender Information Value Date Recorded Sex Assigned at Not on file Gender Identity Not on file Sexual Orientation Not on file documented as of this encounter Progress Notes * Loc Brenner - 06/06/2009 0146 EST Department - Physician Summary Registration Date/Time: 05/12/2006 22:52 Historian- patient and mother. HISTORY OF PRESENT ILLNESS Chief Complaint- FEVER, COUGH and CONGESTED. This started 5 days ago and is still present. Symptomsare described as moderate. She has had loss of appetite, fever and a cough and been crying. The patient has had decreased urine output (3x UOP today; smaller amounts and darker). She has had mild decreased liquid and moderate decreased solid intake. Has not been acting differently. No eye irritation, ear pain,difficulty breathing, chest pain or vomiting. No abdominal pain or difficulty with urination. No diarrhea (last BM 3 d ago). (Almost 1 year old girl. 2 weeks ago Rx'd with pcn for Strep throat based on fever, rash, and positive culture; finished 10 day course pcn; 5 days ago recurrence of fever and over the last few days developed cough, congestion, sore throat; seen 2 d ago by PCP andhad + strep culture, now on day 2 of 2nd pcn course). The patient has had contact with a sick daycare person (with strep throat). The patient has had similar symptoms previously. The patient was seen recently in the office. REVIEW OF SYSTEMS Described in HPI. All systems otherwise negative, except as recorded above. PAST HISTORY Asthma possible history of asthma; was on inhaler empirically but it didn't seem to help. The patient has had ear infection multiple, last 2-3 months ago. Pharyngitis. No history of pneumonia. Delivery- term. No complications. Tympanostomy tube placement. Immunization status is up-to-date. Medications: (no chronic meds; currently on pcn, advil, tylenol). Allergies: No known drug allergies. SOCIAL HISTORY Not exposed to second-hand smoke at home. Attends daycare. FAMILY HISTORY noncontributory. ADDITIONAL NOTES The nursing notes have been reviewed. PHYSICAL EXAM Appearance: Alert. Oriented X3. Patient appears to be in mild distress. Attentive. Smiles. The patient makes eye contact. Active. Vital Signs: Have been reviewed. Head: Atraumatic. Eyes: Pupils equal, round and reactive to light. Conjunctivae and eyelids normal. (dark circles under eyes). ENT: Right TM reveals a tympanostomy tube in the TM. Left TM reveals a tympanostomy tube in the TM (no drainage). Nose normal. Mildly dry mucous membranes present. Pharyngeal erythema. No right tonsillar exudate or left tonsillar exudate. No mouth ulcerations. (midline uvula). Neck: Neck supple. No neck mass. No meningeal signs. CVS: Normal heart rate and rhythm. 2/6 systolic murmur (soft). Strong peripheral pulses. Heart sounds normal. Respiratory: No respiratory distress. Breath sounds normal. No retractions, grunting, wheezes or nasal flaring. Abdomen: Abdomen soft and nontender. No organomegaly. Back: Normal inspection. : Genital inspection normal. Skin: Normal skin color and turgor. Skin warm and dry. No rash. (cap refill 2 seconds in foot). Extremities: Normal range of motion in extremities. Extremities nontender. Neuro: Mental status is normal for the patient's age. Motor and sensory function normal. PROGRESS AND PROCEDURES E.D. Course: Tylenol/Motrin given in ED. Drank water. Pulse 114 after Motrin/Tylenol. Not hypoxemic.. ED Attending on duty and available for supervision: Jamel Clark. Disposition: Condition: improved. Discharged home. Discharged home in stable condition. CLINICAL IMPRESSION Fever. Upper respiratory infection. Possible streptococcal pharyngitis. INSTRUCTIONS Take Tylenol (Acetaminophen) or Motrin (Ibuprofen) as needed for fever control. Take medication according to label instructions. Drink plenty of fluids. (Use Tylenol every four hours and Motrin every eight hours for the next 24-48 hours, for fever control. May use up to one and three-quarter teaspoons of Childrens Tylenol and Childrens Motrin. Continue penicillin as previously prescribed.). Warnings: See your physician or return immediately If your child becomes irritable, difficult to console, listless, sleeps more than usual, has a decreased fluid intake; has decreased urination; or if other concerns arise. OTC Medications: Take acetaminophen (Tylenol, Datril, etc.) and ibuprofen (Advil, Nuprin, etc.) according to label instructions. Available over the counter. Follow-up: Follow up with your doctor in about two days if not better. Understanding of the discharge instructions verbalized by patient and parent. (Electronically signed by Loc Brenner MD 05/13/2006 0:45) Attending Note: I supervised care provided by the resident. We have discussed the case. I agree with the plan of treatment. I personally interviewed the patient and examined the patient. (Pt with recent throat culture positive for strep, received course of penicillin. Now with cough, sore throat, fever, repeat cx. positive for strep and penicillin second course has been prescribed. Is urinating, taking popsicles and water but less than normal. Appearsnontoxic, adequately hydrated, enlarged tonsils with erythema and no exudate; neck is supple, cor tachy with flow murmur, lungs clear and abdomen benign, skin without rash. Concur with current rx and plans for antipyretics.). (Electronically signed by Maj Eduardo M.D. 05/14/2006 11:05) Department - Nursing Summary Registration Date/Time: 05/12/2006 22:52 TRIAGE Initial Assessment Triage time 22:53 May 12 2006. --2252 Rose Marie Gonzalez R.N. Acuity: LEVEL 4. BP: 114 / 73. HR: 131. RR: 20. Temp: 38.5 tympanic. Alert. Weight = 41 lbs. per mother measured on wednesday. --2256 Rose Marie Gonzalez R.N.. Medications Penicillin (second course , dose unknown). --2256 Rose Marie Gonzalez R.N.. Allergies No known drug allergies. --2256 Rose Marie Gonzalez R.N.. History Chief Complaint: (pt being treated for strep throat and mother states pt worse, continues with fever, decreased urine output). Onset (2 weeks). Pain level now: 6/10. Treatment TAX PROFESSIONAL: Took Tylenol and ibuprofen. (last dose tylenol at 1999). PAST HX: Strep throat. Historian: patient and family. Accompanied by family and arrived by private vehicle. --2256 Rose Marie Gonzalez R.N.. PHYSICAL ASSESSMENT The patient makes eye contact. Development within normal limits for the patient's age. Appears to feel bad. Respirations not labored. Skin is warm and dry. --22 Jesenia Zambrano R.N.. NURSING PROGRESS NOTES Progress TYLENOL 280 mg liq PO. MOTRIN 180 mg liq PO. . --21 Jesenia Zambrano R.N. O2 saturation: 99% room air. --21 Jesenia Zambrano R.N.. DISPOSITION / DISCHARGE Temp: MD Brenner aware.38.8 C (tympanic). FLACC pain scale; face: 1-occasional grimaceor frown, withdrawn, disinterested, legs: 0-normal position or relaxed, activity: 0-lying quietly, normal position, moves easily, cry: 0-none (awake or asleep), consolability: 1-reassured by occasional touching, hugging, or being talked to, distractible. No learning barriers present. Discharge instructions reviewed with the parent. Reviewed warnings. Reviewed medication. Reviewed referrals. Parent verbalized understanding. Written instructions provided in [place]. The patient was discharged home. The patient left the Emergency Department carried. --0052 Jesenia Zambrano R.N.. Rose Marie Zambrano R.N. Locked/Released at 05/13/2006 0:52 by Jesenia Zambrano R.N. documented in this encounter Plan of Treatment Upcoming Encounters Date Type Department Care Team (Late st Contact Info) Description 12/27/2023 10:15 EDT Office Visit [facility] Foot & Ankle Program - [address] [phone] Beth Carrera NP [address] [place] [address] 01/17/2024 14:10 EDT Office Visit [facility] Dermatology 5th Floor [address] [phone] Jun Le MD [address] [place], [place] [phone] documented as of this encounter Visit Diagnoses Not on filedocumented in this encounter Care Teams Dyno Technician Relationship Specialty Start Date End Date Gabriela Zaldivar MD [address] [place] [phone] PCP - General 05/31/09 01/05/10 Jalil Mathis MD [address] [place] [phone] PCP - General 10/25/08 05/30/09 documented as of this encounter
--- OUTSIDE RECORDS SUMMARY | 2023-12-01 21:59 | XMS_ITS | Encounter Summary ---
Author Organization [facility] Address [address] [place] [address] Care Team Providers Care Referral Manager Name Role Phone Unavailable Primary Care Provider Unavailabl e Encounter Details Date Type Department Care Team (Late st Contact Info) Description 09/18/2005 15:58 EDT Hospital Encounter [facility] - Maple conversion [address] [place] [address] Jalil Mathis MD [address] [place] [phone] Social History Tobacco Use Types Packs/Day Years [...] Campus Foot & Ankle Program - Goldy [facility] [place] [address] Beth Carrera NP [address] [place] [address] 01/17/2024 14:10 EDT Office Visit [facility] Dermatology 5th Floor [facility] [address] [address] Jun Le MD [address] [place] [address] documented as of this encounter Visit Diagnoses Not on filedocumented in this encounter
--- OUTSIDE RECORDS SUMMARY | 2023-12-01 21:59 | XMS_ITS | Encounter Summary ---
Author Organization [facility] Address [address] [place] [address] Care Team Providers Care Fork Repairer Name Role Phone Gabriela Zaldivar MD Primary Care Provider + [phone] Jalil Mathis MD Primary Care Provider [phone] Encounter Details Date Type Department Care Team (Late st Contact Info) Description 05/14/2006 Office Visit [facility] - Maple conversion [address] [place] [address] Nahun Starr MD [address] [facility], Level [address] [place] [address] Social History Tobacco Use Types Packs/Day Years Used Date Smoking Tobacco: Never Assessed Sex and Gender Information Value Date Recorded Sex Assigned at Not on file Gender Identity Not on file Sexual Orientation Not on file documented as of this encounter Progress Notes * Nahun Starr IV, MD - 06/06/2009 0209 EST Department - Physician Summary Registration Date/Time: 05/14/2006 18:05 Time Seen; upon arrival. Arrived- By private vehicle. Historian- mother. HISTORY OF PRESENT ILLNESS Chief Complaint- FEVER. This started several days ago and is still present. It was gradual in onsetand has been waxing/waning. Symptoms are described as moderate. She has had a sore throat, nasal congestion, fever, a cough and decreased oral intake. The patient has been crying. Has not been acting differently. No eye irritation, ear pain, difficulty breathing, chest pain or loss of appetite. No vomiting, diarrhea, difficulty with urination, headache or seizure. No decreased urine output. The patient has had contact with a sick individual. Patient has not had similar symptoms previously. The patient was seen recently at another facility in a clinic. (treated with Pen VK for strep pos cx). REVIEW OF SYSTEMS Described in HPI. All systems otherwise negative, except as recorded above. PAST HISTORY See nurses notes. Immunization status is up-to-date. Medications: The patient's medications have been reviewed. Allergies: The patient's allergies have been reviewed. SOCIAL HISTORY Not exposed to second-hand smoke at home. Caregiver- mother. FAMILY HISTORY Negative. ADDITIONAL NOTES The nursing notes have been reviewed. PHYSICAL EXAM Appearance: Alert. No acute distress. Attentive. The patient makes eye contact. Vital Signs: Have been reviewed. Head: Atraumatic. Eyes: (mild puffiness/periorbital edema). ENT: Pharyngeal erythema. Neck: Neck supple. CVS: Tachycardia. Strong peripheral pulses. Heart sounds normal. Respiratory: No respiratory distress. Abdomen: Abdomen soft and nontender. Skin: Normal skin color and turgor. Skin warm and dry. No rash. Extremities: Normal range of motion in extremities. Extremities nontender. Neuro: Mental status is normal for the patient's age. LABS, X-RAYS, AND EKG CBC: CBC is normal. Chemistries: Normal except as follows. HCO3-22. Hematology: Erythrocyte sedimentation rate (ESR) moderately increased- 36. PROGRESS AND PROCEDURES E.D. Course: Augmentin given PO. Tylenolgiven PO. Consult obtained from pediatrics. Patient/family counseled. Old medical records ordered. Disposition: Discharged home and home. CLINICAL IMPRESSION Acute fever. Upper respiratory infection. Strep pharyngitis. INSTRUCTIONS No restrictions to activity. Your Current Medications: Continue current medications. Prescription Medications: Augmentin Liquid 250mg/5 mL: take five (5) mL orally every 12 hours for 7 days. No refill. Generic substitute OK. Follow-up: Follow up with your doctor as directed by the electrical appliance servicer residents. Understanding of the discharge instructions verbalized by patient. (Electronically signed by Abilio Starr MD 2006 18:19) Addenda for TELMA WADE VisitID: [id number] Date: 05/14/2006 17:33 MONIQUE REFERRING PT TO ED FOR WORSENING STREP, TEMP 104 X 7 DAYS AND GETTING WORSE. signed by Sandra Friend - 05/14/2006 17:33) 05/14/2006 18:36 PLEASE PAGE [id number] ONCE IN ROOM. signed by Sandra Friend - 05/14/2006 18:36) Department - Nursing Summary Registration Date/Time: 05/14/2006 18:05 TRIAGE Initial Assessment Triage time 18:08 May 14 2006. Acuity: LEVEL 3. BP: 119 / 73 sitting. HR: 147. RR: 28. Temp: 102.3 oral. Alert. Weight = 41 lbs.. --1809 Oma Blair R.N.. Medications Penicillin (started 3 days ago, second round ). --1809 Oma Blair R.N.. Allergies No known drug allergies. --1809 Oma Blair R.N.. History Chief Complaint: FEVER and COUGH. Onset (1 weeks ago). Pain level now: 8/10. (pt seen in ed wednesday for same, returns for fever andmalaise, presently treated for strep). Treatment EXTENSION SERVICE SUPERVISOR: (motrin 13/4 tsp at 1300, tylenol 12/4 tsp at 1300). PAST HX: Negative. Immunizations: up-to-date. SOCIAL HX: Second-hand smoke exposure (from mother). Historian: family. Accompanied by family and arrived by private vehicle. --1809 Oma Blair R.N.. PHYSICAL ASSESSMENT Alert. The patient makes eye contact. Development within normal limits for the patient's age. Appears sick. Respirations not labored. Mucous membranes are pink. Skin is warm and dry. (Periorbital puffiness noted bilaterally.). --2012 Liya Wise R.N.. NURSING PROGRESS NOTES Progress TYLENOL 280 mg PO. . --1813 Oma Blair R.N. Patient identifiers checked. Patient gowned. Head of bed elevated. Call light placed in reach. Siderails up x 1. Safety measures: child being held by parent. Bed placed in lowest position. Brakes ofbed on. --1907 Ena De aL Rosa (PEDS in ED, aware of patient.). --1913 Ena De La Rosa (EMLA applied to R hand and R AC). --2013 Liya Wise R.N. Blood samples drawn from the peripheral IV site (prior to IV fluid start) by nurse per protocol andsent to lab: purple top; pediatric blood culture; total amount drawn 5 mL. Line flushed post blood draw with 5 mL normal saline (pedi green). --2110 Liya Wise R.N. The patient is sleeping. --2200 Liya Wise R.N. Patient returned from radiology by stretcher with tech. --2236 Liya Wise R.N. (Peds ordered second fluid bolus. Family refusing, stating they would just like to get home becausept urinated and they feel she's been drinking fluids well at home. Plan for d/c). --2304 Liya Wise R.N.. IV / I&O Flowsheet IV site #1: location right antecubital space. Started with 22g angiocath using aseptic technique, with good blood return; two attempts. IV line accessed- flushed with saline and blood drawn. --2109 Liya Wise R.N. IV fluid started- #1 bag NS 500 mL. Placed on IV pump. (400 mL bolus). --2135 Liya Wise R.N. INTAKE: 400 mL IV. --2200 Liya Wise R.N.. DISPOSITION / DISCHARGE Temp: 37.4 tympanic. Patient reports pain level on departure as 0/10. Condition at departure: stable. Discontinued: IV site (IV catheter intact). (given 4 cups of tylenol #3 liq to go with instructions to take 1 1/2 cups q hs). Discharge instructions reviewed with the parent. Parent verbalized understanding. Written instructions provided in Hungarian. The patient was discharged home and accompaniedby parent. The patient left the Emergency Department ambulatory and via private vehicle. Parent driving. --2349 Criselda Peoples R.N.. OmaEna Back R.N., R.N., R.N. Locked/Released at 05/15/2006 5:00 by David Elkins documented in this encounter Plan of Treatment Upcoming Encounters Date Type Department Care Team (Late st Contact Info) Description 12/27/2023 10:15 EDT Office Visit [facility] Foot & Ankle Program - [facility] [address] [place] [address] Beth Carrera NP [address] [place] [address] 01/17/2024 14:10 EDT Office Visit [facility] Dermatology 5th Floor [facility] [address], [place] [address] Jun Le MD [address] [place] [address] documented as of this encounter Visit Diagnoses Not on filedocumented in this encounter Care Teams Fork Repairer Relationship Specialty Start Date End Date Gabriela Zaldivar MD [address] [place] [address] PCP - General 05/31/09 01/05/10 Jalil Mathis MD [address] [place] [phone] PCP - General 10/25/08 05/30/09 documented as of this encounter
--- OUTSIDE RECORDS SUMMARY | 2023-12-01 21:59 | XMS_ITS | Encounter Summary ---
Author Organization [facility] Address [address] [place] [address] Care Team Providers Care Superintendent Power Name Role Phone Unavailable Primary Care Provider Unavailabl e Encounter Details Date Type Department Care Team (Latest Contact Info) Description 02/08/2007 8:49 EDT - 02/08/2007 11:59 EDT Hospital Encounter [facility] - Maple conversion [address] [place] [address] Lolis Licona MD Regan, Andrea, MD [address] [place] [address] 2 [place] [phone] Discharge Disposition: Auto Discharge Social History Tobacco [...] & Ankle Program - [place] [address] Beth Carrera NP [address] [place] [address] 01/17/2024 14:10 EDT Office Visit [facility] Dermatology 5th Floor [facility] [address] [place], [place] [phone] Jun Le MD [address] [place] [address] documented as of this encounter Visit Diagnoses Not on filedocumented in this encounter
--- OUTSIDE RECORDS SUMMARY | 2023-12-01 21:59 | XMS_ITS | Encounter Summary ---
Author Organization [facility] Address [address] [place] [address] Care Team Providers Care Linoleum Layer Name Role Phone Unavailable Primary Care Provider Unavailabl e Encounter Details Date Type Department Care Team (Late st Contact Info) Description 04/19/2007 14:42 EST Hospital Encounter [facility] - Maple conversion [address] [place] [address] Rosa Maria Delong MD Regan, Andrea, MD [address] [place] [address] 2 [place] [phone] Social History Tobacco Use Types Packs/Day Years [...] [facility] [place] [address] Beth Carrera NP [address] [place] [address] 01/17/2024 14:10 EDT Office Visit [facility] Dermatology 5th [facility] [address] [place] [address] Jun Le MD [address] [place], [place] [phone] documented as of this encounter Visit Diagnoses Not on filedocumented in this encounter
--- OUTSIDE RECORDS SUMMARY | 2023-12-01 21:59 | XMS_ITS | Encounter Summary ---
Author Organization [facility] Address [address] [place] [address] Care Team Providers Care Dixonac Operator Name Role Phone Unavailable Primary Care Provider Unavailabl e Encounter Details Date Type Department Care Team (Late st Contact Info) Description 07/24/2005 15:37 EDT Hospital Encounter [facility] - [facility] [address] [place] [address] Criselda Dewitt MD [address] [place] [phone] Social History Tobacco Use Types Packs/Day Years [...] Description 12/27/2023 10:15 EDT Office Visit [facility] Foot & Ankle Program - [place] [address] Beth Carrera NP [address] [place] [address] 01/17/2024 14:10 EDT Office Visit [facility] Dermatology 5th Floor [facility] [address] [place], [place] [address] Jun Le MD [address] [place] [address] documented as of this encounter Visit Diagnoses Not on filedocumented in this encounter
--- OUTSIDE RECORDS SUMMARY | 2023-12-01 21:59 | XMS_ITS | Encounter Summary ---
Author Organization [facility] Address [address] [place] [address] Care Team Providers Care Air Moving Technician Name Role Phone Unavailable Primary Care Provider Unavailabl e Encounter Details Date Type Department Care Team (Late st Contact Info) Description 10/04/2006 12:51 EDT Hospital Encounter [facility] - [facility] [address] [place] [address] Gabriela Zaldivar MD [address] [place] [address] Social History Tobacco Use Types Packs/Day Years [...] [facility] Foot [facility]le Program [place] [address] Beth Carrera NP [address] [place] [address] 01/17/2024 14:10 EDT Office Visit [facility] Dermatology 5th Floor [facility] [address] [place] [address] Jun Le MD [address] [place] [address] documented as of this encounter Visit Diagnoses Not on filedocumented in this encounter
--- OUTSIDE RECORDS SUMMARY | 2023-12-01 21:59 | XMS_ITS | Encounter Summary ---
Author Organization [facility] Address [address] [place] [address] Care Team Providers Care Topographic Computator Name Role Phone Gabriela Zaldivar MD Primary Care Provider + [phone] Jalil Mathis MD Primary Care Provider [phone] Encounter Details Date Type Department Care Team (Late st Contact Info) Description 02/08/2007 Results Only [facility] - [facility] [address] [place] [address] Demetrius Triana MD [address] [place] [address], [facility] [address] [place] [phone] Social History Tobacco Use Types Packs/Day Years Used Date Smoking Tobacco: Never Assessed Sex and Gender Information Value Date Recorded Sex Assigned at Not on file Gender Identity Not on file Sexual Orientation Not on file documented as of this encounter Plan of Treatment Upcoming Encounters Date Type Department Care Team (Late st Contact Info) Description 12/27/2023 10:15 EDT Office Visit [facility] Foot [facility]le Program - [place] [address] [address] [place], [place] [phone] Beth Carrera NP [address] [place] [address] 01/17/2024 14:10 EDT Office Visit [facility] Dermatology 5th Floor [facility] [address] [place], [place] [address] Jun Le MD [address] [place] [address] documented as of this encounter Procedures Procedure Name Priority Date/Time Associated Diagnosis Comments CHLAMYDIA/GC AMPLIFIED PROBE Routine 02/08/2007 10:16 EDT documented in this encounter Results * CHLAMYDIA/GC AMPLIFIED PROBE (02/08/2007 10:16 EDT) Specimen Description Urine [facility] Result No Chlamydia trachomatis or Neisseria gonorrhoeae DNA detected by charge loader mediated amplification. [facility] Report Status Final [id number] [facility] 02/08/2007 10:1 6 EDT 02/08/2007 22:56 EDT Demetrius Triana MD MICROBIOLOGY - GENER AL ORDERABLES Performing Organization Address City/State/[facility] Co de Phone Number [facility] [address] [place] [address] documented in this encounter Visit Diagnoses Not on filedocumented in this encounter Care Teams Topographic Computator Relationship Specialty Start Date End Date Gabriela Zaldivar MD [address] [place] [address] PCP - General 05/31/09 01/05/10 Jalil Mathis MD [address] [place] [phone] PCP - General 10/25/08 05/30/09 documented as of this encounter
--- OUTSIDE RECORDS SUMMARY | 2023-12-01 21:59 | XMS_ITS | Encounter Summary ---
Author Organization [facility] Address [address] [place] [address] Care Team Providers Care Air Hose Coupler Name Role Phone Gabriela Zaldivar MD Primary Care Provider + [phone] Jalil Mathis MD Primary Care Provider [phone] Encounter Details Date Type Department Care Team (Late st Contact Info) Description 12/13/2005 Office Visit [facility] - Maple conversion [address] [place] [address] Solitario Petersen PA-C [address] [facility], Level [address] [place] [address] Social History Tobacco Use Types Packs/Day Years Used Date Smoking Tobacco: Never Assessed Sex and Gender Information Value Date Recorded Sex Assigned at Not on file Gender Identity Not on file Sexual Orientation Not on file documented as of this encounter Progress Notes * Solitario Petersen PA - 06/05/2009 2302 EST Department - Physician Summary Registration Date/Time: 12/13/2005 22:08 Time Seen: 22:51 . Arrived- By private vehicle. Historian - patient and family. HISTORY OF PRESENT ILLNESS Chief Complaint: BLEEDING FROM EAR and EAR DISCHARGE L ear. This started today and is still present. Location- left ear. She has had ear drainage. No ear pain, hearing loss, nasal discharge or congestion or sinus pressure. No sore throat. The patient has had similar symptoms many times previously. The patient was seen recently in the office (2 weeks ago, 10day course bactrim, R side improved, left side getting worse now. Has had TM tubes for 1 year). REVIEW OF SYSTEMS The patient has had measured temperature of 101 F (yesterday today). She has had chills. No cough, difficulty breathing, chest pain or abdominal pain. PAST HISTORY Frequent ear infections. Status post tympanostomy tube placement on right and left. Patient has a history of chronic otitis media. Medications: None. Allergies: See nurses notes. The patient's allergies have been reviewed. ADDITIONAL NOTES The nursing notes have been reviewed. PHYSICAL EXAM Appearance: Alert. No acute distress. Vital Signs: Normal - Eyes: Eyes normal inspection. Ear (left): Lymphadenopathy present. There is erythema of the external canal and a TM tube present.There is yellow discharge and blood in the external canal. Ear (right): Right ear normal. Throat: Pharynx normal. Neck: Normal inspection. Neck supple. No meningeal signs or lymphadenopathy. Respiratory: No respiratory distress. Breath sounds normal. Skin: Normal skin color and turgor. Skin warm and dry. No rash. PROGRESS AND PROCEDURES ED Attending on duty and available for supervision: Saskia Dos Santos. Disposition: Discharged home in good condition (23:09 ). CLINICAL IMPRESSION Left chronic suppurative otitis media . INSTRUCTIONS Take Tylenol (Acetaminophen) for fever, temperature greater than 101 degrees orally. Take accordingto label instructions. Drink plenty of fluids. Prescription Medications: Cortisporin otic suspension: instill 3 drops into the affected ear as needed for earache every 6 hours for 7 days. Dispense sufficient quantity. No refills. Generic substitute OK. Augmentin Liquid 400mg/5 mL: take one (1) teaspoon orally every 12 hours for 10 days. No refill. Generic substitute OK. Follow-up: Follow up with your doctor in four days even if well. Understanding of thedischarge instructions verbalized by parent. (Electronically signed by YUKI Irizarry 12/13/2005 23:28) Co-signature 12/13/2005 23:27 signed by Solitario Jenkins 12/13/2005 23:27) 12/13/2005 23:28 signed by Solitario Jenkins 12/13/2005 23:28) Department - Nursing Summary Registration Date/Time: 12/13/2005 22:08 TRIAGE Initial Assessment Triage time 22:09 Dec 13 2005 . Acuity: LEVEL 5. BP: 115 / 77. HR: 97. RR: 16. Temp: 36.8 tympanic. Alert. No acute distress. Weight = 42 lbs. (per patient report). --2211 Anais Flores R.N. Medications Motrin. --2211 Anais Flores R.N. Allergies [place] drug allergies. --2211 Anais Flores R.N. History Chief Complaint: ( left ear drainage). This started today. FLACC pain scale; face: 0-no particular expression or smile, legs: 0-normal position or relaxed, activity: 0-lying quietly, normal position, moves easily, cry: 0-none (awake or asleep), consolability: 0-content, relaxed. The patient has had fever and ear drainage. 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 PAST HX: Ear infection. Tympanostomy tube placement. Immunizations: up-to-date. SOCIAL HX: Nonsmoker. No alcohol use. Functional assessment: no impairments noted. No report of abuse. Arrived by private vehicle and walking from home and accompanied by mother. Historian: family. --2211 Anais Flores R.N. PHYSICAL ASSESSMENT Alert. Appears in noacute distress. Respirations not labored. --2334 Miguel Tomlin R.N. NURSING PROGRESS NOTES Progress ( SCANNED FOR MEDS). --2312 Miguel Tomlin R.N. AUGMENTIN 400 mg 5 mL liq PO. . --2333 Miguel Tomlin R.N. CORTISPORIN 3 drops to the left ear. . --2334 Miguel Tomlin R.N. DISPOSITION / DISCHARGE Condition at departure: unchanged. Fall risk assessment completed. No fall risk identified. No learning barriers present. Discharge instructions reviewed with the patient. Reviewed warnings. Reviewedmedication; prescription (s) given to the parent. Reviewed referrals. Patient verbalized understanding. Written instructions provided in Bolivian. The patient was discharged home and accompanied by parent. The patient left the Emergency Department ambulatory and via private vehicle. Parent driving. Patient's personal items include; belongings were given to the patient. --233 David Pacheco R.N., R.N. Locked/Released at 12/13/2005 23:35 by Miguel Tomlin R.N. documented in this encounter Plan of Treatment Upcoming Encounters Date Type Department Care Team (Late st Contact Info) Description 12/27/2023 10:15 EDT Office Visit [facility] Foot & Ankle Program - [address] [address] Beth Carrera NP [address] [place] [address] 01/17/2024 14:10 EDT Office Visit [facility] Dermatology 5th Floor [facility] [address] [place], [place] [address] Jun Le MD [address] [place] [address] documented as of this encounter Visit Diagnoses Not on filedocumented in this encounter Care Teams Air Hose Coupler Relationship Specialty Start Date End Date Gabriela Zaldivar MD [address] [place] [address] PCP - General 05/31/09 01/05/10 Jalil Mathis MD [address] [place] [address] PCP - General 10/25/08 05/30/09 documented as of this encounter
--- OUTSIDE RECORDS SUMMARY | 2023-12-01 21:59 | XMS_ITS | Encounter Summary ---
Author Organization [facility] Address [address] [place] [address] Care Team Providers Care Screener Operator Name Role Phone Unavailable Primary Care Provider Unavailabl e Encounter Details Date Type Department Care Team (Late st Contact Info) Description 08/03/2005 13:58 EDT Hospital Encounter [facility] - Maple conversion [address] [place] [address] Cristy Pathak MD M[facility] [address] [phone] Social History Tobacco Use Types Packs/Day Years [...] Info) Description 12/27/2023 10:15 EDT Office Visit [facility] Foot & Ankle Program - [facility] [facility] [place] [address] Beth Carrera NP [address] [place] [address] 01/17/2024 14:10 EDT Office Visit [facility] Dermatology 5th Floor [facility] [address] [place] [address] Jun Le MD [address] [place], [place] [phone] documented as of this encounter Visit Diagnoses Not on filedocumented in this encounter
--- OUTSIDE RECORDS SUMMARY | 2023-12-01 21:59 | XMS_ITS | Encounter Summary ---
Author Organization [facility] Address [address] [place] [address] Care Team Providers Care Telecommunications Facility Examiner Name Role Phone Unavailable Primary Care Provider Unavailabl e Encounter Details Date Type Department Care Team (Latest Contact Info) Description 12/13/2005 22:08 EDT Hospital Encounter [facility] Emergency Department - [address] [phone] Emergency, MD Ivy Discharge Disposition: Home or [...] Info) Description 12/27/2023 10:15 EDT Office Visit [facility] Foot & Ankle Program - [address] [place] [address] Beth Carrera NP [address] [place] [phone] 01/17/2024 14:10 EDT Office Visit [facility] Dermatology 5th Floor [address] [address] Jun Le MD [address] [place] [address] documented as of this encounter Visit Diagnoses Not on filedocumented in this encounter
--- OUTSIDE RECORDS SUMMARY | 2023-12-01 21:59 | XMS_ITS | Encounter Summary ---
Author Organization [facility] Address [address] [place] [address] Care Team Providers Care Nuclear Equipment Design Engineer Name Role Phone Gabriela Zaldivar MD Primary Care Provider + [phone] Jalil Mathis MD Primary Care Provider [phone] Encounter Details Date Type Department Care Team (Late st Contact Info) Description 04/22/2004 Office Visit [facility] - Maple conversion [address] [place] [address] Chano Olguin MD [address] [facility], Level 1 [place] [address] Social History Tobacco Use Types Packs/Day Years Used Date Smoking Tobacco: Never Assessed Sex and Gender Information Value Date Recorded Sex Assigned at Not on file Gender Identity Not on file Sexual Orientation Not on file documented as of this encounter Progress Notes * Chano Olguin MD - 06/14/2009 1531 EST Emergency Department ??? Physician Summary Registration Date/Time 04/22/2004 17:22 Time Seen- upon arrival. Historian- patient, mother and father and grandmother. HISTORY OF PRESENT ILLNESS Chief Complaint- FEVER and FUSSY decreased activity and decreased PO intake This started 4 days andis still present. Symptoms are described as severe. She has had fever, a cough and decreased urine output and oral intake. The patient has been crying and acting differently. She has had diarrhea. This has occurred only once. No nasal discharge, eye discharge, vomiting, abdominal pain or difficulty with urination. No skin rash or seizure. Has not been pulling at ears. The patient has had similar symptoms previously. The patient was seen recently in the office. (multiple evals; rx'd with amoxicillin for ear redness). REVIEW OFSYSTEMS Described in HPI. The patient has had a cough and diarrhea but no pain on weight bearing. No eye irritation, ear drainage, nasal congestion or discharge or mouth sores. No pedal edema, vomiting, constipation, urinary frequency or skin rash. No head injury or seizure. PAST HISTORY See nurses notes. Medications: See nurses notes. Allergies: See nurses notes. SOCIAL HISTORY The patient lives with parent (s). ADDITIONAL NOTES The nursing notes have been reviewed. PHYSICAL EXAM Appearance: No acute distress. Alert. (lying quietly). Vital Signs: The vital signs have been reviewed. Head: Atraumatic. Eyes: Pupils equal, round and reactive to light. Conjunctivae and eyelids normal. ENT: Right ear normal. Left ear normal. Dry mucous membranes present. Pharynx normal. Neck: Neck supple. No neck mass. CVS: Normal heart rate and rhythm. Strong peripheral pulses. Heart sounds normal. Respiratory: No respiratory distress. Breath sounds normal. Abdomen: Abdomen soft and nontender. No organomegaly. Back: Normal inspection. Skin: Normal skin color. Skin warm and dry. No rash. Extremities: Extremities nontender. Neuro: Mental status is normal for the patient's age. Motor and sensory function normal. Reflexes normal. PROGRESS AND PROCEDURES E.D. Course: Ibuprofen 100 mg PO. The vital signs have been reviewed (36). Evaluation after observation and medication. Symptoms better (drank container of pedialyte without difficulty). Physical exam findings are improved. Patient/family counseled. Old medical records ordered. Old records unavailable. I consider sepsis, meningitis and pneumoniaunlikely as a cause of fever in this patient. This is a partial list of diagnoses considered. Above considerations are based on history, physical exam and reassessment. Differential diagnosis was discussed with patient and patient's family. Disposition: Discharged home in improved condition. CLINICAL IMPRESSION Fever. INSTRUCTIONS Drink plenty of fluids. Continue current medications. (Acetaminophen 300mg every 4 hours and/or ibuprofen 100mg every 6 hours; encourage Pedialyte). Warnings: GENERAL WARNINGS: Return or contact your physician immediately if your condition worsens or changesunexpectedly, if not improving as expected, or if other problems arise (fever). Specifically, return if pain, vomiting or breathing difficulty. Follow-up: JAYLYN ISAACS MD, [facility], , [facility], [address] [facility], [place], [address] Follow up as needed. Chano Olguin M.D. (Electronically signed Chano Olguin M.D. 04/22/2004 23:11) Physician's Clinical Report Emergency Department ??? Nursing Summary Registration Date/Time 04/22/2004 17:22 TRIAGE Initial Assessment Triage time 17:16 Apr 22 2004 --17:16 Rose Marie Gonzalez R.N. Acuity: LEVEL 3. BP: 97 / 53 HR: 137 RR: 20 Temp: 38.6 tympanic Alert. Weight = 25 lbs. --17:20 Rose Marie Gonzalez R.N. Medications Amoxil. --17:20 Rose Marie Gonzalez R.N. Allergies No known drug allergies. --17:20 Rose Marie Gonzalez R.N. History Chief Complaint: FEVER, COUGH and DIARRHEA and FUSSY. (4 days). Reports poor appetite. Treatment CARE MANAGER: took Tylenol. Recently seen in the office; seen forsimilar symptoms. (amoxicillin, dimetapp). PAST HX: Negative. Arrived by private vehicle and accompanied by family. Historian: family. --17:20 Rose Marie Gonzalez R.N. NURSING PROGRESS NOTES Progress Head of bed elevated. Call light placed in reach of parent. Side rails up x 1. Bed placed in lowestposition. Brakes of bed on. --17:30 Deric De La Rosa. MOTRIN 100 mg PO. --18:02 Abby Espitia R.N. (pedialyte given). --18:02 Abby Espitia R.N. HR: 115 RR: 28 Temp: 36.8 tympanic --18:45 Liya Wise R.N. (infant sleeping). --18:45 Liya Wise R.N. HR: 110 regular O2 saturation: 100% room air (Mom states that pt drank all of pedialyte Pt now sleeping in grandmother's arms. No distress noted.). --19:06 Chandrika Horowitz R.N. DISPOSITION / DISCHARGE Condition at departure: improved and stable. No barriers to learning present. Discharge instructions reviewed with the parent. Parent verbalized understanding. The patient was discharged home and accompanied by parent. The patient left the Emergency Department carried. --19:07 David Brandt R.N., E.M.T. Shelly Garrow R.N. Kristin Baker, R.N. Megan Fogarty R.N. Locked/Released at 04/22/2004 19:07 by Chandrika Horowitz R.N. documented in this encounter Plan of Treatment Upcoming Encounters Date Type Department Care Team (Late st Contact Info) Description 12/27/2023 10:15 EDT Office Visit [facility] Foot & Ankle Program - [address] [address] Beth Carrera NP [address] [place] [phone] 01/17/2024 14:10 EDT Office Visit [facility] Dermatology 5th Floor [facility] [address] [place], [place] [address] Jun Le MD [address] [place], [place] [phone] documented as of this encounter Visit Diagnoses Not on filedocumented in this encounter Care Teams Nuclear Equipment Design Engineer Relationship Specialty Start Date End Date Gabriela Zaldivar MD [address] [place] [phone] PCP - General 05/31/09 01/05/10 Jalil Mathis MD [address] [place] [phone] PCP - General 10/25/08 05/30/09 documented as of this encounter
--- OUTSIDE RECORDS SUMMARY | 2023-12-01 21:59 | XMS_ITS | Encounter Summary ---
Author Organization [facility] Address [address] [place] [address] Care Team Providers Care Hogshead Cooper Name Role Phone Unavailable Primary Care Provider Unavailabl e Encounter Details Date Type Department Care Team (Late st Contact Info) Description 06/08/2005 15:12 EST Hospital Encounter [facility] - Maple conversion [address] [place] [address] Linette Mccarthy [address] [place] [place] [address] Social History Tobacco Use Types Packs/Day Years [...] Info) Description 12/27/2023 10:15 EDT Office Visit [facility] Foot & Ankle Program [place] [address] Beth Carrera NP [address] [place] [address] 01/17/2024 14:10 EDT Office Visit [facility] Dermatology 5th Floor [facility] [address] [place], [place] [address] Jun Le MD [address] [place], [place] [address] documented as of this encounter Visit Diagnoses Not on filedocumented in this encounter
--- OUTSIDE RECORDS SUMMARY | 2023-12-01 21:59 | XMS_ITS | Encounter Summary ---
Author Organization [facility] Address [address] [place] [address] Care Team Providers Care Bowling Alley Mechanic Name Role Phone Gabriela Zaldivar MD Primary Care Provider + [phone] Jalil Mathis MD Primary Care Provider [phone] Encounter Details Date Type Department Care Team (Late st Contact Info) Description 12/14/2006 Office Visit [facility] - Maple conversion [address] [place] [address] Sudarshan Qiu MD [address] [place] [address] Social History Tobacco Use Types Packs/Day Years Used Date Smoking Tobacco: Never Assessed Sex and Gender Information Value Date Recorded Sex Assigned at Not on file Gender Identity Not on file Sexual Orientation Not on file documented as of this encounter Progress Notes * Sudarshan Qiu MD - 06/02/2009 0421 EST [facility] - Physician Summary Registration Date/Time: 12/14/2006 20:16 AMMENDED REPORT - SEE ADDENDA BELOW Arrived- By private vehicle. Historian- grandmother, grandfather and guardian. HISTORY OF PRESENT ILLNESS Chief Complaint: DYSURIA. This started First noted 3 d/a, then no complaints again until today. andstill present. It has been waxing/waning. The symptoms are described as mild. The patient has had genital lesions (Granmother checked, thought a little redness around outer vagina.). She has had pain with urination. No abdominal pain, low back pain, urinary frequency or hematuria. The patient has had similar symptoms previously (Per pt's mother pt has had UTI in past.). REVIEW OF SYSTEMS No vomiting, diarrhea, fever, chills or anorexia. No fatigue, nasal congestion or discharge, sore throat or skin lesions. PAST HISTORY See nurses notes. Medications: The patient's medications have been reviewed. Allergies: The patient's allergies have been reviewed. SOCIAL HISTORY Residence: Grandparents took custody , Telma was in household with drug use. No known hx of sexual abuse.. ADDITIONAL NOTES The nursing notes have been reviewed. PHYSICAL EXAM Appearance: Alert. Oriented X3. No acute distress. Vital Signs: Have been reviewed. HEENT: Normal external inspection. Neck: Neck supple. Respiratory: No respiratory distress. Breath sounds normal. Abdomen: Abdomen soft and nontender. Back: Normal external inspection. : (Examination without speculum. Minimal erythema periurethral/intraoitus. No discharge. No lesions. No signs of trauma.). Skin: Normal skin color. Skin warm and dry. No rash. Neuro: Mood/affect normal. LABS, X-RAYS, AND EKG Urinalysis: Urine dipstick negative. Lab Tests Pending: Urine culture. PROGRESS AND PROCEDURES Patient/family counseled. Disposition: Discharged home. Condition: stable. CLINICAL IMPRESSION Dysuria. INSTRUCTIONS If Telma's symptoms do not resolve over the next 2-3 days (use gentle soap and avoid irritants as discussed), follow up with your doctor with consideration of further evaluation. If fevers develope, follow up sooner.. (Electronically signed by Sudarshan Qiu M.D. 12/14/2006 22:24) Addenda for TELMA WADE VisitID: [id number] Date: 12/14/2006 12/14/2006 20:17 Pt was self referred to [facility]. Pt will call and notify their PCP of visit. signed by Lani Garcia - 12/14/2006 20:17) 12/14/2006 22:17 Manager Resort called at 2014 to page security for lab medicinal plant picker signed by Marie Solis L.P.N. - 12/14/2006 22:17) 12/16/2006 11:36 Bact Cx Urine - No growth Not on abx. signed by Maximino Oro A.P.R.N. - 12/16/2006 11:36) Care Center - Nursing Summary Registration Date/Time: 12/14/2006 20:16 TRIAGE Initial Assessment Triage time 20:42. --2047 Marie Solis L.P.N. HR: 83. Weight = 58 lbs.. --2049 Idalia Pace, . Medications Benadryl Liquid : at bedtime- (itching). --2047 Marie Solis L.P.N.. Allergies No known drug allergies. --2047 Marie Solis L.P.N.. History Chief Complaint: (dysuria). Onset (about 4 days). Pain level: patient is conversant, able to smile, laugh; unable to obtain. Nofever, vomiting or diarrhea. PAST HX: Negative. No infectious disease exposure. No history of previous surgery. Immunizations: up-to-date. SOCIAL HX: Not exposed to second-hand smoke at home. No report of abuse. Caregiver- grandmother andgrandfather. Patient attends daycare. Arrived by private vehicle and accompanied by grandmother, grandfather and guardian. Historian: patient and grandmother, grandfather and guardian. --2047 Marie Solis L.P.N.. PHYSICAL ASSESSMENT Alert. The patient makes eye contact. Awakens easily. Smiles. Active. Appears in no acute distress.Respirations not labored. Abdomen nontender. Mucous membranes are pink. Skin is warmand dry. --2049Marie Solis L.P.N.. NURSING PROGRESS NOTES Patient identifiers checked. Call light placed in reach of family. Side rails up x 2. Patient readyfor evaluation- chart flagged. --2049 Marie Solis L.P.N.. DISPOSITION / DISCHARGE Condition at departure: unchanged and stable. Fall risk assessment completed. No fall risk identified. No learning barriers present. Discharge instructions reviewed with the family. Family verbalizedunderstanding. (UC added). The patient was discharged home and accompanied by family. The patient left the Emergency Department ambulatory and via private vehicle. Family member driving. Patient has no belongings. --2215 Marie Solis L.P.N.. Locked/Released at 12/14/2006 22:15 by Marie Solis L.P.N. documented in this encounter Plan of Treatment Upcoming Encounters Date Type Department Care Team (Late st Contact Info) Description 12/27/2023 10:15 EDT Office Visit [facility] Foot & Ankle Program - [address] [phone] Beth Carrera NP [address] [place] [phone] 01/17/2024 14:10 EDT Office Visit [facility] Dermatology 5th Floor [facility] [address] [place], [place] [address] Jun Le MD [address] [place], [place] [address] documented as of this encounter Visit Diagnoses Not on filedocumented in this encounter Care Teams Bowling Alley Mechanic Relationship Specialty Start Date End Date Gabriela Zaldivar MD [address] [place] [phone] PCP - General 05/31/09 01/05/10 Jalil Mathis MD [address] [place] [phone] PCP - General 10/25/08 05/30/09 documented as of this encounter
--- OUTSIDE RECORDS SUMMARY | 2023-12-01 21:59 | XMS_ITS | Encounter Summary ---
Author Organization [facility] Address [address] [place] [address] Care Team Providers Care Hose Tender Name Role Phone Unavailable Primary Care Provider Unavailabl e Encounter Details Date Type Department Care Team (Latest Contact Info) Description 12/14/2006 20:07 EDT Hospital Encounter [facility]- [address] [address] Sudarshan Qiu MD [address] [place] [phone] Discharge Disposition: Auto Discharge Social History Tobacco [...] Info) Description 12/27/2023 10:15 EDT Office Visit [facility] Foot & Ankle Program - [address] [facility] [place] [address] Beth Carrera NP [address] [place] [address] 01/17/2024 14:10 EDT Office Visit [facility] Dermatology 5th Floor [facility] [address] [place], [place] [phone] Jun Le MD [address] [place] [address] documented as of this encounter Visit Diagnoses Not on filedocumented in this encounter
--- OUTSIDE RECORDS SUMMARY | 2023-12-01 21:59 | XMS_ITS | Encounter Summary ---
Author Organization [facility] Address [address] [place] [address] Care Team Providers Care Electron Gun Assembler Name Role Phone Jalil Mathis MD Primary Care Provider [phone] Encounter Details Date Type Department Care Team (Late st Contact Info) Description 02/23/2006 Before PRISM Converted Visit (Maple) [facility] - Maple conversion [address] [place], [place] [address] Geronimo Lew MD [address] [facility], [address] [place] [phone] Social History Tobacco Use Types Packs/Day Years Used Date Smoking Tobacco: Never Assessed Sex and Gender Information Value Date Recorded Sex Assigned at Not on file Gender Identity Not on file Sexual Orientation Not on file documented as of this encounter Progress Notes * Geronimo Lew MD - 04/05/2009 1352 EST DIVISION OF OTOLARYNGOLOGY PROGRESS/FOLLOWUP NOTE - 02/23/2006 S:has had no troubles since her last visit. She has had some ear infections treated successfully with ear drops. She has been to the ER. She has had some blood drainage. Speech and language are normal. Mom is concerned about her ears. O:alert, cooperative female in no distress. Both tubes are in place. There is no infection or drainage. Oral cavity reveals 2+ tonsils. Palpation of the neck reveals no adenopathy. Nasal exam is normal today with a midline septum and normal turbinates without discharge. Tympanograms reveal high volume and flat today. A: Recurrent otitis media with tube. P: Follow up in six months. Signed by Geronimo Lew MD 02/24/2006 16:38 Marcelo Bruno MD Geronimo Lew MD - Geronimo Lew MD A - wlp Job ID: [id number] Document ID: [id number] cc: documented in this encounter Plan of Treatment Upcoming Encounters Date Type Department Care Team (Late st Contact Info) Description 12/27/2023 10:15 EDT Office Visit [facility] Foot & Ankle Program - [address] [phone] Bteh Carrera NP [address] [place] [address] 01/17/2024 14:10 EDT Office Visit [facility] Dermatology 5th Floor [facility] [address] [place] [address] Jun Le MD [address] [place] [address] documented as of this encounter Visit Diagnoses Not on filedocumented in this encounter Care Teams Electron Gun Assembler Relationship Specialty Start Date End Date Jalil Mathis MD [address] [place] [phone] PCP - General 10/25/08 05/30/09 documented as of this encounter
--- OUTSIDE RECORDS SUMMARY | 2023-12-01 21:59 | XMS_ITS | Encounter Summary ---
Author Organization [facility] Address [address] [place] [address] Care Team Providers Care City Councilman Name Role Phone Unavailable Primary Care Provider Unavailabl e Encounter Details Date Type Department Care Team (Late st Contact Info) Description 05/18/2007 15:47 EST Hospital Encounter [facility] - Maple conversion [address] [place] [address] Jalil Mathis MD [address] [place] [phone] Tessa Saab MD [address] [place] [address] [address] [place] [address] Social History Tobacco Use Types Packs/Day Years [...] Info) Description 12/27/2023 10:15 EDT Office Visit [facility] Foot & Ankle Program - [address] [place] [address] Beth Carrera, RUPA [address] [place] [address] 01/17/2024 14:10 EDT Office Visit [facility] Dermatology 5th Floor [facility] [address] [place], [place] [phone] Jun Le MD [address] [place], [place] [address] documented as of this encounter Visit Diagnoses Not on filedocumented in this encounter
--- OUTSIDE RECORDS SUMMARY | 2023-12-01 21:59 | XMS_ITS | Encounter Summary ---
Author Organization [facility] Address [address] [place] [address] Care Team Providers Care Occupational Rehabilitation Aide Name Role Phone Unavailable Primary Care Provider Unavailabl e Encounter Details Date Type Department Care Team (Latest Contact Info) Description 2003 18:35 EST - 2003 11:59 EST Hospital Encounter [facility] Nursery Unit [address] [place] [address] Dante Sandhu MD Discharge Disposition: Home-Health Care Svc Social History Tobacco Use Types Packs/Day Years Used Date Smoking Tobacco: Never Assessed Sex and Gender Information Value Date Recorded Sex Assigned at Not on file Gender Identity Not on file Sexual Orientation Not on file documented as of this encounter Discharge Disposition Disposition Code Departure Means Destination Home-Health Care Svc documented in this encounter Plan of Treatment Upcoming Encounters Date Type Department Care Team (Late st Contact Info) Description 12/27/2023 10:15 EDT Office Visit [facility] [place] [facility] Program - [address] [place] [address] Beth Carrera NP [address] [place] [phone] 01/17/2024 14:10 EDT Office Visit [facility] Dermatology 5th Floor [facility] [address] [place] [address] Jun Le MD [address] [place] [address] documented as of this encounter Visit Diagnoses Not on filedocumented in this encounter
--- OUTSIDE RECORDS SUMMARY | 2023-12-01 21:59 | XMS_ITS | Encounter Summary ---
Author Organization [facility] Address [address] [place] [address] Care Team Providers Care Foundry Process Engineer Name Role Phone Unavailable Primary Care Provider Unavailabl e Encounter Details Date Type Department Care Team (Late st Contact Info) Description 12/25/2005 16:13 EDT Hospital Encounter [facility] - Maple conversion [address] [place] [address] Tessa De La Paz MD [address] [phone] Discharge Disposition: Auto Discharge Social History Tobacco [...] Description 12/27/2023 10:15 EDT Office Visit [facility] Foot & Ankle Program - Goldy [facility] [address] [place], [place] [phone] Beth Carrera NP [address] [place] [address] 01/17/2024 14:10 EDT Office Visit [facility] Dermatology 5th Floor [facility] [address] [place] [address] Jun Le MD [address] [place], [place] [address] documented as of this encounter Procedures Procedure Name Priority Date/Time Associated Diagnosis Comments BACTERIAL CULTURE, URINE Routine 12/25/2005 16:52 EDT documented in this encounter Results * BACTERIAL CULTURE, URINE (12/25/2005 16:52 EDT) Specimen Description Urine [facility] Result Mixed organisms, culture interpretation difficult. If clinically indicated and patient is not catheterized, consider recollecting sample via in and out catheter. If patient has a chronic indwelling catheter and requires antibiotic treatment, consult laboratory for further testing. [facility] Report Status Final [id number] [facility] 12/25/2005 16:5 2 EDT 12/25/2005 18:05 EDT Tessa De La Paz MD MICROBIOLOGY - GENER AL ORDERABLES [facility] [address] [place] [address] documented in this encounter Visit Diagnoses Not on filedocumented in this encounter
--- OUTSIDE RECORDS SUMMARY | 2023-12-01 21:59 | XMS_ITS | Encounter Summary ---
Author Organization [facility] Address [address] [place] [address] Care Team Providers Care Coremaker Supervisor Name Role Phone Unavailable Primary Care Provider Unavailabl e Encounter Details Date Type Department Care Team (Latest Contact Info) Description 02/15/2007 16:16 EST Hospital Encounter [facility] - Maple conversion [address] [place], [place] [address] Rosa Maria Delong MD Regan, Andrea, MD [address] [place] [address] [address] [place] [phone] Discharge Disposition: Auto Discharge Social History Tobacco [...] Description 12/27/2023 10:15 EDT Office Visit [facility] Foot & Ankle Program - Goldy [facility] [place] [address] Beth Carrera NP [address] [place] [address] 01/17/2024 14:10 EDT Office Visit [facility] Dermatology 5th Floor [facility] [address] [place], [place] [phone] Jun Le MD [address] [place] [address] documented as of this encounter Visit Diagnoses Not on filedocumented in this encounter
--- OUTSIDE RECORDS SUMMARY | 2023-12-01 21:59 | XMS_ITS | Encounter Summary ---
Author Organization [facility] Address [address] [place] [address] Care Team Providers Care Bilingual Spanish Inbound Sales Name Role Phone Unavailable Primary Care Provider Unavailabl e Encounter Details Date Type Department Care Team (Late st Contact Info) Description 07/11/2007 10:46 EDT Hospital Encounter [facility] - Maple conversion [address] [place], [place] [address] Jalil Bertrand MD Andersson-Swayze, Jean Kimball, MD [address] [place] [address] [address] [place] [address] Social History Tobacco Use Types [...] Visit [facility] Foot & Ankle Program - [address] [place] [address] Beth Carrera NP [address] [place] [address] 01/17/2024 14:10 EDT Office Visit [facility] Dermatology 5th Floor [facility] [address] [place] [address] Jun Le MD [address] [place], [place] [phone] documented as of this encounter Visit Diagnoses Not on filedocumented in this encounter
--- OUTSIDE RECORDS SUMMARY | 2023-12-01 21:59 | XMS_ITS | Encounter Summary ---
Author Organization [facility] Address [address] [place] [address] Care Team Providers Care Automobile Designer Name Role Phone Unavailable Primary Care Provider Unavailabl e Encounter Details Date Type Department Care Team (Late st Contact Info) Description 04/22/2006 15:41 EST Hospital Encounter [facility] - Maple conversion [address] [place] [address] Gabriela Zaldivar MD [address] [place] [address] Social History Tobacco Use Types Packs/Day Years [...] [facility] [place] [address] Beth Carrera NP [address] [place] [address] 01/17/2024 14:10 EDT Office Visit [facility] Dermatology 5th Floor [facility] [address] [place] [address] Jun Le MD [address] [place] [address] documented as of this encounter Procedures Procedure Name Priority Date/Time Associated Diagnosis Comments GROUP A STREP CULTURE Routine 04/22/2006 16:21 EST documented in this encounter Results * PHARYNGITIS CULTURE (04/22/2006 16:21 EST) Specimen Description Throat [facility] Result Few STREPTOCOCCUS , BETA HEMOLYTIC GROUP A (STREPTOCOCCU S PYOGENES) With usual tex [facility] Report Status Final [id number] [facility] 04/22/2006 16:2 1 EST 04/22/2006 19:13 EST Gabriela Zaldivar MD MICROBIOLOGY - GENER AL ORDERABLES [facility] [address] [place] [address] documented in this encounter Visit Diagnoses Not on filedocumented in this encounter
--- OUTSIDE RECORDS SUMMARY | 2023-12-01 21:59 | XMS_ITS | Encounter Summary ---
Author Organization [facility] Address [address] [place] [address] Care Team Providers Care Smt Technician Name Role Phone Unavailable Primary Care Provider Unavailabl e Encounter Details Date Type Department Care Team (Late st Contact Info) Description 02/23/2006 9:58 EST Hospital Encounter [facility] [address] [place] [address] Geronimo Lew MD [address] [facility], [address] [place] [phone] Social History Tobacco Use Types Packs/Day Years [...] [facility] - [facility] [place] [address] Beth Carrera NP [address] [place] [address] 01/17/2024 14:10 EDT Office Visit [facility] Dermatology 5th Floor [facility] [address] [place] [address] Jun Le MD [address] [place], [place] [phone] documented as of this encounter Visit Diagnoses Not on filedocumented in this encounter
--- OUTSIDE RECORDS SUMMARY | 2023-12-01 21:59 | XMS_ITS | Encounter Summary ---
Author Organization [facility] Address [address] [place] [address] Care Team Providers Care Supervisor Parking Lot Name Role Phone Gabriela Zaldivar MD Primary Care Provider [phone] Jalil Mathis MD Primary Care Provider [phone] Encounter Details Date Type Department Care Team (Late st Contact Info) Description 09/07/2004 Office Visit [facility] - Maple conversion [address] [place] [address] Sudarshan Qiu MD [address] [place] [address] Social History Tobacco Use Types Packs/Day Years Used Date Smoking Tobacco: Never Assessed Sex and Gender Information Value Date Recorded Sex Assigned at Not on file Gender Identity Not on file Sexual Orientation Not on file documented as of this encounter Progress Notes * Sudarshan Qiu MD - 06/12/2009 0051 EST [facility] - Physician Summary Registration Date/Time: 09/07/2004 14:26 Arrived- By private vehicle. Historian- mother and father. HISTORY OF PRESENT ILLNESS Chief Complaint- FEVER. This started today and is still present. It was gradual in onset. Symptoms are described as moderate. She has had fever tympanically (105). The patient has had a nasal discharge and skin rash. She has had a mild cough productive of scant amounts of clear sputum (for 4 days).The patient has had vomiting. The vomiting has occurred twice and was post-tussive. No diarrhea, ear-pulling or decreased urine output. The patient was seen recently at another facility in the office. REVIEW OF SYSTEMS The patient has been fussy (for 2 days). PAST HISTORY The patient has had ear infection. Immunization status is up-to-date. Medications: See nurses notes. Allergies: See nursesnotes. ADDITIONAL NOTES The nursing notes have been reviewed. PHYSICAL EXAM Appearance: Alert. Attentive. The patient makes eye contact. Active. Vital Signs: The vital signs have been reviewed. Eyes: Conjunctivae and eyelids normal. ENT: Right tympanic membrane moderately erythematous; left tympanic membrane moderately erythematous. Pharynx normal. Neck: Neck supple. No neck mass. CVS: Normal heart rate and rhythm. Heart sounds normal. Respiratory: No respiratory distress. Breath sounds normal. No retractions, grunting, rales, wheezes or prolonged expiration. Abdomen: Abdomen soft and nontender. No organomegaly. Skin: Skin warm and dry. Skin rash (approx 15 2 mm erythematous papules distributed on trunk and LE/UE.). Red diaper rash. No swelling in area of diaper rash or satellite lesions in area of diaper rash. Neuro: Mental status is normal for the patient's age. PROGRESS AND PROCEDURES Patient/family counseled. Disposition: Discharged home. Condition: stable. CLINICAL IMPRESSION Otitis media. INSTRUCTIONS Drink plenty of fluids. (See Dr Lew as planned Wednesday. If you have worsening fever, dehydration or breathing difficulties, call your doctor/go to the ED.). Prescription Medications: Augmentin Liquid 200mg/5 mL: take six (6) mL orally every 12 hours for 7 days. No refill. OTC Medications: Take acetaminophen (Tylenol, Datril, etc.) and ibuprofen (Advil, Nuprin, etc.) according to label instructions. (Electronically signed by Sudarshan Qiu M.D. 09/07/2004 21:17) Care Center - Nursing Summary Registration Date/Time: 09/07/2004 14:26 TRIAGE Initial Assessment Triage time 14:31 HR: 142 RR: 32 Temp: 103.4 axillary Weight = 30 lbs. --1435 Gabby Cortez M.A. Medications Tylenol (last dose 1200). --1435 Gabby Cortez M.A. Allergies No known drug allergies. --1435 Gabby Cortez M.A. History Chief Complaint: FEVER and COUGH and (rash on bottom). PAST HX: Ear infection. --1435 Gabby Cortez M.A. Onset- about 4 days The patient has had vomiting (gagging from forcefull coughing). No diarrhea. PAST HX: Ear infection. --1440 Marie Solis L.P.N. PHYSICAL ASSESSMENT Alert. The patient makes eye contact. Smiles. Active. Appears in no acute distress. Respirations not labored. (drinking fluids well, many wet diapers-per mother). Mucous membranes are pink. Moderate,raised skin rash (buttock). --1442 Marei Solis L.P.N. NURSING PROGRESS NOTES Progress Patient gowned (undressed down to diaper). Call light placed in reach of parent. Bed placed in lowest position. Patient ready for evaluation- chart flagged and ED physician notified. --1443 Marie Solis L.P.N. Checked patient name and birthdate (with mother). IBUPROFEN 160 mg liq/8ml PO. --1455 [place] HuitronPGeraldN. Temp: 102.8 tympanic --1546 Marie Solis L.P.NGerald DISPOSITION / DISCHARGE Condition at departure: stable. Fall risk assessment completed. No fall risk identified. No barriers to learning present. Discharge instructions reviewed with the parent. Reviewed medication; prescription (s) given to the parent (Augmentin). Parent verbalized understanding. Written instructions provided in Mongolian. The patient was discharged home and accompanied by parent. The patient left the Emergency Department ambulatory and via private vehicle. Parent driving. Patient has no belongings. --0267 Marie Solis L.P.N. Locked/Released at 09/07/2004 15:57 by Marie Solis L.P.N. documented in this encounter Plan of Treatment Upcoming Encounters Date Type Department Care Team (Late st Contact Info) Description 12/27/2023 10:15 EDT Office Visit [facility] Foot & Ankle Program - [address] [address] Beth Carrera NP [address] [place] [phone] 01/17/2024 14:10 EDT Office Visit [facility] Dermatology 5th Floor [facility] [address] [place], [place] [phone] Jun Le MD [address] [place], [place] [phone] documented as of this encounter Visit Diagnoses Not on filedocumented in this encounter Care Teams Supervisor Parking Lot Relationship Specialty Start Date End Date Gabriela Zaldivar MD [address] [facility] [place] [address] PCP - General 05/31/09 01/05/10 Jalil Mathis MD [address] [place] [phone] PCP - General 10/25/08 05/30/09 documented as of this encounter
--- OUTSIDE RECORDS SUMMARY | 2023-12-01 21:59 | XMS_ITS | Encounter Summary ---
Author Organization [facility] Address [address] [place] [address] Care Team Providers Care Mortarman Name Role Phone Unavailable Primary Care Provider Unavailabl e Encounter Details Date Type Department Care Team (Late st Contact Info) Description 05/19/2005 15:10 EST Hospital Encounter [facility] - Maple conversion [address] [place] [address] Gabriela Zaldivar MD [address] [place] [address] Social History Tobacco Use Types Packs/Day Years [...] Info) Description 12/27/2023 10:15 EDT Office Visit [facility] Foot & Ankle Program [place] [address] Beth Carrera NP [address] [place] [address] 01/17/2024 14:10 EDT Office Visit [facility] Dermatology 5th Floor [facility] [address] [place] [address] Jun Le MD [address] [place] [address] documented as of this encounter Visit Diagnoses Not on filedocumented in this encounter
--- OUTSIDE RECORDS SUMMARY | 2023-12-01 21:59 | XMS_ITS | Encounter Summary ---
Author Organization [facility] Address [address] [place] [address] Care Team Providers Care Green Lumber Grader Name Role Phone Unavailable Primary Care Provider Unavailabl e Encounter Details Date Type Department Care Team (Latest Contact Info) Description 04/22/2004 17:22 EST Hospital Encounter [facility] Emergency Department - [address] [phone] Emergency, MD Ivy Discharge Disposition: Home or [...] [facility] [address] [place] [address] Beth Carrera NP [address] [place] [phone] 01/17/2024 14:10 EDT Office Visit [facility] Dermatology 5th Floor [address] [phone] Jun Le MD [address] [place] [address] documented as of this encounter Visit Diagnoses Not on filedocumented in this encounter
--- NOTE | 2023-12-01 22:49 | ED.GENADUL_ITS ---
Discharge Plan Disposition Patient Disposition: Home Condition: Good Discharge Details Clinical Impression: Acute urticaria Primary Care Provider: Unknown,Unknown ED Provider: Kareem Stanton Home Meds and New Rx's Prescriptions: New prednisone 50 mg tablet 50 mg PO DAILY Qty: 4 0RF loratadine 10 mg capsule 10 mg PO DAILY Qty: 30 0RF No Action Adbry 150 mg/mL syringe 300 mg subcut Q2W Rx Instructions: administer as 2 consecutive 150 mg injections Discharge Instructions Instructions: Hives Additional Instructions: At this time you have mild hives on your knees. This may have been secondary to temperature, contact with an allergen, or something you ate. Please take a detailed food diary for the next few months. Please take the loratadine and prednisone as prescribed. Is been sent to your [facility] on file. If you notice any worsening of your symptoms, or any new symptoms such as vomiting, diarrhea, fever, chills, shortness of breath, chest pain, numbness, weakness, or fainting , please return immediately to the emergency department for reevaluation. Please follow up with your primary care provider as soon as possible for reassessment and reevaluation. As always, it was a pleasure participating in your medical care today. HPI General Date/Time Provider Initiated Documentation: 12/01/23 22:04 . HPI Narrative: This is a very pleasant 18-year-old -[place] Citizen female with a past medical history of systemic dermatitis in the past currently on Adbry, as well as POTS, who presents today for evaluation of rash on her knees. Patient states that tonight at around 8:30 PM [place] the [place] she developed some hives on her knees bilaterally. She took Benadryl at 9:13 AM. Initially the swelling and the hives got worse, but by the time she came to the ER this evening at around 1015 the symptoms had been improving. She admits to some mild symptoms of itchiness all over, but this is quite chronic. She denies nausea vomiting or diarrhea. She denies difficulty breathing. She denies difficulty swallowing or drinking. She did have a taco that may have had some chart knee on it. She denies any other atypical foods. She has no history of anaphylaxis. On review of her history, she does admit to getting swelling when she is exposed to cold air. Related Data Home Medications ?Medication ?Instructions ?Recorded ?Confirmed tralokinumab-ldrm 150 mg/mL 300 mg subcut Q2W 07/02/23 07/02/23 subcutaneous syringe (Adbry) loratadine 10 mg capsule 10 mg PO DAILY #30 caps 12/01/23 prednisone 50 mg tablet 50 mg PO DAILY #4 tabs 12/01/23 Previous Rx's ?Medication ?Instructions ?Recorded loratadine 10 mg capsule 10 mg PO DAILY #30 caps 12/01/23 prednisone 50 mg tablet 50 mg PO DAILY #4 tabs 12/01/23 Allergies Allergy/AdvReac Type Severity Reaction Status Date / Time No Known Allergies Allergy Unverified 10/18/23 15:32 General Stated Complaint: RashLesion STEFANO: 4 Review of Systems All systems reviewed & are unremarkable except as noted in HPI and below Exam Narrative Exam Narrative: 1.Const: Well-nourished, Well-developed, appearing stated age 2.Eyes: PERRL, no conjunctival injection, and symmetrical lids. 3.ENT: Atraumatic external nose and ears. Moist MM. Neck: Symmetric, trachea midline, No thyromegaly. No oral lesions, no signs of airway compromise. 4.CVS: +S1/S2, No murmurs or gallops. Peripheral pulses 2+ and equal in all extremities. Brisk capillary refill in all extremities. 5.RESP: Unlabored respiratory effort. Clear to auscultation bilaterally. No wheezes rales or rhonchi 6.GI: Soft, Nontender/Nondistended, No hepatosplenomegaly. No guarding or rebound. 7.MSK: Normocephalic/Atraumatic, Extremities w/o deformity or ttp No cyanosis or clubbing, Normal movement of all extremities 8.Skin: Warm, Dry. Few scattered minimal hives on the knees. At the previous area where the redness and hives had been was traced out, and there is no longer any evidence of reaction there. 9.Neuro: heel caser II-XII grossly intact. Sensation grossly intact, no focal neurologic deficits. 10.Psych: (AAO) x3. Appropriate mood and affect Course Vital Signs Vital signs: Vital Signs Temperature 36.0 C L 12/01/23 21:48 Pulse 81 12/01/23 21:48 Respiratory Rate 15 12/01/23 21:48 Blood Pressure 145/76 H 12/01/23 21:48 Pulse Oximetry 98 12/01/23 21:48 Temperature 36.0 C L 12/01/23 21:48 Temperature Source Tympanic 12/01/23 21:48 Pulse 81 12/01/23 21:48 Respiratory Rate 15 12/01/23 21:48 Respiratory Effort Normal 12/01/23 21:52 Blood Pressure 145/76 H 12/01/23 21:48 Blood Pressure Position Sitting 12/01/23 21:48 Pulse Oximetry 98 12/01/23 21:48 Oxygen Delivery Method Room Air 12/01/23 21:48 Oxygen Flow Rate 0 12/01/23 21:48 Medical Decision Making This is a very pleasant 18-year-old -[place] Citizen female with a past medical history of systemic dermatitis in the past currently on Adbry, as well as POTS, who presents today for evaluation of rash on her knees. Patient states that tonight at around 8:30 PM while at the fair she developed some hives on her knees bilaterally. She took Benadryl at 9:13 AM. Initially the swelling and the hives got worse, but by the time she came to the ER this evening at around 1015 the symptoms had been improving. She admits to some mild symptoms of itchiness all over, but this is quite chronic. She denies nausea vomiting or diarrhea. She denies difficulty breathing. She denies difficulty swallowing or drinking. She did have a taco that may have had some chart knee on it. She denies any other atypical foods. She has no history of anaphylaxis. On review of her history, she does admit to getting swelling when she is exposed to cold air. Exam demonstrates a few scattered minimal hives on the knees. At the previous area where the redness and hives had been was traced out, and there is no longer any evidence of reaction there. No evidence of other rash on the chest abdomen back or arms. No oral lesions. No signs of anaphylaxis with no vomiting, stomach upset, wheezes, or other system involvement. Symptoms appear to be responding very well to to the Benadryl. Suspect mild contact dermatitis from unknown etiology. Potentially temperature related. Will give a dose of prednisone here, and a prescription for 4 additional days. Will give loratadine here, with recommendations for continued his outpatient. Discussed red flags for which to return. No indication for epinephrine administration, symptoms inconsistent with anaphylaxis. No current clinical evidence of staph scalded skin syndrome, erythema multiforme, erythema migrans, toxic epidermal necrolysis, Calloway-Kendrick syndrome, Kawasaki-like rash, meningococcemia, pemphigus vulgaris, or necrotizing fasciitis. Quality:SDOH Health Related Social Needs: No Data to Display PFSH All Active Problems Acute urticaria (Acute) Social History Smoking/Tobacco Use Status: Never Smoking risk assessment performed?: Yes Alcohol Intake: never Substance use type: does not use Do you feel safe at home: Yes
[2023-12-01] MEDS: Loratidine 10 MG TAB PO (22:59)
[2023-12-01] MEDS: predniSONE 20 MG TAB 60 MG PO (23:00)
== END 2023-12-01 23:00 | disposition home or self-care (01) ==
PROVIDERS: Emergency Provider Student in an Organized Health Care Education/Training Program
DX: L50.8 Other urticaria (principal)
CPT/HCPCS: 99283; 99282; J7512

== ENCOUNTER 2024-02-29 14:32 | Outpatient (CLI) | payer MEDICAID, SELFPAY ==
[2024-02-29 14:22] LABS: ALT 29 U/L (14-59); AST 24 U/L (15-37); Albumin 3.6 g/dL (3.4-5.0); Alkaline Phosphatase 61 U/L (46-116); Bilirubin, Direct 0.1 mg/dL (0.0-0.2); Bilirubin, Total 0.31 mg/dL (0.2-1.0); Total Protein 7.3 g/dL (6.4-8.2)
[2024-02-29 14:23] LABS: C-Reactive Protein < 0.50 mg/dL (<or=0.5)
[2024-02-29 14:32] LABS: TSH (W/Ref FT4) 1.13 uIU/mL (0.36-3.74)
[2024-02-29 14:36] LABS: ALT 36 U/L (14-59); AST 23 U/L (15-37); Albumin 3.6 g/dL (3.4-5.0); Alkaline Phosphatase 60 U/L (46-116); BUN 14 mg/dL (7-18); CREATININE 0.9 mg/dL (0.55-1.02); Calcium 8.8 mg/dL (8.5-10.1); Chloride 108 mmol/L (98-107); Estimated GFR 93.86 (mL/min/1.73m2); Ferritin 55 ng/mL (8-252); Folate 9.8 ng/mL (8.6-20.0); Glucose 109 mg/dL (74-106); Potassium 3.9 mmol/L (3.5-5.1); Sodium 142 mmol/L (136-145); Total Protein 7.3 g/dL (6.4-8.2); Vitamin B12 298 pg/mL (193-986)
[2024-02-29 14:58] LABS: LDH 198 U/L (81-234)
[2024-02-29 21:48] LABS: Reticulocyte Count 1.7 % (0.5-2.5)
[2024-02-29 22:23] LABS: Thyroglobulin Antibody <15 U/mL (<=60); Thyroperoxidase Antibody <28 U/mL (<=60)
[2024-03-01 09:23] LABS: Haptoglobin 102 mg/dL (32-197)
[2024-03-01 14:36] LABS: ANA Interpretation Negative (Negative)
== END 2024-02-29 14:33 | disposition home or self-care (01) ==
LOC: LBO 14:32
PROVIDERS: Physician Assistant; Visit Provider Allergy & Immunology
DX: L50.1 Idiopathic urticaria (principal); D50.9 Iron deficiency anemia, unspecified; R74.8 Abnormal levels of other serum enzymes
CPT/HCPCS: 36415; 80053; 80076; 85045; 86376; 82607; 82728; 82746; 83010; 83615; 84443; 86038; 86140

== ENCOUNTER 2024-09-25 00:16 | Outpatient (CLI) | payer MEDICAID, SELFPAY ==
--- NOTE | 2024-09-25 | DI.MRI_ITS ---
Exam(s) MR LOWER JOINT RT WO EXAM: MR LOWER JOINT RT WO CLINICAL HISTORY: Rt Patellofemoral syndrome M22.2X1, Internal derangment of rt knee M23.91. TECHNIQUE: Multiplanar multisequence MRI was performed. COMPARISON: No exams were available for comparison FINDINGS: BONES: There is no fracture or contusion pattern. JOINTS: Articular cartilage is unremarkable. No effusion is present. TENDONS: Extensor mechanism: There is tendon thickening and hyperintensity in the proximal patellar tendon. There is mild hyperintensity in the inferior aspect of the adjacent patella. Medial retinaculum: Unremarkable. Lateral retinaculum: Unremarkable. Popliteus: Unremarkable. MUSCLES: Unremarkable. MENISCI: The medial meniscus is unremarkable. The lateral meniscus is unremarkable. SOFT TISSUES: There is a small popliteal cyst. LIGAMENTS: Anterior Cruciate: Unremarkable. Posterior Cruciate: Unremarkable. Medial Collateral:Unremarkable. Lateral Collateral: Unremarkable. OTHER: IMPRESSION: Findings consistent with patellar tendinitis. DATA REPOSITORY:
== END 2024-09-25 00:36 ==
LOC: DI 00:16
PROVIDERS: Visit Provider Specialist
DX: M22.2X1 Patellofemoral disorders, right knee
CPT/HCPCS: 73721

== ENCOUNTER 2024-11-02 21:09 | Outpatient (REF) | payer MEDICAID, SELFPAY | END 2024-11-02 21:10 | disposition home or self-care (01) | LOC: LBN 21:09 | PROVIDERS: Visit Provider Physician Assistant Medical | DX: J02.9 Acute pharyngitis, unspecified (principal) | CPT/HCPCS: 87070 ==

== ENCOUNTER 2024-11-13 14:28 | Outpatient (REF) | payer MEDICAID, SELFPAY ==
[2024-11-14 12:54] LABS: Chlamydia Result Negative (Negative); GC Result Negative (Negative)
== END 2024-11-13 14:29 | disposition home or self-care (01) ==
LOC: LBN 14:28
PROVIDERS: Visit Provider Obstetrics & Gynecology
DX: Z12.4 Encounter for screening for malignant neoplasm of cervix (principal)
CPT/HCPCS: 87491; 87591; 88142

== ENCOUNTER 2024-11-13 15:35 | Outpatient (CLI) | payer MEDICAID, SELFPAY ==
[2024-11-14 10:11] LABS: HIV-1/2 Ag & Ab Screen Negative (Negative)
[2024-11-14 11:23] LABS: Syphilis Serology (RPR) Negative (Negative)
== END 2024-11-13 15:36 | disposition home or self-care (01) ==
LOC: LBO 15:36
PROVIDERS: Visit Provider Obstetrics & Gynecology
DX: Z91.89 Other specified personal risk factors, not elsewhere classified (principal); Z01.419 Encounter for gynecological examination (general) (routine) without abnormal findings
CPT/HCPCS: 36415; 87389; 86592